=== PATIENT | female | born 1940 | race Caucasian/White ===

== ENCOUNTER 2018-02-12 19:50 | Inpatient (IN) | payer MEDICARE ==
[2018-02-12] MEDS ORDERED: SODIUM CHLORIDE 0.9% FLUSH 10 ML FLUSH IV FLUSH PRN (22:30)
[2018-02-12] MEDS ORDERED: ACETAMINOPHEN 325 MG TAB PO PRN (22:30)
[2018-02-12] MEDS ORDERED: MAGNESIUM HYDROXIDE SUSP 30 ML CUP PO PRN (22:30)
[2018-02-12] MEDS ORDERED: ONDANSETRON HCL 4 MG/2 ML VIAL IVP PRN (22:30)
[2018-02-12] MEDS ORDERED: NALOXONE HCL 0.4 MG/ML AMP IV PUSH PRN (22:30)
[2018-02-12] MEDS ORDERED: BISACODYL 10 MG SUPP RECTAL PRN (22:30)
[2018-02-12 22:33] VITALS: BP 143/70; PULSE 117; RESP 20; TEMP 97; O2SAT 100
[2018-02-12] MEDS ORDERED: IPRASOL INH (22:46)
[2018-02-12] MEDS ORDERED: NOVOLOGP2 SQ (22:46)
[2018-02-12] MEDS ORDERED: ENOX40P SQ (22:46)
[2018-02-12] MEDS ORDERED: SOLU500I IV (22:46)
[2018-02-12 23:00] VITALS: PULSE 119
[2018-02-12] MEDS ORDERED: RESP: ALBUTEROL 2.5 MG/IPRATROPIUM 0.5 MG NEB (PRN) NEB (23:00)
--- NOTE | 2018-02-12 23:07 | HHI.HP ---
HPI Service [facility] Hospitalists Primary Care Physician Unknown Admission Diagnosis Myasthenia Gravis . Diagnoses: (1) Myasthenia gravis Chief Complaint: Myasthenia gravis Travel History International Travel<30 Days: No Contact w/Intl Traveler <30 Da: No History of Present Illness Mrs. Vasquez is a 77 y/o female with a history of myasthenia gravis, congestive heart failure, atrial fibrillation, paroxysmal SVT, asthma, GERD, osteoporosis with compression fractures T5 through T8, and recent strep viridans bacteremia who presented to [facility] from [facility] where she has been hospitalized since 01/27/[address] Zacarias saw the patient at [facility] and recommended treatment with Rituxan. She was unable to get this treatment at that facility and was therefore transferred here under the care of the hospitalist team. The patient is seen in her hospital room. She denies any recent fever or chills. She reports progressively worsening symptoms of myasthenia gravis. Her conversation has to be cut short because she become short of breath with any extensive conversation. Oxygen saturation is 100 % on 3 liters NC. Review of Systems Except as stated in HPI: all other systems reviewed are Neg Past Family Social History Past Medical History Myasthenia gravis Congestive heart failure Atrial fibrillation with rapid ventricular response Paroxysmal SVT COPD/asthma GERD Osteoporosis with compression fracture T5 through T8 Strep viridans bacteremia Pneumonia . Past Surgical History Hysterectomy Bilateral cataract surgery . Reported Medications Reported Meds & Active Scripts Active Reported Pulmicort Respules (Budesonide) 0.5 Mg/2 Ml Neb 0.5 Mg NEB Q12HR NEB Spiriva Handihaler (Tiotropium Inh) 18 Mcg Cap 18 Mcg INH DAILY 1 capsule = 18 mcg Simethicone 125 Mg Cap 80 Mg PO TID PRN Protonix (Pantoprazole Sodium) 40 Mg Tab 40 Mg PO DAILY Florastor (Saccharomyces Boulardii) 250 Mg Cap 250 Mg PO BID Nystatin Liq 100,000 unit/ml Susp 5 Ml SWISH-SWAL QID Montelukast (Montelukast Sodium) 10 Mg Tab 10 Mg PO HS Metoprolol Tartrate 75 Mg Tab 75 Mg PO BID Cymbalta DR (Duloxetine HCl) 30 Mg Capdr 30 Mg PO DAILY Cardizem (Diltiazem HCl) 120 Mg Tab 120 Mg PO QID Diltiazem ER 12 HR (Diltiazem HCl) 120 Mg Caper 120 Mg PO Q6HR Digoxin 0.25 Mg Tab 0.25 Mg PO DAILY Aspirin 81 Low Dose (Aspirin) 81 Mg Chew 81 Mg CHEW DAILY Lovenox Inj (Enoxaparin Sodium) 40 Mg/0.4 Ml Syr 40 Mg SQ BID Novolog Inj (Insulin Aspart) 1,000 Unit/10 Ml Vial 0 SQ DIRECTED Sliding Scale as directed. Solu-Medrol Inj (Methylprednisolone Sodium Succinate) 500 Mg/4 Ml Inj 40 Mg IV BID Duoneb (Ipratropium-Albuterol Neb) 0.5-2.5 Mg/3 Ml Neb 1 Nebule INH Q6HR NEB . Allergies: Coded Allergies: azathioprine (Verified Allergy, Severe, 02/12/18) Painful rash all over face and body cephalexin (Verified Allergy, Severe, Rash, 02/12/18) rash all over face and chest Family History Son had cystic fibrosis, he is . Social History Tobacco: Remote history of smoking, quit 1979 Moved with her from [place] last month to be near her daughter -her has dementia and is in an SNF . Physical Exam Vital Signs Vital Signs Date Time Temp Pulse Resp B/P (MAP) Pulse Ox O2 Delivery O2 Flow Rate FiO2 02/12/18 22:33 97.0 117 20 143/70 (94) 100 Physical Exam CONSTITUTIONAL: This is a chronically ill-appearing elderly female patient, who becomes dyspneic with extended conversation. INTEGUMENTARY: Extensive bruising noted on all extremities. Cool and dry. HEAD: Atraumatic. Normocephalic. EYES: No scleral icterus. No injection or drainage. ENT: Nose without bleeding, purulent drainage. NECK: Trachea midline. No JVD. CARDIOVASCULAR: Regular rate and rhythm without murmurs, gallops, or rubs. RESPIRATORY: Lung sounds with diffuse coarse rhonchi throughout lung de jesus. GASTROINTESTINAL: Abdomen soft, non-tender, nondistended. No guarding. MUSCULOSKELETAL: Extremities without clubbing, cyanosis. No calf tenderness. NEUROLOGICAL: Normal speech. Patient is awake, alert, and oriented. Significant generalized weakness is noted. . Laboratory WBC 11.9, hemoglobin 8.5, hematocrit 29, platelets 180,000, sodium 133, potassium 4.8, BUN 31, creatinine 0.6, estimated GFR 87, glucose 153, AST 35, ALT 59, magnesium 2.2 on 02/12/2018 from records reviewed from [facility] . Imaging Chest x-ray personally reviewed from [facility] and lungs appear clear . Caprini VTE Risk Assessment Caprini VTE Risk Assessment: Mod/High Risk (score >= 2) Caprini Risk Assessment Model Point Value = 1 Point Value = 2 Point Value = 3 Point Value = 5 Age 41-60 Minor surgery BMI > 25 kg/m2 Swollen legs Varicose veins or History of unexplained or recurrent spontaneous Oral contraceptives or hormone replacement Sepsis (< 1 month) Serious lung disease, including pneumonia (< 1 month) Abnormal pulmonary function Acute myocardial infarction Congestive heart failure (< 1 month) History of inflammatory bowel disease Medical patient at bed rest Age 61-74 Arthroscopic surgery Major open surgery (> 45 min) Laparoscopic surgery (> 45 min) Malignancy Confined to bed (> 72 hours) Immobilizing plaster cast Central venous access Age >= 75 History of VTE Family history of VTE Factor V Leiden Prothrombin [id number] Lupus anticoagulant Anticardiolipin antibodies Elevated serum homocysteine Heparin-induced thrombocytopenia Other congenital or acquired thrombophilia Stroke (< 1 month) Elective arthroplasty Hip, pelvis, or leg fracture Acute spinal cord injury (< 1 month) Prophylaxis Regimen Total Risk Factor Score Risk Level Prophylaxis Regimen 0-1 Low Early ambulation 2 Moderate Order ONE of the following: *Sequential Compression Device (SCD) *Heparin 5000 units SQ BID 3-4 Higher Order ONE of the following medications: *Heparin 5000 units SQ TID *Enoxaparin/Lovenox 40 mg SQ daily (WT < 150 kg, CrCl > 30 mL/min) *Enoxaparin/Lovenox 30 mg SQ daily (WT < 150 kg, CrCl > 10-29 mL/min) *Enoxaparin/Lovenox 30 mg SQ BID (WT < 150 kg, CrCl > 30 mL/min) AND/OR *Sequential Compression Device (SCD) 5 or more Highest Order ONE of the following medications: *Heparin 5000 units SQ TID (Preferred with Epidurals) *Enoxaparin/Lovenox 40 mg SQ daily (WT < 150 kg, CrCl > 30 mL/min) *Enoxaparin/Lovenox 30 mg SQ daily (WT < 150 kg, CrCl > 10-29 mL/min) *Enoxaparin/Lovenox 30 mg SQ BID (WT < 150 kg, CrCl > 30 mL/min) AND *Sequential Compression Device (SCD) Assessment and Plan Problem List: (1) Myasthenia gravis ICD Code: G70.00 - Myasthenia gravis without (acute) exacerbation Assessment and Plan Mrs. Vasquez is a 77 y/o female with a history of myasthenia gravis, congestive heart failure, atrial fibrillation, paroxysmal SVT, asthma, GERD, osteoporosis with compression fractures T5 through T8, and recent strep viridans bacteremia who presented to [facility] from [facility] where she has been hospitalized since 01/27/[address] Zacarias saw the patient at [facility] and recommended treatment with Rituxan. She was unable to get this treatment at that facility and was therefore transferred here under the care of the hospitalist team. Myasthenia Gravis - consult Neurology - appreciate assistance - consult medical oncology - Dr. Zacarias saw the patient at [facility] and recommended treatment with Rituxan - RT to check NIF q4h - if < 20, may require intubation - NPO due to failed swallow evaluation - oral medications on hold for now - consult PT and ST - neuro checks and vital signs q4h Recent pneumonia COPD/Asthma - per records from [facility], completed treatment with Aztreonam and Doxycycline - CXR on admission personally reviewed and is without any acute abnormalities - supplemental oxygen titrated to maintain oxygen saturation > 92% - Duonebulizers q4h ATC and q4h PRN sob/wheezing - Continue Spiriva inhaler, Singulair, Pulmicort nebs, Solu-Medrol 40 mg IV q12h Atrial fibrillation, history of SVT - Metoprolol 5 mg IV PRN sustained HR > 110 - continuous cardiac telemetry to monitor for arrhythmias History of CHF - use caution with IV fluids - monitor I and Os and weights GERD - Protonix 40 mg IV q24h - switch to oral when able to swallow DVT prophylaxis - Lovenox 40 mg BID subq continued from [facility] . Discussed Condition With Dr. Garcia, RN, Respiratory Therapist, and patient . Physician Certification 2 Midnight Certification Type: Admission for Inpatient Services Order for Inpatient Services The services are ordered in accordance with Medicare regulations or non- Medicare payer requirements, as applicable. In the case of services not specified as inpatient-only, they are appropriately provided as inpatient services in accordance with the 2-midnight benchmark. Estimated LOS (days): 7 days is the estimated time the patient will need to remain in the hospital, assuming treatment plan goals are met and no additional complications. Post-Hospital Plan: Not yet determined Isabel Marion Feb 12, 2018 23:07
[2018-02-12] MEDS ORDERED: NYST1000 SWISH-SWAL (23:08)
[2018-02-12] MEDS ORDERED: SPIRCAP INH (23:08)
[2018-02-12] MEDS ORDERED: DILT120C9 PO (23:08)
[2018-02-12] MEDS ORDERED: SIME1CAP17 PO (23:08)
[2018-02-12] MEDS ORDERED: FLOR250C PO (23:08)
[2018-02-12] MEDS ORDERED: PROT40TA PO (23:08)
[2018-02-12] MEDS ORDERED: ASPI1CHW4 CHEW (23:08)
[2018-02-12] MEDS ORDERED: METO-426 PO (23:08)
[2018-02-12] MEDS ORDERED: DIGO0.25 PO (23:08)
[2018-02-12] MEDS ORDERED: CYMB30CA PO (23:08)
[2018-02-12] MEDS ORDERED: MONT10TA4 PO (23:08)
[2018-02-12] MEDS ORDERED: CARD120T4 PO (23:08)
[2018-02-12] MEDS ORDERED: BUDE.5I NEB (23:21)
[2018-02-12 23:44] VITALS: O2SAT 98
[2018-02-13] VITALS (14 sets, daily range): BP systolic 129–162; BP diastolic 65–104; PULSE 71–139; RESP 16–26; TEMP 97.6–98.4; O2SAT 96–100
--- NOTE | 2018-02-13 00:26 | RADRPT ---
EXAM DATE/TIME: 02/13/2018 00:12 [place] COMPARISON: No previous studies available for comparison. INDICATIONS : New onset of congestion. MEDICAL HISTORY : None. SURGICAL HISTORY : None. ENCOUNTER: Initial ACUITY: 1 day PAIN SCORE: 0/10 LOCATION: Bilateral chest FINDINGS: A single view of the chest demonstrates the lungs to be symmetrically aerated without evidence of mas s, infiltrate or effusion. The cardiomediastinal contours are unremarkable. Osseous structures are intact. Scoliotic and degenerative spine. Left-sided PICC line with the tip at the mid right atrium. CONCLUSION: No acute disease. Wilbur Turner Jr., MD on February 13, 2018 at 0:24 Board Certified Radiologist. This report was verified electronically.
[2018-02-13] MEDS: RESP: ALBUTEROL 2.5 MG/IPRATROPIUM 0.5 MG NEB (SCH) NEB ×5 (00:38→19:45)
[2018-02-13] MEDS ORDERED: SODIUM CHLORIDE 0.9% FLUSH 10 ML FLUSH IVF PRN ×2 (01:00)
[2018-02-13] MEDS: PICC PRN Heparin 100 units/ml Lock Flush IV FLUSH (01:00)
[2018-02-13] MEDS ORDERED: PICC PRN After Blood Draw NS Lock Flush IV FLUSH (01:00)
[2018-02-13] MEDS ORDERED: SODIUM CHLORIDE 0.9% FLUSH 10 ML FLUSH IV FLUSH PRN ×2 (01:00)
[2018-02-13 01:51] LABS: AUTOMATED NEUTROPHIL # 10.8 TH/MM3 (1.8-7.7); BASOPHIL % 0.1 % (0.0-2.0); HEMATOCRIT 26.9 % (35.0-46.0); HEMOGLOBIN 8.1 GM/DL (11.6-15.3); LYMPH % 2.2 % (9.0-44.0); LYMPHOCYTE # 0.3 TH/MM3 (1.0-4.8); MEAN CELL VOLUME 71.8 FL (80.0-100.0); MEAN CORPUSCULAR HEMOGLOBIN 21.7 PG (27.0-34.0); MEAN CORPUSCULAR HGB CONC 30.3 % (32.0-36.0); MEAN PLATELET VOLUME 8.8 FL (7.0-11.0); MONO % 2.6 % (0.0-8.0); MONOCYTE # 0.3 TH/MM3 (0-0.9); NEUT % 95.1 % (16.0-70.0); PLATELET COUNT 118 TH/MM3 (150-450); RED BLOOD COUNT 3.74 MIL/MM3 (4.00-5.30); RED CELL DISTRIBUTION WIDTH 22.6 % (11.6-17.2); WHITE BLOOD COUNT 11.4 TH/MM3 (4.0-11.0)
[2018-02-13] MEDS ORDERED: HYDROCORTISONE SOD SUCCINATE IV SCH (02:15)
[2018-02-13 02:30] LABS: ALBUMIN 2.2 GM/DL (3.4-5.0); ALT (GPT) 46 U/L (10-53); AST (GOT) 30 U/L (15-37); BICARBONATE 25.9 MEQ/L (21.0-32.0); BLOOD UREA NITROGEN 28 MG/DL (7-18); CALCIUM 8.1 MG/DL (8.5-10.1); CHLORIDE 108 MEQ/L (98-107); CREATININE 0.47 MG/DL (0.50-1.00); GLOMERULAR FILTRATION RATE 128 ML/MIN (>89); GLUCOSE,RANDOM 188 MG/DL (74-106); SODIUM (NA) 141 MEQ/L (136-145)
[2018-02-13 02:33] LABS: ALKALINE PHOSPHATASE 49 U/L (45-117); TOTAL BILIRUBIN ADULT 0.4 MG/DL (0.2-1.0); TOTAL PROTEIN 5.4 GM/DL (6.4-8.2)
[2018-02-13] MEDS: METOPROLOL TARTRATE 5 MG/5 ML VIAL IV PUSH PRN ×6 (02:36→09:00)
[2018-02-13 02:46] LABS: CORRECTED NUCLEATED RBC 2 /100 WBC (0-0); LYMPHOCYTES 1 % (9-44); MONOCYTES 2 % (0-8); NEUTROPHIL # MANUAL DIFF 11.1 TH/MM3 (1.8-7.7); NUCLEATED RED BLOOD CELL 2 (0-0); POLYS (SEG NEUTROPHILS) 97 % (16-70)
[2018-02-13 02:47] LABS: OVALOCYTES 1+ (NORMAL); TEARDROP RBCS 1+ (NORMAL)
[2018-02-13] MEDS ORDERED: methylPREDNISolone SOD SUCC 40 MG/1 ML VIAL IV PUSH SCH (03:00)
[2018-02-13] MEDS: PANTOPRAZOLE SODIUM 40 MG VIAL IV PUSH SCH (03:40)
[2018-02-13] MEDS: DILTIAZEM HCL 60 MG TAB PO SCH ×3 (04:10→17:58)
[2018-02-13] MEDS ORDERED: DILTIAZEM 120 MG PO SCH ×2 (06:00→09:00)
[2018-02-13] MEDS: RESP: BUDESONIDE 0.5 MG/2 ML NEB NEB SCH ×2 (08:58→19:45)
[2018-02-13] MEDS ORDERED: NYSTATIN SUSP 500,000 U/5 ML CUP SWISH-SWAL SCH (09:00)
[2018-02-13] MEDS ORDERED: DIGOXIN 0.25 MG TAB PO SCH (09:00)
[2018-02-13] MEDS ORDERED: SODIUM CHLORIDE 0.9% FLUSH 10 ML FLUSH IV FLUSH SCH (09:00)
[2018-02-13] MEDS ORDERED: ASPIRIN 81 MG CHEW TAB CHEW SCH (09:00)
[2018-02-13] MEDS ORDERED: ENOXAPARIN SODIUM 40 MG/0.4 ML SYRINGE SQ SCH (09:00)
[2018-02-13] MEDS ORDERED: METOPROLOL TARTRATE 25 MG TAB PO SCH (09:00)
[2018-02-13] MEDS ORDERED: DULoxetine HCl DR 30 MG CAP PO SCH (09:00)
[2018-02-13] MEDS ORDERED: DOCUSATE SODIUM 50 MG/SENNA 8.6 MG TAB PO SCH (09:00)
[2018-02-13] MEDS ORDERED: SODIUM CHLORIDE 0.9% FLUSH 10 ML FLUSH IVF SCH (09:00)
[2018-02-13] MEDS: TIOTROPIUM BROMIDE 18 MCG INH INH SCH (09:32)
[2018-02-13] MEDS: PICC Daily Heparin 100 unit/mL Lock Flush IV FLUSH SCH (09:35)
--- NOTE | 2018-02-13 09:48 | MB ---
cc: Ryan Teixeira MD DATE: 02/13/2018 HISTORY OF PRESENT ILLNESS: This is a 77-year-old seen in consultation for neurological care. She describes a history of myasthenia gravis. She provides some information. She tells me she has been taking prednisone 25 mg a day. She takes what appears to be IVIG every 3 weeks for the myasthenia. She described that she took IVIG for 5 days last week. She came in yesterday from [facility]. It appears that the oncologist brought her in for Rituxan for the underlying myasthenia gravis. She had been at the [facility] since 01/27/2018 for pneumonia. The patient tells me that she took Mestinon years ago. She has some shortness of breath and it is difficult to get more detailed history from her. PAST MEDICAL HISTORY: Other medical problems include congestive heart failure, atrial fibrillation, COPD, compression fractures T5 through T8 and a recent sepsis. NEUROLOGIC EXAMINATION: On exam, the patient was awake, reasonably alert, grossly oriented. She knows the place, the age and had bit of difficulty with the date. She provided some background information and tells me her was transferred to our hospital here recently and that is the reason they moved from [place], [place]. She has full ocular movements. Visual de jesus were full. Her speech was appropriate except for the difficulty with her respiration. 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 She is able to raise the legs while lying in bed. The muscle stretch reflexes were absent. She opposes rather mild resistance only, diffusely. ASSESSMENT: Long history of myasthenia gravis. She may have received IVIG in 5 days last week at the [facility]. H and P indicates she was transferred here for Rituxan, apparently for the myasthenia treatment. We will review additional records as they become available. Evidently, she needs multiple level medical care. Unclear if she is still septic or not. We will await for the oncology evaluation input. Her labs were reviewed. Respiratory treatment in progress at the time I saw the patient. She is on a rather large amount of medications including hydrocortisone 40 mg IV b.i.d. including Solu-Medrol 40 mg q. 12 hours, metoprolol, Lovenox 40 mg b.i.d., Cymbalta 30 mg a day, diltiazem, digoxin, baby aspirin, Protonix 40 mg q. 12 hours. I will follow the neurological care. Thank you for asking us to assist in her care. Ryan Teixeira MD OFC/TL , 09:15 AM , 09:48 AM
[2018-02-13] MEDS ORDERED: RESP: LEVALBUTEROL HYDROCHLORIDE 1.25 MG/3 ML NEB (PRN) NEB (11:00)
[2018-02-13] MEDS ORDERED: DILTIAZEM INJ 125 MG in SODIUM CHLORIDE 0.9% INJ 100 ML IV PRN (11:30)
[2018-02-13] MEDS: methylPREDNISolone SOD SUCC 125 MG/2 ML VIAL IV PUSH SCH ×2 (11:38→17:50)
[2018-02-13] MEDS ORDERED: ESMOLOL DRIP INJ PREMIX 250 ML IV PRN (12:00)
--- NOTE | 2018-02-13 12:55 | PD.CONS ---
History of Present Illness Service Hematology/Oncology Consult Requested By Hospitalist Service Reason for Consult Patient with myasthenia gravis exacerbation; possible need for plasma exchange therapy versus initiation of immune suppression therapy with rituximab. Primary Care Physician Unknown Diagnoses: (1) Myasthenia gravis History of Present Illness Chief complaint: Generalized weakness. Cough. Myasthenia exacerbation. History of presenting illness: Ms. Vasquez is a very pleasant 77-year-old female, she recently relocated from [place], [place] to the [facility] to be closer to her daughter. The patient is and presently lives at an assisted living facility with her elderly who is also disabled and chronically ill. The patient was initially seen by me on 02/12/2018 as an inpatient consultation at [facility]. I had been asked to see the patient on recommendations of a "tele neurologist " who had evaluated this patient via an Internet connection and video connection to assess the patient's myasthenia gravis and had recommended on the video conference call that the patient received rituximab therapy for management of myasthenia gravis. The patient has had a history of myasthenia gravis dating back to the , per the patient and her daughter the patient has been on various lines of treatment including Mestinon in the which had apparently stopped being effective, the patient subsequently was on corticosteroids with prednisone for many years and then was initiated on Imuran which he had an allergic reaction and this could not be continued beyond 2 doses. For the past several years the patient had been on IVIG infusions every 3 weeks under the care of her neurologist in [place]. The patient relocated to [place] a few weeks ago and since then has spent most of her time at [facility] as an inpatient; she was hospitalized on 01/27/2018 with complaints of difficulty breathing, cough and chills. She was treated for sepsis and spent quite some time in the critical care unit on a BiPAP machine. She had blood cultures drawn on 2017 at [facility] which were positive for Streptococcus viridans, she had been on broad-spectrum antibiotics. The patient was assessed to be a myasthenia gravis exacerbation and was initiated on high-dose corticosteroids and also received IVIG infusions I believe for 5 days in a row last week. Her symptoms did not improve significantly and a "tele neurologist "was consulted who recommended Rituxan infusions. I was therefore asked to see the patient. Transfer was recommended for a formal evaluation by a neurologist for appropriate management of myasthenia gravis. The patient was therefore transferred to [facility] in [place]. She came in last night and this morning was transferred to the critical care unit for management of tachycardia and respiratory difficulty. She is now on a BiPAP and is receiving esmolol infusion for management of tachycardia. She has been evaluated by neurology and further recommendations are pending pending stabilization of her cardiopulmonary status. Additional hematologic issues include anemia. Review of Systems Constitutional: COMPLAINS OF: Fatigue, Chills, Dizziness, Change in appetite ( Decreased appetite), DENIES: Diaphoretic episodes, Fever, Weight gain, Weight loss, Night Sweats Endocrine: DENIES: Abnorml menstrual pattern, Heat/cold intolerance, Polydipsia , Polyuria, Polyphagia Eyes: COMPLAINS OF: Blurred vision, DENIES: Diplopia, Eye inflammation, Eye pain, Vision loss, Photosensitivity, Double Vision Ears, nose, mouth, throat: DENIES: Tinnitus, Hearing loss, Vertigo, Nasal discharge, Oral lesions, Throat pain, Hoarseness, Ear Pain, Running Nose, Epistaxis, Sinus Pain, Toothache, Odynophagia Respiratory: COMPLAINS OF: Cough, Sputum production, Shortness of breath, DENIES: Apneas, Snoring, Wheezing, Hemoptysis Cardiovascular: COMPLAINS OF: Palpitations, Dyspnea on Exertion, DENIES: Chest pain, Syncope, PND, Lower Extremity Edema, Orthopnea, Claudication Gastrointestinal: COMPLAINS OF: Anorexia, DENIES: Abdominal pain, Black stools , Bloody stools, Constipation, Diarrhea, Nausea, Vomiting, Difficulty Swallowing Genitourinary: DENIES: Abnormal vaginal bleeding, Dysmenorrhea, Dyspareunia, Sexual dysfunction, Urinary frequency, Urinary incontinence, Urgency, Hematuria , Dysuria, Nocturia, Vaginal discharge Musculoskeletal: COMPLAINS OF: Joint pain, Muscle aches, Joint Swelling, Back pain, Neck pain, DENIES: Stiffness Integumentary: DENIES: Abnormal pigmentation, Pruritus, Rash, Nail changes, Breast masses, Breast skin changes, Nipple discharge Hematologic/lymphatic: COMPLAINS OF: Bruising, DENIES: Lymphadenopathy Immunologic/allergic: DENIES: Eczema, Urticaria Neurologic: COMPLAINS OF: Localized weakness, Paresthesias, Tremor, Poor Balance, DENIES: Abnormal gait, Headache, Seizures, Speech Problems Psychiatric: COMPLAINS OF: Anxiety, Confusion, DENIES: Mood changes, Depression , Hallucinations, Agitation, Suicidal Ideation, Homicidal Ideation, Delusions Except as stated in HPI: all other systems reviewed are Neg Past Family Social History Allergies: Coded Allergies: azathioprine (Verified Allergy, Severe, 02/12/18) Painful rash all over face and body cephalexin (Verified Allergy, Severe, Rash, 02/12/18) rash all over face and chest Past Medical History Chronic corticosteroid therapy Osteoarthritis Osteoporosis Compression fractures of the vertebral bodies Anemia COPD history of SVT Past Surgical History Kyphoplasty vertebral bodies for compression fractures. Active Ordered Medications Tylenol 650 mg p.o. every 4 as needed for fever Dulcolax suppository 10 mg per rectum as needed for constipation Pulmicort 0.5 mg nebulized every 12 hours Digoxin 0.25 mg p.o. daily Diltiazem 120 mill grams p.o. every 6 hours Senna Colace 1 tablet p.o. twice daily Duloxetine 30 mg p.o. daily Lovenox 40 mg subcu twice daily Lactulose 30 mL p.o. daily as needed for constipation Leave albuterol 1-0.25 mg nebulized every 4 hours needed for shortness of breath /wheezing Methylprednisolone 125 mg IV every 6 hours [place] cast 10 mg p.o. nightly Metoprolol 5 mg's IV every 4 hours as needed for tachycardia. Nystatin 5 mL swish and swallow 4 times daily. Pantoprazole 40 mg IV every 24 hours. Zofran 4 mg's IV every 6 hours needed for nausea and vomiting Spiriva 18 mcg inhaled daily Family History Reviewed and documented on my initial consultation note dated 02/12/2018 performed at [facility]. No definite oncologic diagnoses noted. 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 She is , she has adult children. She was a former smoker but has not smoked in more than 30 years. She denies alcohol abuse. She currently lives at an assisted living facility. Physical Exam Vital Signs Vital Signs Date Time Temp Pulse Resp B/P (MAP) Pulse Ox O2 Delivery O2 Flow Rate FiO2 02/13/18 12:18 142 173/94 02/13/18 12:05 98 35 02/13/18 08:58 100 Nasal Cannula 3.00 02/13/18 08:00 112 02/13/18 07:49 98.1 115 20 155/65 (95) 96 02/13/18 04:00 98.0 117 16 129/77 (94) 98 02/13/18 04:00 112 02/12/18 23:44 98 Nasal Cannula 3.00 02/12/18 23:00 119 02/12/18 22:33 97.0 117 20 143/70 (94) 100 Physical Exam GENERAL: Elderly lady, chronically ill-appearing, sitting up in the ICU bed, she has a BiPAP mask on. She appears to be in some respiratory distress. SKIN: Multiple ecchymotic type lesions noted over the upper extremities and lower extremities, she has thin skin with peeling in various points. HEAD: Atraumatic. Normocephalic. No temporal or scalp tenderness. EYES: Pupils equal round and reactive. Extraocular motions intact. No scleral icterus. No injection or drainage. ENT: Nose without bleeding, purulent drainage or septal hematoma. Throat without erythema, tonsillar hypertrophy or exudate. Uvula midline. Airway patent. NECK: Trachea midline. No JVD or lymphadenopathy. Supple, nontender, no meningeal signs. CARDIOVASCULAR: Irregular, tachycardic. RESPIRATORY: Good air movement bilaterally, poor respiratory effort, coarse conducted upper airway sounds. On BiPAP, GASTROINTESTINAL: Nondistended no palpable organ enlargement. Protuberant belly , soft, nontender MUSCULOSKELETAL: Generally decreased muscle mass, generally decreased motor strength. Atrophy. Neurologic: Generally weak, decreased muscle mass, tone and strength. She has at best 3 x 5 strength of the upper and lower extremity's. Extremities: Are cool and dry to the touch. Pulses: Faint/thready peripheral pulses on bilateral feet and in the radial pulses. Laboratory Laboratory Tests Test 02/13/18 01:35 02/13/18 09:45 White Blood Count 11.4 Red Blood Count 3.74 Hemoglobin 8.1 Hematocrit 26.9 Mean Corpuscular Volume 71.8 Mean Corpuscular Hemoglobin 21.7 Mean Corpuscular Hemoglobin Concent 30.3 Red Cell Distribution Width 22.6 Platelet Count 118 Mean Platelet Volume 8.8 Neutrophils (%) (Auto) 95.1 Lymphocytes (%) (Auto) 2.2 Monocytes (%) (Auto) 2.6 Eosinophils (%) (Auto) 0.0 Basophils (%) (Auto) 0.1 Neutrophils # (Auto) 10.8 Lymphocytes # (Auto) 0.3 Monocytes # (Auto) 0.3 Eosinophils # (Auto) 0.0 Basophils # (Auto) 0.0 CBC Comment AUTO DIFF Differential Total Cells Counted 100 Neutrophils % (Manual) 97 Lymphocytes % 1 Monocytes % 2 Neutrophils # (Manual) 11.1 Nucleated Red Blood Cells 2 Differential Comment FINAL DIFF MANUAL Platelet Estimate LOW Platelet Morphology Comment NORMAL Tear Drop Cells 1+ Ovalocytes 1+ Blood Urea Nitrogen 28 Creatinine 0.47 Random Glucose 188 Total Protein 5.4 Albumin 2.2 Calcium Level 8.1 Alkaline Phosphatase 49 Aspartate Amino Transf (AST/SGOT) 30 Alanine Aminotransferase (ALT/SGPT) 46 Total Bilirubin 0.4 Sodium Level 141 Potassium Level 4.4 Chloride Level 108 Carbon Dioxide Level 25.9 Anion Gap 7 Estimat Glomerular Filtration Rate 128 Blood Gas Puncture Site RT RADIAL Blood Gas Patient Temperature 98.6 Blood Gas HCO3 27 Blood Gas Base Excess 3.9 Blood Gas Oxygen Saturation 96 Arterial Blood pH 7.50 Arterial Blood Partial Pressure CO2 36 Arterial Blood Partial Pressure O2 101 Arterial Blood Oxygen Content 11.1 Arterial Blood Carboxyhemoglobin 1.9 Arterial Blood Methemoglobin 1.2 Blood Gas Hemoglobin 8.1 Oxygen Delivery Device NASAL CANNULA Blood Gas Liter Flow 3 Result Diagram: 02/13/1813402/13/18134 Assessment and Plan Assessment and Plan Ms. Vasquez is a 77-year-old female with a long-standing history of myasthenia gravis, she has extensive complications of long-term therapy with corticosteroids as well. She has been hospitalized for the past 2 weeks at [facility] with difficulty breathing, cough, sepsis and myasthenia exacerbation. The patient had been treated with high-dose corticosteroids and IVIG while at [facility]. Her symptoms are only modestly improved. She was evaluated by a "Tele Neurology" service which is apparently a service provided by neurologist who appear on a video conference line and clinically evaluated patient over the Internet without actually examining the patient. At any rate 1 of these specialists evaluated this lady and advised she be treated with rituximab for management of her myasthenia exacerbation. I was asked to see the patient yesterday at [facility] to make available rituximab infusion. On clinical examination the patient appeared to be quite frail, she clearly was having difficulty coughing, she was having difficulty swallowing and had extremely weak motor strength in the upper and lower extremities. It was my assessment that she required treatment other than rituximab to help manage her short-term weakness and issues related with myasthenia gravis. Typically I have been asked in situations like this to provide plasma exchange therapy to immediately help relieve weakness. The patient was subsequently transferred to [facility] for evaluation by neurologist in a formal and traditional sense. She developed difficulty breathing and tachycardia following the transfer and is now in the critical care unit. I did talk to our on-call neurologist Dr. Teixeira who saw the patient earlier today. Plan: 1. Myasthenia gravis: Await additional recommendations from neurology. Hematology service will assist with arranging plasma exchange therapy if this is required. We will also help arrange rituximab infusion of this is assessed to be a reasonable therapeutic intervention by neurology. 2. Anemia: Likely related chronic illness, critical illness. Baseline iron studies will be ordered as well as folic acid and vitamin B12 levels. Oncology/hematology will follow along with you. Haile Zacarias MD Feb 13, 2018 12:55
--- NOTE | 2018-02-13 13:42 | PD.CONS ---
[facility] Service Critical Care Medicine Consult Requested By Dr. Riccardo Comer Reason for Consult Respiratory insufficiency, the setting of myasthenia gravis Primary Care Physician Unknown History of Present Illness This is a 77-year-old female [facility] with complaints of dyspnea. The patient medical history significant for myasthenia gravis since the and was cared for by her senior marketing specialist in [facility] prior to relocating recently to [place]. Her medical history is significant for chronic steroid therapy with prednisone and then subsequently placed on IVIG infusions every 3 weeks secondary to nonresponsiveness of steroid therapy. On 01 27 the patient was admitted to [facility] and treated for sepsis with broad- spectrum antibiotics, which have now been completed. Blood cultures have revealed Streptococcus viridans. The patient continued care at [place] seeing a telemetry neurologist and hematology oncology was consulted, Dr. Zacarias. It was recommended that the patient receive Rituxan and be evaluated formally by a neurologist. Patient was transferred to [facility]. The patient has a history of A. fib RVR, and home medications include metoprolol, digoxin, and Cardizem. These medications were stopped in the last 24 hours secondary to the patient experiencing dysphagia. Patient subsequently went into A. fib RVR early this a.m., heart rate 150's and transferred to ICU. Stat ABG was obtained. critical care medicine was consulted. Review of Systems ROS Limitations: Clinical Condition, Altered Mental Status Past Family Social History Allergies: Coded Allergies: azathioprine (Verified Allergy, Severe, 02/12/18) Painful rash all over face and body cephalexin (Verified Allergy, Severe, Rash, 02/12/18) rash all over face and chest Past Medical History COPD, pneumonia, A. fib RVR, myasthenia gravis Past Surgical History Unable to obtain secondary to medical condition Reported Medications Reviewed Active Ordered Medications Current Medications Medications (Trade) Dose Ordered Sig/Melissa Route Start Time Stop Time Status Last Admin (Tylenol) 650 mg Q4H PRN PO 02/12/18 22:30 (Zofran Inj) 4 mg Q6H PRN IVP 02/12/18 22:30 (Narcan Inj) 0.4 mg UNSCH PRN IV PUSH 02/12/18 22:30 (Kathryn-Colace) 1 tab BID PO 02/13/18 09:00 Future Hold (Milk Of Magnesia Liq) 30 ml Q12H PRN PO 02/12/18 22:30 (Senokot) 17.2 mg Q12H PRN PO 02/12/18 22:30 (Dulcolax Supp) 10 mg DAILY PRN RECTAL 02/12/18 22:30 (Lactulose Liq) 30 ml DAILY PRN PO 02/12/18 22:30 (NS Flush) 5 ml UNSCH PRN IV FLUSH 02/13/18 01:00 (Heparin Central Flush) 200 units DAILY IV FLUSH 02/13/18 09:00 02/13/18 09:35 (NS Flush) 5 ml UNSCH PRN IV FLUSH 02/13/18 01:00 (Heparin Central Flush) 200 units UNSCH PRN IV FLUSH 02/13/18 01:00 02/13/18 01:00 (NS Flush) 5 ml UNSCH PRN IV FLUSH 02/13/18 01:00 (Aspirin Chew) 81 mg DAILY CHEW 02/13/18 09:00 Future Hold (Pulmicort Respule Neb) 0.5 mg Q12HR NEB NEB 02/13/18 08:00 02/13/18 08:58 (Lanoxin) 0.25 mg DAILY PO 02/13/18 09:00 Future Hold (Cymbalta Dr) 30 mg DAILY PO 02/13/18 09:00 Future Hold (Lovenox Inj) 40 mg BID SQ 02/13/18 09:00 02/13/18 07:49 (Lopressor) 75 mg BID PO 02/13/18 09:00 Future Hold (Singulair) 10 mg HS PO 02/13/18 21:00 (Mycostatin Liq) 5 ml QID SWISH-SWAL 02/13/18 09:00 Future Hold (Spiriva Inh) 18 mcg DAILY INH 02/13/18 09:00 02/13/18 09:32 (Lopressor Inj) 5 mg Q5M PRN IV PUSH 02/13/18 02:15 02/13/18 09:00 (Cardizem) 120 mg Q6HR PO 02/13/18 06:00 02/13/18 11:38 (Protonix Inj) 40 mg Q24H IV PUSH 02/13/18 03:00 02/13/18 03:40 (SoluMEDROL INJ) 125 mg Q6HR IV PUSH 02/13/18 09:45 02/13/18 11:38 (Xopenex Neb) 1.25 mg Q4HR NEB PRN NEB 02/13/18 11:00 Family History Unable to obtain secondary to medical condition Social History Patient is , is in a SNF secondary to dementia. Physical Exam Vital Signs Vital Signs Date Time Temp Pulse Resp B/P (MAP) Pulse Ox O2 Delivery O2 Flow Rate FiO2 02/13/18 12:55 101 168/81 02/13/18 12:18 142 173/94 02/13/18 12:05 98 35 02/13/18 08:58 100 Nasal Cannula 3.00 02/13/18 08:00 112 02/13/18 07:49 98.1 115 20 155/65 (95) 96 02/13/18 04:00 98.0 117 16 129/77 (94) 98 02/13/18 04:00 112 02/12/18 23:44 98 Nasal Cannula 3.00 02/12/18 23:00 119 02/12/18 22:33 97.0 117 20 143/70 (94) 100 Physical Exam GENERAL: This is a well-developed well-nourished and mild distress SKIN: Warm and dry. Multiple ecchymotic bruising bilateral arms and skin tears dressings intact HEAD: Atraumatic. Normocephalic. EYES: Pupils equal and round. 2 mm and brisk. no scleral icterus. No injection or drainage. ENT: No nasal bleeding or discharge. Mucous membranes pink and moist. NECK: Trachea midline. No JVD. CARDIOVASCULAR: Irregular rate, irregular rhythm. RESPIRATORY: No accessory muscle use. Clear to auscultation. Breath sounds equal bilaterally. Respiratory rate 19 however patient unable to complete sentences ABG within normal limits. Placed on BiPAP 10/5/.30 GASTROINTESTINAL: Abdomen soft, non-tender, nondistended. No guarding. MUSCULOSKELETAL: Extremities without clubbing, cyanosis, or edema. No obvious deformities. NEUROLOGICAL: GCS 14 .awake and alert. RASS 0. No gross focal/sensory deficits. Follows commands in all 4 extremities. Laboratory Laboratory Tests Test 02/13/18 01:35 02/13/18 09:45 White Blood Count 11.4 Red Blood Count 3.74 Hemoglobin 8.1 Hematocrit 26.9 Mean Corpuscular Volume 71.8 Mean Corpuscular Hemoglobin 21.7 Mean Corpuscular Hemoglobin Concent 30.3 Red Cell Distribution Width 22.6 Platelet Count 118 Mean Platelet Volume 8.8 Neutrophils (%) (Auto) 95.1 Lymphocytes (%) (Auto) 2.2 Monocytes (%) (Auto) 2.6 Eosinophils (%) (Auto) 0.0 Basophils (%) (Auto) 0.1 Neutrophils # (Auto) 10.8 Lymphocytes # (Auto) 0.3 Monocytes # (Auto) 0.3 Eosinophils # (Auto) 0.0 Basophils # (Auto) 0.0 CBC Comment AUTO DIFF Differential Total Cells Counted 100 Neutrophils % (Manual) 97 Lymphocytes % 1 Monocytes % 2 Neutrophils # (Manual) 11.1 Nucleated Red Blood Cells 2 Differential Comment FINAL DIFF MANUAL Platelet Estimate LOW Platelet Morphology Comment NORMAL Tear Drop Cells 1+ Ovalocytes 1+ Blood Urea Nitrogen 28 Creatinine 0.47 Random Glucose 188 Total Protein 5.4 Albumin 2.2 Calcium Level 8.1 Alkaline Phosphatase 49 Aspartate Amino Transf (AST/SGOT) 30 Alanine Aminotransferase (ALT/SGPT) 46 Total Bilirubin 0.4 Sodium Level 141 Potassium Level 4.4 Chloride Level 108 Carbon Dioxide Level 25.9 Anion Gap 7 Estimat Glomerular Filtration Rate 128 Blood Gas Puncture Site RT RADIAL Blood Gas Patient Temperature 98.6 Blood Gas HCO3 27 Blood Gas Base Excess 3.9 Blood Gas Oxygen Saturation 96 Arterial Blood pH 7.50 Arterial Blood Partial Pressure CO2 36 Arterial Blood Partial Pressure O2 101 Arterial Blood Oxygen Content 11.1 Arterial Blood Carboxyhemoglobin 1.9 Arterial Blood Methemoglobin 1.2 Blood Gas Hemoglobin 8.1 Oxygen Delivery Device NASAL CANNULA Blood Gas Liter Flow 3 Result Diagram: 02/13/18 0135 02/13/18 0135 Imaging Last Impressions Chest X-Ray 02/12/18 0000 Signed Impressions: Service Date/Time: Tuesday, February 13, 2018 00:12 - CONCLUSION: No acute disease. Wilbur Turner Jr., MD Septic Shock Reassessment Septic shock perfusion: reassessment completed Assessment and Plan Problem List: (1) Pneumonia ICD Code: J18.9 - Pneumonia, unspecified organism Status: Acute (2) COPD (chronic obstructive pulmonary disease) ICD Code: J44.9 - Chronic obstructive pulmonary disease, unspecified Status: Chronic (3) Myasthenia gravis ICD Code: G70.00 - Myasthenia gravis without (acute) exacerbation Status: Chronic (4) Current chronic use of systemic steroids ICD Code: Z79.52 - FPC (current) use of systemic steroids (5) Anemia ICD Code: D64.9 - Anemia, unspecified Assessment and Plan Assessment This is a 77-year-old with a history of myasthenia gravis, recent/current history of pneumonia, with increased work of breathing. Patient is at risk for intubation. Admit to ICU. Plan by systems: Neurologic: Myasthenia gravis Altered mental status Previously on hydrocortisone twice daily discontinued .02/13 patient on methylprednisolone 125 mg 4 times daily Possible tentative plan for plasmapheresis in the near future Neurology consulted-await recommendations Patient on IVIG therapy for the last 3 weeks at [facility] Respiratory: Acute respiratory insufficiency secondary to myasthenia gravis Maintain O2 sat greater than 92% ON 3 LPM N/C -ABG 7.5/36/101/27/3.9 Repeat ABG this afternoon Apply BiPAP 10/5/0.30 Schedule duo nebs every 6 hours and every 2 hours as needed Continue home medication Singulair and Spiriva Cardiovascular: History of A. fib RVR A. fib RVR History of CHF Maintain MAP greater than 65 Patient previously on home medications to include Cardizem 120 mg every 6 hours , metoprolol 75 mg twice daily, digoxin-rate control medications were all placed on hold in the last 24 hours secondary to n.p.o. status-subsequent conversion to A. fib RVR Begin esmolol infusion. Hospital does not have Cardizem infusion secondary to nationwide shortage of medication. Obtain echo Renal: No indication for Maria catheter at this time -- Strict I/Os FEN/GI: Dysphagia Monitor electrolytes per ICU protocol Maintain NPO status-patient is at risk for intubation Failed formal swallow study NS @ 30cc/hr-gentle hydration Heme/ID: Leukocytosis Sepsis ? Hematology oncology - Dr. Zacarias following Tentative plan for possible plasmapheresis upon stabilization of hemodynamic profile Repeat blood cultures 2 obtain urine culture,influenza, legionella, and Strep pneumo antigens Per records patient treated with empiric antibiotics at [facility]-aztreonam and doxycycline Endocrine: Glucose monitoring per ICU protocol -- SSI Prophylaxis: GI Prophylaxis Protonix DVT Prophylaxis -- SCDs Patient previously on enoxaparin 40 mg twice daily-review of records did not reveal recurrence of emboli will change to daily dosing of enoxaparin 40 mg Lines: Peripheral IVs 2 Dispo: my billing statement This patient remains critically ill with one or more organ systems which are or may become a threat to life. I have spent in excess of 47 minutes discontinuously in the care and management of this patient. This time is exclusive of procedures, and includes, but is not limited to, evaluation of the patient, review of the medical record, discussions with family, consultants, nursing staff, or respiratory therapy, and documentation in the medical record. Code Status Full Discussed Condition With Dr. Zacarias, Patient's family and SONOGRAM TECHNICIAN at bedside (Nemo Williamson MD Feb 13, 2018 13:42
[2018-02-13 13:44] LABS: % SATURATION IRON PROFILE 5.8 % (20-50); C-REACTIVE PROTEIN 0.48 MG/DL (0.00-0.30); IRON (FE) 18 MCG/DL (50-170); TOTAL IRON BINDING CAPACITY 312 MCG/DL (250-450)
[2018-02-13 14:09] LABS: FERRITIN 122 NG/ML (8-252); FOLATE 6.3 NG/ML (3.1-17.5)
[2018-02-13] MEDS ORDERED: GLUCAGON 1 MG/ML VIAL OTHER PRN (14:30)
[2018-02-13] MEDS ORDERED: DEXTROSE 50% IN WATER 50 ML VIAL(D50) IV PUSH PRN (14:30)
[2018-02-13] MEDS: SODIUM CHLOR 0.9% 1000 ML INJ 1,000 ML IV SCH (14:42)
[2018-02-13] MEDS ORDERED: CHLORHEXIDINE GLUCONATE 2 % 1 PACK (2 CLOTHS)(extra cloths) TOPICAL PRN (16:00)
[2018-02-13] MEDS: ESMOLOL DRIP INJ PREMIX 250 ML IV PRN ×2 (16:32→20:23)
--- NOTE | 2018-02-13 16:35 | HHI.PR ---
Subjective Remarks This morning patient related that this was the worst episode of myasthenia gravis exacerbation that she has had in her life. She was unsure whether or not she wanted to be intubated. Her complaint was difficulty breathing. Objective Vitals Vital Signs Date Time Temp Pulse Resp B/P (MAP) Pulse Ox O2 Delivery O2 Flow Rate FiO2 02/13/18 15:16 96 35 02/13/18 12:55 101 168/81 02/13/18 12:18 142 173/94 02/13/18 12:05 98 35 02/13/18 12:00 98.1 139 18 162/104 (123) 97 02/13/18 10:45 97.6 133 20 138/80 (99) 97 02/13/18 08:58 100 Nasal Cannula 3.00 02/13/18 08:00 112 02/13/18 07:49 98.1 115 20 155/65 (95) 96 02/13/18 04:00 98.0 117 16 129/77 (94) 98 02/13/18 04:00 112 02/12/18 23:44 98 Nasal Cannula 3.00 02/12/18 23:00 119 02/12/18 22:33 97.0 117 20 143/70 (94) 100 I/O 02/12/18 02/12/18 02/12/18 02/13/18 02/13/18 02/13/18 07:00 15:00 23:00 07:00 15:00 23:00 Output Total 200 ml Balance -200 ml Output Urine Total 200 ml Result Diagram: 02/13/18 0135 02/13/18 0135 Objective Remarks GENERAL: Elderly, weak appearing, working to breathe SKIN: Warm and dry. HEAD: Normocephalic. EYES: No scleral icterus. No injection or drainage. NECK: Supple, trachea midline. No JVD or lymphadenopathy. CARDIOVASCULAR: Irregularly irregular, tachycardia, without murmurs, gallops, or rubs. RESPIRATORY: Bilateral rales, excessive mucus, poor respiratory effort due to myasthenia gravis. GASTROINTESTINAL: Abdomen soft, non-tender, nondistended. EXTREMITIES: No cyanosis, or edema. NEUROLOGICAL: Awake, alert, and oriented x 3. Non-focal. A/P Problem List: (1) Myasthenia gravis ICD Code: G70.00 - Myasthenia gravis without (acute) exacerbation Status: Chronic Assessment and Plan Myasthenia Gravis crisis Patient states this is the worst attack of her life, she is working hard to maintain adequate breathing Solu-Medrol 40 mg IV twice daily was increased to 125 mg every 4 hours Neurology is consulted to assist with recommendations for IVIG if indicated Patient was transferred to [facility] for higher level of care, she is a high risk for intubation and unable to cough up her respiratory secretions N.p.o. due to failed swallow study Every 4 neuro checks with vitals Appreciate neurology consult Appreciate oncology consult Appreciate director industrial consult Atrial Fibrillation with RVR History of atrial fibrillation, tachyarrhythmia likely induced by duo nebs Duo nebs exchanged for Xopenex due to less cardiac excitation Cardizem drip unavailable Continue esmolol IV Recent pneumonia COPD/Asthma Completed treatment with Aztreonam and Doxycycline Normal chest x-ray on admission Continue Spiriva inhaler, Singulair, Pulmicort nebs h/o thromboembolus DVT versus pulmonary embolism, patient is unable to relay history Awaiting details of history from [facility] Patient was on therapeutic doses of Lovenox as an outpatient, suspicious for thrombo-embolus treatment History of CHF Cautious IV fluid use Monitor intake and output GERD Continue Protonix DVT prophylaxis Continue therapeutic doses of Lovenox 40 mg twice daily . Valentin Comer MD Feb 13, 2018 16:35
[2018-02-13] MEDS: INSULIN ASPART SUPPLEMENTAL SCALE SQ SCH ×2 (17:00→21:00)
--- NOTE | 2018-02-13 17:09 | RADRPT ---
EXAM DATE/TIME: 02/13/2018 16:19 [facility] COMPARISON: No previous studies available for comparison. INDICATIONS : Leg swelling. MEDICAL HISTORY : Congestive heart failure. Chronic obstructive pulmonary disease. Osteoporosis. Neck pain. Blurred vis ion. Myasthenia gravis. Confusion. Tremors. Weakness. Palpitations. Irregular heartbeat. Asthma. Dysp natalia. Ulcers. Heartburn. GERD. Urinary tract infection. Paresthesia. Anxiety. SURGICAL HISTORY : Hysterectomy. ENCOUNTER: Initial ACUITY: 1 day PAIN SCORE: Non-responsive LOCATION: Bilateral leg. TECHNIQUE: Venous ultrasound of the left and right leg was performed from the inguinal ligament to the proximal calf. Real-time, color Doppler and spectral tracing, compression and augmentation techniques were us ed. FINDINGS: RIGHT LEG: There is normal compressibility of the deep venous system from the inguinal region to the proximal ca lf. No echogenic clot is seen in the lumen of the common femoral, femoral, popliteal, and posterior tibial veins. There is a normal response of the venous system to proximal and distal augmentation an d respiration. Please note that the right femoral vein is small in size. LEFT LEG: There is normal compressibility of the deep venous system from the inguinal region to the proximal ca lf. No echogenic clot is seen in the lumen of the common femoral, femoral, popliteal, and posterior tibial veins. There is a normal response of the venous system to proximal and distal augmentation an d respiration. CONCLUSION: No DVT or superficial venous thrombosis is identified within either lower extremity. John Laureano MD on February 13, 2018 at 17:04 Board Certified Radiologist. This report was verified electronically.
[2018-02-13 19:23] LABS: INTERNATIONAL NORMALIZED RATIO 1.3 RATIO; PROTHROMBIN TIME - PATIENT 13.3 SEC (9.8-11.6)
[2018-02-13] MEDS: MONTELUKAST SODIUM 10 MG TAB PO SCH (21:00)
[2018-02-14] VITALS (19 sets, daily range): BP systolic 108–205; BP diastolic 59–100; PULSE 64–116; RESP 15–26; TEMP 97.5–98.5; O2SAT 96–100
[2018-02-14] MEDS ORDERED: LABETALOL HCL 100 MG/20 ML VIAL IV PUSH PRN
[2018-02-14] MEDS: hydrALAZINE HCL 20 MG/ML VIAL IV PUSH PRN ×2 (00:11→09:59)
[2018-02-14] MEDS: DILTIAZEM HCL 60 MG TAB PO SCH ×5 (00:12→16:58)
[2018-02-14] MEDS: methylPREDNISolone SOD SUCC 125 MG/2 ML VIAL IV PUSH SCH ×4 (00:12→16:58)
[2018-02-14] MEDS: ESMOLOL DRIP INJ PREMIX 250 ML IV PRN ×4 (00:40→13:12)
[2018-02-14] MEDS: PANTOPRAZOLE SODIUM 40 MG VIAL IV PUSH SCH (03:06)
[2018-02-14] MEDS: RESP: ALBUTEROL 2.5 MG/IPRATROPIUM 0.5 MG NEB (SCH) NEB ×5 (03:11→20:41)
[2018-02-14] MEDS: CHLORHEXIDINE GLUCONATE 2 % 1 PACK (2 CLOTHS)(taper/protocol) TOPICAL SCH (04:00)
--- NOTE | 2018-02-14 04:38 | RADRPT ---
EXAM DATE/TIME: 02/14/2018 03:41 [facility] COMPARISON: No previous studies available for comparison. INDICATIONS : Shortness of breath, possible pulmonary disease. MEDICAL HISTORY : None. SURGICAL HISTORY : None. ENCOUNTER: Subsequent ACUITY: 2 days PAIN SCORE: 0/10 LOCATION: Bilateral chest FINDINGS: Left PICC line tip in superior vena cava. Mild basilar atelectasis. The cardiomediastinal contours are unremarkable. Osseous structures are intact. CONCLUSION: 1. Minimal basilar atelectasis. PICC line tip in superior vena cava. Sarwat Mclaughlin MD on February 14, 2018 at 4:36 Board Certified Radiologist. This report was verified electronically.
[2018-02-14 05:20] LABS: AUTOMATED NEUTROPHIL # 11.8 TH/MM3 (1.8-7.7); HEMATOCRIT 25.9 % (35.0-46.0); HEMOGLOBIN 7.9 GM/DL (11.6-15.3); LYMPH % 3.3 % (9.0-44.0); LYMPHOCYTE # 0.4 TH/MM3 (1.0-4.8); MEAN CELL VOLUME 69.4 FL (80.0-100.0); MEAN CORPUSCULAR HEMOGLOBIN 21.2 PG (27.0-34.0); MEAN CORPUSCULAR HGB CONC 30.5 % (32.0-36.0); MEAN PLATELET VOLUME 8.9 FL (7.0-11.0); MONOCYTE # 0.3 TH/MM3 (0-0.9); NEUT % 94.7 % (16.0-70.0); PLATELET COUNT 137 TH/MM3 (150-450); RED BLOOD COUNT 3.73 MIL/MM3 (4.00-5.30); RED CELL DISTRIBUTION WIDTH 22.5 % (11.6-17.2); WHITE BLOOD COUNT 12.5 TH/MM3 (4.0-11.0)
[2018-02-14 05:28] LABS: INTERNATIONAL NORMALIZED RATIO 1.3 RATIO
[2018-02-14 05:42] LABS: ALBUMIN 2.1 GM/DL (3.4-5.0); ALT (GPT) 47 U/L (10-53); AST (GOT) 28 U/L (15-37); BLOOD UREA NITROGEN 30 MG/DL (7-18); CALCIUM 7.9 MG/DL (8.5-10.1); CHLORIDE 114 MEQ/L (98-107); CREATININE 0.57 MG/DL (0.50-1.00); GLOMERULAR FILTRATION RATE 102 ML/MIN (>89); GLUCOSE,RANDOM 195 MG/DL (74-106); SODIUM (NA) 146 MEQ/L (136-145)
[2018-02-14 05:45] LABS: ALKALINE PHOSPHATASE 42 U/L (45-117); TOTAL BILIRUBIN ADULT 0.5 MG/DL (0.2-1.0); TOTAL PROTEIN 5.4 GM/DL (6.4-8.2)
[2018-02-14] MEDS: RESP: BUDESONIDE 0.5 MG/2 ML NEB NEB SCH ×2 (07:28→20:41)
[2018-02-14] MEDS: INSULIN ASPART SUPPLEMENTAL SCALE SQ SCH ×4 (08:00→21:00)
[2018-02-14 08:07] LABS: BANDS 4 % (0-6); CORRECTED NUCLEATED RBC 3 /100 WBC (0-0); LYMPHOCYTES 2 % (9-44); NEUTROPHIL # MANUAL DIFF 12.3 TH/MM3 (1.8-7.7); NUCLEATED RED BLOOD CELL 3 (0-0); POLYS (SEG NEUTROPHILS) 94 % (16-70)
[2018-02-14 08:08] LABS: OVALOCYTES 1+ (NORMAL); STOMATOCYTES 1+ (NORMAL); TOXIC GRANULATION 2+ (NORMAL)
[2018-02-14] MEDS: PICC Daily Heparin 100 unit/mL Lock Flush IV FLUSH SCH (09:00)
[2018-02-14] MEDS: TIOTROPIUM BROMIDE 18 MCG INH INH SCH (09:54)
[2018-02-14] MEDS: ENOXAPARIN SODIUM 40 MG/0.4 ML SYRINGE SQ SCH (09:54)
[2018-02-14] MEDS ORDERED: ETOMIDATE 40 MG/20 ML VIAL ONE (10:59)
[2018-02-14] MEDS ORDERED: MIDAZOLAM HCL 5 MG/ML VIAL (1 ML) ONE ×2 (11:01→11:02)
[2018-02-14] MEDS ORDERED: ROCURONIUM INJ 50 MG/5 ML VIAL ONE (11:02)
[2018-02-14] MEDS ORDERED: PROPOFOL 500 MG/50 ML INJ 50 ML ONE (11:08)
--- NOTE | 2018-02-14 11:23 | HHI.CCPN ---
Subjective Remarks/Hospital Course This is a 77-year-old female that presented to [facility] on 01/27/2018 with complaints of dyspnea. The patient medical history significant for myasthenia gravis since the and was cared for by her nuclear operations specialist in [facility] prior to relocating recently to [place]. Her medical history is significant for chronic steroid therapy with prednisone and then subsequently placed on IVIG infusions every 3 weeks secondary to nonresponsiveness of steroid therapy. On 01 27 the patient was admitted to [facility] and treated for sepsis with broad- spectrum antibiotics, which have now been completed. Blood cultures have revealed Streptococcus viridans. The patient continued care at [place] seeing a telemetry neurologist and hematology oncology was consulted, Dr. Zacarias. It was recommended that the patient receive Rituxan and be evaluated formally by a neurologist. Patient was transferred to [facility]. The patient has a history of A. fib RVR, and home medications include metoprolol, digoxin, and Cardizem. These medications were stopped in the last 24 hours secondary to the patient experiencing dysphagia. Patient subsequently went into A. fib RVR early this a.m., heart rate 150's and transferred to ICU. Stat ABG was obtained. critical care medicine was consulted. SUBJ 02/14: Currently patient is quite tachypneic breathing about 40/min, even on BiPAP. Prior to BiPAP patient's NIF-16 and forced vital was 600 ml. Patient clearly failing BiPAP and this is most likely secondary to myasthenia gravis exacerbation. I proceeded to endotracheally intubate the patient placed on mechanical ventilation. Discussed with Dr. Olivarez area both of us agree on starting plasma exchange. Will discuss with hematology Dr. Zacarias Objective Vital Signs Date Time Temp Pulse Resp B/P (MAP) Pulse Ox O2 Delivery O2 Flow Rate FiO2 02/14/18 10:00 107 02/14/18 10:00 100 Bi-Pap 35 02/14/18 09:00 137/68 02/14/18 08:50 3.00 02/14/18 08:00 98.3 19 Intake and Output 02/14/18 02/14/18 02/15/18 08:00 16:00 00:00 Intake Total 250 ml 250 ml Output Total 300 ml Balance -50 ml 250 ml Result Diagram: 02/14/18 0502 02/14/18 0502 Other Results Microbiology Date/Time Source Procedure Growth Status 02/13/18 14:51 Nasal Washing Influenza Types A,B Antigen (ABBY) - Final NEGATIVE FOR FLU A AND B ANTIGEN.... Complete 02/13/18 14:50 Urine Clean Catch Legionella Antigen - Final PRESUMPTIVE NEGATIVE FOR LEGIONELLA P... Complete 02/13/18 14:50 Urine Clean Catch Streptococcus pneumoniae Antigen (M - Final PRESUMPTIVE NEGATIVE FOR STREPTOCOCCU... Complete Laboratory Tests Test 02/13/18 17:29 02/14/18 06:01 Blood Gas Puncture Site LT RADIAL RT RADIAL Blood Gas Patient Temperature 98.6 98.6 Blood Gas HCO3 26 mmol/L (22-26) 22 mmol/L (22-26) Blood Gas Base Excess 3.2 mmol/L (-2-2) -0.7 mmol/L (-2-2) Blood Gas Oxygen Saturation 97 % (90-100) 96 % (90-100) Arterial Blood pH 7.50 (7.380-7.420) 7.51 (7.380-7.420) Arterial Blood Partial Pressure CO2 34 mmHg (38-42) 28 mmHg (38-42) Arterial Blood Partial Pressure O2 130 mmHg (61-120) 110 mmHg (61-120) Arterial Blood Oxygen Content 10.6 Vol % (12.0-20.0) 11.2 Vol % (12.0-20.0) Arterial Blood Carboxyhemoglobin 1.6 % (0-4) 1.6 % (0-4) Arterial Blood Methemoglobin 1.3 % (0-2) 1.1 % (0-2) Blood Gas Hemoglobin 7.5 G/DL (12.0-16.0) 8.2 G/DL (12.0-16.0) Oxygen Delivery Device BIPAP BiPAP Blood Gas Ventilator Setting EPAP 5 IPAP 10 10 IPAP/5 EPAP Blood Gas Inspired Oxygen 35 % 35 % Imaging Last Impressions Chest X-Ray 02/12/18 0000 Signed Impressions: Service Date/Time: Tuesday, February 13, 2018 00:12 - CONCLUSION: No acute disease. Wilbur Turner Jr., MD Objective Remarks GENERAL: This is a well-developed well-nourished in severe respiratory distress SKIN: Warm and dry. Multiple ecchymotic bruising bilateral arms and skin tears dressings intact HEAD: Atraumatic. Normocephalic. EYES: Pupils equal and round. 2 mm and brisk. ENT: No nasal bleeding or discharge. Airway patent NECK: Trachea midline. No JVD. CARDIOVASCULAR: Irregular rate, irregular rhythm. Tachycardic currently on esmolol drip RESPIRATORY: Using accessory muscles, severely tachypneic breathing 40-45 breaths per minute. On BiPAP 10/5/.30. Bilateral coarse rhonchi GASTROINTESTINAL: Abdomen soft, non-tender, nondistended. No guarding. MUSCULOSKELETAL: Extremities without clubbing, cyanosis, or edema. No obvious deformities. NEUROLOGICAL: Awake and alert. No gross focal/sensory deficits. Follows commands in all 4 extremities. A/P Problem List: (1) Pneumonia ICD Code: J18.9 - Pneumonia, unspecified organism Status: Acute (2) COPD (chronic obstructive pulmonary disease) ICD Code: J44.9 - Chronic obstructive pulmonary disease, unspecified Status: Chronic (3) Myasthenia gravis ICD Code: G70.00 - Myasthenia gravis without (acute) exacerbation Status: Chronic (4) Current chronic use of systemic steroids ICD Code: Z79.52 - intermediate (current) use of systemic steroids (5) Anemia ICD Code: D64.9 - Anemia, unspecified Assessment and Plan Assessment This is a 77-year-old with a history of myasthenia gravis, recent/current history of pneumonia, now with acute respiratory failure due to severe neuromuscular weakness Plan by systems: Neurologic: Myasthenia gravis, with acute exacerbation Altered mental status Previously on hydrocortisone twice daily discontinued .02/13 patient on methylprednisolone 125 mg 4 times daily Intubated for respiratory failure Place [facility] for plasmapheresis. Discussed with Dr. Teixeira, neurologist and Dr. Zacarias karate instructor and both in agreement Patient on IVIG therapy for the last 3 weeks at [facility] Respiratory: Acute respiratory failure secondary to myasthenia gravis Failed BiPAP. NIF -16, FVC 600 ml 02/14 -Intubated and placed on mechanical ventilation. ACV 14/500/5. Titrate FiO2 to keep saturation above 90% DuoNeb every 6 hours scheduled and as needed Hold home medication Singulair and Spiriva Sputum culture Plasma exchange therapy as above Cardiovascular: A. fib RVR History of A. fib RVR History of CHF Maintain MAP greater than 65, titrate esmolol to target heart rate less than 110 Patient previously on home medications to include Cardizem 120 mg every 6 hours , metoprolol 75 mg twice daily, digoxin-rate control medications were all placed on hold in the last 24 hours secondary to n.p.o. status-subsequent conversion to [facility] does not have Cardizem infusion secondary to nationwide shortage of medication. Echo just completed, report pending Renal: -Maria catheter -- Strict I/Os FEN/GI: Dysphagia Monitor electrolytes per ICU protocol Maintain NPO. Start tube feeds in 24 hours NS @ 30cc/hr-gentle hydration Heme/ID: Leukocytosis Possible sepsis Hematology oncology - Dr. Zacarias following Start plasmapheresis today F/u blood cultures 2 obtain urine culture,influenza, legionella, and Strep pneumo antigens. Check for influenza check sputum culture Per records patient treated with empiric antibiotics at [facility]-aztreonam and doxycycline Endocrine: Glucose monitoring per ICU protocol -- SSI -Electrolyte replacement per protocol Prophylaxis: GI Prophylaxis Protonix DVT Prophylaxis -- SCDs Continue Lovenox 40 mg daily Lines: Peripheral IVs 2. Place Vas-Cath today for starting plasma exchange Dispo: my billing statement This patient remains critically ill with one or more organ systems which are or may become a threat to life. I have spent in excess of 50 minutes discontinuously in the care and management of this patient. This time is exclusive of procedures, and includes, but is not limited to, evaluation of the patient, review of the medical record, discussions with family, consultants, nursing staff, or respiratory therapy, and documentation in the medical record. Levi Lopez MD Feb 14, 2018 11:23
--- NOTE | 2018-02-14 11:40 | PD.WCN.NOT ---
Wound Consult Description: Wound consult ordered by Ricky RHOADES for wound management. Communicated with: Uzma SESAY, Recommendation: 1. Reposition patient every 2 hours for comfort and offloading. 2. Avoid using cotton underpad please only use Ultrasorb 3. Apply Versatel to R elbow and left wrist and leave x7 days starting 02/14 4. Cover R elbow left wrist with ABD secure with rolled gauze and tape.Change outer dressing as needed for exudate/dislodgement. 5. Apply Calazime 2mm thick to bilateral buttocks BID 6. Please do not put adhesives directly on skin. Additional Information: Patient was seen today on [address] [place] [address] by service writer advisor and Uzma SESAY for wound management.Patient alert in bed non verbal at this time.Patient noted to have multiple bruises to upper and lower extremities.R elbow has mixed roofed and unroofed bullas, partial thickness tissue is dark purple with scant serosanguineous drainage noted.Wound cleansed with normal saline pat dry skin prep applied to periwound.Versatel contact layer applied to R elbow partial thickness skin tear and covered with ABD secured with rolled gauze/paper tape.Right craft partial thickness wound measures 2.6cm x2.7cm x <0.1cm wound base is 100%moist pink tissue no granular tissue present.Wound edges are well defined irregular in shape.Rolled under skin flap removed with cleaning.Versatel applied to wound base and covered with dry dressing.Patient required 1 person assistance to reposition to left side were sacral/buttocks are was visualized by service writer advisor.Patient noted to have bilateral buttocks partial thickness wounds.Wounds present with a mixed etiology of moisture/friction denuded skin.Left buttocks wound measures ~3.0cm x ~2.0cm x <0.1cm wound base is moist pink scant serous drainage noted without odor.Periwound intact blanchable.Right buttocks partial thickness wound measures 2.5cm x 2.0cm x < 0.1cm wound base 100% moist pink non granular tissue.Scant serous fluid noted.Periwound intact and blanchable.Calazime cream applied in thick layer to bilateral buttocks and patient was repositioned to left side with help of Uzma SESAY. Maria M Medrano [facility] Feb 14, 2018 11:40
[2018-02-14] MEDS ORDERED: PHENYLEPHRINE 40 MG in D5W 500 ML IV PRN (12:15)
[2018-02-14] MEDS ORDERED: TERBUTALINE INJ 1 MG/ML AMP SQ PRN (12:15)
--- NOTE | 2018-02-14 12:19 | PD.PROCEDR ---
Procedure Note Procedure Emergency intubation for acute respiratory failure. Patient made aware of the procedure and wanted to proceed INTUBATION: The patient was put in optimal position for the procedure. Rapid sequence intubation was initiated by me using 15 milligrams of etomidate IV and 5 milligrams of Versed IV. DL with Mac 4 blade, Grade 1 view, single attempt. The patient was intubated with a 8 cuffed endotracheal tube. Tube placement was confirmed by visualization of the tube and balloon passing through the cords , capnometry and subsequent chest x-ray. Breath sounds were equal and well aerated bilaterally postintubation. No breath sounds over stomach. Patient tolerated procedure well. Levi Lopez MD Feb 14, 2018 12:19
--- NOTE | 2018-02-14 12:20 | PD.PROCEDR ---
Central Line Procedure REASON FOR PROCEDURE Vas-Cath placement to initiate plasmapheresis PROCEDURE PERFORMED Central line placement: Ultrasound-guided right IJ Vas-Cath placement CONSENT Informed consent for procedure was obtained and timeout performed. The risks and benefits of the procedure were discussed to include but limited to bleeding , clot formation, infection, and even . ANESTHESIA Local injection of 1% Lidocaine DESCRIPTION OF THE PROCEDURE The patient was placed in supine, mild Trendelenburg position. The area was exposed and cleansed with ChloraPrep, times two. Large sterile drape was used to cover the patient, with the site exposed, under sterile conditions including cap, face mask, sterile gown, and sterile gloves. On single attempt, the introducer needle was inserted with negative pressure in syringe and venous flash was obtained. The guide wire was then advanced without any restriction and the needle was removed. The dilator was used without any complications. Using Seldinger technique the 20 cm 14 [place] double-lumen catheter was advanced over the guide wire to a depth of 18 centimeters. The guide wire was removed. All ports were aspirated with dark venous blood return and flushed easily with sterile saline. All ports were capped. Antibiotic disc was placed around central line at puncture site. The central line was secured to the skin with two interrupted 2.0 silk sutures. The area was bandaged with sterile see- through central line bandage. RADIOLOGICAL DATA Ultrasound guidance was used to locate RIJ. Doppler/color flow was used to confirm venous flow. COMPLICATIONS: No apparent complications ESTIMATED BLOOD LOSS: Less than 2 cc. Levi Lopez MD Feb 14, 2018 12:20
[2018-02-14] MEDS ORDERED: HEPARIN SODIUM - IV 10,000 UNITS/10 ML VIAL ONE (12:43)
--- NOTE | 2018-02-14 12:49 | RADRPT ---
EXAM DATE/TIME: 02/14/2018 12:24 [facility] COMPARISON: CHEST SINGLE AP, February 14, 2018, 3:41. INDICATIONS : Post intubation and VAS Cath placement. MEDICAL HISTORY : None. SURGICAL HISTORY : None. ENCOUNTER: Subsequent ACUITY: 2 days PAIN SCORE: Non-responsive. LOCATION: Bilateral chest FINDINGS: A single view of the chest demonstrates minimal left basilar atelectasis. Heart normal size. Endotrac heal tube 1.0 cm above the elba. Right jugular vascular line with tip at the cavoatrial junction. L eft-sided PICC line with tip at the cavoatrial junction. Kyphoplasty cement within several thoracic v ertebral bodies. No pneumothorax. CONCLUSION: 1. Minimal left basal atelectasis. 2. Endotracheal tube 1.0 cm above the elba. Jose Ames MD on February 14, 2018 at 12:46 Board Certified Radiologist. This report was verified electronically.
[2018-02-14] MEDS ORDERED: Hemodialysis Vas Access Cath PRN NS Lock Flush IV FLUSH (13:00)
[2018-02-14] MEDS ORDERED: Hemodialysis Vas Acc Cath PRN Heparin 1000 unit/ml Flush IV FLUSH (13:00)
[2018-02-14] MEDS: PROPOFOL 1000 MG/100 ML INJ 100 ML IV PRN ×2 (13:38→20:38)
[2018-02-14] MEDS: CALCIUM GLUCONATE IV ONE ×2 (14:00→21:45)
[2018-02-14] MEDS: SODIUM CHLOR 0.9% IV ONE ×2 (14:00→21:45)
[2018-02-14] MEDS ORDERED: methylPREDNISolone SOD SUCC 125 MG/2 ML VIAL IV PUSH ONE (14:00)
[2018-02-14] MEDS ORDERED: ALBUMIN 5% INJ 3,500 ML IV ONE (14:00)
--- NOTE | 2018-02-14 14:14 | PD.ONC.PN ---
Subjective Subjective Remarks Afebrile Patient seen approximately 1 PM this afternoon; she is intubated and sedated She has a right IJ Vas-Cath Objective Data Date Time Temp Pulse Resp B/P (MAP) Pulse Ox O2 Delivery O2 Flow Rate FiO2 02/14/18 13:12 109 107/73 02/14/18 12:00 40 02/14/18 12:00 101 02/14/18 12:00 98.5 115 15 125/64 (84) 100 02/14/18 11:34 109 120/70 02/14/18 11:27 40 02/14/18 11:10 100 40 02/14/18 10:00 107 02/14/18 10:00 100 Bi-Pap 35 02/14/18 09:00 120 137/68 02/14/18 08:50 100 Nasal Cannula 3.00 02/14/18 08:30 100 Nasal Cannula 3.00 02/14/18 08:00 98.3 116 19 164/74 (104) 99 02/14/18 08:00 116 02/14/18 07:29 99 35 02/14/18 07:10 108 02/14/18 07:00 100 Bi-Pap 35 02/14/18 06:00 106 02/14/18 05:04 118 139/64 02/14/18 04:00 98.2 112 26 150/72 (98) 96 02/14/18 03:12 99 35 02/14/18 02:00 74 02/14/18 00:40 82 148/67 02/14/18 00:30 148/67 (94) 02/14/18 00:00 98.0 94 22 205/100 (135) 100 02/14/18 00:00 94 02/14/18 00:00 100 35 02/13/18 22:00 71 02/13/18 20:23 105 165/74 02/13/18 20:00 98.1 92 21 147/68 (94) 97 02/13/18 20:00 92 02/13/18 19:47 97 35 02/13/18 18:00 93 02/13/18 16:32 101 126/69 02/13/18 16:00 98.4 90 26 142/66 (91) 98 02/13/18 16:00 90 02/13/18 15:16 96 35 02/14/18 02/14/18 02/14/18 07:00 15:00 23:00 Intake Total 250 ml 250 ml Output Total 300 ml Balance -50 ml 250 ml Result Diagram: 02/14/18 0502 02/14/18 0502 Laboratory Results Laboratory Tests Test 02/13/18 17:29 02/13/18 18:44 02/14/18 05:02 02/14/18 06:01 Blood Gas Puncture Site LT RADIAL RT RADIAL Blood Gas Patient Temperature 98.6 98.6 Blood Gas HCO3 26 mmol/L 22 mmol/L Blood Gas Base Excess 3.2 mmol/L -0.7 mmol/L Blood Gas Oxygen Saturation 97 % 96 % Arterial Blood pH 7.50 7.51 Arterial Blood Partial Pressure CO2 34 mmHg 28 mmHg Arterial Blood Partial Pressure O2 130 mmHg 110 mmHg Arterial Blood Oxygen Content 10.6 Vol % 11.2 Vol % Arterial Blood Carboxyhemoglobin 1.6 % 1.6 % Arterial Blood Methemoglobin 1.3 % 1.1 % Blood Gas Hemoglobin 7.5 G/DL 8.2 G/DL Oxygen Delivery Device BIPAP BiPAP Blood Gas Ventilator Setting EPAP 5 IPAP 10 10 IPAP/5 EPAP Blood Gas Inspired Oxygen 35 % 35 % Prothrombin Time 13.3 SEC 13.0 SEC Prothromb Time International Ratio 1.3 RATIO 1.3 RATIO White Blood Count 12.5 TH/MM3 Red Blood Count 3.73 MIL/MM3 Hemoglobin 7.9 GM/DL Hematocrit 25.9 % Mean Corpuscular Volume 69.4 FL Mean Corpuscular Hemoglobin 21.2 PG Mean Corpuscular Hemoglobin Concent 30.5 % Red Cell Distribution Width 22.5 % Platelet Count 137 TH/MM3 Mean Platelet Volume 8.9 FL Neutrophils (%) (Auto) 94.7 % Lymphocytes (%) (Auto) 3.3 % Monocytes (%) (Auto) 2.0 % Eosinophils (%) (Auto) 0.0 % Basophils (%) (Auto) 0.0 % Neutrophils # (Auto) 11.8 TH/MM3 Lymphocytes # (Auto) 0.4 TH/MM3 Monocytes # (Auto) 0.3 TH/MM3 Eosinophils # (Auto) 0.0 TH/MM3 Basophils # (Auto) 0.0 TH/MM3 CBC Comment AUTO DIFF Differential Total Cells Counted 100 Neutrophils % (Manual) 94 % Band Neutrophils % 4 % Lymphocytes % 2 % Neutrophils # (Manual) 12.3 TH/MM3 Nucleated Red Blood Cells 3 /100 WBC Differential Comment FINAL DIFF MANUAL Toxic Granulation 2+ Platelet Estimate LOW Platelet Morphology Comment NORMAL Ovalocytes 1+ Stomatocytes 1+ Blood Urea Nitrogen 30 MG/DL Creatinine 0.57 MG/DL Random Glucose 195 MG/DL Total Protein 5.4 GM/DL Albumin 2.1 GM/DL Calcium Level 7.9 MG/DL Alkaline Phosphatase 42 U/L Aspartate Amino Transf (AST/SGOT) 28 U/L Alanine Aminotransferase (ALT/SGPT) 47 U/L Total Bilirubin 0.5 MG/DL Sodium Level 146 MEQ/L Potassium Level 4.7 MEQ/L Chloride Level 114 MEQ/L Carbon Dioxide Level 23.0 MEQ/L Anion Gap 9 MEQ/L Estimat Glomerular Filtration Rate 102 ML/MIN B-Type Natriuretic Peptide 561 PG/ML Test 02/14/18 12:38 Blood Gas Puncture Site RT RADIAL Blood Gas Patient Temperature 98.6 Blood Gas HCO3 21 mmol/L Blood Gas Base Excess -2.8 mmol/L Blood Gas Oxygen Saturation 96 % Arterial Blood pH 7.44 Arterial Blood Partial Pressure CO2 31 mmHg Arterial Blood Partial Pressure O2 160 mmHg Arterial Blood Oxygen Content 10.2 Vol % Arterial Blood Carboxyhemoglobin 1.6 % Arterial Blood Methemoglobin 1.6 % Blood Gas Hemoglobin 7.3 G/DL Oxygen Delivery Device VENTILATOR Blood Gas Ventilator Setting A/C 500/14/5PEEP Blood Gas Inspired Oxygen 40 % Culture Results Microbiology Date/Time Source Procedure Growth Status 02/13/18 15:40 Blood Peripheral Aerobic Blood Culture - Preliminary NO GROWTH IN 1 DAY Resulted 02/13/18 15:40 Blood Peripheral Anaerobic Blood Culture - Preliminary NO GROWTH IN 1 DAY Resulted 02/13/18 15:30 Blood Peripheral Aerobic Blood Culture - Preliminary NO GROWTH IN 1 DAY Resulted 02/13/18 15:30 Blood Peripheral Anaerobic Blood Culture - Preliminary NO GROWTH IN 1 DAY Resulted 02/14/18 12:24 Sputum Endotracheal Gram Stain Pending Received 02/14/18 12:24 Sputum Endotracheal Sputum Culture Pending Received 02/13/18 14:51 Nasal Washing Influenza Types A,B Antigen (ABBY) - Final NEGATIVE FOR FLU A AND B ANTIGEN.... Complete 02/13/18 14:50 Urine Clean Catch Legionella Antigen - Final PRESUMPTIVE NEGATIVE FOR LEGIONELLA P... Complete 02/13/18 14:50 Urine Clean Catch Streptococcus pneumoniae Antigen (M - Final PRESUMPTIVE NEGATIVE FOR STREPTOCOCCU... Complete 02/13/18 14:50 Urine Clean Catch Urine Culture - Final Clemencia Albicans Complete Imaging Studies Last 24 hours Impressions Chest X-Ray 02/14/18 0600 Signed Impressions: Service Date/Time: Wednesday, February 14, 2018 03:41 - CONCLUSION: 1. Minimal basilar atelectasis. PICC line tip in superior vena cava. Sarwat Mclaughlin MD Chest X-Ray 02/14/18 0000 Signed Impressions: Service Date/Time: Wednesday, February 14, 2018 12:24 - CONCLUSION: 1. Minimal left basal atelectasis. 2. Endotracheal tube 1.0 cm above the elba. Jose Ames MD Administered Medications Medications (Trade) Dose Ordered Sig/Melissa Route PRN Reason Start Time Stop Time Status Last Admin Dose Admin Heparin Sodium (Porcine) (Heparin Central Flush) 200 units DAILY IV FLUSH 02/13/18 09:00 02/13/18 09:35 Heparin Sodium (Porcine) (Heparin Central Flush) 200 units UNSCH PRN IV FLUSH SEE PROTOCOL TABLE 02/13/18 01:00 02/13/18 01:00 Budesonide (Pulmicort Respule Neb) 0.5 mg Q12HR NEB NEB 02/13/18 08:00 02/14/18 07:28 Tiotropium [place] (Spiriva Inh) 18 mcg DAILY INH 02/13/18 09:00 02/14/18 09:54 Metoprolol Tartrate (Lopressor Inj) 5 mg Q5M PRN IV PUSH sustained HR > 110 02/13/18 02:15 02/13/18 09:00 Diltiazem HCl (Cardizem) 120 mg Q6HR PO 02/13/18 06:00 02/14/18 12:49 Pantoprazole Sodium (Protonix Inj) 40 mg Q24H IV PUSH 02/13/18 03:00 02/14/18 03:06 Methylprednisolone Sodium Succinate (SoluMEDROL INJ) 125 mg Q6HR IV PUSH 02/13/18 09:45 02/14/18 12:49 Enoxaparin Sodium (Lovenox Inj) 40 mg DAILY SQ 02/14/18 09:00 02/14/18 09:54 Sodium Chloride 1,000 ml @ 30 mls/hr Q24H IV 02/13/18 15:00 02/13/18 14:42 Insulin Aspart (NovoLOG SUPPLEMENTAL SCALE) 1 ACHS SLIDING SCALE SQ 02/13/18 17:00 02/14/18 12:00 Esmolol HCl/ Sodium Chloride 250 ml @ 22.56 mls/ hr TITRATE PRN IV Blood Pressure Management 02/13/18 15:00 02/14/18 13:12 Chlorhexidine Gluconate (Chlorhexidine 2% Cloth) 3 pack DAILY@04 TOPICAL 02/14/18 04:00 02/18/18 04:01 02/14/18 04:00 Hydralazine HCl (Apresoline Inj) 20 mg Q4H PRN IV PUSH SBP>160, DBP>90 02/14/18 00:00 02/14/18 09:59 Albuterol/ Ipratropium (Duoneb Neb) 1 ampule Q4HR NEB NEB 02/14/18 12:00 02/14/18 11:25 Propofol 100 ml @ 2.256 mls/ hr TITRATE PRN IV SEDATION 02/14/18 11:45 02/14/18 13:38 Objective Remarks GENERAL: Elderly female resting in bed intubated and sedated SKIN: Warm and dry. HEAD: Normocephalic. EYES: No scleral icterus. No injection or drainage. NECK: Supple, trachea midline. Vas-Cath to right IJ CARDIOVASCULAR: + S1/S2. Tachycardia RESPIRATORY: Mechanically ventilated. Breath sounds equal bilaterally. GASTROINTESTINAL: Abdomen soft, non-tender, nondistended. EXTREMITIES: No cyanosis. MUSCULOSKELETAL: Adequate muscle tone. NEUROLOGICAL: Sedated Assessment/Plan Problem List: (1) Myasthenia gravis ICD Codes: G70.00 - Myasthenia gravis without (acute) exacerbation Status: Chronic Plan: --Per neurology, we will initiate apheresis with albumin every other day 5 days. --Monitor coags Hx/Workup: Patient has a history of myasthenia gravis dating back to the . She has been on various lines of treatment including Mestinon, corticosteroids and Imuran. For the past several years she has been on IVIG infusions every 3 weeks under the care of a neurologist in [place] prior to relocating to the [facility]. She received IVIG infusions for 5 days in a row last week at [facility], [place] and this did not improve her symptoms. The patient was being seen by a tele neurologist who recommended Rituxan infusion. She has been transferred to [facility] for continued care and management. Assessment 77-year-old female with myasthenia gravis exacerbation; hematology consulted for apheresis Plan 1. Initiate daily therapeutic apheresis with albumin every other day 5 days 2. Discussed with the dialysis team 3. Check CBC, coags in Olivia Moeller Feb 14, 2018 14:14
[2018-02-14] MEDS: SODIUM CHLOR 0.9% 1000 ML INJ 1,000 ML IV SCH (15:00)
[2018-02-14] MEDS ORDERED: diphenhydrAMINE HCL 50 MG/ML VIAL IV PUSH PRN ×2 (15:30→21:00)
--- NOTE | 2018-02-14 15:45 | HHI.PR ---
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 Subjective Subjective Comments intubated Active Medications Current Medications Medications (Trade) Dose Ordered Sig/Melissa Route Start Time Stop Time Status Last Admin (Tylenol) 650 mg Q4H PRN PO 02/12/18 22:30 (Zofran Inj) 4 mg Q6H PRN IVP 02/12/18 22:30 (Narcan Inj) 0.4 mg UNSCH PRN IV PUSH 02/12/18 22:30 (Kathryn-Colace) 1 tab BID PO 02/13/18 09:00 Future Hold (Milk Of Magnesia Liq) 30 ml Q12H PRN PO 02/12/18 22:30 (Senokot) 17.2 mg Q12H PRN PO 02/12/18 22:30 (Dulcolax Supp) 10 mg DAILY PRN RECTAL 02/12/18 22:30 (Lactulose Liq) 30 ml DAILY PRN PO 02/12/18 22:30 (NS Flush) 5 ml UNSCH PRN IV FLUSH 02/13/18 01:00 (Heparin Central Flush) 200 units DAILY IV FLUSH 02/13/18 09:00 02/13/18 09:35 (NS Flush) 5 ml UNSCH PRN IV FLUSH 02/13/18 01:00 (Heparin Central Flush) 200 units UNSCH PRN IV FLUSH 02/13/18 01:00 02/13/18 01:00 (NS Flush) 5 ml UNSCH PRN IV FLUSH 02/13/18 01:00 (Aspirin Chew) 81 mg DAILY CHEW 02/13/18 09:00 Future Hold (Pulmicort Respule Neb) 0.5 mg Q12HR NEB NEB 02/13/18 08:00 02/14/18 07:28 (Lanoxin) 0.25 mg DAILY PO 02/13/18 09:00 Future Hold (Cymbalta Dr) 30 mg DAILY PO 02/13/18 09:00 Future Hold (Lopressor) 75 mg BID PO 02/13/18 09:00 Future Hold (Singulair) 10 mg HS PO 02/13/18 21:00 (Mycostatin Liq) 5 ml QID SWISH-SWAL 02/13/18 09:00 Future Hold (Spiriva Inh) 18 mcg DAILY INH 02/13/18 09:00 02/14/18 09:54 (Lopressor Inj) 5 mg Q5M PRN IV PUSH 02/13/18 02:15 02/13/18 09:00 (Cardizem) 120 mg Q6HR PO 02/13/18 06:00 02/14/18 12:49 (Protonix Inj) 40 mg Q24H IV PUSH 02/13/18 03:00 02/14/18 03:06 (SoluMEDROL INJ) 125 mg Q6HR IV PUSH 02/13/18 09:45 02/14/18 12:49 (Lovenox Inj) 40 mg DAILY SQ 02/14/18 09:00 02/14/18 09:54 (Duoneb Neb) 1 ampule Q2HR NEB PRN NEB 02/13/18 13:15 Sodium Chloride 1,000 ml @ 30 mls/hr Q24H IV 02/13/18 15:00 02/13/18 14:42 (D50w (Vial) Inj) 50 ml UNSCH PRN IV PUSH 02/13/18 14:30 (Glucagon Inj) 1 mg UNSCH PRN OTHER 02/13/18 14:30 (NovoLOG SUPPLEMENTAL SCALE) 1 ACHS SLIDING SCALE SQ 02/13/18 17:00 02/14/18 12:00 Esmolol HCl/ Sodium Chloride 250 ml @ 22.56 mls/ hr TITRATE PRN IV 02/13/18 15:00 02/14/18 13:12 Miscellaneous Information Patient in critical care unit? Ass... [id number] .XX 02/13/18 16:00 (Chlorhexidine 2% Cloth) 3 pack DAILY@04 TOPICAL 02/14/18 04:00 02/18/18 04:01 02/14/18 04:00 (Chlorhexidine 2% Cloth) 3 pack UNSCH PRN TOPICAL 02/13/18 16:00 02/18/18 15:45 (Apresoline Inj) 20 mg Q4H PRN IV PUSH 02/14/18 00:00 02/14/18 09:59 (Trandate Inj) 10 mg Q4H PRN IV PUSH 02/14/18 00:00 (Duoneb Neb) 1 ampule Q4HR NEB NEB 02/14/18 12:00 02/14/18 14:41 (Peridex 0.12% Liq) 15 ml BID@08,20 MT 02/14/18 20:00 Propofol 100 ml @ 2.256 mls/ hr TITRATE PRN IV 02/14/18 11:45 02/14/18 13:38 Phenylephrine HCl 40 mg/Dextrose 500 ml @ 30 mls/hr TITRATE PRN IV 02/14/18 12:15 (Brethine Inj) 1 mg UNSCH PRN SQ 02/14/18 12:15 (NS Flush) 5 ml UNSCH PRN IV FLUSH 02/14/18 13:00 (Heparin Inj) 2,000 units UNSCH PRN IV FLUSH 02/14/18 13:00 Albumin Human 3,500 ml @ 250 mls/hr ONCE ONCE IV 02/14/18 14:00 02/15/18 03:59 Calcium Gluconate 3.5 gm/Sodium Chloride 235 ml @ 90 mls/hr ONCE ONCE IV 02/14/18 14:00 02/14/18 16:36 (Benadryl Inj) 25 mg DAILY PRN IV PUSH 02/14/18 15:30 Allergies Allergies Coded Allergies azathioprine (Verified Allergy, Severe, 02/12/18) cephalexin (Verified Allergy, Severe, Rash, 02/12/18) Exam I&O / VS 02/14/18 02/14/18 02/15/18 15:00 23:00 07:00 Intake Total 300 ml Balance 300 ml IV Total 300 ml Vital Signs Date Time Temp Pulse Resp B/P (MAP) Pulse Ox O2 Delivery O2 Flow Rate FiO2 02/14/18 15:07 71 112/58 02/14/18 14:00 95 02/14/18 13:12 109 107/73 02/14/18 12:00 40 02/14/18 12:00 101 02/14/18 12:00 98.5 115 15 125/64 (84) 100 02/14/18 11:34 109 120/70 02/14/18 11:27 40 02/14/18 11:10 100 40 02/14/18 10:00 107 02/14/18 10:00 100 Bi-Pap 35 02/14/18 09:00 120 137/68 02/14/18 08:50 100 Nasal Cannula 3.00 02/14/18 08:30 100 Nasal Cannula 3.00 02/14/18 08:00 98.3 116 19 164/74 (104) 99 02/14/18 08:00 116 02/14/18 07:29 99 35 02/14/18 07:10 108 02/14/18 07:00 100 Bi-Pap 35 02/14/18 06:00 106 02/14/18 05:04 118 139/64 02/14/18 04:00 98.2 112 26 150/72 (98) 96 02/14/18 03:12 99 35 02/14/18 02:00 74 02/14/18 00:40 82 148/67 02/14/18 00:30 148/67 (94) 02/14/18 00:00 98.0 94 22 205/100 (135) 100 02/14/18 00:00 94 02/14/18 00:00 100 35 02/13/18 22:00 71 02/13/18 20:23 105 165/74 02/13/18 20:00 98.1 92 21 147/68 (94) 97 02/13/18 20:00 92 02/13/18 19:47 97 35 02/13/18 18:00 93 02/13/18 16:32 101 126/69 02/13/18 16:00 98.4 90 26 142/66 (91) 98 02/13/18 16:00 90 Objective Micro and Labs Laboratory Tests Test 02/13/18 17:29 02/13/18 18:44 02/14/18 05:02 02/14/18 06:01 Blood Gas Puncture Site LT RADIAL RT RADIAL Blood Gas Patient Temperature 98.6 98.6 Blood Gas HCO3 26 22 Blood Gas Base Excess 3.2 -0.7 Blood Gas Oxygen Saturation 97 96 Arterial Blood pH 7.50 7.51 Arterial Blood Partial Pressure CO2 34 28 Arterial Blood Partial Pressure O2 130 110 Arterial Blood Oxygen Content 10.6 11.2 Arterial Blood Carboxyhemoglobin 1.6 1.6 Arterial Blood Methemoglobin 1.3 1.1 Blood Gas Hemoglobin 7.5 8.2 Oxygen Delivery Device BIPAP BiPAP Blood Gas Ventilator Setting EPAP 5 IPAP 10 10 IPAP/5 EPAP Blood Gas Inspired Oxygen 35 35 Prothrombin Time 13.3 13.0 Prothromb Time International Ratio 1.3 1.3 White Blood Count 12.5 Red Blood Count 3.73 Hemoglobin 7.9 Hematocrit 25.9 Mean Corpuscular Volume 69.4 Mean Corpuscular Hemoglobin 21.2 Mean Corpuscular Hemoglobin Concent 30.5 Red Cell Distribution Width 22.5 Platelet Count 137 Mean Platelet Volume 8.9 Neutrophils (%) (Auto) 94.7 Lymphocytes (%) (Auto) 3.3 Monocytes (%) (Auto) 2.0 Eosinophils (%) (Auto) 0.0 Basophils (%) (Auto) 0.0 Neutrophils # (Auto) 11.8 Lymphocytes # (Auto) 0.4 Monocytes # (Auto) 0.3 Eosinophils # (Auto) 0.0 Basophils # (Auto) 0.0 CBC Comment AUTO DIFF Differential Total Cells Counted 100 Neutrophils % (Manual) 94 Band Neutrophils % 4 Lymphocytes % 2 Neutrophils # (Manual) 12.3 Nucleated Red Blood Cells 3 Differential Comment FINAL DIFF MANUAL Toxic Granulation 2+ Platelet Estimate LOW Platelet Morphology Comment NORMAL Ovalocytes 1+ Stomatocytes 1+ Blood Urea Nitrogen 30 Creatinine 0.57 Random Glucose 195 Total Protein 5.4 Albumin 2.1 Calcium Level 7.9 Alkaline Phosphatase 42 Aspartate Amino Transf (AST/SGOT) 28 Alanine Aminotransferase (ALT/SGPT) 47 Total Bilirubin 0.5 Sodium Level 146 Potassium Level 4.7 Chloride Level 114 Carbon Dioxide Level 23.0 Anion Gap 9 Estimat Glomerular Filtration Rate 102 B-Type Natriuretic Peptide 561 Test 02/14/18 12:38 Blood Gas Puncture Site RT RADIAL Blood Gas Patient Temperature 98.6 Blood Gas HCO3 21 Blood Gas Base Excess -2.8 Blood Gas Oxygen Saturation 96 Arterial Blood pH 7.44 Arterial Blood Partial Pressure CO2 31 Arterial Blood Partial Pressure O2 160 Arterial Blood Oxygen Content 10.2 Arterial Blood Carboxyhemoglobin 1.6 Arterial Blood Methemoglobin 1.6 Blood Gas Hemoglobin 7.3 Oxygen Delivery Device VENTILATOR Blood Gas Ventilator Setting A/C 500/14/5PEEP Blood Gas Inspired Oxygen 40 Date/Time Source Procedure Growth Status 02/13/18 15:40 Blood Peripheral Aerobic Blood Culture - Preliminary NO GROWTH IN 1 DAY Resulted 02/13/18 15:40 Blood Peripheral Anaerobic Blood Culture - Preliminary NO GROWTH IN 1 DAY Resulted 02/14/18 14:55 Nasal Washing Influenza Types A,B Antigen (ABBY) Pending Received 02/13/18 14:50 Urine Clean Catch Legionella Antigen - Final PRESUMPTIVE NEGATIVE FOR LEGIONELLA P... Complete 02/13/18 14:50 Urine Clean Catch Streptococcus pneumoniae Antigen (M - Final PRESUMPTIVE NEGATIVE FOR STREPTOCOCCU... Complete Ryan Teixeira MD Feb 14, 2018 15:45
[2018-02-14] MEDS: LACTULOSE SYRUP 20 GM/30 ML CUP PO PRN (16:58)
--- NOTE | 2018-02-14 17:37 | ECHRPT ---
Indication: Heart Failure CONCLUSIONS The left ventricular systolic function is normal with an estimated ejection fraction in the range of 55-60%. Normal left ventricular size. No definite regional wall motion abnormalities. Wall thickness is measured at the upper limits of normal. The left atrial size is mildly dilated. The right atrial size is mildly dilated. Mild mitral annular calcification is present. Mild mitral valve regurgitation. The aortic valve is not well visualized. There is mild tricuspid valve regurgitation. The estimated pulmonary arterial pressure is 38 mmHg. BP: 174 / 63 HR: Rhythm: Atrial flutter MEASUREMENTS (Male / Female) Normal Values Technical Quality:Fair 2D ECHO LV Diastolic Diameter PLAX 3.6 cm 4.2 - 5.9 / 3.9 - 5.3 cm LV Systolic Diameter PLAX 2.4 cm IVS Diastolic Thickness 1.4 cm 0.6 - 1.0 / 0.6 - 0.9 cm LVPW Diastolic Thickness 1.3 cm 0.6 - 1.0 / 0.6 - 0.9 cm LV Relative Wall Thickness 0.7 RV Internal Dim ED PLAX 2.5 cm LVOT Diameter 1.8 cm LA Systolic Diameter LX 3.2 cm 3.0 - 4.0 / 2.7 - 3.8 cm M-MODE Aortic Root Diameter MM 3.1 cm LA Systolic Diameter MM 4.1 cm LA Ao Ratio MM 1.3 AV Cusp Separation MM 1.7 cm DOPPLER AV Peak Velocity 150.0 cm/s AV Peak Gradient 9.0 mmHg LVOT Peak Velocity 85.9 cm/s LVOT Peak Gradient 3.0 mmHg AV Area Cont Eq pk 1.5 cm MV Area PHT 4.1 cm Mitral E Point Velocity 125.0 cm/s Mitral A Point Velocity 28.6 cm/s Mitral E to A Ratio 4.4 TR Peak Velocity 265.0 cm/s TR Peak Gradient 28.1 mmHg Right Atrial Pressure 10.0 mmHg Pulmonary Artery Systolic Pressu 38.1 mmHg Right Ventricular Systolic Press 38.1 mmHg FINDINGS LEFT VENTRICLE The left ventricular systolic function is normal with an estimated ejection fraction in the range of 55-60%. Normal left ventricular size. No definite regional wall motion abnormalities. Wall thickness is measured at the upper limits of normal. RIGHT VENTRICLE Normal right ventricular size and systolic function. LEFT ATRIUM The left atrial size is mildly dilated. RIGHT ATRIUM The right atrial size is mildly dilated. ATRIAL SEPTUM Normal atrial septal thickness without atrial level shunting by limited color doppler interrogation. AORTA The aortic root and proximal ascending aorta are normal in size on limited imaging. MITRAL VALVE Mild mitral annular calcification is present. Mild mitral valve regurgitation. AORTIC VALVE The aortic valve is not well visualized. TRICUSPID VALVE Structurally normal tricuspid valve. There is mild tricuspid valve regurgitation. The estimated pulmonary arterial pressure is 38 mmHg. PULMONARY VALVE No pulmonary valve regurgitation or stenosis. VESSELS The inferior vena cava is normal in size. PERICARDIUM A prominent epicardial fat pad is present. Randy Camargo MD (Electronically Signed) Final Date:14 February 2018 17:36
[2018-02-14] MEDS: CHLORHEXIDINE 0.12% (ORAL KIT) 15 ML CUP MT SCH (20:00)
[2018-02-14] MEDS: MONTELUKAST SODIUM 10 MG TAB PO SCH (20:39)
[2018-02-14] MEDS ORDERED: HEPARIN SODIUM - 1000 UNITS/ML 10 ML VIAL IV FLUSH PRN (21:00)
[2018-02-14] MEDS: ALBUMIN 5% INJ 3,500 ML IV SCH (21:00)
[2018-02-14] MEDS: ANTICOAGULANT CITRATE DEXTROSE SOLN-A 1L OTHER SCH (22:49)
[2018-02-15] VITALS (54 sets, daily range): BP systolic 97–190; BP diastolic 50–83; PULSE 67–116; RESP 14–19; TEMP 96.6–98.7; O2SAT 95–100
[2018-02-15] MEDS: RESP: ALBUTEROL 2.5 MG/IPRATROPIUM 0.5 MG NEB (SCH) NEB ×6 (00:41→20:39)
[2018-02-15] MEDS: methylPREDNISolone SOD SUCC 125 MG/2 ML VIAL IV PUSH SCH ×4 (00:58→17:31)
[2018-02-15] MEDS: DILTIAZEM HCL 60 MG TAB PO SCH ×4 (00:58→17:30)
[2018-02-15] MEDS: ESMOLOL DRIP INJ PREMIX 250 ML IV PRN ×7 (01:08→23:36)
[2018-02-15] MEDS: PROPOFOL 1000 MG/100 ML INJ 100 ML IV PRN ×3 (03:19→17:43)
[2018-02-15] MEDS: PANTOPRAZOLE SODIUM 40 MG VIAL IV PUSH SCH (03:19)
[2018-02-15] MEDS: CHLORHEXIDINE GLUCONATE 2 % 1 PACK (2 CLOTHS)(taper/protocol) TOPICAL SCH (04:00)
[2018-02-15 06:45] LABS: AUTOMATED NEUTROPHIL # 12.2 TH/MM3 (1.8-7.7); BASOPHIL % 0.3 % (0.0-2.0); LYMPHOCYTE # 0.4 TH/MM3 (1.0-4.8); MEAN CELL VOLUME 70.8 FL (80.0-100.0); MEAN CORPUSCULAR HEMOGLOBIN 21.2 PG (27.0-34.0); MEAN PLATELET VOLUME 9.5 FL (7.0-11.0); MONO % 1.4 % (0.0-8.0); MONOCYTE # 0.2 TH/MM3 (0-0.9); NEUT % 95.3 % (16.0-70.0); PLATELET COUNT 75 TH/MM3 (150-450); RED BLOOD COUNT 3.01 MIL/MM3 (4.00-5.30); RED CELL DISTRIBUTION WIDTH 22.9 % (11.6-17.2); WHITE BLOOD COUNT 12.8 TH/MM3 (4.0-11.0)
[2018-02-15 06:51] LABS: BICARBONATE 20.7 MEQ/L (21.0-32.0); CALCIUM 7.5 MG/DL (8.5-10.1); CREATININE 0.81 MG/DL (0.50-1.00)
[2018-02-15 06:57] LABS: HEMATOCRIT 21.3 % (35.0-46.0); HEMOGLOBIN 6.4 GM/DL (11.6-15.3)
[2018-02-15] MEDS: RESP: BUDESONIDE 0.5 MG/2 ML NEB NEB SCH ×2 (07:23→20:39)
[2018-02-15] MEDS ORDERED: FUROSEMIDE 20 MG/2 ML VIAL IV PUSH ONE (07:30)
[2018-02-15] MEDS ORDERED: ACETAMINOPHEN 325 MG TAB PO PRN (07:30)
[2018-02-15] MEDS ORDERED: diphenhydrAMINE HCL 25 MG CAP PO PRN (07:30)
[2018-02-15] MEDS ORDERED: SODIUM CHLOR 0.9% 250 ML INJ 250 ML IV ONE ×2 (07:30→15:45)
--- NOTE | 2018-02-15 07:33 | PD.ONC.PN ---
Subjective Subjective Remarks Patient seen and examined, vital signs, labs, events over the past 24 hours reviewed. Patient is now intubated and sedated, she was initiated on plasma exchange therapy yesterday. She was intubated due to worsening respiratory distress and hypoxia. She remains on an esmolol infusion for management of tachycardia related to atrial fibrillation. This morning she is unresponsive, the nursing staff is weaning down her sedation (she has been on a propofol infusion). Blood work this morning indicates hemoglobin of 6.5 g/dL, nursing staff tells me I redraw is pending because there was some concern of either dilution of the sample or a clot formation in the test tube with resultant apparent readings. Objective Data Date Time Temp Pulse Resp B/P (MAP) Pulse Ox O2 Delivery O2 Flow Rate FiO2 02/15/18 06:00 114 02/15/18 04:17 81 134/60 02/15/18 04:07 100 35 02/15/18 04:00 78 02/15/18 04:00 98.7 82 14 135/60 (85) 100 02/15/18 04:00 35 02/15/18 02:00 86 02/15/18 01:08 95 127/60 02/15/18 00:41 100 35 02/15/18 00:00 67 02/15/18 00:00 35 02/15/18 00:00 98.7 67 14 157/70 (99) 100 02/14/18 22:00 64 02/14/18 20:41 100 35 02/14/18 20:00 70 02/14/18 20:00 35 02/14/18 20:00 98.4 87 17 163/73 (103) 100 02/14/18 19:00 100 Mechanical Ventilator 35 02/14/18 18:00 80 02/14/18 17:12 74 139/61 02/14/18 16:38 100 35 02/14/18 16:00 97.5 84 17 108/59 (75) 100 02/14/18 16:00 86 02/14/18 16:00 35 02/14/18 15:07 71 112/58 02/14/18 14:00 95 02/14/18 13:12 109 107/73 02/14/18 12:00 40 02/14/18 12:00 101 02/14/18 12:00 98.5 115 15 125/64 (84) 100 02/14/18 11:34 109 120/70 02/14/18 11:27 40 02/14/18 11:10 100 40 02/14/18 10:00 107 02/14/18 10:00 100 Bi-Pap 35 02/14/18 09:00 120 137/68 02/14/18 08:50 100 Nasal Cannula 3.00 02/14/18 08:30 100 Nasal Cannula 3.00 02/14/18 08:00 98.3 116 19 164/74 (104) 99 02/14/18 08:00 116 02/15/18 02/15/18 02/15/18 07:00 15:00 23:00 Intake Total 350 ml Output Total 350 ml Balance 0 ml Result Diagram: 02/15/1861902/15/18 06 Laboratory Results Laboratory Tests Test 02/14/18 12:38 02/15/18 06:20 Blood Gas Puncture Site RT RADIAL Blood Gas Patient Temperature 98.6 Blood Gas HCO3 21 mmol/L Blood Gas Base Excess -2.8 mmol/L Blood Gas Oxygen Saturation 96 % Arterial Blood pH 7.44 Arterial Blood Partial Pressure CO2 31 mmHg Arterial Blood Partial Pressure O2 160 mmHg Arterial Blood Oxygen Content 10.2 Vol % Arterial Blood Carboxyhemoglobin 1.6 % Arterial Blood Methemoglobin 1.6 % Blood Gas Hemoglobin 7.3 G/DL Oxygen Delivery Device VENTILATOR Blood Gas Ventilator Setting A/C 500/14/5PEEP Blood Gas Inspired Oxygen 40 % White Blood Count 12.8 TH/MM3 Red Blood Count 3.01 MIL/MM3 Hemoglobin 6.4 GM/DL Hematocrit 21.3 % Mean Corpuscular Volume 70.8 FL Mean Corpuscular Hemoglobin 21.2 PG Mean Corpuscular Hemoglobin Concent 30.0 % Red Cell Distribution Width 22.9 % Platelet Count 75 TH/MM3 Mean Platelet Volume 9.5 FL Neutrophils (%) (Auto) 95.3 % Lymphocytes (%) (Auto) 3.0 % Monocytes (%) (Auto) 1.4 % Eosinophils (%) (Auto) 0.0 % Basophils (%) (Auto) 0.3 % Neutrophils # (Auto) 12.2 TH/MM3 Lymphocytes # (Auto) 0.4 TH/MM3 Monocytes # (Auto) 0.2 TH/MM3 Eosinophils # (Auto) 0.0 TH/MM3 Basophils # (Auto) 0.0 TH/MM3 CBC Comment AUTO DIFF Blood Urea Nitrogen 38 MG/DL Creatinine 0.81 MG/DL Random Glucose 223 MG/DL Calcium Level 7.5 MG/DL Sodium Level 149 MEQ/L Potassium Level 4.1 MEQ/L Chloride Level 119 MEQ/L Carbon Dioxide Level 20.7 MEQ/L Anion Gap 9 MEQ/L Estimat Glomerular Filtration Rate 68 ML/MIN Culture Results Microbiology Date/Time Source Procedure Growth Status 02/13/18 15:40 Blood Peripheral Aerobic Blood Culture - Preliminary NO GROWTH IN 1 DAY Resulted 02/13/18 15:40 Blood Peripheral Anaerobic Blood Culture - Preliminary NO GROWTH IN 1 DAY Resulted 02/13/18 15:30 Blood Peripheral Aerobic Blood Culture - Preliminary NO GROWTH IN 1 DAY Resulted 02/13/18 15:30 Blood Peripheral Anaerobic Blood Culture - Preliminary NO GROWTH IN 1 DAY Resulted 02/14/18 14:55 Nasal Washing Influenza Types A,B Antigen (ABBY) - Final NEGATIVE FOR FLU A AND B ANTIGEN.... Complete 02/14/18 12:24 Sputum Endotracheal Gram Stain Pending Received 02/14/18 12:24 Sputum Endotracheal Sputum Culture Pending Received 02/13/18 14:51 Nasal Washing Influenza Types A,B Antigen (ABBY) - Final NEGATIVE FOR FLU A AND B ANTIGEN.... Complete 02/13/18 14:50 Urine Clean Catch Legionella Antigen - Final PRESUMPTIVE NEGATIVE FOR LEGIONELLA P... Complete 02/13/18 14:50 Urine Clean Catch Streptococcus pneumoniae Antigen (M - Final PRESUMPTIVE NEGATIVE FOR STREPTOCOCCU... Complete 02/13/18 14:50 Urine Clean Catch Urine Culture - Final Clemencia Albicans Complete Administered Medications Medications (Trade) Dose Ordered Sig/Melissa Route PRN Reason Start Time Stop Time Status Last Admin Dose Admin Lactulose (Lactulose Liq) 30 ml DAILY PRN PO SEVERE CONSITIPATION 02/12/18 22:30 02/14/18 16:58 Heparin Sodium (Porcine) (Heparin Central Flush) 200 units DAILY IV FLUSH 02/13/18 09:00 02/13/18 09:35 Heparin Sodium (Porcine) (Heparin Central Flush) 200 units UNSCH PRN IV FLUSH SEE PROTOCOL TABLE 02/13/18 01:00 02/13/18 01:00 Budesonide (Pulmicort Respule Neb) 0.5 mg Q12HR NEB NEB 4/22/18 08:00 02/15/18 07:23 Montelukast Sodium (Singulair) 10 mg HS PO 02/13/18 21:00 02/14/18 20:39 Tiotropium [place] (Spiriva Inh) 18 mcg DAILY INH 02/13/18 09:00 02/14/18 09:54 Metoprolol Tartrate (Lopressor Inj) 5 mg Q5M PRN IV PUSH sustained HR > 110 02/13/18 02:15 02/13/18 09:00 Diltiazem HCl (Cardizem) 120 mg Q6HR PO 02/13/18 06:00 02/15/18 05:15 Pantoprazole Sodium (Protonix Inj) 40 mg Q24H IV PUSH 02/13/18 03:00 02/15/18 03:19 Methylprednisolone Sodium Succinate (SoluMEDROL INJ) 125 mg Q6HR IV PUSH 02/13/18 09:45 02/15/18 05:15 Enoxaparin Sodium (Lovenox Inj) 40 mg DAILY SQ 02/14/18 09:00 02/14/18 09:54 Sodium Chloride 1,000 ml @ 30 mls/hr Q24H IV 02/13/18 15:00 02/14/18 15:00 Insulin Aspart (NovoLOG SUPPLEMENTAL SCALE) 1 ACHS SLIDING SCALE SQ 02/13/18 17:00 02/14/18 21:00 Esmolol HCl/ Sodium Chloride 250 ml @ 22.56 mls/ hr TITRATE PRN IV Blood Pressure Management 02/13/18 15:00 02/15/18 04:17 Chlorhexidine Gluconate (Chlorhexidine 2% Cloth) 3 pack DAILY@04 TOPICAL 02/14/18 04:00 02/18/18 04:01 02/15/18 04:00 Hydralazine HCl (Apresoline Inj) 20 mg Q4H PRN IV PUSH SBP>160, DBP>90 02/14/18 00:00 02/14/18 09:59 Albuterol/ Ipratropium (Duoneb Neb) 1 ampule Q4HR NEB NEB 02/14/18 12:00 02/15/18 07:23 Chlorhexidine Gluconate (Peridex 0.12% Liq) 15 ml BID@08,20 MT 02/14/18 20:00 02/14/18 20:00 Propofol 100 ml @ 2.256 mls/ hr TITRATE PRN IV SEDATION 02/14/18 11:45 02/15/18 03:19 Anticoagulant Citrate Dextose Joya A (Acd Formula Inj) 1,000 ml Q48H OTHER 02/14/18 21:00 02/22/18 21:01 02/14/18 22:49 Albumin Human 3,500 ml @ 250 mls/hr Q48H IV 02/14/18 21:00 02/23/18 10:59 02/14/18 21:00 Objective Remarks GENERAL: Elderly lady, chronically ill-appearing, now intubated, sedated and nonresponsive. SKIN: Multiple ecchymotic type lesions noted over the upper extremities and lower extremities, she has thin skin with peeling in various points. HEAD: Atraumatic. Normocephalic. No temporal or scalp tenderness. EYES: No scleral icterus. No injection or drainage. Pupils are sluggishly responsive ENT: Nose without bleeding, purulent drainage or septal hematoma. Throat without erythema, tonsillar hypertrophy or exudate. Uvula midline. Airway patent. NECK: Trachea midline. No JVD or lymphadenopathy. Supple, nontender, no meningeal signs. CARDIOVASCULAR: Irregular, rate is better controlled, S1-S2 no obvious murmurs rubs gallops. RESPIRATORY: No intubated, good air movement of the upper and middle lung zones with decreased bibasilar breath sounds. GASTROINTESTINAL: Nondistended no palpable organ enlargement. Protuberant belly , soft, nontender MUSCULOSKELETAL: Generally decreased muscle mass, generally decreased motor strength. Atrophy. Neurologic: Generally weak, decreased muscle mass, tone, no spontaneous movements. Extremities: Are cool and dry to the touch. Pulses: Faint/thready peripheral pulses on bilateral feet and in the radial pulses. Assessment/Plan Problem List: (1) Myasthenia gravis ICD Codes: G70.00 - Myasthenia gravis without (acute) exacerbation Status: Chronic Plan: --Per neurology, we will initiate apheresis with albumin every other day 5 days. --Monitor coags Hx/Workup: Patient has a history of myasthenia gravis dating back to the . She has been on various lines of treatment including Mestinon, corticosteroids and Imuran. For the past several years she has been on IVIG infusions every 3 weeks under the care of a neurologist in [place] prior to relocating to the [facility]. She received IVIG infusions for 5 days in a row last week at [facility] and this did not improve her symptoms. The patient was being seen by a tele neurologist who recommended Rituxan infusion. She has been transferred to [facility] for continued care and management. Assessment 77-year-old female with myasthenia gravis exacerbation; hematology consulted for apheresis Plan 1. Myasthenia gravis with exacerbation resulting in hypoxic respiratory failure : Continue every other day plasma exchange therapy, her next treatment will be due on 02/16/2018. Albumin is a replacement fluid. 2. Anemia: Acute on chronic, I have ordered 2 units packed red blood cells to be delivered today if the hemoglobin hematocrit levels were drawn earlier this morning are accurate. Continue ongoing care. Hematology/oncology follow with you. Haile Zacarias MD Feb 15, 2018 07:33
[2018-02-15] MEDS: INSULIN ASPART SUPPLEMENTAL SCALE SQ SCH ×4 (08:00→19:36)
[2018-02-15] MEDS: CHLORHEXIDINE 0.12% (ORAL KIT) 15 ML CUP MT SCH ×2 (08:15→19:36)
[2018-02-15] MEDS: ENOXAPARIN SODIUM 40 MG/0.4 ML SYRINGE SQ SCH (08:16)
[2018-02-15 08:31] LABS: STOMATOCYTES 1+ (NORMAL)
[2018-02-15] MEDS: PICC Daily Heparin 100 unit/mL Lock Flush IV FLUSH SCH (08:31)
[2018-02-15] MEDS: TIOTROPIUM BROMIDE 18 MCG INH INH SCH (08:31)
--- NOTE | 2018-02-15 08:37 | HHI.CCPN ---
Subjective Remarks/Hospital Course This is a 77-year-old female that presented to [facility] on 01/27/2018 with complaints of dyspnea. The patient medical history significant for myasthenia gravis since the and was cared for by her outside b2b sales in [facility] prior to relocating recently to [place]. Her medical history is significant for chronic steroid therapy with prednisone and then subsequently placed on IVIG infusions every 3 weeks secondary to nonresponsiveness of steroid therapy. On 01 27 the patient was admitted to [facility] and treated for sepsis with broad- spectrum antibiotics, which have now been completed. Blood cultures have revealed Streptococcus viridans. The patient continued care at [place] seeing a telemetry neurologist and hematology oncology was consulted, Dr. Zacarias. It was recommended that the patient receive Rituxan and be evaluated formally by a neurologist. Patient was transferred to [facility]. The patient has a history of A. fib RVR, and home medications include metoprolol, digoxin, and Cardizem. These medications were stopped in the last 24 hours secondary to the patient experiencing dysphagia. Patient subsequently went into A. fib RVR early this a.m., heart rate 150's and transferred to ICU. Stat ABG was obtained. critical care medicine was consulted. SUBJ 02/14: Currently patient is quite tachypneic breathing about 40/min, even on BiPAP. Prior to BiPAP patient's NIF-16 and forced vital was 600 ml. Patient clearly failing BiPAP and this is most likely secondary to myasthenia gravis exacerbation. I proceeded to endotracheally intubate the patient placed on mechanical ventilation. Discussed with Dr. Olivarez area both of us agree on starting plasma exchange. Will discuss with hematology Dr. Zacarias 02/15: No events over the night. Due to progressive respiratory distress she was intubated yesterday. T-max of 98.7. I/O 1770/650. She remains on esmolol drip, still in A. fib/flutter on the monitor with heart rate better controlled. She sedated with propofol. ROS -unobtainable, patient is intubated Objective Vital Signs Date Time Temp Pulse Resp B/P (MAP) Pulse Ox O2 Delivery O2 Flow Rate FiO2 02/15/18 07:27 100 Ventilator 35 02/15/18 06:00 114 02/15/18 04:17 134/60 02/15/18 04:00 98.7 14 02/14/18 08:50 3.00 Intake and Output 02/15/18 02/15/18 02/16/18 08:00 16:00 00:00 Intake Total 350 ml Output Total 350 ml Balance 0 ml Result Diagram: 02/15/18 0620 02/15/18 06 Other Results Microbiology Date/Time Source Procedure Growth Status 02/14/18 14:55 Nasal Washing Influenza Types A,B Antigen (ABBY) - Final NEGATIVE FOR FLU A AND B ANTIGEN.... Complete 02/13/18 14:51 Nasal Washing Influenza Types A,B Antigen (ABBY) - Final NEGATIVE FOR FLU A AND B ANTIGEN.... Complete 02/13/18 14:50 Urine Clean Catch Legionella Antigen - Final PRESUMPTIVE NEGATIVE FOR LEGIONELLA P... Complete 02/13/18 14:50 Urine Clean Catch Streptococcus pneumoniae Antigen (M - Final PRESUMPTIVE NEGATIVE FOR STREPTOCOCCU... Complete 02/13/18 14:50 Urine Clean Catch Urine Culture - Final Clemencia Albicans Complete Laboratory Tests Test 02/14/18 12:38 Blood Gas Puncture Site RT RADIAL Blood Gas Patient Temperature 98.6 Blood Gas HCO3 21 mmol/L (22-26) Blood Gas Base Excess -2.8 mmol/L (-2-2) Blood Gas Oxygen Saturation 96 % (90-100) Arterial Blood pH 7.44 (7.380-7.420) Arterial Blood Partial Pressure CO2 31 mmHg (38-42) Arterial Blood Partial Pressure O2 160 mmHg (61-120) Arterial Blood Oxygen Content 10.2 Vol % (12.0-20.0) Arterial Blood Carboxyhemoglobin 1.6 % (0-4) Arterial Blood Methemoglobin 1.6 % (0-2) Blood Gas Hemoglobin 7.3 G/DL (12.0-16.0) Oxygen Delivery Device VENTILATOR Blood Gas Ventilator Setting A/C 500/14/5PEEP Blood Gas Inspired Oxygen 40 % Imaging Last Impressions Chest X-Ray 02/14/18 0600 Signed Impressions: Service Date/Time: Wednesday, February 14, 2018 03:41 - CONCLUSION: 1. Minimal basilar atelectasis. PICC line tip in superior vena cava. Sarwat Mclaughlin MD Lower Extremity Ultrasound 02/13/18 0000 Signed Impressions: Service Date/Time: Tuesday, February 13, 2018 16:19 - CONCLUSION: No DVT or superficial venous thrombosis is identified within either lower extremity. John Laureano MD Last Impressions Chest X-Ray 02/12/18 0000 Signed Impressions: Service Date/Time: Tuesday, February 13, 2018 00:12 - CONCLUSION: No acute disease. Wilbur Turner Jr., MD Objective Remarks GENERAL: Elderly lady, intubated and sedated, ill-appearing. SKIN: Warm and dry. Multiple ecchymotic bruising bilateral arms and skin tears covered with dressing. HEAD: Atraumatic. Normocephalic. EYES: Pupils equal and round. 2 mm and brisk. Sclerae are anicteric. ENT: No nasal bleeding or discharge. Orally intubated. NECK: Trachea midline. No JVD. Right IJ HD catheter in place -site is clean. CARDIOVASCULAR: Irregular rate, irregular rhythm. No murmurs appreciated. RESPIRATORY: Coarse breath sounds bilateral. Good air entry. No wheezes. GASTROINTESTINAL: Abdomen soft, non-tender, nondistended. Bowel sounds present. No hepatomegaly and no splenomegaly appreciated. MUSCULOSKELETAL: Extremities without clubbing, cyanosis, or edema. No obvious deformities. NEUROLOGICAL: Intubated and sedated. Withdraws to painful stimuli. Does not follow commands. A/P Problem List: (1) Pneumonia ICD Code: J18.9 - Pneumonia, unspecified organism Status: Acute (2) COPD (chronic obstructive pulmonary disease) ICD Code: J44.9 - Chronic obstructive pulmonary disease, unspecified Status: Chronic (3) Myasthenia gravis ICD Code: G70.00 - Myasthenia gravis without (acute) exacerbation Status: Chronic (4) Current chronic use of systemic steroids ICD Code: Z79.52 - senior care (current) use of systemic steroids (5) Anemia ICD Code: D64.9 - Anemia, unspecified Assessment and Plan 1. Myasthenia gravis, with acute exacerbation 2. Acute respiratory failure secondary to above 3. Acute encephalopathy 4. A. fib with RVR 5. Possible pneumonia 6. History of CHF 7. Hypernatremia 8. Acute anemia, etiology is unclear, no melena no hematemesis, no hematochezia 1. Continue PRVC at current vent settings. Patient is synchronized with the ventilator, no auto PEEP. PIP 23 2. Vent bundle and bronchodilators. Hold home medication Singulair and Spiriva 3. Received plasmapheresis yesterday 4. Followed by neurology and hematology 5. Patient on methylprednisolone 125 mg 4 times daily and she received IVIG therapy for the last 3 weeks at [facility] 6. Continue esmolol infusion and keep heart rate less than 110. Patient previously on home medications to include Cardizem 120 mg every 6 hours, metoprolol 75 mg twice daily, digoxin-rate control medications were all placed on hold in the last 24 hours secondary to n.p.o. status-subsequent conversion to A. fib RVR 7. Follow-up echo 8. Stop NS and start / NS 9. Tube feeds tomorrow 10. Transfuse 2 units of PRBC and cryo per hematology 11. Stop Lovenox for now 12. GI prophylaxis with PPI Darin Douglass MD Feb 15, 2018 08:37
[2018-02-15] MEDS: SODIUM CHLORIDE 23.4% INJ 38.5 MEQ in WATER STERILE FOR INJ 990.375 ML IV SCH (10:00)
[2018-02-15 11:17] LABS: INTERNATIONAL NORMALIZED RATIO 1.8 RATIO; PROTHROMBIN TIME - PATIENT 18.7 SEC (9.8-11.6)
[2018-02-15] MEDS: LACTULOSE SYRUP 20 GM/30 ML CUP PO PRN (12:16)
[2018-02-15] MEDS: SENNOSIDES 8.6 MG TAB PO PRN (12:17)
[2018-02-15] MEDS: MONTELUKAST SODIUM 10 MG TAB PO SCH (19:36)
[2018-02-15 21:54] LABS: HEMATOCRIT 29.8 % (35.0-46.0); HEMOGLOBIN 9.5 GM/DL (11.6-15.3); MEAN CELL VOLUME 76.3 FL (80.0-100.0); MEAN CORPUSCULAR HEMOGLOBIN 24.3 PG (27.0-34.0); MEAN CORPUSCULAR HGB CONC 31.9 % (32.0-36.0); MEAN PLATELET VOLUME 9.4 FL (7.0-11.0); PLATELET COUNT 50 TH/MM3 (150-450); RED BLOOD COUNT 3.91 MIL/MM3 (4.00-5.30); RED CELL DISTRIBUTION WIDTH 24.4 % (11.6-17.2); WHITE BLOOD COUNT 12.2 TH/MM3 (4.0-11.0)
[2018-02-15 22:09] LABS: INTERNATIONAL NORMALIZED RATIO 1.4 RATIO; PROTHROMBIN TIME - PATIENT 13.8 SEC (9.8-11.6)
[2018-02-16] VITALS (22 sets, daily range): BP systolic 102–155; BP diastolic 57–83; PULSE 72–101; RESP 14–18; TEMP 97.4–98.4; O2SAT 88–100
[2018-02-16] MEDS: DILTIAZEM HCL 60 MG TAB PO SCH ×5 (00:17→23:57)
[2018-02-16] MEDS: methylPREDNISolone SOD SUCC 125 MG/2 ML VIAL IV PUSH SCH ×5 (00:17→23:57)
[2018-02-16] MEDS: PROPOFOL 1000 MG/100 ML INJ 100 ML IV PRN ×5 (00:17→22:45)
[2018-02-16] MEDS: RESP: ALBUTEROL 2.5 MG/IPRATROPIUM 0.5 MG NEB (SCH) NEB ×6 (00:40→20:18)
[2018-02-16] MEDS: ESMOLOL DRIP INJ PREMIX 250 ML IV PRN ×5 (02:35→18:48)
[2018-02-16] MEDS: PANTOPRAZOLE SODIUM 40 MG VIAL IV PUSH SCH (02:41)
[2018-02-16] MEDS: PICC PRN Heparin 100 units/ml Lock Flush IV FLUSH ×2 (02:41→05:15)
[2018-02-16] MEDS ORDERED: ALTEPLASE RECOMBINANT 2 MG VIAL INTRACATH ONE (02:45)
[2018-02-16] MEDS: CHLORHEXIDINE GLUCONATE 2 % 1 PACK (2 CLOTHS)(taper/protocol) TOPICAL SCH (04:00)
[2018-02-16] MEDS: LACTULOSE SYRUP 20 GM/30 ML CUP PO PRN (05:15)
[2018-02-16] MEDS: hydrALAZINE HCL 20 MG/ML VIAL IV PUSH PRN (05:18)
--- NOTE | 2018-02-16 05:38 | RADRPT ---
EXAM DATE/TIME: 02/16/2018 04:14 [place] COMPARISON: CHEST SINGLE AP, February 14, 2018, 12:24. INDICATIONS : Short of breath. MEDICAL HISTORY : None. SURGICAL HISTORY : None. ENCOUNTER: Subsequent ACUITY: 3 days PAIN SCORE: 0/10 LOCATION: Bilateral chest FINDINGS: Endotracheal tube tip in good position. Left PICC line tip near cavoatrial junction. Right vas cathet er also in near cavoatrial junction. Mild basilar airspace disease. No significant effusion. No pneumothorax. CONCLUSION: 1. Support apparatus unchanged and in good position. Cardiomegaly. Mild basilar airspace disease. Sarwat Mclaughlin MD on February 16, 2018 at 5:36 Board Certified Radiologist. This report was verified electronically.
[2018-02-16 06:03] LABS: AUTOMATED NEUTROPHIL # 11.7 TH/MM3 (1.8-7.7); BASOPHIL % 0.3 % (0.0-2.0); HEMATOCRIT 30.7 % (35.0-46.0); HEMOGLOBIN 10.4 GM/DL (11.6-15.3); LYMPH % 1.3 % (9.0-44.0); LYMPHOCYTE # 0.1 TH/MM3 (1.0-4.8); MEAN CELL VOLUME 76.9 FL (80.0-100.0); MEAN CORPUSCULAR HGB CONC 33.8 % (32.0-36.0); MEAN PLATELET VOLUME 9.6 FL (7.0-11.0); MONO % 0.5 % (0.0-8.0); MONOCYTE # 0.1 TH/MM3 (0-0.9); NEUT % 97.9 % (16.0-70.0); PLATELET COUNT 41 TH/MM3 (150-450); RED CELL DISTRIBUTION WIDTH 24.4 % (11.6-17.2); WHITE BLOOD COUNT 11.9 TH/MM3 (4.0-11.0)
[2018-02-16 06:39] LABS: ALBUMIN 3.4 GM/DL (3.4-5.0); BICARBONATE 20.8 MEQ/L (21.0-32.0); CALCIUM 7.1 MG/DL (8.5-10.1); CREATININE 0.6 MG/DL (0.50-1.00); MAGNESIUM 2.1 MG/DL (1.5-2.5); PHOSPHORUS 2.5 MG/DL (2.5-4.9); TOTAL BILIRUBIN ADULT 1.6 MG/DL (0.2-1.0)
[2018-02-16] MEDS: RESP: BUDESONIDE 0.5 MG/2 ML NEB NEB SCH ×2 (07:46→20:18)
[2018-02-16] MEDS: CHLORHEXIDINE 0.12% (ORAL KIT) 15 ML CUP MT SCH ×2 (07:55→23:52)
[2018-02-16] MEDS: PICC Daily Heparin 100 unit/mL Lock Flush IV FLUSH SCH (07:57)
[2018-02-16] MEDS: INSULIN ASPART SUPPLEMENTAL SCALE SQ SCH ×4 (07:59→23:57)
[2018-02-16 08:01] LABS: CALCIUM-PROTEIN CORRECTED 8.5 MG/DL (8.5-10.1); TOTAL PROTEIN 4.6 GM/DL (6.4-8.2)
[2018-02-16] MEDS: TIOTROPIUM BROMIDE 18 MCG INH INH SCH (08:07)
--- NOTE | 2018-02-16 08:41 | HHI.PR ---
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 02/16 sedated, on vent left foot cold and cyanotic mildly grimaces to stim myasthenias crisis critically ill solumedrol and plasma exchange 2/5 planned for today will d/c cymbalta Subjective Subjective Comments intubated, sedated propofol Active Medications Current Medications Medications (Trade) Dose Ordered Sig/Melissa Route Start Time Stop Time Status Last Admin (Tylenol) 650 mg Q4H PRN PO 02/12/18 22:30 02/15/18 13:07 (Zofran Inj) 4 mg Q6H PRN IVP 02/12/18 22:30 (Narcan Inj) 0.4 mg UNSCH PRN IV PUSH 02/12/18 22:30 (Kathryn-Colace) 1 tab BID PO 02/13/18 09:00 Future Hold (Milk Of Magnesia Liq) 30 ml Q12H PRN PO 02/12/18 22:30 (Senokot) 17.2 mg Q12H PRN PO 02/12/18 22:30 02/15/18 12:17 (Dulcolax Supp) 10 mg DAILY PRN RECTAL 02/12/18 22:30 02/16/18 05:15 (Lactulose Liq) 30 ml DAILY PRN PO 02/12/18 22:30 02/16/18 05:15 (NS Flush) 5 ml UNSCH PRN IV FLUSH 02/13/18 01:00 (Heparin Central Flush) 200 units DAILY IV FLUSH 02/13/18 09:00 02/16/18 07:57 (NS Flush) 5 ml UNSCH PRN IV FLUSH 02/13/18 01:00 (Heparin Central Flush) 200 units UNSCH PRN IV FLUSH 02/13/18 01:00 02/16/18 05:15 (NS Flush) 5 ml UNSCH PRN IV FLUSH 02/13/18 01:00 (Aspirin Chew) 81 mg DAILY CHEW 02/13/18 09:00 Future Hold (Pulmicort Respule Neb) 0.5 mg Q12HR NEB NEB 02/13/18 08:00 02/16/18 07:46 (Lanoxin) 0.25 mg DAILY PO 02/13/18 09:00 Future Hold (Cymbalta Dr) 30 mg DAILY PO 02/13/18 09:00 Future Hold (Singulair) 10 mg HS PO 02/13/18 21:00 02/15/18 19:36 (Mycostatin Liq) 5 ml QID SWISH-SWAL 02/13/18 09:00 Future Hold (Spiriva Inh) 18 mcg DAILY INH 02/13/18 09:00 02/14/18 09:54 (Lopressor Inj) 5 mg Q5M PRN IV PUSH 02/13/18 02:15 02/13/18 09:00 (Cardizem) 120 mg Q6HR PO 02/13/18 06:00 02/16/18 05:16 (Protonix Inj) 40 mg Q24H IV PUSH 02/13/18 03:00 02/16/18 02:41 (SoluMEDROL INJ) 125 mg Q6HR IV PUSH 02/13/18 09:45 02/16/18 05:16 (Duoneb Neb) 1 ampule Q2HR NEB PRN NEB 02/13/18 13:15 (D50w (Vial) Inj) 50 ml UNSCH PRN IV PUSH 02/13/18 14:30 (Glucagon Inj) 1 mg UNSCH PRN OTHER 02/13/18 14:30 (NovoLOG SUPPLEMENTAL SCALE) 1 ACHS SLIDING SCALE SQ 02/13/18 17:00 02/16/18 07:59 Esmolol HCl/ Sodium Chloride 250 ml @ 22.56 mls/ hr TITRATE PRN IV 02/13/18 15:00 02/16/18 06:38 Miscellaneous Information Patient in critical care unit? Ass... [id number] .XX 02/13/18 16:00 (Chlorhexidine 2% Cloth) 3 pack DAILY@04 TOPICAL 02/14/18 04:00 02/18/18 04:01 02/16/18 04:00 (Chlorhexidine 2% Cloth) 3 pack UNSCH PRN TOPICAL 02/13/18 16:00 02/18/18 15:45 (Apresoline Inj) 20 mg Q4H PRN IV PUSH 02/14/18 00:00 02/16/18 05:18 (Trandate Inj) 10 mg Q4H PRN IV PUSH 02/14/18 00:00 02/16/18 02:52 (Duoneb Neb) 1 ampule Q4HR NEB NEB 02/14/18 12:00 02/16/18 07:46 (Peridex 0.12% Liq) 15 ml BID@08,20 MT 02/14/18 20:00 02/16/18 07:55 Propofol 100 ml @ 2.256 mls/ hr TITRATE PRN IV 02/14/18 11:45 02/16/18 08:25 Phenylephrine HCl 40 mg/Dextrose 500 ml @ 30 mls/hr TITRATE PRN IV 02/14/18 12:15 (Brethine Inj) 1 mg UNSCH PRN SQ 02/14/18 12:15 (NS Flush) 5 ml UNSCH PRN IV FLUSH 02/14/18 13:00 (Heparin Inj) 2,000 units UNSCH PRN IV FLUSH 02/14/18 13:00 (Acd Formula Inj) 1,000 ml Q48H OTHER 02/14/18 21:00 02/22/18 21:01 02/14/18 22:49 Albumin Human 3,500 ml @ 250 mls/hr Q48H IV 02/14/18 21:00 02/23/18 10:59 02/14/18 21:00 (Benadryl Inj) 25 mg UNSCH PRN IV PUSH 02/14/18 21:00 02/23/18 20:59 (Heparin Inj) 1,000 units UNSCH PRN IV FLUSH 02/14/18 21:00 02/23/18 20:59 Calcium Gluconate 3.5 gm/Sodium Chloride 235 ml @ 90 mls/hr Q48H IV 02/16/18 21:00 02/22/18 23:37 (Tylenol) 650 mg Q4H PRN PO 02/15/18 07:30 (Benadryl) 25 mg Q4H PRN PO 02/15/18 07:30 02/15/18 13:07 Sodium Chloride 38.5 meq/Sterile Water 1,000 ml @ 50 mls/hr Q20H IV 02/15/18 10:00 (Lopressor) 50 mg BID PO 02/16/18 09:00 Allergies Allergies Coded Allergies azathioprine (Verified Allergy, Severe, 02/12/18) cephalexin (Verified Allergy, Severe, Rash, 02/12/18) Exam I&O / VS Vital Signs Date Time Temp Pulse Resp B/P (MAP) Pulse Ox O2 Delivery O2 Flow Rate FiO2 02/16/18 07:46 100 35 02/16/18 06:38 79 02/16/18 06:00 80 02/16/18 04:43 100 35 02/16/18 04:00 98 02/16/18 04:00 35 02/16/18 04:00 92 15 155/83 (107) 99 02/16/18 02:35 91 02/16/18 02:00 101 02/16/18 00:40 100 35 02/16/18 00:00 35 02/16/18 00:00 92 02/16/18 00:00 97.4 91 14 150/67 (94) 100 02/15/18 23:36 87 02/15/18 22:00 102 02/15/18 20:39 100 35 02/15/18 20:00 99 02/15/18 20:00 97.6 92 16 190/83 (118) 98 02/15/18 20:00 35 02/15/18 19:39 100 02/15/18 18:20 97.8 81 14 152/67 100 02/15/18 18:00 77 02/15/18 16:45 84 15 149/67 (94) 100 02/15/18 16:30 82 14 142/63 (89) 100 02/15/18 16:15 82 15 147/70 (95) 100 02/15/18 16:00 83 02/15/18 16:00 97.2 84 15 113/58 (76) 100 02/15/18 16:00 35 02/15/18 15:57 97.1 92 14 116/75 100 02/15/18 15:45 87 14 116/55 (75) 100 02/15/18 15:31 78 116/55 02/15/18 15:30 77 14 116/55 (75) 100 02/15/18 15:30 96.8 77 14 116/55 100 02/15/18 15:17 99 35 4/24/18 15:15 80 14 107/53 (71) 99 418 15:00 76 14 105/55 (72) 100 18 14:45 81 14 105/55 (72) 100 18 14:30 83 14 97/54 (68) 100 418 14:15 82 14 105/52 (69) 100 418 14:00 76 14 102/53 (69) 100 18 14:00 85 2418 13:45 85 14 106/50 (68) 100 418 13:40 83 14 107/54 (71) 100 418 13:40 97.5 93 14 107/54 100 18 13:30 82 14 102/51 (68) 100 18 13:20 97.6 91 14 112/53 100 18 13:15 85 14 112/53 (72) 100 18 13:00 95 14 104/50 (68) 100 18 12:45 105 14 100/50 (67) 100 418 12:30 106 14 103/51 (68) 100 418 12:15 107 14 108/54 (72) 100 18 12:13 119 125/53 18 12:00 97.0 116 14 125/53 (77) 95 18 12:00 35 18 12:00 93 18 12:00 116 125/53 18 11:45 100 14 124/58 (80) 100 18 11:30 96 14 137/60 (85) 100 18 11:27 100 35 18 11:15 107 16 127/59 (81) 98 18 11:00 101 14 133/61 (85) 100 18 11:00 101 133/61 18 10:45 90 16 130/60 (83) 100 18 10:30 98 15 129/56 (80) 99 42418 10:15 103 15 142/64 (90) 100 4 10:00 95 17 151/67 (95) 100 4/24/18 10:00 94 02/15/18 09:45 97 17 144/65 (91) 100 02/15/18 09:30 89 16 134/57 (82) 100 02/15/18 09:15 93 19 143/65 (91) 100 02/15/18 09:00 91 17 135/61 (85) 100 02/15/18 08:45 93 16 141/64 (89) 100 Objective Micro and Labs Laboratory Tests Test 02/15/18 10:04 02/15/18 21:40 02/16/18 05:00 02/16/18 05:10 White Blood Count 12.8 12.2 11.9 Red Blood Count 3.01 3.91 4.00 Hemoglobin 6.4 9.5 10.4 Hematocrit 21.3 29.8 30.7 Mean Corpuscular Volume 70.8 76.3 76.9 Mean Corpuscular Hemoglobin 21.2 24.3 26.0 Mean Corpuscular Hemoglobin Concent 30.0 31.9 33.8 Red Cell Distribution Width 22.9 24.4 24.4 Platelet Count 75 50 41 Mean Platelet Volume 9.5 9.4 9.6 Neutrophils (%) (Auto) 95.3 97.9 Lymphocytes (%) (Auto) 3.0 1.3 Monocytes (%) (Auto) 1.4 0.5 Eosinophils (%) (Auto) 0.0 0.0 Basophils (%) (Auto) 0.3 0.3 Neutrophils # (Auto) 12.2 11.7 Lymphocytes # (Auto) 0.4 0.1 Monocytes # (Auto) 0.2 0.1 Eosinophils # (Auto) 0.0 0.0 Basophils # (Auto) 0.0 0.0 CBC Comment AUTO DIFF AUTO DIFF Differential Comment AUTO DIFF CONFIRMED Stomatocytes 1+ Prothrombin Time 18.7 13.8 Prothromb Time International Ratio 1.8 1.4 Activated Partial Thromboplast Time 61.2 Fibrinogen 63 148 Blood Gas Puncture Site PICC Blood Gas Patient Temperature 98.6 Venous Blood pH 7.41 Venous Blood Partial Pressure CO2 34 Venous Blood Partial Pressure O2 32 Venous Blood HCO3 21 Venous Blood Oxygen Saturation 57 Venous Blood Oxygen Content 7.9 Venous Blood Base Excess -2.6 Oxygen Delivery Device VENTILATOR Blood Gas Ventilator Setting SEE COMMENTS Blood Gas Inspired Oxygen 35 Blood Urea Nitrogen 30 Creatinine 0.60 Random Glucose 231 Total Protein 4.6 Albumin 3.4 Calcium Level 7.1 Phosphorus Level 2.5 Magnesium Level 2.1 Alkaline Phosphatase 39 Aspartate Amino Transf (AST/SGOT) 352 Alanine Aminotransferase (ALT/SGPT) 679 Total Bilirubin 1.6 Sodium Level 142 Potassium Level 3.6 Chloride Level 112 Carbon Dioxide Level 20.8 Anion Gap 9 Estimat Glomerular Filtration Rate 96 Protein Corrected Calcium 8.5 Date/Time Source Procedure Growth Status 02/13/18 15:40 Blood Peripheral Aerobic Blood Culture - Preliminary NO GROWTH IN 2 DAYS Resulted 02/13/18 15:40 Blood Peripheral Anaerobic Blood Culture - Preliminary NO GROWTH IN 2 DAYS Resulted 02/14/18 14:55 Nasal Washing Influenza Types A,B Antigen (ABBY) - Final NEGATIVE FOR FLU A AND B ANTIGEN.... Complete 02/13/18 14:50 Urine Clean Catch Legionella Antigen - Final PRESUMPTIVE NEGATIVE FOR LEGIONELLA P... Complete 02/13/18 14:50 Urine Clean Catch Streptococcus pneumoniae Antigen (M - Final PRESUMPTIVE NEGATIVE FOR STREPTOCOCCU... Complete Ryan Teixeira MD Feb 16, 2018 08:41
[2018-02-16 08:54] LABS: BURR CELLS 1+ (NORMAL); OVALOCYTES 1+ (NORMAL); TOXIC GRANULATION 1+ (NORMAL); TOXIC VACUOLATION PRESENT (NONE SEEN)
[2018-02-16] MEDS: METOPROLOL TARTRATE 50 MG TAB PO SCH ×2 (09:26→23:54)
--- NOTE | 2018-02-16 09:42 | HHI.CCPN ---
Subjective Remarks/Hospital Course This is a 77-year-old female that presented to [facility] on 01/27/2018 with complaints of dyspnea. 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 Her medical history is significant for chronic steroid therapy with prednisone and then subsequently placed on IVIG infusions every 3 weeks secondary to nonresponsiveness of steroid therapy. On 01 27 the patient was admitted to [facility] and treated for sepsis with broad- spectrum antibiotics, which have now been completed. Blood cultures have revealed Streptococcus viridans. The patient continued care at [place] seeing a telemetry neurologist and hematology oncology was consulted, Dr. Zacarias. It was recommended that the patient receive Rituxan and be evaluated formally by a neurologist. Patient was transferred to [facility]. The patient has a history of A. fib RVR, and home medications include metoprolol, digoxin, and Cardizem. These medications were stopped in the last 24 hours secondary to the patient experiencing dysphagia. Patient subsequently went into A. fib RVR early this a.m., heart rate 150's and transferred to ICU. Stat ABG was obtained. critical care medicine was consulted. SUBJ 02/14: Currently patient is quite tachypneic breathing about 40/min, even on BiPAP. Prior to BiPAP patient's NIF-16 and forced vital was 600 ml. Patient clearly failing BiPAP and this is most likely secondary to myasthenia gravis exacerbation. I proceeded to endotracheally intubate the patient placed on mechanical ventilation. Discussed with Dr. Olivarez area both of us agree on starting plasma exchange. Will discuss with hematology Dr. Zacarias 02/15: No events over the night. Due to progressive respiratory distress she was intubated yesterday. T-max of 98.7. I/O 1770/650. She remains on esmolol drip, still in A. fib/flutter on the monitor with heart rate better controlled. She sedated with propofol. 02/16: Patient did well over the night. Patient continues to require esmolol heart rate control, currently at 200, and propofol for sedation. ROS -unobtainable, patient is intubated Objective Vital Signs Date Time Temp Pulse Resp B/P (MAP) Pulse Ox O2 Delivery O2 Flow Rate FiO2 02/16/18 07:46 100 35 02/16/18 06:38 79 02/16/18 04:00 15 155/83 (107) 02/16/18 00:00 97.4 02/15/18 07:27 Ventilator 02/14/18 08:50 3.00 Intake and Output 02/16/18 02/16/18 02/17/18 08:00 16:00 00:00 Output Total 500 ml Balance -500 ml Result Diagram: 02/16/18 0510 02/16/18 0510 Other Results Microbiology Date/Time Source Procedure Growth Status 02/14/18 14:55 Nasal Washing Influenza Types A,B Antigen (ABBY) - Final NEGATIVE FOR FLU A AND B ANTIGEN.... Complete 02/13/18 14:51 Nasal Washing Influenza Types A,B Antigen (ABBY) - Final NEGATIVE FOR FLU A AND B ANTIGEN.... Complete 02/13/18 14:50 Urine Clean Catch Legionella Antigen - Final PRESUMPTIVE NEGATIVE FOR LEGIONELLA P... Complete 02/13/18 14:50 Urine Clean Catch Streptococcus pneumoniae Antigen (M - Final PRESUMPTIVE NEGATIVE FOR STREPTOCOCCU... Complete 02/13/18 14:50 Urine Clean Catch Urine Culture - Final Clemencia Albicans Complete Laboratory Tests Test 02/16/18 05:00 Blood Gas Puncture Site PICC Blood Gas Patient Temperature 98.6 Venous Blood pH 7.41 (7.360-7.400) Venous Blood Partial Pressure CO2 34 mmHg (44-48) Venous Blood Partial Pressure O2 32 mmHg (35-40) Venous Blood HCO3 21 mmol/L (22-26) Venous Blood Oxygen Saturation 57 % (70-76) Venous Blood Oxygen Content 7.9 Vol % (9.0-17.0) Venous Blood Base Excess -2.6 mmol/L (-2-2) Oxygen Delivery Device VENTILATOR Blood Gas Ventilator Setting SEE COMMENTS Blood Gas Inspired Oxygen 35 % Imaging Last Impressions Chest X-Ray 02/14/18 0600 Signed Impressions: Service Date/Time: Wednesday, February 14, 2018 03:41 - CONCLUSION: 1. Minimal basilar atelectasis. PICC line tip in superior vena cava. Sarwat Mclaughlin MD Lower Extremity Ultrasound 02/13/18 0000 Signed Impressions: Service Date/Time: Tuesday, February 13, 2018 16:19 - CONCLUSION: No DVT or superficial venous thrombosis is identified within either lower extremity. John Laureano MD Last Impressions Chest X-Ray 02/12/18 0000 Signed Impressions: Service Date/Time: Tuesday, February 13, 2018 00:12 - CONCLUSION: No acute disease. Wilbur Turner Jr., MD Objective Remarks General - elderly lady, intubated and sedated, ill-appearing HEENT - pupils equal, reactive, sclerae anicteric, neck supple, no nuchal rigidity, neck veins not distended, no carotid bruit, orally intubated CV - irregular S1, S2, no murmurs Chest - clear b/l, good air entry, no wheezes Abdomen - soft, non-tender, non-distended, BS present, no hepatomegaly, no splenomegaly Skin - multiple ecchymotic bruising bilateral arms and skin tears covered with dressing Extremities - right lower extremity warm, left lower extremity tepid to touch, no edema, dopplerable peripheral pulses, no clubbing Neuro - intubated and sedated, attempts to open eyes to voice stimuli but does not follow commands A/P Problem List: (1) Pneumonia ICD Code: J18.9 - Pneumonia, unspecified organism Status: Acute (2) COPD (chronic obstructive pulmonary disease) ICD Code: J44.9 - Chronic obstructive pulmonary disease, unspecified Status: Chronic (3) Myasthenia gravis ICD Code: G70.00 - Myasthenia gravis without (acute) exacerbation Status: Chronic (4) Current chronic use of systemic steroids ICD Code: 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 Myasthenia gravis, with acute exacerbation, completed 1 cycle of plasmapheresis 2. Acute respiratory failure secondary to above, improved O2 requirements 3. Acute encephalopathy 4. A. fib with RVR, remains in A. fib but rate better controlled 5. Possible pneumonia 6. History of CHF 7. Hypernatremia 8. Acute anemia, etiology is unclear, no melena no hematemesis, no hematochezia -improved post PRBC transfusion 1. Continue PRVC at current vent settings. Patient is synchronized with the ventilator, no auto PEEP. PIP 24 2. Vent bundle and bronchodilators. Hold home medication Singulair and Spiriva 3. Scheduled to receive plasmapheresis today 4. Followed by neurology and hematology 5. Patient on methylprednisolone 125 mg 4 times daily and she received IVIG therapy for the last 3 weeks at [facility]. Will discuss with neurology if patient still needs such high dose steroids 6. Continue esmolol infusion and keep heart rate less than 110. Patient previously on home medications to include Cardizem 120 mg every 6 hours, metoprolol 75 mg twice daily, and digoxin. Restart metoprolol 50 twice daily today and will try to decrease esmolol drip 7. Follow-up echo 8. Continue 10/28 NS 9. Start tube feeds 10. Continue Lovenox for now 11. GI prophylaxis with PPI 12. Lower extremity arterial Doppler No family present at bedside. Discussed with daughter yesterday in detail about patient's condition. Addendum: US doppler KAY done - unremarkable. Patient still has dopplerable pulses. Clinically, patient's left foot became more cyanotic. Discussed with US since I was not able to find the order for arterial US doppler and ordered it stat. I also discussed with Dr. Servin from vascular surgery who will see the patient. Darin Douglass MD Feb 16, 2018 09:42
--- NOTE | 2018-02-16 12:45 | RADRPT ---
EXAM DATE/TIME: 02/16/2018 00:00 [place] COMPARISON: No previous studies available for comparison. INDICATIONS : Left foot occlusion TECHNIQUE: Four-cuff ankle and brachial pressures were obtained. Pulse cuff waveform tracings of the ankles were recorded, and ankle-brachial indices were calculated. PRESSURES (mmHg): Brachial (arm): Right iv site Left 107 Ankle: Right 118 Left 119 KAY: Right 1.10 Left 1.11 TBI: Right 0.40 Left 0.00 PULSED CUFF WAVEFORMS: Demonstrate normal amplitude bilaterally. CONCLUSION: Unremarkable ankle brachial indices. Findings of small vessel disease on the right with nondiagnostic evaluation on the left Brent Quinteros MD on February 16, 2018 at 12:42 Board Certified Radiologist. This report was verified electronically.
--- NOTE | 2018-02-16 16:20 | PD.ONC.PN ---
Subjective Subjective Remarks Afebrile Patient remains intubated, sedated Per SURGICAL ASSIST she is not following commands It was noted this morning that her left foot is purple and cool to touch Objective Data Date Time Temp Pulse Resp B/P (MAP) Pulse Ox O2 Delivery O2 Flow Rate FiO2 02/16/18 15:01 100 35 02/16/18 14:39 84 127/59 02/16/18 10:58 100 35 02/16/18 10:58 100 Ventilator 35 02/16/18 10:10 87 112/57 02/16/18 10:00 77 02/16/18 08:00 76 02/16/18 08:00 35 02/16/18 08:00 98.4 76 14 102/57 (72) 100 02/16/18 07:46 100 35 02/16/18 06:38 79 02/16/18 06:00 80 02/16/18 04:43 100 35 02/16/18 04:00 98 02/16/18 04:00 35 02/16/18 04:00 92 15 155/83 (107) 99 02/16/18 02:35 91 02/16/18 02:00 101 02/16/18 00:40 100 35 02/16/18 00:00 35 02/16/18 00:00 92 02/16/18 00:00 97.4 91 14 150/67 (94) 100 02/15/18 23:36 87 02/15/18 22:00 102 02/15/18 20:39 100 35 02/15/18 20:00 99 02/15/18 20:00 97.6 92 16 190/83 (118) 98 02/15/18 20:00 35 02/15/18 19:39 100 02/15/18 18:20 97.8 81 14 152/67 100 02/15/18 18:00 77 02/15/18 16:45 84 15 149/67 (94) 100 02/15/18 16:30 82 14 142/63 (89) 100 02/15/18 16:15 82 15 147/70 (95) 100 02/16/18 02/16/18 02/16/18 07:00 15:00 23:00 Intake Total 100 ml Output Total 500 ml Balance -400 ml Result Diagram: 02/16/18 0502/16/18 0510 Laboratory Results Laboratory Tests Test 02/15/18 21:40 02/16/18 05:00 02/16/18 05:10 02/16/18 14:30 White Blood Count 12.2 TH/MM3 11.9 TH/MM3 Red Blood Count 3.91 MIL/MM3 4.00 MIL/MM3 Hemoglobin 9.5 GM/DL 10.4 GM/DL Hematocrit 29.8 % 30.7 % Mean Corpuscular Volume 76.3 FL 76.9 FL Mean Corpuscular Hemoglobin 24.3 PG 26.0 PG Mean Corpuscular Hemoglobin Concent 31.9 % 33.8 % Red Cell Distribution Width 24.4 % 24.4 % Platelet Count 50 TH/MM3 41 TH/MM3 Mean Platelet Volume 9.4 FL 9.6 FL Prothrombin Time 13.8 SEC Prothromb Time International Ratio 1.4 RATIO Fibrinogen 148 mg/dL Blood Gas Puncture Site PICC Blood Gas Patient Temperature 98.6 Venous Blood pH 7.41 Venous Blood Partial Pressure CO2 34 mmHg Venous Blood Partial Pressure O2 32 mmHg Venous Blood HCO3 21 mmol/L Venous Blood Oxygen Saturation 57 % Venous Blood Oxygen Content 7.9 Vol % Venous Blood Base Excess -2.6 mmol/L Oxygen Delivery Device VENTILATOR Blood Gas Ventilator Setting SEE COMMENTS Blood Gas Inspired Oxygen 35 % Neutrophils (%) (Auto) 97.9 % Lymphocytes (%) (Auto) 1.3 % Monocytes (%) (Auto) 0.5 % Eosinophils (%) (Auto) 0.0 % Basophils (%) (Auto) 0.3 % Neutrophils # (Auto) 11.7 TH/MM3 Lymphocytes # (Auto) 0.1 TH/MM3 Monocytes # (Auto) 0.1 TH/MM3 Eosinophils # (Auto) 0.0 TH/MM3 Basophils # (Auto) 0.0 TH/MM3 CBC Comment AUTO DIFF Differential Comment AUTO DIFF CONFIRMED Toxic Granulation 1+ Toxic Vacuolation PRESENT Platelet Estimate LOW Platelet Morphology Comment NORMAL Ovalocytes 1+ Opal Cells 1+ Blood Urea Nitrogen 30 MG/DL Creatinine 0.60 MG/DL Random Glucose 231 MG/DL Total Protein 4.6 GM/DL Albumin 3.4 GM/DL Calcium Level 7.1 MG/DL Phosphorus Level 2.5 MG/DL Magnesium Level 2.1 MG/DL Alkaline Phosphatase 39 U/L Aspartate Amino Transf (AST/SGOT) 352 U/L Alanine Aminotransferase (ALT/SGPT) 679 U/L Total Bilirubin 1.6 MG/DL Sodium Level 142 MEQ/L Potassium Level 3.6 MEQ/L Chloride Level 112 MEQ/L Carbon Dioxide Level 20.8 MEQ/L Anion Gap 9 MEQ/L Estimat Glomerular Filtration Rate 96 ML/MIN Protein Corrected Calcium 8.5 MG/DL Culture Results Microbiology Date/Time Source Procedure Growth Status 02/14/18 14:55 Nasal Washing Influenza Types A,B Antigen (ABBY) - Final NEGATIVE FOR FLU A AND B ANTIGEN.... Complete 02/14/18 12:24 Sputum Endotracheal Gram Stain - Final Resulted 02/14/18 12:24 Sputum Culture - Preliminary Mold Species Resulted Imaging Studies Last 24 hours Impressions Chest X-Ray 02/16/18 0600 Signed Impressions: Service Date/Time: Friday, February 16, 2018 04:14 - CONCLUSION: 1. Support apparatus unchanged and in good position. Cardiomegaly. Mild basilar airspace disease. Sarwat Mclaughlin MD Administered Medications Medications (Trade) Dose Ordered Sig/Melissa Route PRN Reason Start Time Stop Time Status Last Admin Dose Admin Acetaminophen (Tylenol) 650 mg Q4H PRN PO TEMP > 100.4 02/12/18 22:30 02/15/18 13:07 Sennosides (Senokot) 17.2 mg Q12H PRN PO Moderate constipation 02/12/18 22:30 02/15/18 12:17 Bisacodyl (Dulcolax Supp) 10 mg DAILY PRN RECTAL SEVERE CONSITIPATION 02/12/18 22:30 02/16/18 05:15 Lactulose (Lactulose Liq) 30 ml DAILY PRN PO SEVERE CONSITIPATION 02/12/18 22:30 02/16/18 05:15 Heparin Sodium (Porcine) (Heparin Central Flush) 200 units DAILY IV FLUSH 02/13/18 09:00 02/16/18 07:57 Heparin Sodium (Porcine) (Heparin Central Flush) 200 units UNSCH PRN IV FLUSH SEE PROTOCOL TABLE 02/13/18 01:00 02/16/18 05:15 Budesonide (Pulmicort Respule Neb) 0.5 mg Q12HR NEB NEB 02/13/18 08:00 02/16/18 07:46 Montelukast Sodium (Singulair) 10 mg HS PO 02/13/18 21:00 02/15/18 19:36 Tiotropium Drum[place] (Spiriva Inh) 18 mcg DAILY INH 02/13/18 09:00 02/14/18 09:54 Metoprolol Tartrate (Lopressor Inj) 5 mg Q5M PRN IV PUSH sustained HR > 110 02/13/18 02:15 02/13/18 09:00 Diltiazem HCl (Cardizem) 120 mg Q6HR PO 02/13/18 06:00 02/16/18 12:34 Pantoprazole Sodium (Protonix Inj) 40 mg Q24H IV PUSH 02/13/18 03:00 02/16/18 02:41 Methylprednisolone Sodium Succinate (SoluMEDROL INJ) 125 mg Q6HR IV PUSH 02/13/18 09:45 02/16/18 12:34 Insulin Aspart (NovoLOG SUPPLEMENTAL SCALE) 1 ACHS SLIDING SCALE SQ 02/13/18 17:00 02/16/18 12:35 Esmolol HCl/ Sodium Chloride 250 ml @ 22.56 mls/ hr TITRATE PRN IV Blood Pressure Management 02/13/18 15:00 02/16/18 14:39 Chlorhexidine Gluconate (Chlorhexidine 2% Cloth) 3 pack DAILY@04 TOPICAL 02/14/18 04:00 02/18/18 04:01 02/16/18 04:00 Hydralazine HCl (Apresoline Inj) 20 mg Q4H PRN IV PUSH SBP>160, DBP>90 02/14/18 00:00 02/16/18 05:18 Labetalol HCl (Trandate Inj) 10 mg Q4H PRN IV PUSH SBP>160, DBP>90 02/14/18 00:00 02/16/18 02:52 Albuterol/ Ipratropium (Duoneb Neb) 1 ampule Q4HR NEB NEB 02/14/18 12:00 02/16/18 15:00 Chlorhexidine Gluconate (Peridex 0.12% Liq) 15 ml BID@08,20 MT 02/14/18 20:00 02/16/18 07:55 Propofol 100 ml @ 2.256 mls/ hr TITRATE PRN IV SEDATION 02/14/18 11:45 02/16/18 15:35 Anticoagulant Citrate Dextose Joya A (Acd Formula Inj) 1,000 ml Q48H OTHER 02/14/18 21:00 02/22/18 21:01 02/14/18 22:49 Albumin Human 3,500 ml @ 250 mls/hr Q48H IV 02/14/18 21:00 02/23/18 10:59 02/14/18 21:00 Diphenhydramine HCl (Benadryl) 25 mg Q4H PRN PO SEE LABEL COMMENTS 02/15/18 07:30 02/15/18 13:07 Metoprolol Tartrate (Lopressor) 50 mg BID PO 02/16/18 09:00 02/16/18 09:26 Objective Remarks GENERAL: Elderly female resting in bed intubated and sedated SKIN: Warm and dry. HEAD: Normocephalic. EYES: No scleral icterus. No injection or drainage. NECK: Supple, trachea midline. Vas-Cath to right IJ CARDIOVASCULAR: + S1/S2. Tachycardia RESPIRATORY: Mechanically ventilated. Breath sounds equal bilaterally. GASTROINTESTINAL: Abdomen soft, non-tender, nondistended. EXTREMITIES: Left foot appears purple and cool to touch. Right foot warm and well perfused with good pulse. PICC line to left upper extremity MUSCULOSKELETAL: Adequate muscle tone. NEUROLOGICAL: Sedated Assessment/Plan Problem List: (1) Myasthenia gravis ICD Codes: G70.00 - Myasthenia gravis without (acute) exacerbation Status: Chronic Plan: --Per neurology, we will initiate apheresis with albumin every other day 5 days. --Monitor coags Hx/Workup: Patient has a history of myasthenia gravis dating back to the . She has been on various lines of treatment including Mestinon, corticosteroids and Imuran. For the past several years she has been on IVIG infusions every 3 weeks under the care of a neurologist in [place] prior to relocating to the [facility]. She received IVIG infusions for 5 days in a row last week at [facility] and this did not improve her symptoms. The patient was being seen by a tele neurologist who recommended Rituxan infusion. She has been transferred to [facility] for continued care and management. Assessment 77-year-old female with myasthenia gravis exacerbation; hematology consulted for apheresis Plan 1. Awaiting fibrinogen level today. 2. Hemoglobin much improved today after patient received 2 units packed red blood cells yesterday. Platelet count decreasing; likely multifactorial. 3. Pt is scheduled for plasma exchange later today. Will check daily CBC, BMP and Fibrinogen level. Olivia Moody Feb 16, 2018 16:20
[2018-02-16] MEDS: SODIUM CHLORIDE 23.4% INJ 38.5 MEQ in WATER STERILE FOR INJ 990.375 ML IV SCH (17:07)
--- NOTE | 2018-02-16 17:38 | RADRPT ---
EXAM DATE/TIME: 02/16/2018 16:30 [facility] COMPARISON: No previous studies available for comparison. INDICATIONS : Cyanotic. MEDICAL HISTORY : Congestive heart failure. Chronic obstructive pulmonary disease. Gastroesophageal reflux disease. Lizzie sthenia gravis. Tremors. Weakness. Afib. Ulcer. Osteoporosis. Paresthesia. Anxiety. Thoracic fracture . SURGICAL HISTORY : Hysterectomy. Bilateral cataract removal. ENCOUNTER: Initial ACUITY: 1 day PAIN SCORE: Nonresponsive. LOCATION: Bilateral legs. PEAK SYSTOLIC VELOCITIES (cm/sec): EXTERNAL ILIAC ARTERY: Right: 82 Left: 95 WRAPPER HAND: Right: 66 Left: 73 SUPERFICIAL FEMORAL ARTERY PROXIMAL: Right: 70 Left: 69 SUPERFICIAL FEMORAL ARTERY MID: Right: 81 Left: 92 SUPERFICIAL FEMORAL ARTERY DISTAL: Right: 60 Left: 64 PROFUNDA FEMORAL ARTERY: Right:35 Left:50 POPLITEAL ARTERY: Right:62 Left:60 FINDINGS: Scattered atelectatic calcification of the lower extremity vessels bilaterally. On the right, inflow and outflow appears to be patent. On the left, the dorsalis pedis appears to be quite diminutive with some limited flow. CONCLUSION: 1. Inflow appeared to be adequate bilaterally despite scattered atherosclerotic calcification. 2. Three-vessel runoff on the right. 3. On the left, the dorsalis pedis artery appears to be quite diminutive with limited flow. Anterior tibial and peroneal are patent, however. Martin Padilla MD on February 16, 2018 at 17:32 Board Certified Radiologist. This report was verified electronically.
[2018-02-16] MEDS ORDERED: ceFAZolin INJ 1,000 MG VIAL ONE (19:38)
[2018-02-16] MEDS ORDERED: HEPARIN SODIUM - SQ 10,000 UNITS/ML VIAL ONE (19:41)
[2018-02-16] MEDS ORDERED: IOHEXOL 350 MG/ML 10 ML VIAL (for RAD DIAG) IVCONTRAST ONE (20:15)
--- NOTE | 2018-02-16 20:43 | PD.CAR.PN ---
CVT Progress Note Subjective/Hospital Course: 77-year-old with acute ischemia and cold pulseless left foot. Multiple comorbidities that fall very easily in the picture of acute thromboembolism including exacerbation of myasthenia gravis A. fib with RVR etc. CTA reveals obstruction of the flow at the level of trifurcation so my suspicions that this clot is sitting into the trifurcation and distal popliteal artery. TPA lysis should be the primary way to fix this if that does not work I can always go ahead with mechanical thromboembolectomy Discussed with Dr. Padilla and we going to put a TPA lysis catheter and go from there Full consult dictated Thanks J Objective: Vital Signs Date Time Temp Pulse Resp B/P (MAP) Pulse Ox O2 Delivery O2 Flow Rate FiO2 02/16/18 19:15 96 15.00 100 02/16/18 18:48 79 146/68 02/16/18 18:00 80 02/16/18 16:00 88 02/16/18 16:00 98.2 88 14 127/60 (82) 100 02/16/18 16:00 35 02/16/18 15:01 100 35 02/16/18 14:39 84 127/59 02/16/18 14:00 87 02/16/18 12:00 81 02/16/18 12:00 35 02/16/18 12:00 98.2 81 15 128/58 (81) 100 02/16/18 10:58 100 35 02/16/18 10:58 100 Ventilator 35 02/16/18 10:10 87 112/57 02/16/18 10:00 77 02/16/18 08:00 76 02/16/18 08:00 35 02/16/18 08:00 98.4 76 14 102/57 (72) 100 02/16/18 07:46 100 35 02/16/18 06:38 79 02/16/18 06:00 80 02/16/18 04:43 100 35 02/16/18 04:00 98 02/16/18 04:00 35 02/16/18 04:00 92 15 155/83 (107) 99 02/16/18 02:35 91 02/16/18 02:00 101 02/16/18 00:40 100 35 02/16/18 00:00 35 02/16/18 00:00 92 02/16/18 00:00 97.4 91 14 150/67 (94) 100 02/15/18 23:36 87 02/15/18 22:00 102 Labs: Laboratory Tests Test 02/16/18 14:30 Fibrinogen 159 mg/dL (227-377) Result Diagram: 02/16/18 0510 02/16/18 0510 Teresa Mejia MD Feb 16, 2018 20:43
[2018-02-16] MEDS: ALBUMIN 5% INJ 3,500 ML IV SCH (21:00)
[2018-02-16] MEDS: CALCIUM GLUCONATE IV SCH (21:00)
[2018-02-16] MEDS: ANTICOAGULANT CITRATE DEXTROSE SOLN-A 1L OTHER SCH (21:00)
[2018-02-16] MEDS: SODIUM CHLOR 0.9% IV SCH (21:00)
--- NOTE | 2018-02-16 21:24 | MB ---
cc: Teresa Mejia MD, Slobodan MD DATE: 02/16/2018 REASON FOR CONSULTATION: Ischemia of the left leg. Critical care time 38 minutes. HISTORY OF PRESENT ILLNESS: This 77-year-old female came initially to [facility] with dyspnea. The patient has myasthenia gravis since the and was taking care of since in another place. She presented with exacerbation of myasthenia gravis, was placed on immunoglobulin infusions and steroids. Next, she developed sepsis with Staph viridans. She was treated with antibiotics and finally she received Rituxan. The patient then was transferred to our hospital. She was in atrial fibrillation with RVR, placed in ICU and then intubated and ventilated. Last night the patient was noted to have a cool left foot. This morning it was pale and lived, according to the self pay collector, and I was called later on this afternoon to see the patient. I came to see the patient within 30 minutes. PAST MEDICAL HISTORY: As above. Noted with COPD, pneumonia, supraventricular arrhythmias mainly fibrillation with RVR, longstanding myasthenia gravis, respiratory insufficiency and recurrent urosepsis. PAST SURGICAL HISTORY: I do not have here. MEDICATIONS: Multiple, patient is currently receiving plasmapheresis. PHYSICAL EXAMINATION: GENERAL: A 77-year-old lady. HEENT: Normocephalic. No trauma to her head. Pupils equal, poorly reactive. Extraocular muscles cannot be tested. She is intubated, ventilated, and sedated. LUNGS: Bilateral breath sounds. The patient is fully ventilatory dependent. At this point, she is in a regular rhythm with occasional PAC. ABDOMEN: Soft. No rebound, no guarding. No masses. EXTREMITIES: The patient has palpable femoral pulses bilateral, dopplerable popliteal pulses bilateral. On the right side, the patient has dopplerable posterior tibial and dorsalis pedis while on the left side she has actually dopplerable posterior tibial, but dorsalis pedis is absent. Left foot is cool and discolored livid with acute ischemia. Capillary refill is almost nonexistent. NEUROLOGIC: Cannot be performed because the patient is sedated. IMPRESSION AND RECOMMENDATIONS: I reviewed laboratory and diagnostic procedures. 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 This is a common occurrence in a patient who has multiple reasons to have a thromboembolic acute event. CTA was performed and, while it is somewhat fuzzy out there, it is hard to tell where the clot is but I believe it is sitting over the trifurcation. It will be very hard to get this out through a thromboembolectomy catheter and that is always an option. I have discussed this, however, with Dr. Martin Padilla the interventional correctional therapy director and I believe the best way to do this is to place TPA lysis catheter and go from there. If TPA works we are done. If TPA does not work I can always going in and do an embolectomy, but we cannot do it the other way around, so I believe the best way to go is do a TPA lysis and see how patient does in the next 24 to 48 hours and go from there. I will continue to follow the patient with you. Thank you much for this referral. MD RAFIQ Santana/ , 08:40 PM , 09:22 PM
--- NOTE | 2018-02-16 21:50 | RADRPT ---
EXAM DATE/TIME: 02/16/2018 19:36 [facility] COMPARISON: No previous studies available for comparison. INDICATIONS : Acute ischemic left leg. IV CONTRAST: 90 cc Omnipaque 350 (iohexol) IV RADIATION DOSE: 7.08 CTDIvol (mGy) MEDICAL HISTORY : Cardiovascular disease. Chronic obstructive pulmonary disease. Ulcers. SURGICAL HISTORY : Hysterectomy. ENCOUNTER: Initial ACUITY: 1 week PAIN SCALE: Non-responsive LOCATION: Left lower leg TECHNIQUE: Volumetric scanning was performed using a multi-row detector CT scanner. The data was post processed with a variety of visualization algorithms including full volume maximum intensity projection, multi -planar sliding thin slab reformation, curved planar reformation, and surface rendering techniques. Using automated exposure control and adjustment of the mA and/or kV according to patient size, radiat ion dose was kept as low as reasonably achievable to obtain optimal diagnostic quality images. DICO M format image data is available electronically for review and comparison. FINDINGS: Abdominal aorta: Scattered atherosclerotic calcification no aneurysmal disease. Main and accessory renal arteries are patent bilaterally. Mesenteric vessels are patent as well. Pelvis: Atherosclerotic calcification in the common iliac arteries bilaterally. Both iliacs are widely patent , however. Right lower extremity: Profunda and SFA are patent on the initial image. Popliteal is also patent but it is difficult to vis ualize the trifurcation vessels probably due to poor cardiac output. Delayed images show the dominant runoff to the posterior tibial with a very diminutive anterior tibial which appears to occlude proxi lizett. Peroneal can be followed to the mid calf. Left lower extremity: Profunda and SFA are patent. Again, the popliteal is difficult to visualize on the initial image. Shoshana n on the delayed image, there is sluggish flow with minimal calcification but there may be a faint, n onocclusive thrombus identified in the juxta-articular portion of the popliteal with limited contrast identified in the infrapopliteal and trifurcation distribution. Again, the dominant runoff is via th e posterior tibial. Miscellaneous: Bibasilar atelectatic changes, right worse than left and very tiny bilateral pleural effusions. There is either significant gallbladder wall thickening or pericholecystic fluid. Some fluid tracks along the right paracolic gutter in the deep pelvis. Diverticular disease of the sigmoid without diverticul itis. Patient appears to be status post hysterectomy. CONCLUSION: 1. Inflow appears to be patent down to the above-knee popliteal bilaterally. 2. On the right, the entire popliteal is patent with the dominant runoff via the posterior tibial. 3. On the left, minimal contrast below the knee joint on both the initial and delayed images. This ma y represent a combination of poor cardiac output and nonocclusive thrombus in the popliteal region. A gain, please the dominant runoff is via the posterior tibial. 4. Bibasilar areas of consolidation/atelectasis with small associated effusions. Cannot exclude a dev eloping infiltrate, especially on the right. 5. Abnormal appearance of the gallbladder with either marked gallbladder wall thickening or perichole cystic fluid. The fluid appears to track down the right paracolic gutter in the pelvis. Gallbladder u ltrasound could be performed for further characterization. 6. Diverticular disease of the sigmoid without diverticulitis. Martin Padilla MD on February 16, 2018 at 21:24 Board Certified Radiologist. This report was verified electronically.
--- NOTE | 2018-02-16 22:40 | PD.RAD ---
Post Procedure Progress Note Pre Procedure Diagnosis: (1) Cold left foot Post Procedure Diagnosis: (1) Cold left foot Procedure Date: Feb 16, 2018 Supervising Radiologist: Martin Padilla Proceduralist/Assist: Gretchen Kim, RT(R)(), Yu Vyas RT(R) Anesthesia: Local Plan of Activity Patient to Unit: Critical Care Patient Condition: Fair See PACS Report for procedural detail/treatment Vascular-Arterial Procedure Procedure 1 Procedure Site: Left Leg Procedure(s): Angiogram Access Access Site(s): Right Femoral Artery Closure Site(s): Right vascular closure device (PerClose - Platelets 41) Findings: Sluggish blood flow - ? limited cardiac O/P. No embolus. Excellent capillary refill in left foot post angio Martin Padilla MD Feb 16, 2018 22:40
[2018-02-16] MEDS ORDERED: IODIXANOL 320 MG/ML 50 ML VIAL (for RAD SPEC) I-ARTERIAL ONE (22:46)
[2018-02-16] MEDS: MONTELUKAST SODIUM 10 MG TAB PO SCH (23:54)
[2018-02-17] VITALS (25 sets, daily range): BP systolic 120–181; BP diastolic 60–81; PULSE 73–96; RESP 14–18; TEMP 97.6–98.1; O2SAT 93–100
[2018-02-17] MEDS: RESP: ALBUTEROL 2.5 MG/IPRATROPIUM 0.5 MG NEB (SCH) NEB ×6 (00:02→19:38)
[2018-02-17] MEDS: ESMOLOL DRIP INJ PREMIX 250 ML IV PRN ×2 (00:33→07:06)
[2018-02-17] MEDS: SODIUM CHLORIDE 23.4% INJ 38.5 MEQ in WATER STERILE FOR INJ 990.375 ML IV SCH (02:41)
[2018-02-17] MEDS: CHLORHEXIDINE GLUCONATE 2 % 1 PACK (2 CLOTHS)(taper/protocol) TOPICAL SCH (03:59)
[2018-02-17] MEDS: PANTOPRAZOLE SODIUM 40 MG VIAL IV PUSH SCH (03:59)
[2018-02-17 05:48] LABS: AUTOMATED NEUTROPHIL # 8.7 TH/MM3 (1.8-7.7); HEMATOCRIT 28.4 % (35.0-46.0); HEMOGLOBIN 9.9 GM/DL (11.6-15.3); LYMPH % 1.5 % (9.0-44.0); LYMPHOCYTE # 0.1 TH/MM3 (1.0-4.8); MEAN CELL VOLUME 75.8 FL (80.0-100.0); MEAN CORPUSCULAR HEMOGLOBIN 26.3 PG (27.0-34.0); MEAN CORPUSCULAR HGB CONC 34.7 % (32.0-36.0); MEAN PLATELET VOLUME 9.4 FL (7.0-11.0); MONO % 0.7 % (0.0-8.0); MONOCYTE # 0.1 TH/MM3 (0-0.9); NEUT % 97.8 % (16.0-70.0); PLATELET COUNT 29 TH/MM3 (150-450); RED BLOOD COUNT 3.75 MIL/MM3 (4.00-5.30); RED CELL DISTRIBUTION WIDTH 24.4 % (11.6-17.2); WHITE BLOOD COUNT 8.9 TH/MM3 (4.0-11.0)
[2018-02-17] MEDS: DILTIAZEM HCL 60 MG TAB PO SCH ×3 (05:50→18:21)
[2018-02-17] MEDS: methylPREDNISolone SOD SUCC 125 MG/2 ML VIAL IV PUSH SCH ×3 (05:51→18:21)
[2018-02-17] MEDS: PROPOFOL 1000 MG/100 ML INJ 100 ML IV PRN ×2 (06:38→18:22)
[2018-02-17] MEDS: SODIUM CHLOR 0.9% 1000 ML INJ 1,000 ML IV SCH ×2 (06:57→18:22)
[2018-02-17 07:07] LABS: ALBUMIN 2.7 GM/DL (3.4-5.0); BICARBONATE 20.1 MEQ/L (21.0-32.0); CALCIUM 6.9 MG/DL (8.5-10.1); CREATININE 0.43 MG/DL (0.50-1.00); MAGNESIUM 2.3 MG/DL (1.5-2.5); PHOSPHORUS 1.8 MG/DL (2.5-4.9)
[2018-02-17 07:19] LABS: CALCIUM-PROTEIN CORRECTED 8.3 MG/DL (8.5-10.1); TOTAL PROTEIN 4.5 GM/DL (6.4-8.2)
[2018-02-17] MEDS: RESP: BUDESONIDE 0.5 MG/2 ML NEB NEB SCH ×2 (07:31→19:38)
[2018-02-17] MEDS ORDERED: POTASSIUM PHOSPHATE INJ 15 MMOL in SODIUM CHLORIDE 0.9% INJ 150 ML IV ONE (08:15)
--- NOTE | 2018-02-17 08:40 | HHI.CCPN ---
Subjective Remarks/Hospital Course This is a 77-year-old female that presented to [facility] on 01/27/2018 with complaints of dyspnea. 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 Her medical history is significant for chronic steroid therapy with prednisone and then subsequently placed on IVIG infusions every 3 weeks secondary to nonresponsiveness of steroid therapy. On 01 27 the patient was admitted to [facility] and treated for sepsis with broad- spectrum antibiotics, which have now been completed. Blood cultures have revealed Streptococcus viridans. The patient continued care at [place] seeing a telemetry neurologist and hematology oncology was consulted, Dr. Zacarias. It was recommended that the patient receive Rituxan and be evaluated formally by a neurologist. Patient was transferred to [facility]. The patient has a history of A. fib RVR, and home medications include metoprolol, digoxin, and Cardizem. These medications were stopped in the last 24 hours secondary to the patient experiencing dysphagia. Patient subsequently went into A. fib RVR early this a.m., heart rate 150's and transferred to ICU. Stat ABG was obtained. critical care medicine was consulted. SUBJ 02/14: Currently patient is quite tachypneic breathing about 40/min, even on BiPAP. Prior to BiPAP patient's NIF-16 and forced vital was 600 ml. Patient clearly failing BiPAP and this is most likely secondary to myasthenia gravis exacerbation. I proceeded to endotracheally intubate the patient placed on mechanical ventilation. Discussed with Dr. Olivarez area both of us agree on starting plasma exchange. Will discuss with hematology Dr. Zacarias 02/15: No events over the night. Due to progressive respiratory distress she was intubated yesterday. T-max of 98.7. I/O 1770/650. She remains on esmolol drip, still in A. fib/flutter on the monitor with heart rate better controlled. She sedated with propofol. 02/16: Patient did well over the night. Patient continues to require esmolol heart rate control, currently at 200, and propofol for sedation. 02/17: Yesterday evening, patient's left foot became more cyanotic. Dr. Conteh from vascular surgery was consulted, patient underwent CTA and IR to patient for left leg angio but no clot was seen. Patient had improved pulse post procedure. This a.m. patient has dopplerable pulse. No other overnight events. T-max of 98.2. Urine output decreased. ROS -unobtainable, patient is intubated Objective Vital Signs Date Time Temp Pulse Resp B/P (MAP) Pulse Ox O2 Delivery O2 Flow Rate FiO2 02/17/18 07:32 100 35 02/17/18 07:32 Ventilator 02/17/18 07:06 79 129/68 02/17/18 05:30 14 02/17/18 04:00 98.0 02/16/18 19:15 15.00 Intake and Output 02/17/18 02/17/18 02/18/18 08:00 16:00 00:00 Intake Total 1550 ml Output Total 100 ml Balance 1450 ml Result Diagram: 02/17/18 0430 02/17/18 0430 Other Results Microbiology Date/Time Source Procedure Growth Status 02/14/18 14:55 Nasal Washing Influenza Types A,B Antigen (ABBY) - Final NEGATIVE FOR FLU A AND B ANTIGEN.... Complete Laboratory Tests Test 02/17/18 05:37 Blood Gas Puncture Site [employer] Blood Gas Patient Temperature 98.6 Venous Blood pH 7.39 (7.360-7.400) Venous Blood Partial Pressure CO2 35 mmHg (44-48) Venous Blood Partial Pressure O2 32 mmHg (35-40) Venous Blood HCO3 21 mmol/L (22-26) Venous Blood Oxygen Saturation 54 % (70-76) Venous Blood Oxygen Content 7.1 Vol % (9.0-17.0) Venous Blood Base Excess -3.6 mmol/L (-2-2) Oxygen Delivery Device VENTILATOR Blood Gas Ventilator Setting AC 14/500/+5 Blood Gas Inspired Oxygen 35 % Imaging Last Impressions Chest X-Ray 02/14/18 0600 Signed Impressions: Service Date/Time: Wednesday, February 14, 2018 03:41 - CONCLUSION: 1. Minimal basilar atelectasis. PICC line tip in superior vena cava. Sarwat Mclaughlin MD Lower Extremity Ultrasound 02/13/18 0000 Signed Impressions: Service Date/Time: Tuesday, February 13, 2018 16:19 - CONCLUSION: No DVT or superficial venous thrombosis is identified within either lower extremity. John Laureano MD Last Impressions Chest X-Ray 02/12/18 0000 Signed Impressions: Service Date/Time: Tuesday, February 13, 2018 00:12 - CONCLUSION: No acute disease. Wilbur Turner Jr., MD Objective Remarks General - elderly lady, intubated and sedated, ill-appearing HEENT - pupils are equal, reactive, sclerae are anicteric, neck is supple, no neck rigidity, no JVD, no carotid bruit, orally intubated, right IJ HD catheter -site is clean CV - irregular heart sounds, no murmurs Chest - clear b/l, good air entry, no wheezes Abdomen - soft, non-tender, not distended, BS present, no hepatomegaly, no splenomegaly Skin - multiple ecchymotic bruises bilateral arms and skin tears covered with dressing Extremities - right lower extremity warm, left lower extremity still tepid to touch, no edema, some cyanosis improved compared to yesterday dopplerable pulse on the left Neuro - intubated, sedated, does not open eyes to voice stimuli, grimaces to pain and withdraws A/P Problem List: (1) Pneumonia ICD Code: J18.9 - Pneumonia, unspecified organism Status: Acute (2) COPD (chronic obstructive pulmonary disease) ICD Code: J44.9 - Chronic obstructive pulmonary disease, unspecified Status: Chronic (3) Myasthenia gravis ICD Code: G70.00 - Myasthenia gravis without (acute) exacerbation Status: Chronic (4) Current chronic use of systemic steroids ICD Code: Z79.52 - retirement (current) use of systemic steroids (5) Anemia ICD Code: D64.9 - Anemia, unspecified Assessment and Plan 1. Myasthenia gravis, with acute exacerbation, completed 2 cycles of plasmapheresis 2. Acute respiratory failure secondary to above, improved O2 requirements 3. 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 Acute encephalopathy 5. A. fib with RVR, remains in A. fib but rate better controlled 6. Possible pneumonia -completed treatment at the outside hospital 7. History of CHF 8. Hypernatremia -improved 9. Acute anemia, etiology is unclear, no melena no hematemesis, no hematochezia -improved post PRBC transfusion 10. Thrombocytopenia -platelet count unchanged, remains low 11. Elevated liver enzymes and possible cholecystitis 1. Continue PRVC at current vent settings. Patient is synchronized with the ventilator, no auto PEEP. PIP 23 2. Vent bundle and bronchodilators. Hold home medication Singulair and Spiriva 3. Appreciate vascular surgery consult 4. Patient growing mold in the sputum. Due to the fact that patient is immunosuppressed and on high-dose steroids we will consult ID for further recommendations. We will check fungal markers 5. Patient on methylprednisolone 125 mg 4 times daily and she received IVIG therapy for the last 3 weeks at [facility]. Will discuss with neurology if patient still needs high dose steroids 6. Continue esmolol infusion and keep heart rate less than 110. Patient previously on home medications to include Cardizem 120 mg every 6 hours, metoprolol 75 mg twice daily, and digoxin. Increase metoprolol to 75 twice daily, home dose, and continue Cardizem. Continue to hold digoxin setting of worsening renal function 7. Gentle IV hydration with NS postcontrast 8. Thrombocytopenia workup per hematology, Lovenox was held 2 days ago 9. Liver ultrasound 10. Start tube feeds 11. GI prophylaxis with PPI No family present at bedside. Darin Douglass MD Feb 17, 2018 08:40
[2018-02-17] MEDS: TIOTROPIUM BROMIDE 18 MCG INH INH SCH (09:00)
[2018-02-17] MEDS: PICC Daily Heparin 100 unit/mL Lock Flush IV FLUSH SCH (09:00)
[2018-02-17] MEDS: CHLORHEXIDINE 0.12% (ORAL KIT) 15 ML CUP MT SCH ×2 (09:02→20:00)
[2018-02-17] MEDS: METOPROLOL TARTRATE 25 MG TAB PO SCH ×2 (09:04→20:25)
[2018-02-17] MEDS: INSULIN ASPART SUPPLEMENTAL SCALE SQ SCH ×4 (09:06→20:25)
--- NOTE | 2018-02-17 10:30 | PD.ID.CON ---
History of Present Illness Service ID Consult Requested By Rafat Martinez Reason for Consult Evaluation and Mment of Aspergillus possible pneumonia in an Immune compromised patient. Primary Care Physician Unknown Diagnoses: History of Present Illness Ms. Vasquez is 77 y/o CF with PMHx significant for Myasthenia gravis dating back to . She has been on Mestinon since which were reportedly not effective according to family. Patient was subsequently placed on steroids for many years. Recently patient got placed on Imuran. Patient developed an allergic reaction to Imuran and therefore had to be discontinued after 2 doses. Patient has also received over the last several years several infusions of IVIG every 3 weeks under the care of her neurologist in [place]. Patient was initially admitted at [facility] and was reportedly being followed by telemetry neurologist who evaluated the patient via Internet connection with video connection to assist with patient's myasthenia gravis. The recommendation was for patient to receive rituximab therapy for management of myasthenia gravis. Hematology Dr.Zafar Zacarias was consulted. Patient was hospitalized on January 27, 2018 with complaints of difficulty breathing, cough and chills. She was treated for sepsis in the ICU unit and was on a BiPAP machine. She had blood cultures drawn during that hospitalization which were positive for strep viridans and patient was started on broad-spectrum antibiotics. Patient was thought to have a myasthenia exacerbation and was started on high-dose corticosteroids. She also received IV IgG last weeks approximately 5 sessions. Her symptoms reportedly did not improve and therefore the telemetry neurologist to was consulted recommended Rituxan infusions. Dr. Haile Zacarias was consulted and recommended transfer to [facility] for formal evaluation by a neurologist for appropriate management of myasthenia gravis. The patient was therefore transferred to [facility] in [place]. Patient was initially placed on BiPAP for tachycardia and respiratory difficulty and thereafter was evaluated by critical care and intubated placed on ventilator. Patient had further infectious disease workup including a sputum culture this time. This culture is positive for mold and infectious diseases consulted due to concern for Aspergillus pneumonia and immune compromised patient. Review of Systems ROS Limitations: Intubated Past Family Social History Allergies: Coded Allergies: azathioprine (Verified Allergy, Severe, 02/12/18) Painful rash all over face and body cephalexin (Verified Allergy, Severe, Rash, 02/12/18) rash all over face and chest Past Medical History Per review of records from [place]. Myasthenia gravis COPD Asthma Osteoporosis Paroxysmal SVT Wedge compression fracture of the fifth thoracic vertebrae per history History of bacteremia with strep viridans Past Surgical History Vaginal hysterectomy No other history is reported in [facility]. Reported Medications Reported Meds & Active Scripts Active Reported Pulmicort Respules (Budesonide) 0.5 Mg/2 Ml Neb 0.5 Mg NEB Q12HR NEB Spiriva Handihaler (Tiotropium Inh) 18 Mcg Cap 18 Mcg INH DAILY 1 capsule = 18 mcg Simethicone 125 Mg Cap 80 Mg PO TID PRN Protonix (Pantoprazole Sodium) 40 Mg Tab 40 Mg PO DAILY Florastor (Saccharomyces Boulardii) 250 Mg Cap 250 Mg PO BID Nystatin Liq 100,000 unit/ml Susp 5 Ml SWISH-SWAL QID Montelukast (Montelukast Sodium) 10 Mg Tab 10 Mg PO HS Metoprolol Tartrate 75 Mg Tab 75 Mg PO BID Cymbalta DR (Duloxetine HCl) 30 Mg Capdr 30 Mg PO DAILY Cardizem (Diltiazem HCl) 120 Mg Tab 120 Mg PO QID Diltiazem ER 12 HR (Diltiazem HCl) 120 Mg Caper 120 Mg PO Q6HR Digoxin 0.25 Mg Tab 0.25 Mg PO DAILY Aspirin 81 Low Dose (Aspirin) 81 Mg Chew 81 Mg CHEW DAILY Lovenox Inj (Enoxaparin Sodium) 40 Mg/0.4 Ml Syr 40 Mg SQ BID Novolog Inj (Insulin Aspart) 1,000 Unit/10 Ml Vial 0 SQ DIRECTED Sliding Scale as directed. Solu-Medrol Inj (Methylprednisolone Sodium Succinate) 500 Mg/4 Ml Inj 40 Mg IV BID Duoneb (Ipratropium-Albuterol Neb) 0.5-2.5 Mg/3 Ml Neb 1 Nebule INH Q6HR NEB Active Ordered Medications Current Medications Medications (Trade) Dose Ordered Sig/Melisas Route Start Time Stop Time Status Last Admin (Tylenol) 650 mg Q4H PRN PO 02/12/18 22:30 02/15/18 13:07 (Zofran Inj) 4 mg Q6H PRN IVP 02/12/18 22:30 (Narcan Inj) 0.4 mg UNSCH PRN IV PUSH 02/12/18 22:30 (Kathryn-Colace) 1 tab BID PO 02/13/18 09:00 Future Hold (Milk Of Magnesia Liq) 30 ml Q12H PRN PO 02/12/18 22:30 (Senokot) 17.2 mg Q12H PRN PO 02/12/18 22:30 02/15/18 12:17 (Dulcolax Supp) 10 mg DAILY PRN RECTAL 02/12/18 22:30 02/16/18 05:15 (Lactulose Liq) 30 ml DAILY PRN PO 02/12/18 22:30 02/16/18 05:15 (NS Flush) 5 ml UNSCH PRN IV FLUSH 02/13/18 01:00 (Heparin Central Flush) 200 units DAILY IV FLUSH 02/13/18 09:00 02/16/18 07:57 (NS Flush) 5 ml UNSCH PRN IV FLUSH 02/13/18 01:00 (Heparin Central Flush) 200 units UNSCH PRN IV FLUSH 02/13/18 01:00 02/16/18 05:15 (NS Flush) 5 ml UNSCH PRN IV FLUSH 02/13/18 01:00 (Aspirin Chew) 81 mg DAILY CHEW 02/13/18 09:00 Future Hold (Pulmicort Respule Neb) 0.5 mg Q12HR NEB NEB 02/13/18 08:00 02/17/18 07:31 (Lanoxin) 0.25 mg DAILY PO 02/13/18 09:00 Future Hold (Singulair) 10 mg HS PO 02/13/18 21:00 02/16/18 23:54 (Mycostatin Liq) 5 ml QID SWISH-SWAL 02/13/18 09:00 Future Hold (Spiriva Inh) 18 mcg DAILY INH 02/13/18 09:00 02/14/18 09:54 (Lopressor Inj) 5 mg Q5M PRN IV PUSH 02/13/18 02:15 02/13/18 09:00 (Cardizem) 120 mg Q6HR PO 02/13/18 06:00 02/17/18 05:50 (Protonix Inj) 40 mg Q24H IV PUSH 02/13/18 03:00 02/17/18 03:59 (SoluMEDROL INJ) 125 mg Q6HR IV PUSH 02/13/18 09:45 02/17/18 05:51 (Duoneb Neb) 1 ampule Q2HR NEB PRN NEB 02/13/18 13:15 (D50w (Vial) Inj) 50 ml UNSCH PRN IV PUSH 02/13/18 14:30 (Glucagon Inj) 1 mg UNSCH PRN OTHER 02/13/18 14:30 (NovoLOG SUPPLEMENTAL SCALE) 1 ACHS SLIDING SCALE SQ 02/13/18 17:00 02/17/18 09:06 Esmolol HCl/ Sodium Chloride 250 ml @ 22.56 mls/ hr TITRATE PRN IV 02/13/18 15:00 02/17/18 07:06 Miscellaneous Information Patient in critical care unit? Ass... [id number] .XX 02/13/18 16:00 (Chlorhexidine 2% Cloth) 3 pack DAILY@04 TOPICAL 02/14/18 04:00 02/18/18 04:01 02/17/18 03:59 (Chlorhexidine 2% Cloth) 3 pack UNSCH PRN TOPICAL 02/13/18 16:00 02/18/18 15:45 (Apresoline Inj) 20 mg Q4H PRN IV PUSH 02/14/18 00:00 02/16/18 05:18 (Trandate Inj) 10 mg Q4H PRN IV PUSH 02/14/18 00:00 02/16/18 02:52 (Duoneb Neb) 1 ampule Q4HR NEB NEB 02/14/18 12:00 02/17/18 07:31 (Peridex 0.12% Liq) 15 ml BID@08,20 MT 02/14/18 20:00 02/17/18 09:02 Propofol 100 ml @ 2.256 mls/ hr TITRATE PRN IV 02/14/18 11:45 02/17/18 06:38 Phenylephrine HCl 40 mg/Dextrose 500 ml @ 30 mls/hr TITRATE PRN IV 02/14/18 12:15 (Brethine Inj) 1 mg UNSCH PRN SQ 02/14/18 12:15 (NS Flush) 5 ml UNSCH PRN IV FLUSH 02/14/18 13:00 (Heparin Inj) 2,000 units UNSCH PRN IV FLUSH 02/14/18 13:00 (Acd Formula Inj) 1,000 ml Q48H OTHER 02/14/18 21:00 02/22/18 21:01 02/14/18 22:49 Albumin Human 3,500 ml @ 250 mls/hr Q48H IV 02/14/18 21:00 02/23/18 10:59 02/14/18 21:00 (Benadryl Inj) 25 mg UNSCH PRN IV PUSH 02/14/18 21:00 02/23/18 20:59 (Heparin Inj) 1,000 units UNSCH PRN IV FLUSH 02/14/18 21:00 02/23/18 20:59 Calcium Gluconate 3.5 gm/Sodium Chloride 235 ml @ 90 mls/hr Q48H IV 02/16/18 21:00 02/22/18 23:37 (Tylenol) 650 mg Q4H PRN PO 02/15/18 07:30 (Benadryl) 25 mg Q4H PRN PO 02/15/18 07:30 02/15/18 13:07 Sodium Chloride 1,000 ml @ 100 mls/hr Q10H IV 02/17/18 06:45 02/17/18 06:57 (Lopressor) 75 mg BID PO 02/17/18 09:00 02/17/18 09:04 Potassium Phosphate 15 mmol/ Sodium Chloride 155 ml @ 38.75 mls/ hr ONCE ONCE IV 02/17/18 08:15 02/17/18 12:14 02/17/18 09:03 Family History Per review of [facility] records noncontributory to current presentation. Social History Patient recently moved from [facility] to be close to her daughter. The patient is and presently lives at an assisted living facility with her elderly who is also disabled and chronically ill. The patient stopped smoking in 1978. 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 No known history of alcoholism. No known history of IV drug abuse. Physical Exam Vital Signs Vital Signs Date Time Temp Pulse Resp B/P (MAP) Pulse Ox O2 Delivery O2 Flow Rate FiO2 02/17/18 07:32 100 35 02/17/18 07:32 100 Ventilator 35 02/17/18 07:06 79 129/68 02/17/18 06:00 78 02/17/18 05:30 73 14 133/63 (86) 100 02/17/18 04:44 100 35 02/17/18 04:30 77 14 141/77 (98) 100 02/17/18 04:00 35 02/17/18 04:00 98.0 75 14 152/70 (97) 100 02/17/18 04:00 75 02/17/18 03:30 77 14 149/75 (99) 100 02/17/18 02:30 77 14 137/72 (93) 100 02/17/18 02:00 77 02/17/18 01:30 77 14 124/60 (81) 100 02/17/18 01:00 77 14 120/69 (86) 100 02/17/18 00:33 77 128/57 02/17/18 00:30 80 14 128/67 (87) 100 02/17/18 00:02 100 35 02/17/18 00:00 98.1 76 14 122/64 (83) 100 02/17/18 00:00 35 02/17/18 00:00 76 02/17/18 00:00 76 14 122/64 (83) 100 02/16/18 23:30 76 14 133/65 (87) 100 02/16/18 23:15 76 14 132/72 (92) 100 02/16/18 23:00 72 14 128/66 (86) 100 02/16/18 22:45 77 02/16/18 22:45 77 14 142/72 (95) 100 02/16/18 20:10 100 35 02/16/18 20:00 81 02/16/18 20:00 97.8 81 18 152/82 (105) 88 02/16/18 20:00 35 02/16/18 19:15 96 15.00 100 02/16/18 18:48 79 146/68 18 18:00 80 18 16:00 88 02/16/18 16:00 98.2 88 14 127/60 (82) 100 02/16/18 16:00 35 02/16/18 15:01 100 35 02/16/18 14:39 84 127/59 02/16/18 14:00 87 18 12:00 81 02/16/18 12:00 35 02/16/18 12:00 98.2 81 15 128/58 (81) 100 02/16/18 10:58 100 35 02/16/18 10:58 100 Ventilator 35 Physical Exam GENERAL: Obese., well-developed patient, in no apparent distress. SKIN: Multiple areas of ecchymosis and bruising noted. HEAD: Atraumatic. Normocephalic. No temporal or scalp tenderness. EYES: Pupils equal round and reactive. Extraocular motions intact. No scleral icterus. No injection or drainage. ENT: Intubated. NECK: Trachea midline. Supple, nontender, no meningeal signs. CARDIOVASCULAR: Heart sounds audible. RESPIRATORY: Clear to auscultation. Breath sounds equal bilaterally. No wheezes , rales, or rhonchi. GASTROINTESTINAL: Abdomen soft, on the left lower quadrant of the abdomen there was a dressing in place with an ABD pad and it was soaked in sanguinous secretions. MUSCULOSKELETAL: Left lower extremity with bluish discoloration cold and clammy. Dorsalis pedis diminished. NEUROLOGICAL: Opens eyes spontaneously. Tracks. Did not follow any commands for me. Psych could not be assessed IV line sites with no evidence of infection. Central line in right IJ site with no evidence of infection. Laboratory Laboratory Tests Test 02/16/18 14:30 02/17/18 04:30 02/17/18 05:37 Fibrinogen 159 187 White Blood Count 8.9 Red Blood Count 3.75 Hemoglobin 9.9 Hematocrit 28.4 Mean Corpuscular Volume 75.8 Mean Corpuscular Hemoglobin 26.3 Mean Corpuscular Hemoglobin Concent 34.7 Red Cell Distribution Width 24.4 Platelet Count 29 Mean Platelet Volume 9.4 Neutrophils (%) (Auto) 97.8 Lymphocytes (%) (Auto) 1.5 Monocytes (%) (Auto) 0.7 Eosinophils (%) (Auto) 0.0 Basophils (%) (Auto) 0.0 Neutrophils # (Auto) 8.7 Lymphocytes # (Auto) 0.1 Monocytes # (Auto) 0.1 Eosinophils # (Auto) 0.0 Basophils # (Auto) 0.0 CBC Comment AUTO DIFF Differential Comment AUTO DIFF CONFIRMED Blood Urea Nitrogen 24 Creatinine 0.43 Random Glucose 221 Total Protein 4.5 Albumin 2.7 Calcium Level 6.9 Phosphorus Level 1.8 Magnesium Level 2.3 Alkaline Phosphatase 63 Aspartate Amino Transf (AST/SGOT) 158 Alanine Aminotransferase (ALT/SGPT) 557 Total Bilirubin 1.0 Sodium Level 139 Potassium Level 3.8 Chloride Level 110 Carbon Dioxide Level 20.1 Anion Gap 9 Estimat Glomerular Filtration Rate 142 Protein Corrected Calcium 8.3 Blood Gas Puncture Site PALM AND BACK FORGER Blood Gas Patient Temperature 98.6 Venous Blood pH 7.39 Venous Blood Partial Pressure CO2 35 Venous Blood Partial Pressure O2 32 Venous Blood HCO3 21 Venous Blood Oxygen Saturation 54 Venous Blood Oxygen Content 7.1 Venous Blood Base Excess -3.6 Oxygen Delivery Device VENTILATOR Blood Gas Ventilator Setting AC 14/500/+5 Blood Gas Inspired Oxygen 35 Date/Time Source Procedure Growth Status 02/13/18 15:40 Blood Peripheral Aerobic Blood Culture - Preliminary NO GROWTH IN 3 DAYS Resulted 02/13/18 15:40 Blood Peripheral Anaerobic Blood Culture - Preliminary NO GROWTH IN 3 DAYS Resulted 02/14/18 14:55 Nasal Washing Influenza Types A,B Antigen (ABBY) - Final NEGATIVE FOR FLU A AND B ANTIGEN.... Complete 02/13/18 14:50 Urine Clean Catch Legionella Antigen - Final PRESUMPTIVE NEGATIVE FOR LEGIONELLA P... Complete 02/13/18 14:50 Urine Clean Catch Streptococcus pneumoniae Antigen (M - Final PRESUMPTIVE NEGATIVE FOR STREPTOCOCCU... Complete Result Diagram: 02/17/18 0430 02/17/18 0430 Imaging Last Impressions Chest X-Ray 02/16/18 0600 Signed Impressions: Service Date/Time: Friday, February 16, 2018 04:14 - CONCLUSION: 1. Support apparatus unchanged and in good position. Cardiomegaly. Mild basilar airspace disease. Sarwat Mclaughlin MD Arterial Ultrasound 02/16/18 0000 Signed Impressions: Service Date/Time: Friday, February 16, 2018 16:30 - CONCLUSION: 1. Inflow appeared to be adequate bilaterally despite scattered atherosclerotic calcification. 2. Three-vessel runoff on the right. 3. On the left, the dorsalis pedis artery appears to be quite diminutive with limited flow. Anterior tibial and peroneal are patent, however. Martin Padilla MD Aorta w/Runoff CTA 02/16/18 0000 Signed Impressions: Service Date/Time: Friday, February 16, 2018 19:36 - CONCLUSION: 1. Inflow appears to be patent down to the above-knee popliteal bilaterally. 2. On the right, the entire popliteal is patent with the dominant runoff via the posterior tibial. 3. On the left, minimal contrast below the knee joint on both the initial and delayed images. This may represent a combination of poor cardiac output and nonocclusive thrombus in the popliteal region. Again, please the dominant runoff is via the posterior tibial. 4. Bibasilar areas of consolidation/atelectasis with small associated effusions. Cannot exclude a developing infiltrate, especially on the right. 5. Abnormal appearance of the gallbladder with either marked gallbladder wall thickening or pericholecystic fluid. The fluid appears to track down the right paracolic gutter in the pelvis. Gallbladder ultrasound could be performed for further characterization. 6. Diverticular disease of the sigmoid without diverticulitis. Martin Padilla MD Lower Extremity Ultrasound 02/13/18 0000 Signed Impressions: Service Date/Time: Tuesday, February 13, 2018 16:19 - CONCLUSION: No DVT or superficial venous thrombosis is identified within either lower extremity. John Laureano MD Assessment and Plan Assessment and Plan Pneumonia on the most recent CTA. Possible healthcare associated pneumonia versus aspergillus or both. No documented history of aspiration. Mold in the sputum: Given history of patient's immune compromised status will workup further to decide if treatment needed C.albicans in urine ? colonization. Left foot ischemia: CTA reveals obstruction of the flow at the level of trifurcation so my suspicions that this clot is sitting into the trifurcation and distal popliteal artery s/p TPA lysis. Abnormal LFTs: Abnormal GB pericholecystic fluid. Myasthenia gravis on Imuran and steroids Immune compromised host Prior history of COPD exacerbation Prior history of myasthenia gravis exacerbations History of strep viridans bacteremia Leukocytosis and absence of fevers:? Related to steroids also note patient immunocompromised. Thrombocytopenia Cephalexin allergy: rash Recs: Start Azactam IV (Allergy rash to Cephalexin). Follow LFT trend. Start Vanco IV (target 15-20 for pneumonia) Start Levaquin for Legionella pending Ag testing. Patient is at risk for ELIZALDE Legionella given hospital transfers and prolonged hospitalization. Stop Levaquin starting voriconazole and no evidence of Legionella infection CT Chest without IV contrast (recent CTA concern for risk of contrast nephropathy) Follow Serum Galactomannan assay(pt was not on Zosyn prior only Azactam reviewed [facility] records) Follow Aspergillus Ab Follow Urine Legionella Ag and Pneumo Ur Ag Follow Mycoplasma serology Recommend Bronchoscopy. Send followin. Gram stain and culture 2. Fungal stain and culture (please send "Aspergillus PCR from BAL specimen"). Send a specimen to path as written order to "[facility] Stain for PCP". 3. AFB stain and Culture US abdomen (abnormal LFTs, CTA with pericholecystic fluid). SAPNA Nolasco platelet trend he will see pt shortly. SAPNA Johns: orders for BAL, Platelet trend. No family in room. Addendum: sapna Nolasco: he is concerned platelet drop may be related to sepsis related DIC , HIT or plasmapheresis. HIT workup sent. DIC workup sent. Will add Bryan cultures. Await CT chest, bronch. 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 Radha Maravilla MD Feb 17, 2018 10:30
[2018-02-17] MEDS ORDERED: Vancomycin Consult Pharmacy 1 EA OTHER SCH (11:00)
--- NOTE | 2018-02-17 12:29 | PD.ONC.PN ---
Subjective Subjective Remarks Patient seen and examined, vital signs, labs and medications reviewed. Overnight events reviewed as well. Imaging studies including CT angiogram with aortic runoff reviewed. Patient remains intubated and sedated. Urine and sputum cultures positive for mold/Clemencia species. Platelet counts are dropping precipitously. Coagulation profile is deranged and the patient has had low fibrinogen levels. Objective Data Date Time Temp Pulse Resp B/P (MAP) Pulse Ox O2 Delivery O2 Flow Rate FiO2 02/17/18 10:48 97 35 02/17/18 07:32 100 35 02/17/18 07:32 100 Ventilator 35 02/17/18 07:06 79 129/68 02/17/18 06:00 78 02/17/18 05:30 73 14 133/63 (86) 100 02/17/18 04:44 100 35 02/17/18 04:30 77 14 141/77 (98) 100 02/17/18 04:00 35 02/17/18 04:00 98.0 75 14 152/70 (97) 100 02/17/18 04:00 75 02/17/18 03:30 77 14 149/75 (99) 100 02/17/18 02:30 77 14 137/72 (93) 100 02/17/18 02:00 77 02/17/18 01:30 77 14 124/60 (81) 100 02/17/18 01:00 77 14 120/69 (86) 100 02/17/18 00:33 77 128/57 02/17/18 00:30 80 14 128/67 (87) 100 02/17/18 00:02 100 35 02/17/18 00:00 98.1 76 14 122/64 (83) 100 02/17/18 00:00 35 02/17/18 00:00 76 02/17/18 00:00 76 14 122/64 (83) 100 02/16/18 23:30 76 14 133/65 (87) 100 02/16/18 23:15 76 14 132/72 (92) 100 02/16/18 23:00 72 14 128/66 (86) 100 02/16/18 22:45 77 02/16/18 22:45 77 14 142/72 (95) 100 02/16/18 20:10 100 35 02/16/18 20:00 81 02/16/18 20:00 97.8 81 18 152/82 (105) 88 02/16/18 20:00 35 02/16/18 19:15 96 15.00 100 02/16/18 18:48 79 146/68 02/16/18 18:00 80 02/16/18 16:00 88 02/16/18 16:00 98.2 88 14 127/60 (82) 100 02/16/18 16:00 35 02/16/18 15:01 100 35 02/16/18 14:39 84 127/59 02/16/18 14:00 87 02/17/18 02/17/18 02/17/18 07:00 15:00 23:00 Intake Total 1550 ml Output Total 100 ml Balance 1450 ml Result Diagram: 02/17/18 0430 02/17/18 0430 Laboratory Results Laboratory Tests Test 02/16/18 14:30 02/17/18 04:30 02/17/18 05:37 02/17/18 11:18 Fibrinogen 159 mg/dL 187 mg/dL White Blood Count 8.9 TH/MM3 Red Blood Count 3.75 MIL/MM3 Hemoglobin 9.9 GM/DL Hematocrit 28.4 % Mean Corpuscular Volume 75.8 FL Mean Corpuscular Hemoglobin 26.3 PG Mean Corpuscular Hemoglobin Concent 34.7 % Red Cell Distribution Width 24.4 % Platelet Count 29 TH/MM3 Mean Platelet Volume 9.4 FL Neutrophils (%) (Auto) 97.8 % Lymphocytes (%) (Auto) 1.5 % Monocytes (%) (Auto) 0.7 % Eosinophils (%) (Auto) 0.0 % Basophils (%) (Auto) 0.0 % Neutrophils # (Auto) 8.7 TH/MM3 Lymphocytes # (Auto) 0.1 TH/MM3 Monocytes # (Auto) 0.1 TH/MM3 Eosinophils # (Auto) 0.0 TH/MM3 Basophils # (Auto) 0.0 TH/MM3 CBC Comment AUTO DIFF Differential Comment AUTO DIFF CONFIRMED Blood Urea Nitrogen 24 MG/DL Creatinine 0.43 MG/DL Random Glucose 221 MG/DL Total Protein 4.5 GM/DL Albumin 2.7 GM/DL Calcium Level 6.9 MG/DL Phosphorus Level 1.8 MG/DL Magnesium Level 2.3 MG/DL Alkaline Phosphatase 63 U/L Aspartate Amino Transf (AST/SGOT) 158 U/L Alanine Aminotransferase (ALT/SGPT) 557 U/L Total Bilirubin 1.0 MG/DL Sodium Level 139 MEQ/L Potassium Level 3.8 MEQ/L Chloride Level 110 MEQ/L Carbon Dioxide Level 20.1 MEQ/L Anion Gap 9 MEQ/L Estimat Glomerular Filtration Rate 142 ML/MIN Protein Corrected Calcium 8.3 MG/DL Blood Gas Puncture Site [employer] Blood Gas Patient Temperature 98.6 Venous Blood pH 7.39 Venous Blood Partial Pressure CO2 35 mmHg Venous Blood Partial Pressure O2 32 mmHg Venous Blood HCO3 21 mmol/L Venous Blood Oxygen Saturation 54 % Venous Blood Oxygen Content 7.1 Vol % Venous Blood Base Excess -3.6 mmol/L Oxygen Delivery Device VENTILATOR Blood Gas Ventilator Setting AC 14/500/+5 Blood Gas Inspired Oxygen 35 % Culture Results Microbiology Date/Time Source Procedure Growth Status 02/14/18 14:55 Nasal Washing Influenza Types A,B Antigen (ABBY) - Final NEGATIVE FOR FLU A AND B ANTIGEN.... Complete Administered Medications Medications (Trade) Dose Ordered Sig/Melissa Route PRN Reason Start Time Stop Time Status Last Admin Dose Admin Acetaminophen (Tylenol) 650 mg Q4H PRN PO TEMP > 100.4 02/12/18 22:30 02/15/18 13:07 Sennosides (Senokot) 17.2 mg Q12H PRN PO Moderate constipation 02/12/18 22:30 02/15/18 12:17 Bisacodyl (Dulcolax Supp) 10 mg DAILY PRN RECTAL SEVERE CONSITIPATION 02/12/18 22:30 02/16/18 05:15 Lactulose (Lactulose Liq) 30 ml DAILY PRN PO SEVERE CONSITIPATION 02/12/18 22:30 02/16/18 05:15 Heparin Sodium (Porcine) (Heparin Central Flush) 200 units DAILY IV FLUSH 02/13/18 09:00 02/16/18 07:57 Heparin Sodium (Porcine) (Heparin Central Flush) 200 units UNSCH PRN IV FLUSH SEE PROTOCOL TABLE 02/13/18 01:00 02/16/18 05:15 Budesonide (Pulmicort Respule Neb) 0.5 mg Q12HR NEB NEB 02/13/18 08:00 02/17/18 07:31 Montelukast Sodium (Singulair) 10 mg HS PO 02/13/18 21:00 02/16/18 23:54 Tiotropium Howell (Spiriva Inh) 18 mcg DAILY INH 02/13/18 09:00 02/14/18 09:54 Metoprolol Tartrate (Lopressor Inj) 5 mg Q5M PRN IV PUSH sustained HR > 110 02/13/18 02:15 02/13/18 09:00 Diltiazem HCl (Cardizem) 120 mg Q6HR PO 02/13/18 06:00 02/17/18 11:19 Pantoprazole Sodium (Protonix Inj) 40 mg Q24H IV PUSH 02/13/18 03:00 02/17/18 03:59 Methylprednisolone Sodium Succinate (SoluMEDROL INJ) 125 mg Q6HR IV PUSH 02/13/18 09:45 02/17/18 11:18 Insulin Aspart (NovoLOG SUPPLEMENTAL SCALE) 1 ACHS SLIDING SCALE SQ 02/13/18 17:00 02/17/18 11:19 Esmolol HCl/ Sodium Chloride 250 ml @ 22.56 mls/ hr TITRATE PRN IV Blood Pressure Management 02/13/18 15:00 02/17/18 07:06 Chlorhexidine Gluconate (Chlorhexidine 2% Cloth) 3 pack DAILY@04 TOPICAL 02/14/18 04:00 02/18/18 04:01 02/17/18 03:59 Hydralazine HCl (Apresoline Inj) 20 mg Q4H PRN IV PUSH SBP>160, DBP>90 02/14/18 00:00 02/16/18 05:18 Labetalol HCl (Trandate Inj) 10 mg Q4H PRN IV PUSH SBP>160, DBP>90 02/14/18 00:00 02/16/18 02:52 Albuterol/ Ipratropium (Duoneb Neb) 1 ampule Q4HR NEB NEB 02/14/18 12:00 02/17/18 10:48 Chlorhexidine Gluconate (Peridex 0.12% Liq) 15 ml BID@08,20 MT 02/14/18 20:00 02/17/18 09:02 Propofol 100 ml @ 2.256 mls/ hr TITRATE PRN IV SEDATION 02/14/18 11:45 02/17/18 06:38 Anticoagulant Citrate Dextose Joya A (Acd Formula Inj) 1,000 ml Q48H OTHER 02/14/18 21:00 02/22/18 21:01 02/14/18 22:49 Albumin Human 3,500 ml @ 250 mls/hr Q48H IV 02/14/18 21:00 02/23/18 10:59 02/14/18 21:00 Diphenhydramine HCl (Benadryl) 25 mg Q4H PRN PO SEE LABEL COMMENTS 02/15/18 07:30 02/15/18 13:07 Sodium Chloride 1,000 ml @ 100 mls/hr Q10H IV 02/17/18 06:45 02/17/18 06:57 Metoprolol Tartrate (Lopressor) 75 mg BID PO 02/17/18 09:00 02/17/18 09:04 Objective Remarks GENERAL: Elderly lady, critically ill-appearing, remains intubated, sedated and nonresponsive. SKIN: Multiple ecchymotic type lesions noted over the upper extremities and lower extremities, she has thin skin with peeling in various points. HEAD: Atraumatic. Normocephalic. No temporal or scalp tenderness. EYES: No scleral icterus. No injection or drainage. Pupils are sluggishly responsive ENT: Nose without bleeding, purulent drainage or septal hematoma. Throat without erythema, tonsillar hypertrophy or exudate. Uvula midline. Airway patent. NECK: Trachea midline. No JVD or lymphadenopathy. Supple, nontender, no meningeal signs. CARDIOVASCULAR: Irregular, rate is better controlled, S1-S2 no obvious murmurs rubs gallops. RESPIRATORY: No intubated, good air movement of the upper and middle lung zones with decreased bibasilar breath sounds. GASTROINTESTINAL: Nondistended no palpable organ enlargement. Protuberant belly , soft, nontender MUSCULOSKELETAL: Generally decreased muscle mass, generally decreased motor strength. Atrophy. Neurologic: Generally weak, decreased muscle mass, tone, no spontaneous movements. Extremities: Are cool and dry to the touch. She has some cyanosis of the toes on the right foot, all extremities are cool and dry to the touch. Both her right and left hands are also cool and dry to the touch. Pulses: Faint/thready peripheral pulses on bilateral feet and in the radial pulses. Skin: Thin, extensive bruising, peeling and bruising noted. Assessment/Plan Problem List: (1) Myasthenia gravis ICD Codes: G70.00 - Myasthenia gravis without (acute) exacerbation Status: Chronic Plan: --Per neurology, we will initiate apheresis with albumin every other day 5 days. --Monitor coags Hx/Workup: Patient has a history of myasthenia gravis dating back to the . She has been on various lines of treatment including Mestinon, corticosteroids and Imuran. For the past several years she has been on IVIG infusions every 3 weeks under the care of a neurologist in [place] prior to relocating to the [facility]. She received IVIG infusions for 5 days in a row last week at [facility] and this did not improve her symptoms. The patient was being seen by a tele neurologist who recommended Rituxan infusion. She has been transferred to [facility] for continued care and management. Assessment 77-year-old female with myasthenia gravis exacerbation; hematology consulted for apheresis Plan 1. Myasthenia gravis: Status post 1 plasma exchange treatment earlier this week. Plasma exchange was held on Wednesday due to cyanosis of the left lower extremity. Will hold again today given the ongoing acute issues. 2. Thrombus cytopenia: HIT antibody ordered, other etiologies including sepsis with peripheral consumptive coagulopathy are possible. CT angiogram indicates possible thrombus involving the left popliteal artery. I have empirically started the patient on Arixtra 5 mg subcu 1. She will need to be monitored very closely for bleeding. 3. Now on aztreonam and vancomycin broad-spectrum antibiotic coverage, infectious diseases to determine if she may benefit from an antifungal. Haile Zacarias MD Feb 17, 2018 12:29
[2018-02-17] MEDS ORDERED: FONDAPARINUX SODIUM 5 MG/0.4 ML SYRINGE SQ ONE (12:30)
[2018-02-17] MEDS: LEVOFLOXACIN 500 MG TAB PO SCH (12:40)
[2018-02-17] MEDS: AZTREONAM INJ 2,000 MG in SODIUM CHLORIDE 0.9% INJ 100 ML IV SCH ×2 (12:41→20:24)
[2018-02-17] MEDS: VANCOMYCIN INJ 1,250 MG in SODIUM CHLOR 0.9% 250 ML INJ 250 ML IV SCH (14:21)
--- NOTE | 2018-02-17 15:21 | RADRPT ---
EXAM DATE/TIME: 02/17/2018 13:09 [facility] COMPARISON: No previous studies available for comparison. INDICATIONS : Elevated lab values. MEDICAL HISTORY : Congestive heart failure. Chronic obstructive pulmonary disease. Gastroesophageal reflux disease. Lizzie sthenia gravis. Tremors. Weakness. Afib. Ulcer. Osteoporosis. Paresthesia. Anxiety. Thoracic fracture . SURGICAL HISTORY : Hysterectomy. Bilateral cataract removal. ENCOUNTER: Initial ACUITY: 1 day PAIN SCORE: Nonresponsive. LOCATION: Right upper quadrant MEASUREMENTS: LIVER: 16.4 cm length COMMON DUCT: 5 mm RIGHT KIDNEY: 11.5 x 4.8 x 4.8 cm FINDINGS: LIVER: Mild hepatomegaly is noted. Normal echotexture without focal lesion or ductal dilatation. COMMON DUCT: No intraluminal mass or stone visualized. GALLBLADDER: The wall of the gallbladder is thickened. Pericholecystic fluid is also noted. Findings suggest acute cholecystitis. If there is clinical concern for acute cholecystitis, a hepatobiliary scan may be hel pful to confirm cystic duct obstruction. An echogenic focus is noted consistent with non-shadowing ca lculus or a small polyp. PANCREAS: There is poor visualization of pancreas due to shadowing bowel gas. RIGHT KIDNEY: No evidence of hydronephrosis, stone, or mass. Minimal perinephric fluid is noted. CONCLUSION: 1. Gallbladder wall thickening and pericholecystic fluid suggesting possible acute cholecystitis. Cli nical correlation is recommended. A hepatobiliary scan may be helpful to confirm cystic duct obstruct ion if clinically indicated. 2. Echogenic focus within the gallbladder suggestive of non-shadowing calculus or small polyp. 3. Mild hepatomegaly. 4. Minimal perinephric fluid on the right. Hira Arora MD on February 17, 2018 at 15:14 Board Certified Radiologist. This report was verified electronically.
[2018-02-17] MEDS: LACTULOSE SYRUP 20 GM/30 ML CUP PO PRN (15:35)
--- NOTE | 2018-02-17 16:45 | RADRPT ---
EXAM DATE/TIME: 02/17/2018 16:18 [facility] COMPARISON: No previous studies available for comparison. INDICATIONS : Growing mold concern for aspergillosis related lung disease RADIATION DOSE: 8.53 CTDIvol (mGy) MEDICAL HISTORY : Cardiovascular disease. Chronic obstructive pulmonary disease. Asthma SURGICAL HISTORY : Hysterectomy. ENCOUNTER: Initial ACUITY: 1 day PAIN SCALE: Non-responsive LOCATION: chest TECHNIQUE: Volumetric scanning of the chest was performed. Using automated exposure control and adjustment of t he mA and/or kV according to patient size, radiation dose was kept as low as reasonably achievable to obtain optimal diagnostic quality images. DICOM format image data is available electronically for r eview and comparison. Follow-up recommendations for detected pulmonary nodules are based at a minimum on nodule size and pa tient risk factors according to Fleischner Society Guidelines. FINDINGS: The endotracheal tube is in good position. LUNGS: There is extensive consolidation in the lung de jesus right worse than left. Small bilateral pleural ef fusions. Consolidation left lung base more classic atelectasis.. PLEURAE: There is no pleural thickening or pleural effusion. MEDIASTINUM: The heart and great vessels demonstrate no acute abnormality. There is no mediastinal or hilar lymph adenopathy. AXILLAE: Within normal limits. No lymphadenopathy. MUSCULOSKELETAL: The patient had multiple levels of vertebroplasty. MISCELLANEOUS: The visualized upper abdominal organs demonstrate no acute abnormality. There is contrast within the gallbladder which is diffusely thick wall due to under distention. A nasogastric is in good position. The left subclavian pacer in good position CONCLUSION: Bilateral lower lobe consolidations right greater left. Small bilateral pleural effusions. No visible pneumothorax. ET tube is in good position.. Perry Green MD on February 17, 2018 at 16:40 Board Certified Radiologist. This report was verified electronically.
--- NOTE | 2018-02-17 17:05 | PD.CONS ---
HPI History of Present Illness This is a 77 year old female with myasthenia gravis, CHF, AF, who was transferred from [facility] to get rituxan and eval by a neurologist. She was being treated in [facility] for strep viridans sepsis. After increasing SOB and developing AF with RVR she was transferred to ICU and subsequently intubated. GI is consulted for abnormal LFTs and US. She had acute elevation of LFTs yesterday and they have decreased today. US suggesting cholecystitis. Per EMR no hx liver problems, no etoh mentioned. Hx obtained from EMR as pt is intubated. (Marissa Arriaga) PFSH Past Medical History Myasthenia gravis Congestive heart failure Atrial fibrillation with rapid ventricular response Paroxysmal SVT COPD/asthma GERD Osteoporosis with compression fracture T5 through T8 Strep viridans bacteremia Pneumonia . Past Surgical History Hysterectomy Bilateral cataract surgery . (Marissa Arriaga) Coded Allergies: azathioprine (Verified Allergy, Severe, 02/12/18) Painful rash all over face and body cephalexin (Verified Allergy, Severe, Rash, 02/12/18) rash all over face and chest Family History Son had cystic fibrosis, he is . Social History Tobacco: Remote history of smoking, quit 1979 Moved with her from [place] last month to be near her daughter -her has dementia and is in an SNF . (Marissa Arriaga) Review of Systems unable to obtain (Marissa Arriaga) GI Exam Vitals I&O Vital Signs Date Time Temp Pulse Resp B/P (MAP) Pulse Ox O2 Delivery O2 Flow Rate FiO2 02/17/18 16:22 98 100 02/17/18 14:00 96 02/17/18 12:00 97.6 77 17 143/71 (95) 99 02/17/18 12:00 77 02/17/18 12:00 35 02/17/18 10:48 97 35 02/17/18 10:00 76 02/17/18 08:00 75 02/17/18 08:00 35 02/17/18 08:00 97.8 75 14 138/71 (93) 100 02/17/18 07:32 100 35 02/17/18 07:32 100 Ventilator 35 02/17/18 07:06 79 129/68 02/17/18 06:00 78 02/17/18 05:30 73 14 133/63 (86) 100 02/17/18 04:44 100 35 02/17/18 04:30 77 14 141/77 (98) 100 02/17/18 04:00 35 02/17/18 04:00 98.0 75 14 152/70 (97) 100 02/17/18 04:00 75 02/17/18 03:30 77 14 149/75 (99) 100 02/17/18 02:30 77 14 137/72 (93) 100 02/17/18 02:00 77 02/17/18 01:30 77 14 124/60 (81) 100 02/17/18 01:00 77 14 120/69 (86) 100 02/17/18 00:33 77 128/57 02/17/18 00:30 80 14 128/67 (87) 100 02/17/18 00:02 100 35 02/17/18 00:00 98.1 76 14 122/64 (83) 100 02/17/18 00:00 35 02/17/18 00:00 76 02/17/18 00:00 76 14 122/64 (83) 100 02/16/18 23:30 76 14 133/65 (87) 100 02/16/18 23:15 76 14 132/72 (92) 100 02/16/18 23:00 72 14 128/66 (86) 100 02/16/18 22:45 77 02/16/18 22:45 77 14 142/72 (95) 100 02/16/18 20:10 100 35 02/16/18 20:00 81 02/16/18 20:00 97.8 81 18 152/82 (105) 88 02/16/18 20:00 35 02/16/18 19:15 96 15.00 100 02/16/18 18:48 79 146/68 02/16/18 18:00 80 I/O 02/16/18 02/16/18 02/16/18 02/17/18 02/17/18 02/17/18 07:00 15:00 23:00 07:00 15:00 23:00 Intake Total 100 ml 100 ml 1550 ml Output Total 500 ml 400 ml 100 ml Balance -400 ml -300 ml 1450 ml Intake Oral 0 ml IV Total 100 ml 100 ml 1550 ml Output Urine Total 500 ml 400 ml 100 ml # Bowel Movements 0 0 Imaging Last Impressions Gall Bladder Ultrasound 02/17/18 0000 Signed Impressions: Service Date/Time: January 13:09 - CONCLUSION: 1. Gallbladder wall thickening and pericholecystic fluid suggesting possible acute cholecystitis. Clinical correlation is recommended. A hepatobiliary scan may be helpful to confirm cystic duct obstruction if clinically indicated. 2. Echogenic focus within the gallbladder suggestive of non-shadowing calculus or small polyp. 3. Mild hepatomegaly. 4. Minimal perinephric fluid on the right. Hira Arora MD Chest X-Ray 02/16/18 0600 Signed Impressions: Service Date/Time: Friday, February 16, 2018 04:14 - CONCLUSION: 1. Support apparatus unchanged and in good position. Cardiomegaly. Mild basilar airspace disease. Sarwat Mclaughlin MD Arterial Ultrasound 02/16/18 0000 Signed Impressions: Service Date/Time: Friday, February 16, 2018 16:30 - CONCLUSION: 1. Inflow appeared to be adequate bilaterally despite scattered atherosclerotic calcification. 2. Three-vessel runoff on the right. 3. On the left, the dorsalis pedis artery appears to be quite diminutive with limited flow. Anterior tibial and peroneal are patent, however. Martin Padilla MD Aorta w/Runoff CTA 02/16/18 0000 Signed Impressions: Service Date/Time: Friday, February 16, 2018 19:36 - CONCLUSION: 1. Inflow appears to be patent down to the above-knee popliteal bilaterally. 2. On the right, the entire popliteal is patent with the dominant runoff via the posterior tibial. 3. On the left, minimal contrast below the knee joint on both the initial and delayed images. This may represent a combination of poor cardiac output and nonocclusive thrombus in the popliteal region. Again, please the dominant runoff is via the posterior tibial. 4. Bibasilar areas of consolidation/atelectasis with small associated effusions. Cannot exclude a developing infiltrate, especially on the right. 5. Abnormal appearance of the gallbladder with either marked gallbladder wall thickening or pericholecystic fluid. The fluid appears to track down the right paracolic gutter in the pelvis. Gallbladder ultrasound could be performed for further characterization. 6. Diverticular disease of the sigmoid without diverticulitis. Martin Padilla MD Lower Extremity Ultrasound 02/13/18 0000 Signed Impressions: Service Date/Time: Tuesday, February 13, 2018 16:19 - CONCLUSION: No DVT or superficial venous thrombosis is identified within either lower extremity. John Laureano MD Laboratory Test 02/17/18 04:30 02/17/18 05:37 02/17/18 11:18 02/17/18 12:25 White Blood Count 8.9 TH/MM3 Red Blood Count 3.75 MIL/MM3 Hemoglobin 9.9 GM/DL Hematocrit 28.4 % Mean Corpuscular Volume 75.8 FL Mean Corpuscular Hemoglobin 26.3 PG Mean Corpuscular Hemoglobin Concent 34.7 % Red Cell Distribution Width 24.4 % Platelet Count 29 TH/MM3 Mean Platelet Volume 9.4 FL Neutrophils (%) (Auto) 97.8 % Lymphocytes (%) (Auto) 1.5 % Monocytes (%) (Auto) 0.7 % Eosinophils (%) (Auto) 0.0 % Basophils (%) (Auto) 0.0 % Neutrophils # (Auto) 8.7 TH/MM3 Lymphocytes # (Auto) 0.1 TH/MM3 Monocytes # (Auto) 0.1 TH/MM3 Eosinophils # (Auto) 0.0 TH/MM3 Basophils # (Auto) 0.0 TH/MM3 CBC Comment AUTO DIFF Differential Comment AUTO DIFF CONFIRMED Fibrinogen 187 mg/dL Blood Urea Nitrogen 24 MG/DL Creatinine 0.43 MG/DL Random Glucose 221 MG/DL Total Protein 4.5 GM/DL Albumin 2.7 GM/DL Calcium Level 6.9 MG/DL Phosphorus Level 1.8 MG/DL Magnesium Level 2.3 MG/DL Alkaline Phosphatase 63 U/L Aspartate Amino Transf (AST/SGOT) 158 U/L Alanine Aminotransferase (ALT/SGPT) 557 U/L Total Bilirubin 1.0 MG/DL Sodium Level 139 MEQ/L Potassium Level 3.8 MEQ/L Chloride Level 110 MEQ/L Carbon Dioxide Level 20.1 MEQ/L Anion Gap 9 MEQ/L Estimat Glomerular Filtration Rate 142 ML/MIN Protein Corrected Calcium 8.3 MG/DL Blood Gas Puncture Site [employer] Blood Gas Patient Temperature 98.6 Venous Blood pH 7.39 Venous Blood Partial Pressure CO2 35 mmHg Venous Blood Partial Pressure O2 32 mmHg Venous Blood HCO3 21 mmol/L Venous Blood Oxygen Saturation 54 % Venous Blood Oxygen Content 7.1 Vol % Venous Blood Base Excess -3.6 mmol/L Oxygen Delivery Device VENTILATOR Blood Gas Ventilator Setting AC 14/500/+5 Blood Gas Inspired Oxygen 35 % Date/Time Source Procedure Growth Status 02/17/18 14:04 Blood Peripheral Blood Fungal Culture Pending Received 02/17/18 14:04 Blood Peripheral Blood Fungal Culture Pending Received 02/14/18 14:55 Nasal Washing Influenza Types A,B Antigen (ABBY) - Final NEGATIVE FOR FLU A AND B ANTIGEN.... Complete 02/13/18 14:50 Urine Clean Catch Legionella Antigen - Final PRESUMPTIVE NEGATIVE FOR LEGIONELLA P... Complete 02/13/18 14:50 Urine Clean Catch Streptococcus pneumoniae Antigen (M - Final PRESUMPTIVE NEGATIVE FOR STREPTOCOCCU... Complete Physical Examination HEENT: normocephalic; atraumatic; no jaundice. CHEST: coarse, rhonchi CARDIAC: irr HR ABDOMEN: Soft, protuberant, no hepatosplenomegaly; bowel sounds faint EXTREMITIES: BUE edema, dusky left foot SKIN: pale INFORMATICS PHYSICIAN: sedated on vent (Marissa Arriaga) Assessment and Plan Plan ASSESSMENT - elevated LFTs - acute elevation 02/16/18 DILI vs shock liver vs gallbladder. have decreased some since yesterday. US showing poss acute cholecystitis and suggests HIDA. doubt she would be a surgical candidate at this time - anemia - microcytic likely multifactorial. no obvious GIB - thrombocytopenia - hematology following - myasthenia gravis exacerbation s/p plasma exchange,mold in sputum, respiratory failure, vascular occlusive dz with left foot cyanosis, poss PNA - per [facility] PLAN - liver w/u - abx per ID - monitor labs - supportive care pt seen by myself and Dr Soriano and this note is on his behalf (Marissa Arriaga) Physician Comments Patient seen and examined Agree with above Continue with current supportive care Monitor labs Patient with elevation of LFTs who is in respiratory failure being treated for an infection who has an abdominal ultrasound that is suggestive of acute cholecystitis At this point I doubt that the patient will be able to undergo an MRCP or HIDA scan I would continue to monitor labs closely I would recommend a surgical evaluation Patient may end up needing a cholecystostomy tube With a bilirubin looking normal at this point I doubt there is any biliary obstruction Further recommendations she will depend on her hospital course (Spike Soriano MD) Marissa Arriaga Feb 17, 2018 17:05 Spike Soriano MD Feb 17, 2018 21:26
--- NOTE | 2018-02-17 17:07 | RADRPT ---
EXAM DATE/TIME: 02/16/2018 21:33 [place] COMPARISON: No previous studies available for comparison.w INDICATIONS : Patient with a history of left leg thrombus. MEDICAL HISTORY : Myasthenia gravis CHF AFIB Paroxysmal SVT COPD Asthma GERD Osteoporosis Pneumonia SURGICAL HISTORY : Hysterectomy Bilateral cataract surgery ENCOUNTER: Initial ACUITY: 1 day PAIN SCORE: Nonresponsive. FLUORO TIME: 5.0 minutes IMAGE SERIES: 6 ACCESS SITE: Right Femoral artery CONTRAST: 1.) 60 cc Visipaque (iodixanol) DEVICE(S): 1.) Right common femoral artery Perclose PROCEDURE : 1. Ultrasound-guided puncture of the access site. 2. Angiography of the access site prior to closure device. 3. Conscious sedation with continuous EKG and Oximetry monitoring. 4. Percutaneous closure of the access site. 5. Angiography of the left [id number] popliteal The risks, benefits and alternatives to the procedure were explained and verbal and written consent w as obtained. The site was prepped in sterile fashion. Full sterile technique was used, including ca p, mask, sterile gloves and gown and a large sterile sheet. Hand hygiene and 2% chlorhexidine and/or betadine/alcohol prep was utilized per protocol for cutaneous antisepsis. Sterile gel and sterile p robe cover were utilized for ultrasound guidance. The skin and subcutaneous tissues were infiltrated with local anesthetic solution. With ultrasound and fluoroscopic guidance the selected artery was punctured and a vascular sheath was placed. Angiography of the common femoral artery was performed for evaluation prior to percutaneous closure device placement. The SFA, profundal, popliteal and all 3 trifurcation vessels are patent. However, runoff is extremely sluggish which could be due to limited cardiac output. Hemostasis was obtained with the prescribed medicated closure device. Conscious sedation was perform ed with the prescribed dosages and duration as above in the presence of an independent trained radiol ogy nurse to assist in the monitoring of the patient. EKG and oximetry remained stable throughout e procedure. CONCLUSION: 1. Very sluggish outflow. Findings could be due to poor cardiac output. Emboli to the small, intrinsi c vessels of the foot could have a similar appearance. 2. Otherwise, inflow and outflow are widely patent with three-vessel runoff. Martin Padilla MD on February 17, 2018 at 16:57 Board Certified Radiologist. This report was verified electronically.
[2018-02-17 19:52] LABS: BACTERIA, URINE FEW /hpf; BILIRUBIN, URINE NEG (NEG); BLOOD, URINE TRACE (NEG); GLUCOSE,URINE TRACE mg/dL (NEG); KETONE, URINE TRACE mg/dL (NEG); NITRITE,URINE NEG (NEG); PH, URINE 6.5 (5.0-8.5); SQUAMOUS EPITHELIAL CELL URINE 1 /hpf (0-5); URINE COLOR YELLOW (YELLW/STRAW); URINE LEUKOCYTE ESTERASE MOD (NEG)
--- NOTE | 2018-02-17 20:01 | PD.CAR.PN ---
CVT Progress Note Subjective/Hospital Course: 77-year-old with acute ischemia and cold pulseless left foot. Multiple comorbidities that fall very easily in the picture of acute thromboembolism including exacerbation of myasthenia gravis A. fib with RVR etc. CTA reveals obstruction of the flow at the level of trifurcation so my suspicions that this clot is sitting into the trifurcation and distal popliteal artery. TPA lysis should be the primary way to fix this if that does not work I can always go ahead with mechanical thromboembolectomy Discussed with Dr. Padilla and we going to put a TPA lysis catheter and go from there Full consult dictated Thanks J 02/17/2018 Left foot is warm with strong dopplerable pulses and good flow Patient most likely had a small piece of clot lodged in the trifurcation and once we placed the wire down this flushed out Combination of a very tiny embolic segment combined with very low cardiac output because the foot to get purple and discolored. At this point patient is doing well and no further therapy is necessary from our point It should however be noted that patient's ultrasound of the gallbladder reveals some pericholecystic fluid and this goes along with a CT scan which reveals also probably resolving acute cholecystitis At this point obviously patient is a poor candidate for any aggressive surgical therapy Objective: Vital Signs Date Time Temp Pulse Resp B/P (MAP) Pulse Ox O2 Delivery O2 Flow Rate FiO2 02/17/18 19:38 100 35 02/17/18 18:00 76 02/17/18 16:22 98 100 02/17/18 16:00 35 02/17/18 16:00 98.1 81 18 181/81 (114) 99 02/17/18 16:00 81 02/17/18 14:00 96 02/17/18 12:00 97.6 77 17 143/71 (95) 99 02/17/18 12:00 77 02/17/18 12:00 35 02/17/18 10:48 97 35 02/17/18 10:00 76 02/17/18 08:00 75 02/17/18 08:00 35 02/17/18 08:00 97.8 75 14 138/71 (93) 100 02/17/18 07:32 100 35 02/17/18 07:32 100 Ventilator 35 02/17/18 07:06 79 129/68 02/17/18 06:00 78 4/26/18 05:30 73 14 133/63 (86) 100 02/17/18 04:44 100 35 02/17/18 04:30 77 14 141/77 (98) 100 02/17/18 04:00 35 02/17/18 04:00 98.0 75 14 152/70 (97) 100 02/17/18 04:00 75 02/17/18 03:30 77 14 149/75 (99) 100 02/17/18 02:30 77 14 137/72 (93) 100 02/17/18 02:00 77 02/17/18 01:30 77 14 124/60 (81) 100 02/17/18 01:00 77 14 120/69 (86) 100 02/17/18 00:33 77 128/57 02/17/18 00:30 80 14 128/67 (87) 100 02/17/18 00:02 100 35 02/17/18 00:00 98.1 76 14 122/64 (83) 100 02/17/18 00:00 35 02/17/18 00:00 76 02/17/18 00:00 76 14 122/64 (83) 100 02/16/18 23:30 76 14 133/65 (87) 100 02/16/18 23:15 76 14 132/72 (92) 100 02/16/18 23:00 72 14 128/66 (86) 100 02/16/18 22:45 77 02/16/18 22:45 77 14 142/72 (95) 100 02/16/18 20:10 100 35 02/16/18 20:00 81 02/16/18 20:00 97.8 81 18 152/82 (105) 88 02/16/18 20:00 35 Labs: Laboratory Tests Test 02/17/18 11:18 02/17/18 12:25 02/17/18 18:30 Urine Color YELLOW (YELLW/STRAW) Urine Turbidity HAZY (CLEAR) Urine pH 6.5 (5.0-8.5) Urine Specific [place] GREATER THAN 1.050 Urine Protein 30 mg/dL (NEG-TRACE) Urine Glucose (UA) TRACE mg/dL (NEG) Urine Ketones TRACE mg/dL (NEG) Urine Occult Blood TRACE (NEG) Urine Nitrite NEG (NEG) Urine Bilirubin NEG (NEG) Urine Urobilinogen LESS THAN 2.0 MG/DL (LESS Urine Leukocyte Esterase MOD (NEG) Urine RBC 149 /hpf (0-3) Urine WBC 31 /hpf (0-5) Urine Squamous Epithelial Cells 1 /hpf (0-5) Urine Bacteria FEW /hpf (NONE) Urine Yeast with Hyphae MANY (NONE) Urine Yeast (Budding) MANY (NONE) Microscopic Urinalysis Comment CATH-CULTURE IND Result Diagram: 02/17/18 0430 02/17/18 0430 Teresa Mejia MD Feb 17, 2018 20:01
[2018-02-17] MEDS: MONTELUKAST SODIUM 10 MG TAB PO SCH (20:25)
[2018-02-18] VITALS (14 sets, daily range): BP systolic 119–169; BP diastolic 58–91; PULSE 74–130; RESP 15–23; TEMP 97.6–98; O2SAT 97–99
[2018-02-18] MEDS: RESP: ALBUTEROL 2.5 MG/IPRATROPIUM 0.5 MG NEB (SCH) NEB ×4 (00:10→11:19)
[2018-02-18] MEDS: VANCOMYCIN INJ 1,250 MG in SODIUM CHLOR 0.9% 250 ML INJ 250 ML IV SCH ×3 (00:27→20:00)
[2018-02-18] MEDS: DILTIAZEM HCL 60 MG TAB PO SCH ×5 (00:28→23:14)
[2018-02-18] MEDS: methylPREDNISolone SOD SUCC 125 MG/2 ML VIAL IV PUSH SCH ×5 (00:28→23:14)
[2018-02-18] MEDS: PROPOFOL 1000 MG/100 ML INJ 100 ML IV PRN ×5 (01:01→22:33)
[2018-02-18] MEDS: hydrALAZINE HCL 20 MG/ML VIAL IV PUSH PRN ×2 (02:30→10:41)
[2018-02-18] MEDS: PANTOPRAZOLE SODIUM 40 MG VIAL IV PUSH SCH (02:38)
[2018-02-18] MEDS: SODIUM CHLOR 0.9% 1000 ML INJ 1,000 ML IV SCH ×4 (02:45→22:45)
[2018-02-18] MEDS: AZTREONAM INJ 2,000 MG in SODIUM CHLORIDE 0.9% INJ 100 ML IV SCH ×3 (03:12→20:45)
[2018-02-18] MEDS: CHLORHEXIDINE GLUCONATE 2 % 1 PACK (2 CLOTHS)(taper/protocol) TOPICAL SCH (03:18)
[2018-02-18 04:18] LABS: AUTOMATED NEUTROPHIL # 6.9 TH/MM3 (1.8-7.7); BASOPHIL # 0.1 TH/MM3 (0-0.2); BASOPHIL % 0.8 % (0.0-2.0); EOSINOPHIL % 0.1 % (0.0-4.0); LYMPH % 1.9 % (9.0-44.0); LYMPHOCYTE # 0.1 TH/MM3 (1.0-4.8); MEAN CELL VOLUME 77.3 FL (80.0-100.0); MEAN CORPUSCULAR HEMOGLOBIN 28.5 PG (27.0-34.0); MEAN PLATELET VOLUME 9.9 FL (7.0-11.0); MONO % 1.1 % (0.0-8.0); MONOCYTE # 0.1 TH/MM3 (0-0.9); NEUT % 96.1 % (16.0-70.0); PLATELET COUNT 31 TH/MM3 (150-450); RED BLOOD COUNT 3.49 MIL/MM3 (4.00-5.30); WHITE BLOOD COUNT 7.2 TH/MM3 (4.0-11.0)
[2018-02-18 04:30] LABS: MEAN CORPUSCULAR HGB CONC 36.9 % (32.0-36.0)
[2018-02-18 04:44] LABS: % SATURATION IRON PROFILE 12.1 % (20-50); ALBUMIN 2.1 GM/DL (3.4-5.0); ALKALINE PHOSPHATASE 77 U/L (45-117); BICARBONATE 17.8 MEQ/L (21.0-32.0); BLOOD UREA NITROGEN 22 MG/DL (7-18); CALCIUM 5.8 MG/DL (8.5-10.1); CHLORIDE 107 MEQ/L (98-107); CREATININE 0.38 MG/DL (0.50-1.00); FERRITIN 245 NG/ML (8-252); GLOMERULAR FILTRATION RATE 163 ML/MIN (>89); GLUCOSE,RANDOM 255 MG/DL (74-106); IRON (FE) 19 MCG/DL (50-170); MAGNESIUM 2.2 MG/DL (1.5-2.5); PHOSPHORUS 1.7 MG/DL (2.5-4.9); SODIUM (NA) 135 MEQ/L (136-145); TOTAL BILIRUBIN ADULT 1.1 MG/DL (0.2-1.0); TOTAL IRON BINDING CAPACITY 157 MCG/DL (250-450)
[2018-02-18 05:16] LABS: TOTAL PROTEIN 3.9 GM/DL (6.4-8.2)
[2018-02-18 05:17] LABS: AST (GOT) 72 U/L (15-37)
[2018-02-18 05:19] LABS: CALCIUM-PROTEIN CORRECTED 7.3 MG/DL (8.5-10.1)
[2018-02-18 05:41] LABS: ALT (GPT) 375 U/L (10-53)
[2018-02-18 06:38] LABS: BANDS 5 % (0-6); CORRECTED NUCLEATED RBC 5 /100 WBC (0-0); LYMPHOCYTES 1 % (9-44); MONOCYTES 1 % (0-8); NEUTROPHIL # MANUAL DIFF 7.1 TH/MM3 (1.8-7.7); NUCLEATED RED BLOOD CELL 5 (0-0); POLYS (SEG NEUTROPHILS) 93 % (16-70)
[2018-02-18 06:40] LABS: BURR CELLS 2+ (NORMAL)
[2018-02-18] MEDS ORDERED: CALCIUM GLUCONATE INJ 1 GM in DEXTROSE 5% IN WATER 100ML INJ 100 ML IV ONE ×2 (07:00)
[2018-02-18] MEDS ORDERED: SODIUM PHOSPHATE INJ 15 MMOL in SODIUM CHLORIDE 0.9% INJ 150 ML IV ONE (07:00)
[2018-02-18] MEDS: RESP: BUDESONIDE 0.5 MG/2 ML NEB NEB SCH ×2 (07:25→20:18)
[2018-02-18] MEDS: INSULIN ASPART SUPPLEMENTAL SCALE SQ SCH ×4 (08:00→21:00)
--- NOTE | 2018-02-18 08:06 | PD.ONC.PN ---
Subjective Subjective Remarks Patient seen and examined, vital signs, labs and medications reviewed. Overnight events reviewed as well. Patient remained intubated and sedated. She is undergoing regular arterial Doppler studies of the left lower extremity to assess for pulses, per the nursing staff and vascular surgery notes there appears to be measurable arterial pulses in the popliteal and pretibial left lower extremity pulses. HIT antibody is pending. Platelet count this morning is stable at 30,000. The patient was initiated on Arixtra 5 mg subcu yesterday. There has been no evidence of acute bleeding. Plasma exchange was held yesterday. Objective Data Date Time Temp Pulse Resp B/P (MAP) Pulse Ox O2 Delivery O2 Flow Rate FiO2 02/18/18 07:25 98 35 02/18/18 06:00 90 02/18/18 04:00 98.0 75 17 124/58 (80) 98 02/18/18 04:00 75 02/18/18 04:00 35 02/18/18 03:55 98 35 02/18/18 02:00 80 02/18/18 00:10 99 35 02/18/18 00:00 97.8 74 15 140/65 (90) 99 02/18/18 00:00 74 02/18/18 00:00 35 02/17/18 22:00 81 02/17/18 20:00 35 02/17/18 20:00 81 02/17/18 20:00 97.9 81 18 163/81 (108) 93 02/17/18 19:38 100 35 02/17/18 18:00 76 02/17/18 16:22 98 100 02/17/18 16:00 35 02/17/18 16:00 98.1 81 18 181/81 (114) 99 02/17/18 16:00 81 02/17/18 14:00 96 02/17/18 12:00 97.6 77 17 143/71 (95) 99 02/17/18 12:00 77 02/17/18 12:00 35 02/17/18 10:48 97 35 02/17/18 10:00 76 02/18/18 02/18/18 02/18/18 07:00 15:00 23:00 Intake Total 1859.7 ml Output Total 1100 ml Balance 759.7 ml Result Diagram: 02/18/18 0345 02/18/18 0345 Laboratory Results Laboratory Tests Test 02/17/18 11:18 02/17/18 12:25 02/17/18 18:30 02/18/18 03:45 Urine Color YELLOW Urine Turbidity HAZY Urine pH 6.5 Urine Specific [place] GREATER THAN 1.050 Urine Protein 30 mg/dL Urine Glucose (UA) TRACE mg/dL Urine Ketones TRACE mg/dL Urine Occult Blood TRACE Urine Nitrite NEG Urine Bilirubin NEG Urine Urobilinogen LESS THAN 2.0 MG/DL Urine Leukocyte Esterase MOD Urine RBC 149 /hpf Urine WBC 31 /hpf Urine Squamous Epithelial Cells 1 /hpf Urine Bacteria FEW /hpf Urine Yeast with Hyphae MANY Urine Yeast (Budding) MANY Microscopic Urinalysis Comment CATH-CULTURE IND White Blood Count 7.2 TH/MM3 Red Blood Count 3.49 MIL/MM3 Hemoglobin 10.0 GM/DL Hematocrit 27.0 % Mean Corpuscular Volume 77.3 FL Mean Corpuscular Hemoglobin 28.5 PG Mean Corpuscular Hemoglobin Concent 36.9 % Red Cell Distribution Width 25.0 % Platelet Count 31 TH/MM3 Mean Platelet Volume 9.9 FL Neutrophils (%) (Auto) 96.1 % Lymphocytes (%) (Auto) 1.9 % Monocytes (%) (Auto) 1.1 % Eosinophils (%) (Auto) 0.1 % Basophils (%) (Auto) 0.8 % Neutrophils # (Auto) 6.9 TH/MM3 Lymphocytes # (Auto) 0.1 TH/MM3 Monocytes # (Auto) 0.1 TH/MM3 Eosinophils # (Auto) 0.0 TH/MM3 Basophils # (Auto) 0.1 TH/MM3 CBC Comment AUTO DIFF Differential Total Cells Counted 100 Neutrophils % (Manual) 93 % Band Neutrophils % 5 % Lymphocytes % 1 % Monocytes % 1 % Neutrophils # (Manual) 7.1 TH/MM3 Nucleated Red Blood Cells 5 /100 WBC Differential Comment FINAL DIFF MANUAL Platelet Estimate LOW Platelet Morphology Comment NORMAL Opal Cells 2+ Fibrinogen 194 mg/dL Blood Urea Nitrogen 22 MG/DL Creatinine 0.38 MG/DL Random Glucose 255 MG/DL Total Protein 3.9 GM/DL Albumin 2.1 GM/DL Calcium Level 5.8 MG/DL Phosphorus Level 1.7 MG/DL Magnesium Level 2.2 MG/DL Alkaline Phosphatase 77 U/L Aspartate Amino Transf (AST/SGOT) 72 U/L Alanine Aminotransferase (ALT/SGPT) 375 U/L Total Bilirubin 1.1 MG/DL Sodium Level 135 MEQ/L Potassium Level 4.1 MEQ/L Chloride Level 107 MEQ/L Carbon Dioxide Level 17.8 MEQ/L Anion Gap 10 MEQ/L Estimat Glomerular Filtration Rate 163 ML/MIN Protein Corrected Calcium 7.3 MG/DL Iron Level 19 MCG/DL Total Iron Binding Capacity 157 MCG/DL Percent Iron Saturation 12.1 % Ferritin 245 NG/ML Tumor Marker Alpha Fetoprotein 3.4 NG/ML Hepatitis A IgM Antibody NONREACTIVE Hepatitis B Surface Antigen NONREACTIVE Hepatitis B Core IgM Antibody NONREACTIVE Hepatitis C IgG Antibody NONREACTIVE Test 02/18/18 05:15 Blood Gas Puncture Site CENTRAL LINE Blood Gas Patient Temperature 98.6 Venous Blood pH 7.40 Venous Blood Partial Pressure CO2 28 mmHg Venous Blood Partial Pressure O2 40 mmHg Venous Blood HCO3 17 mmol/L Venous Blood Oxygen Saturation 71 % Venous Blood Oxygen Content 9.6 Vol % Venous Blood Base Excess -6.6 mmol/L Oxygen Delivery Device VENTILATOR Blood Gas Ventilator Setting SEE COMMENTS Blood Gas Inspired Oxygen 35 % Culture Results Microbiology Date/Time Source Procedure Growth Status 02/17/18 14:04 Blood Peripheral Blood Fungal Culture Pending Received 02/17/18 14:04 Blood Peripheral Blood Fungal Culture Pending Received 02/17/18 14:04 Blood Line Aerobic Blood Culture Pending Received 02/17/18 14:04 Blood Line Anaerobic Blood Culture Pending Received 02/17/18 14:00 Blood Peripheral Aerobic Blood Culture Pending Received 02/17/18 14:00 Blood Peripheral Anaerobic Blood Culture Pending Received 02/17/18 18:30 Sputum Endotracheal Gram Stain Pending Received 02/17/18 18:30 Sputum Endotracheal Sputum Culture Pending Received 02/17/18 18:30 Urine Catheterized Urine Urine Culture Pending Received 02/17/18 18:30 Urine Catheterized Urine Legionella Antigen Pending Received 02/17/18 18:30 Urine Catheterized Urine Streptococcus pneumoniae Antigen (M Pending Received Imaging Studies Last [address] 02/17/18 1551 Signed Impressions: Service Date/Time: January 16:18 - CONCLUSION: Bilateral lower lobe consolidations right greater left. Small bilateral pleural effusions. No visible pneumothorax. ET tube is in good position.. Perry Green MD Administered Medications Medications (Trade) Dose Ordered Sig/Melissa Route PRN Reason Start Time Stop Time Status Last Admin Dose Admin Acetaminophen (Tylenol) 650 mg Q4H PRN PO TEMP > 100.4 02/12/18 22:30 02/15/18 13:07 Sennosides (Senokot) 17.2 mg Q12H PRN PO Moderate constipation 02/12/18 22:30 02/15/18 12:17 Bisacodyl (Dulcolax Supp) 10 mg DAILY PRN RECTAL SEVERE CONSITIPATION 02/12/18 22:30 02/16/18 05:15 Lactulose (Lactulose Liq) 30 ml DAILY PRN PO SEVERE CONSITIPATION 02/12/18 22:30 02/17/18 15:35 Heparin Sodium (Porcine) (Heparin Central Flush) 200 units DAILY IV FLUSH 02/13/18 09:00 02/16/18 07:57 Heparin Sodium (Porcine) (Heparin Central Flush) 200 units UNSCH PRN IV FLUSH SEE PROTOCOL TABLE 02/13/18 01:00 02/16/18 05:15 Budesonide (Pulmicort Respule Neb) 0.5 mg Q12HR NEB NEB 02/13/18 08:00 02/17/18 19:38 Montelukast Sodium (Singulair) 10 mg HS PO 02/13/18 21:00 02/17/18 20:25 Tiotropium Dewitt (Spiriva Inh) 18 mcg DAILY INH 02/13/18 09:00 02/14/18 09:54 Metoprolol Tartrate (Lopressor Inj) 5 mg Q5M PRN IV PUSH sustained HR > 110 02/13/18 02:15 02/13/18 09:00 Diltiazem HCl (Cardizem) 120 mg Q6HR PO 02/13/18 06:00 02/18/18 05:29 Pantoprazole Sodium (Protonix Inj) 40 mg Q24H IV PUSH 02/13/18 03:00 02/18/18 02:38 Methylprednisolone Sodium Succinate (SoluMEDROL INJ) 125 mg Q6HR IV PUSH 02/13/18 09:45 02/18/18 05:29 Insulin Aspart (NovoLOG SUPPLEMENTAL SCALE) 1 ACHS SLIDING SCALE SQ 02/13/18 17:00 02/17/18 20:25 Esmolol HCl/ Sodium Chloride 250 ml @ 22.56 mls/ hr TITRATE PRN IV Blood Pressure Management 02/13/18 15:00 02/17/18 07:06 Hydralazine HCl (Apresoline Inj) 20 mg Q4H PRN IV PUSH SBP>160, DBP>90 02/14/18 00:00 02/18/18 02:30 Labetalol HCl (Trandate Inj) 10 mg Q4H PRN IV PUSH SBP>160, DBP>90 02/14/18 00:00 02/16/18 02:52 Albuterol/ Ipratropium (Duoneb Neb) 1 ampule Q4HR NEB NEB 02/14/18 12:00 02/18/18 07:25 Chlorhexidine Gluconate (Peridex 0.12% Liq) 15 ml BID@08,20 MT 02/14/18 20:00 02/17/18 20:00 Propofol 100 ml @ 2.256 mls/ hr TITRATE PRN IV SEDATION 02/14/18 11:45 02/18/18 04:58 Anticoagulant Citrate Dextose Joya A (Acd Formula Inj) 1,000 ml Q48H OTHER 02/14/18 21:00 02/22/18 21:01 02/14/18 22:49 Albumin Human 3,500 ml @ 250 mls/hr Q48H IV 02/14/18 21:00 02/23/18 10:59 02/14/18 21:00 Diphenhydramine HCl (Benadryl) 25 mg Q4H PRN PO SEE LABEL COMMENTS 02/15/18 07:30 02/15/18 13:07 Sodium Chloride 1,000 ml @ 100 mls/hr Q10H IV 02/17/18 06:45 02/18/18 06:12 Metoprolol Tartrate (Lopressor) 75 mg BID PO 02/17/18 09:00 02/17/18 20:25 Aztreonam 2000 mg/ Sodium Chloride 100 ml @ 200 mls/hr Q8H IV 02/17/18 12:00 02/18/18 03:12 Levofloxacin (Levaquin) 500 mg DAILY PO 02/17/18 11:30 02/17/18 12:40 Vancomycin HCl 1250 mg/Sodium Chloride 262.5 ml @ 250 mls/hr Q12H IV 02/17/18 13:00 02/18/18 00:27 Objective Remarks GENERAL: Elderly lady, critically ill-appearing, remains intubated, sedated and nonresponsive. Patient's nurses were in the room at the time I examined her this morning. SKIN: Multiple ecchymotic type lesions noted over the upper extremities and lower extremities, she has thin skin with peeling in various points. HEAD: Atraumatic. Normocephalic. No temporal or scalp tenderness. EYES: No scleral icterus. No injection or drainage. Pupils are sluggishly responsive. ENT: Nose without bleeding,no active bleeding noted. The patient has an ET tube and OG tube in place, there is dried blood on the right side of her lip. NECK: Trachea midline. No JVD or lymphadenopathy. Supple, nontender, no meningeal signs. CARDIOVASCULAR: Irregular, rate is better controlled, S1-S2 no obvious murmurs rubs gallops. RESPIRATORY: Intubated, good air movement of the upper and middle lung zones with decreased bibasilar breath sounds. GASTROINTESTINAL: Nondistended no palpable organ enlargement. Protuberant belly , soft, nontender MUSCULOSKELETAL: Generally decreased muscle mass, generally decreased motor strength. Atrophy. Neurologic: No spontaneous movements. Extremities: cool and dry to the touch. Cyanosis of the left foot on the dorsum and plantar surface. As well as of the left toes. Pulses: Faint/thready peripheral pulses on bilateral feet and in the radial pulses. Skin: Thin, extensive bruising, peeling and bruising noted. Assessment/Plan Problem List: (1) Myasthenia gravis ICD Codes: G70.00 - Myasthenia gravis without (acute) exacerbation Status: Chronic Plan: --Per neurology, we will initiate apheresis with albumin every other day 5 days. --Monitor coags Hx/Workup: Patient has a history of myasthenia gravis dating back to the . She has been on various lines of treatment including Mestinon, corticosteroids and Imuran. For the past several years she has been on IVIG infusions every 3 weeks under the care of a neurologist in [place] prior to relocating to the [facility]. She received IVIG infusions for 5 days in a row last week at [facility] and this did not improve her symptoms. The patient was being seen by a tele neurologist who recommended Rituxan infusion. She has been transferred to [facility] for continued care and management. Assessment 77-year-old female with myasthenia gravis exacerbation; hematology consulted for apheresis Plan 1. Myasthenia gravis: Status post 1 plasma exchange treatment earlier this week (02/14/2018). Plasma exchange was held on Wednesday and due to cyanosis of the left lower extremity. 2. Thrombocytopenia, this is pending: HIT antibody ordered she has been empirically started on Arixtra 5 mg subcu daily , She will need to be monitored very closely for bleeding. Other possible etiologies of thrombocytopenia includes sepsis with resultant DIC. 3. Now on aztreonam and vancomycin broad-spectrum antibiotic coverage, infectious diseases to determine if she may benefit from an antifungal. Haile Zacarias MD Feb 18, 2018 08:06
[2018-02-18] MEDS: TIOTROPIUM BROMIDE 18 MCG INH INH SCH (09:00)
[2018-02-18] MEDS: PICC Daily Heparin 100 unit/mL Lock Flush IV FLUSH SCH (09:00)
[2018-02-18] MEDS: METOPROLOL TARTRATE 25 MG TAB PO SCH ×2 (09:32→21:00)
[2018-02-18] MEDS: LEVOFLOXACIN 500 MG TAB PO SCH (09:32)
--- NOTE | 2018-02-18 09:59 | HHI.PR ---
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 02/16 sedated, on vent left foot cold and cyanotic mildly grimaces to stim myasthenias crisis critically ill solumedrol and plasma exchange /5 planned for today will d/c cymbalta 02/18 sedated on vent discussed with RN she grimaced to stim MEDICATIONS to AVOID if possible in Myashenia: All Mycins including vancomycin, clindamicin LEVAQUIN, CIPRO BETA BLOCKERS PROCAINIMIDE QUININE, QUINIDINE PENICILAMINE I will be off and dr Salazar will cover her case from now on Subjective Subjective Comments sedated Active Medications Current Medications Medications (Trade) Dose Ordered Sig/Melissa Route Start Time Stop Time Status Last Admin (Tylenol) 650 mg Q4H PRN PO 02/12/18 22:30 02/15/18 13:07 (Zofran Inj) 4 mg Q6H PRN IVP 02/12/18 22:30 (Narcan Inj) 0.4 mg UNSCH PRN IV PUSH 02/12/18 22:30 (Kathryn-Colace) 1 tab BID PO 02/13/18 09:00 Future Hold (Milk Of Magnesia Liq) 30 ml Q12H PRN PO 02/12/18 22:30 (Senokot) 17.2 mg Q12H PRN PO 02/12/18 22:30 02/15/18 12:17 (Dulcolax Supp) 10 mg DAILY PRN RECTAL 02/12/18 22:30 02/16/18 05:15 (Lactulose Liq) 30 ml DAILY PRN PO 02/12/18 22:30 02/17/18 15:35 (NS Flush) 5 ml UNSCH PRN IV FLUSH 02/13/18 01:00 (Heparin Central Flush) 200 units DAILY IV FLUSH 02/13/18 09:00 02/16/18 07:57 (NS Flush) 5 ml UNSCH PRN IV FLUSH 02/13/18 01:00 (Heparin Central Flush) 200 units UNSCH PRN IV FLUSH 02/13/18 01:00 02/16/18 05:15 (NS Flush) 5 ml UNSCH PRN IV FLUSH 02/13/18 01:00 (Aspirin Chew) 81 mg DAILY CHEW 02/13/18 09:00 Future Hold (Pulmicort Respule Neb) 0.5 mg Q12HR NEB NEB 02/13/18 08:00 02/18/18 07:25 (Lanoxin) 0.25 mg DAILY PO 02/13/18 09:00 Future Hold (Singulair) 10 mg HS PO 02/13/18 21:00 02/17/18 20:25 (Mycostatin Liq) 5 ml QID SWISH-SWAL 02/13/18 09:00 Future Hold (Spiriva Inh) 18 mcg DAILY INH 02/13/18 09:00 02/14/18 09:54 (Lopressor Inj) 5 mg Q5M PRN IV PUSH 02/13/18 02:15 02/13/18 09:00 (Cardizem) 120 mg Q6HR PO 02/13/18 06:00 02/18/18 05:29 (Protonix Inj) 40 mg Q24H IV PUSH 02/13/18 03:00 02/18/18 02:38 (SoluMEDROL INJ) 125 mg Q6HR IV PUSH 02/13/18 09:45 02/18/18 05:29 (Duoneb Neb) 1 ampule Q2HR NEB PRN NEB 02/13/18 13:15 (D50w (Vial) Inj) 50 ml UNSCH PRN IV PUSH 02/13/18 14:30 (Glucagon Inj) 1 mg UNSCH PRN OTHER 02/13/18 14:30 (NovoLOG SUPPLEMENTAL SCALE) 1 ACHS SLIDING SCALE SQ 02/13/18 17:00 02/18/18 08:00 Esmolol HCl/ Sodium Chloride 250 ml @ 22.56 mls/ hr TITRATE PRN IV 02/13/18 15:00 02/17/18 07:06 Miscellaneous Information Patient in critical care unit? Ass... Q361D .XX 02/13/18 16:00 (Chlorhexidine 2% Cloth) 3 pack UNSCH PRN TOPICAL 02/13/18 16:00 02/18/18 15:45 (Apresoline Inj) 20 mg Q4H PRN IV PUSH 02/14/18 00:00 02/18/18 02:30 (Trandate Inj) 10 mg Q4H PRN IV PUSH 02/14/18 00:00 02/16/18 02:52 (Duoneb Neb) 1 ampule Q4HR NEB NEB 02/14/18 12:00 02/18/18 07:25 (Peridex 0.12% Liq) 15 ml BID@08,20 MT 02/14/18 20:00 02/17/18 20:00 Propofol 100 ml @ 2.256 mls/ hr TITRATE PRN IV 02/14/18 11:45 02/18/18 09:33 Phenylephrine HCl 40 mg/Dextrose 500 ml @ 30 mls/hr TITRATE PRN IV 02/14/18 12:15 (Brethine Inj) 1 mg UNSCH PRN SQ 02/14/18 12:15 (NS Flush) 5 ml UNSCH PRN IV FLUSH 02/14/18 13:00 (Heparin Inj) 2,000 units UNSCH PRN IV FLUSH 02/14/18 13:00 (Acd Formula Inj) 1,000 ml Q48H OTHER 02/14/18 21:00 02/22/18 21:01 02/14/18 22:49 Albumin Human 3,500 ml @ 250 mls/hr Q48H IV 02/14/18 21:00 02/23/18 10:59 02/14/18 21:00 (Benadryl Inj) 25 mg UNSCH PRN IV PUSH 02/14/18 21:00 02/23/18 20:59 (Heparin Inj) 1,000 units UNSCH PRN IV FLUSH 02/14/18 21:00 02/23/18 20:59 Calcium Gluconate 3.5 gm/Sodium Chloride 235 ml @ 90 mls/hr Q48H IV 02/16/18 21:00 02/22/18 23:37 (Tylenol) 650 mg Q4H PRN PO 02/15/18 07:30 (Benadryl) 25 mg Q4H PRN PO 02/15/18 07:30 02/15/18 13:07 Sodium Chloride 1,000 ml @ 100 mls/hr Q10H IV 02/17/18 06:45 02/18/18 06:12 (Lopressor) 75 mg BID PO 02/17/18 09:00 02/18/18 09:32 Aztreonam 2000 mg/ Sodium Chloride 100 ml @ 200 mls/hr Q8H IV 02/17/18 12:00 02/18/18 03:12 Pharmacy Profile Note 0 ml @ 0 mls/hr UNSCH OTHER 02/17/18 11:00 (Levaquin) 500 mg DAILY PO 02/17/18 11:30 02/18/18 09:32 Vancomycin HCl 1250 mg/Sodium Chloride 262.5 ml @ 250 mls/hr Q12H IV 02/17/18 13:00 02/18/18 00:27 Miscellaneous Information SPECIFIC LAB TO BE DRAWN:VANCOMYCIN TROUGH DATE TO... ONCE ONCE .XX 02/19/18 00:45 02/19/18 00:46 Sodium Phosphate 15 mmol/Sodium Chloride 155 ml @ 38.75 mls/ hr ONCE ONCE IV 02/18/18 07:00 02/18/18 10:59 02/18/18 08:03 Allergies Allergies Coded Allergies azathioprine (Verified Allergy, Severe, 02/12/18) cephalexin (Verified Allergy, Severe, Rash, 02/12/18) Exam I&O / VS Vital Signs Date Time Temp Pulse Resp B/P (MAP) Pulse Ox O2 Delivery O2 Flow Rate FiO2 02/18/18 07:25 98 35 02/18/18 06:00 90 02/18/18 04:00 98.0 75 17 124/58 (80) 98 02/18/18 04:00 75 02/18/18 04:00 35 02/18/18 03:55 98 35 02/18/18 02:00 80 02/18/18 00:10 99 35 02/18/18 00:00 97.8 74 15 140/65 (90) 99 02/18/18 00:00 74 02/18/18 00:00 35 02/17/18 22:00 81 02/17/18 20:00 35 02/17/18 20:00 81 02/17/18 20:00 97.9 81 18 163/81 (108) 93 02/17/18 19:38 100 35 02/17/18 18:00 76 02/17/18 16:22 98 100 02/17/18 16:00 35 02/17/18 16:00 98.1 81 18 181/81 (114) 99 02/17/18 16:00 81 02/17/18 14:00 96 02/17/18 12:00 97.6 77 17 143/71 (95) 99 02/17/18 12:00 77 02/17/18 12:00 35 02/17/18 10:48 97 35 02/17/18 10:00 76 Objective Micro and Labs Laboratory Tests Test 02/17/18 11:18 02/17/18 12:25 02/17/18 18:30 02/18/18 03:45 Urine Color YELLOW Urine Turbidity HAZY Urine pH 6.5 Urine Specific [place] GREATER THAN 1.050 Urine Protein 30 Urine Glucose (UA) TRACE Urine Ketones TRACE Urine Occult Blood TRACE Urine Nitrite NEG Urine Bilirubin NEG Urine Urobilinogen LESS THAN 2.0 Urine Leukocyte Esterase MOD Urine RBC 149 Urine WBC 31 Urine Squamous Epithelial Cells 1 Urine Bacteria FEW Urine Yeast with Hyphae MANY Urine Yeast (Budding) MANY Microscopic Urinalysis Comment CATH-CULTURE IND White Blood Count 7.2 Red Blood Count 3.49 Hemoglobin 10.0 Hematocrit 27.0 Mean Corpuscular Volume 77.3 Mean Corpuscular Hemoglobin 28.5 Mean Corpuscular Hemoglobin Concent 36.9 Red Cell Distribution Width 25.0 Platelet Count 31 Mean Platelet Volume 9.9 Neutrophils (%) (Auto) 96.1 Lymphocytes (%) (Auto) 1.9 Monocytes (%) (Auto) 1.1 Eosinophils (%) (Auto) 0.1 Basophils (%) (Auto) 0.8 Neutrophils # (Auto) 6.9 Lymphocytes # (Auto) 0.1 Monocytes # (Auto) 0.1 Eosinophils # (Auto) 0.0 Basophils # (Auto) 0.1 CBC Comment AUTO DIFF Differential Total Cells Counted 100 Neutrophils % (Manual) 93 Band Neutrophils % 5 Lymphocytes % 1 Monocytes % 1 Neutrophils # (Manual) 7.1 Nucleated Red Blood Cells 5 Differential Comment FINAL DIFF MANUAL Platelet Estimate LOW Platelet Morphology Comment NORMAL [place] Cells 2+ Fibrinogen 194 Blood Urea Nitrogen 22 Creatinine 0.38 Random Glucose 255 Total Protein 3.9 Albumin 2.1 Calcium Level 5.8 Phosphorus Level 1.7 Magnesium Level 2.2 Alkaline Phosphatase 77 Aspartate Amino Transf (AST/SGOT) 72 Alanine Aminotransferase (ALT/SGPT) 375 Total Bilirubin 1.1 Sodium Level 135 Potassium Level 4.1 Chloride Level 107 Carbon Dioxide Level 17.8 Anion Gap 10 Estimat Glomerular Filtration Rate 163 Protein Corrected Calcium 7.3 Iron Level 19 Total Iron Binding Capacity 157 Percent Iron Saturation 12.1 Ferritin 245 Tumor Marker Alpha Fetoprotein 3.4 Hepatitis A IgM Antibody NONREACTIVE Hepatitis B Surface Antigen NONREACTIVE Hepatitis B Core IgM Antibody NONREACTIVE Hepatitis C IgG Antibody NONREACTIVE Test 02/18/18 05:15 Blood Gas Puncture Site CENTRAL LINE Blood Gas Patient Temperature 98.6 Venous Blood pH 7.40 Venous Blood Partial Pressure CO2 28 Venous Blood Partial Pressure O2 40 Venous Blood HCO3 17 Venous Blood Oxygen Saturation 71 Venous Blood Oxygen Content 9.6 Venous Blood Base Excess -6.6 Oxygen Delivery Device VENTILATOR Blood Gas Ventilator Setting SEE COMMENTS Blood Gas Inspired Oxygen 35 Date/Time Source Procedure Growth Status 02/17/18 14:04 Blood Peripheral Blood Fungal Culture Pending Received 02/17/18 14:04 Blood Peripheral Blood Fungal Culture Pending Received 02/17/18 18:30 Sputum Endotracheal Gram Stain Pending Received 02/17/18 18:30 Sputum Endotracheal Sputum Culture Pending Received 02/17/18 18:30 Urine Catheterized Urine Urine Culture Pending Received Ryan Teixeira MD Feb 18, 2018 09:59
--- NOTE | 2018-02-18 10:18 | HHI.CCPN ---
Subjective Remarks/Hospital Course This is a 77-year-old female that presented to [facility] on 01/27/2018 with complaints of dyspnea. 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 prior to relocating recently to [place]. Her medical history is significant for chronic steroid therapy with prednisone and then subsequently placed on IVIG infusions every 3 weeks secondary to nonresponsiveness of steroid therapy. On 01 27 the patient was admitted to [facility] and treated for sepsis with broad- spectrum antibiotics, which have now been completed. Blood cultures have revealed Streptococcus viridans. The patient continued care at [place] seeing a telemetry neurologist and hematology oncology was consulted, Dr. Zacarias. It was recommended that the patient receive Rituxan and be evaluated formally by a neurologist. Patient was transferred to [facility]. The patient has a history of A. fib RVR, and home medications include metoprolol, digoxin, and Cardizem. These medications were stopped in the last 24 hours secondary to the patient experiencing dysphagia. Patient subsequently went into A. fib RVR early this a.m., heart rate 150's and transferred to ICU. Stat ABG was obtained. critical care medicine was consulted. SUBJ 02/14: Currently patient is quite tachypneic breathing about 40/min, even on BiPAP. Prior to BiPAP patient's NIF-16 and forced vital was 600 ml. Patient clearly failing BiPAP and this is most likely secondary to myasthenia gravis exacerbation. I proceeded to endotracheally intubate the patient placed on mechanical ventilation. Discussed with Dr. Olivarez area both of us agree on starting plasma exchange. Will discuss with hematology Dr. Zacarias 02/15: No events over the night. Due to progressive respiratory distress she was intubated yesterday. T-max of 98.7. I/O 1770/650. She remains on esmolol drip, still in A. fib/flutter on the monitor with heart rate better controlled. She sedated with propofol. 02/16: Patient did well over the night. Patient continues to require esmolol heart rate control, currently at 200, and propofol for sedation. 02/17: Yesterday evening, patient's left foot became more cyanotic. Dr. Conteh from vascular surgery was consulted, patient underwent CTA and IR to patient for left leg angio but no clot was seen. Patient had improved pulse post procedure. This a.m. patient has dopplerable pulse. No other overnight events. T-max of 98.2. Urine output decreased. 02/18: No events over the night. Left foot remains cyanotic with dopplerable pulse. Platelets remain low. Afebrile, with a T-max of 98.1. Documented urine output over the last 24 hours 250 cc. Of esmolol drip, receiving IV hydration. She remains sedated and intubated. ROS -unobtainable, patient is intubated Objective Vital Signs Date Time Temp Pulse Resp B/P (MAP) Pulse Ox O2 Delivery O2 Flow Rate FiO2 02/18/18 07:25 98 35 02/18/18 06:00 90 02/18/18 04:00 98.0 17 124/58 (80) 02/17/18 07:32 Ventilator 02/16/18 19:15 15.00 Intake and Output 02/18/18 02/18/18 02/19/18 08:00 16:00 00:00 Intake Total 1859.7 ml Output Total 1100 ml Balance 759.7 ml Result Diagram: 02/18/18 0345 02/18/18 0345 Other Results Microbiology Date/Time Source Procedure Growth Status 02/17/18 18:30 Urine Catheterized Urine Legionella Antigen - Final PRESUMPTIVE NEGATIVE FOR LEGIONELLA P... Complete 02/17/18 18:30 Urine Catheterized Urine Streptococcus pneumoniae Antigen (M - Final PRESUMPTIVE NEGATIVE FOR STREPTOCOCCU... Complete Laboratory Tests Test 02/18/18 05:15 Blood Gas Puncture Site CENTRAL LINE Blood Gas Patient Temperature 98.6 Venous Blood pH 7.40 (7.360-7.400) Venous Blood Partial Pressure CO2 28 mmHg (44-48) Venous Blood Partial Pressure O2 40 mmHg (35-40) Venous Blood HCO3 17 mmol/L (22-26) Venous Blood Oxygen Saturation 71 % (70-76) Venous Blood Oxygen Content 9.6 Vol % (9.0-17.0) Venous Blood Base Excess -6.6 mmol/L (-2-2) Oxygen Delivery Device VENTILATOR Blood Gas Ventilator Setting SEE COMMENTS Blood Gas Inspired Oxygen 35 % Imaging Last [address] 02/17/18 1551 Signed Impressions: Service Date/Time: January 16:18 - CONCLUSION: Bilateral lower lobe consolidations right greater left. Small bilateral pleural effusions. No visible pneumothorax. ET tube is in good position.. Perry Green MD Last Impressions Chest X-Ray 02/14/18 0600 Signed Impressions: Service Date/Time: Wednesday, February 14, 2018 03:41 - CONCLUSION: 1. Minimal basilar atelectasis. PICC line tip in superior vena cava. Sarwat Mclaughlin MD Lower Extremity Ultrasound 02/13/18 0000 Signed Impressions: Service Date/Time: Tuesday, February 13, 2018 16:19 - CONCLUSION: No DVT or superficial venous thrombosis is identified within either lower extremity. John Laureano MD Last Impressions Chest X-Ray 02/12/18 0000 Signed Impressions: Service Date/Time: Tuesday, February 13, 2018 00:12 - CONCLUSION: No acute disease. Wilbur Turner Jr., MD Objective Remarks General - elderly lady, intubated, sedated, ill-appearing HEENT - pupils equal, reactive, sclera anicteric, neck supple, no neck rigidity , neck veins not distended, remains orally intubated, right IJ HD catheter - site clean CV - irregular S1 and S2, no murmurs appreciated Chest -scattered coarse breath sounds bilateral bases, good air entry, no wheezes Abdomen - soft, non-tender, not distended, BS present, no hepatomegaly, no splenomegaly Skin - multiple ecchymotic bruises bilateral arms and skin tears covered with dressing, cyanotic left foot, bruises present over the abdomen also Extremities - tepid to touch, no edema, dopplerable pulse on the left and palpable on the right Neuro - intubated, sedated, does not open eyes to voice stimuli, grimaces to pain A/P Problem List: (1) Pneumonia ICD Code: J18.9 - Pneumonia, unspecified organism Status: Acute (2) COPD (chronic obstructive pulmonary disease) ICD Code: J44.9 - Chronic obstructive pulmonary disease, unspecified Status: Chronic (3) Myasthenia gravis ICD Code: G70.00 - Myasthenia gravis without (acute) exacerbation Status: Chronic (4) Current chronic use of systemic steroids ICD Code: Z79.52 - long-term (current) use of systemic steroids (5) Anemia ICD Code: D64.9 - Anemia, unspecified Assessment and Plan 1. Myasthenia gravis, with acute exacerbation, completed 1 cycle of plasmapheresis 2. Acute respiratory failure secondary to above, on minimal O2 requirements 3. 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 Acute encephalopathy 5. A. fib with RVR, remains in A. fib but rate better controlled, off Esmolol drip 6. Possible pneumonia -completed treatment at the outside hospital. Now patient growing mold in sputum 7. History of CHF 8. Hypernatremia -resolved 9. Acute anemia, received 1 unit PRBC transfusion, now improved 10. Thrombocytopenia -platelet count still low, workup is pending, concern for HIT or DIC 11. Elevated liver enzymes and possible acute cholecystitis -AST and ALT slowly trending down 1. Continue PRVC at current vent settings. Patient is synchronized with the ventilator, no auto PEEP. PIP 20, FiO2 of 0.35 2. Vent bundle and bronchodilators. Hold home medication Singulair and Spiriva 3. Ideally patient should have a bronchoscopy. 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 Further workup and antibiotics per ID. Started on Vanco, aztreonam and levofloxacin. ID note reviewed, recommendations appreciated, will start voriconazole if any clinical worsening 5. Continue methylprednisolone 125 mg 4 times daily per neurology. She received IVIG therapy for the last 3 weeks at [facility]. 6. Continue diltiazem and metoprolol at current doses. Hold home digoxin in the setting of worsening renal function 7. Continue IV hydration. Will check urine lytes 8. Thrombocytopenia workup per hematology, Lovenox was held 2 days ago. Started on Arixtra 9. Increased tube feeds to goal 10. GI prophylaxis with PPI 11. Might need cholecystostomy tube placement if clinically worsening 12. Plasmaphoresis on hold due to need for heparin No family present at bedside. Addendum: Case discussed with Dr. Mao, we will initiate voriconazole therapy for Aspergillus in the sputum in the setting of severe immunosuppression. Liver enzymes trending down, will monitor daily. Darin Douglass MD Feb 18, 2018 10:18
[2018-02-18] MEDS: CHLORHEXIDINE 0.12% (ORAL KIT) 15 ML CUP MT SCH ×2 (11:46→20:00)
--- NOTE | 2018-02-18 11:50 | HHI.GIFU ---
Subjective Remarks pt intubated on vent. (Marissa Arriaga) Objective Vitals I&O Vital Signs Date Time Temp Pulse Resp B/P (MAP) Pulse Ox O2 Delivery O2 Flow Rate FiO2 02/18/18 11:19 97 35 02/18/18 07:25 98 35 02/18/18 06:00 90 02/18/18 04:00 98.0 75 17 124/58 (80) 98 02/18/18 04:00 75 02/18/18 04:00 35 02/18/18 03:55 98 35 02/18/18 02:00 80 02/18/18 00:10 99 35 02/18/18 00:00 97.8 74 15 140/65 (90) 99 02/18/18 00:00 74 02/18/18 00:00 35 02/17/18 22:00 81 02/17/18 20:00 35 02/17/18 20:00 81 02/17/18 20:00 97.9 81 18 163/81 (108) 93 02/17/18 19:38 100 35 02/17/18 18:00 76 02/17/18 16:22 98 100 02/17/18 16:00 35 02/17/18 16:00 98.1 81 18 181/81 (114) 99 02/17/18 16:00 81 02/17/18 14:00 96 02/17/18 12:00 97.6 77 17 143/71 (95) 99 02/17/18 12:00 77 02/17/18 12:00 35 I/O 02/17/18 02/17/18 02/17/18 02/18/18 02/18/18 02/18/18 06:59 14:59 22:59 06:59 14:59 22:59 Intake Total 1550 ml 110 ml 1859.7 ml Output Total 100 ml 250 ml 1100 ml Balance 1450 ml -140 ml 759.7 ml Intake Oral 0 ml IV Total 1550 ml 100 ml 1583.7 ml Tube Feeding 10 ml 156 ml Tube Irrigant 120 ml Output Urine Total 100 ml 250 ml 1100 ml # Bowel Movements 0 0 Laboratory Laboratory Tests Test 02/17/18 12:25 02/17/18 18:30 02/18/18 03:45 4/27/18 05:15 Urine Color YELLOW Urine Turbidity HAZY Urine pH 6.5 Urine Specific [place] GREATER THAN 1.050 Urine Protein 30 Urine Glucose (UA) TRACE Urine Ketones TRACE Urine Occult Blood TRACE Urine Nitrite NEG Urine Bilirubin NEG Urine Urobilinogen LESS THAN 2.0 Urine Leukocyte Esterase MOD Urine RBC 149 Urine WBC 31 Urine Squamous Epithelial Cells 1 Urine Bacteria FEW Urine Yeast with Hyphae MANY Urine Yeast (Budding) MANY Microscopic Urinalysis Comment CATH-CULTURE IND White Blood Count 7.2 Red Blood Count 3.49 Hemoglobin 10.0 Hematocrit 27.0 Mean Corpuscular Volume 77.3 Mean Corpuscular Hemoglobin 28.5 Mean Corpuscular Hemoglobin Concent 36.9 Red Cell Distribution Width 25.0 Platelet Count 31 Mean Platelet Volume 9.9 Neutrophils (%) (Auto) 96.1 Lymphocytes (%) (Auto) 1.9 Monocytes (%) (Auto) 1.1 Eosinophils (%) (Auto) 0.1 Basophils (%) (Auto) 0.8 Neutrophils # (Auto) 6.9 Lymphocytes # (Auto) 0.1 Monocytes # (Auto) 0.1 Eosinophils # (Auto) 0.0 Basophils # (Auto) 0.1 CBC Comment AUTO DIFF Differential Total Cells Counted 100 Neutrophils % (Manual) 93 Band Neutrophils % 5 Lymphocytes % 1 Monocytes % 1 Neutrophils # (Manual) 7.1 Nucleated Red Blood Cells 5 Differential Comment FINAL DIFF MANUAL Platelet Estimate LOW Platelet Morphology Comment NORMAL Opal Cells 2+ Fibrinogen 194 Blood Urea Nitrogen 22 Creatinine 0.38 Random Glucose 255 Total Protein 3.9 Albumin 2.1 Calcium Level 5.8 Phosphorus Level 1.7 Magnesium Level 2.2 Alkaline Phosphatase 77 Aspartate Amino Transf (AST/SGOT) 72 Alanine Aminotransferase (ALT/SGPT) 375 Total Bilirubin 1.1 Sodium Level 135 Potassium Level 4.1 Chloride Level 107 Carbon Dioxide Level 17.8 Anion Gap 10 Estimat Glomerular Filtration Rate 163 Protein Corrected Calcium 7.3 Iron Level 19 Total Iron Binding Capacity 157 Percent Iron Saturation 12.1 Ferritin 245 Tumor Marker Alpha Fetoprotein 3.4 Hepatitis A IgM Antibody NONREACTIVE Hepatitis B Surface Antigen NONREACTIVE Hepatitis B Core IgM Antibody NONREACTIVE Hepatitis C IgG Antibody NONREACTIVE Blood Gas Puncture Site CENTRAL LINE Blood Gas Patient Temperature 98.6 Venous Blood pH 7.40 Venous Blood Partial Pressure CO2 28 Venous Blood Partial Pressure O2 40 Venous Blood HCO3 17 Venous Blood Oxygen Saturation 71 Venous Blood Oxygen Content 9.6 Venous Blood Base Excess -6.6 Oxygen Delivery Device VENTILATOR Blood Gas Ventilator Setting SEE COMMENTS Blood Gas Inspired Oxygen 35 Date/Time Source Procedure Growth Status 02/17/18 14:04 Blood Peripheral Blood Fungal Culture Pending Received 02/17/18 14:04 Blood Peripheral Blood Fungal Culture Pending Received 02/17/18 18:30 Sputum Endotracheal Gram Stain - Final Resulted 02/17/18 18:30 Sputum Endotracheal Sputum Culture Pending Resulted 02/17/18 18:30 Urine Catheterized Urine Urine Culture Pending Received Imaging Last Impressions Chest CT 02/17/18 1551 Signed Impressions: Service Date/Time: January 16:18 - CONCLUSION: Bilateral lower lobe consolidations right greater left. Small bilateral pleural effusions. No visible pneumothorax. ET tube is in good position.. Perry Green MD Gall Bladder Ultrasound 02/17/18 0000 Signed Impressions: Service Date/Time: January 13:09 - CONCLUSION: 1. Gallbladder wall thickening and pericholecystic fluid suggesting possible acute cholecystitis. Clinical correlation is recommended. A hepatobiliary scan may be helpful to confirm cystic duct obstruction if clinically indicated. 2. Echogenic focus within the gallbladder suggestive of non-shadowing calculus or small polyp. 3. Mild hepatomegaly. 4. Minimal perinephric fluid on the right. Hira Arora MD Chest X-Ray 02/16/18 0600 Signed Impressions: Service Date/Time: Friday, February 16, 2018 04:14 - CONCLUSION: 1. Support apparatus unchanged and in good position. Cardiomegaly. Mild basilar airspace disease. Sarwat Mclaughlin MD Lower Extremity Angiography 02/16/18 0000 Signed Impressions: Service Date/Time: Friday, February 16, 2018 21:33 - CONCLUSION: 1. Very sluggish outflow. Findings could be due to poor cardiac output. Emboli to the small, intrinsic vessels of the foot could have a similar appearance. 2. Otherwise, inflow and outflow are widely patent with three-vessel runoff. Martin Padilla MD Arterial Ultrasound 02/16/18 0000 Signed Impressions: Service Date/Time: Friday, February 16, 2018 16:30 - CONCLUSION: 1. Inflow appeared to be adequate bilaterally despite scattered atherosclerotic calcification. 2. Three-vessel runoff on the right. 3. On the left, the dorsalis pedis artery appears to be quite diminutive with limited flow. Anterior tibial and peroneal are patent, however. Martin Padilla MD Aorta w/Runoff CTA 02/16/18 0000 Signed Impressions: Service Date/Time: Friday, February 16, 2018 19:36 - CONCLUSION: 1. Inflow appears to be patent down to the above-knee popliteal bilaterally. 2. On the right, the entire popliteal is patent with the dominant runoff via the posterior tibial. 3. On the left, minimal contrast below the knee joint on both the initial and delayed images. This may represent a combination of poor cardiac output and nonocclusive thrombus in the popliteal region. Again, please the dominant runoff is via the posterior tibial. 4. Bibasilar areas of consolidation/atelectasis with small associated effusions. Cannot exclude a developing infiltrate, especially on the right. 5. Abnormal appearance of the gallbladder with either marked gallbladder wall thickening or pericholecystic fluid. The fluid appears to track down the right paracolic gutter in the pelvis. Gallbladder ultrasound could be performed for further characterization. 6. Diverticular disease of the sigmoid without diverticulitis. Martin Padilla MD Lower Extremity Ultrasound 02/13/18 0000 Signed Impressions: Service Date/Time: Tuesday, February 13, 2018 16:19 - CONCLUSION: No DVT or superficial venous thrombosis is identified within either lower extremity. John Laureano MD Physical Exam HEENT: normocephalic; atraumatic; no jaundice. CHEST: coarse CARDIAC: irr HR ABDOMEN: Soft, nondistended, nontender; no hepatosplenomegaly; bowel sounds are present in all four quadrants. EXTREMITIES: No clubbing, cyanosis, BUE edema. dusky left foot SKIN: no rash; no jaundice. pale [employer]: sedated on vent (Marissa Arriaga) Assessment and Plan Plan ASSESSMENT - elevated LFTs - acute elevation 02/16/18 DILI vs shock liver vs gallbladder. have decreased some since yesterday. US showing poss acute cholecystitis and suggests HIDA. doubt she would be a surgical candidate at this time - anemia - microcytic likely multifactorial. no obvious GIB - thrombocytopenia - hematology following - myasthenia gravis exacerbation s/p plasma exchange,mold in sputum, respiratory failure, vascular occlusive dz with left foot cyanosis, poss PNA - per [facility] 02/18/18 LFTs trending down. liver w/u pending. hep panel neg. ?gallbladder etiology. per DR Conteh pt is not candidate for any aggressive interventions. PLAN - await liver w/u - abx per ID - monitor labs - supportive care pt seen by myself and Dr Soriano and this note is on his behalf (Marissa Arriaga) Physician Comments Patient seen and examined Agree with above Continue with current supportive care Monitor labs No evidence of biliary obstruction at this point We will defer to Dr. Conteh for surgical opinion and the need for cholecystostomy (Spike Soriano MD) Marissa Arriaga Feb 18, 2018 11:50 Spike Soriano MD Feb 18, 2018 13:03
[2018-02-18 12:56] LABS: CREATININE, RANDOM URINE 24.9 MG/DL
[2018-02-18 14:00] LABS: MYCOPLASMA PNEUMONIAE IGG Positive (Negative); MYCOPLASMA PNEUMONIAE IGM Negative (Negative)
--- NOTE | 2018-02-18 14:52 | PD.CAR.PN ---
CVT Progress Note Subjective/Hospital Course: 77-year-old with acute ischemia and cold pulseless left foot. Multiple comorbidities that fall very easily in the picture of acute thromboembolism including exacerbation of myasthenia gravis A. fib with RVR etc. CTA reveals obstruction of the flow at the level of trifurcation so my suspicions that this clot is sitting into the trifurcation and distal popliteal artery. TPA lysis should be the primary way to fix this if that does not work I can always go ahead with mechanical thromboembolectomy Discussed with Dr. Padilla and we going to put a TPA lysis catheter and go from there Full consult dictated Thanks J 02/17/2018 Left foot is warm with strong dopplerable pulses and good flow Patient most likely had a small piece of clot lodged in the trifurcation and once we placed the wire down this flushed out Combination of a very tiny embolic segment combined with very low cardiac output because the foot to get purple and discolored. At this point patient is doing well and no further therapy is necessary from our point It should however be noted that patient's ultrasound of the gallbladder reveals some pericholecystic fluid and this goes along with a CT scan which reveals also probably resolving acute cholecystitis At this point obviously patient is a poor candidate for any aggressive surgical therapy 02/18/2018 Palpable femoral pulses and strong dopplerable popliteal pulse Patient has strong palpable and dopplerable posterior tibial pulse and a weakly dopplerable dorsalis pedis pulse Distal toes are purplish and livid. Based on clinical presentation I believe this patient's combination of embolic shower into the foot and very low cardiac output with sluggish flow Vessels are patent but flow is sluggish and hence the changes Nothing to add from vascular point This patient's overall prognosis is very poor based on all the clinical indices Objective: Vital Signs Date Time Temp Pulse Resp B/P (MAP) Pulse Ox O2 Delivery O2 Flow Rate FiO2 02/18/18 11:19 97 35 02/18/18 07:25 98 35 02/18/18 06:00 90 02/18/18 04:00 98.0 75 17 124/58 (80) 98 02/18/18 04:00 75 02/18/18 04:00 35 02/18/18 03:55 98 35 02/18/18 02:00 80 02/18/18 00:10 99 35 02/18/18 00:00 97.8 74 15 140/65 (90) 99 02/18/18 00:00 74 02/18/18 00:00 35 02/17/18 22:00 81 02/17/18 20:00 35 02/17/18 20:00 81 02/17/18 20:00 97.9 81 18 163/81 (108) 93 02/17/18 19:38 100 35 02/17/18 18:00 76 02/17/18 16:22 98 100 02/17/18 16:00 35 02/17/18 16:00 98.1 81 18 181/81 (114) 99 02/17/18 16:00 81 Labs: Laboratory Tests Test 02/18/18 03:45 02/18/18 05:15 02/18/18 12:05 White Blood Count 7.2 TH/MM3 (4.0-11.0) Red Blood Count 3.49 MIL/MM3 (4.00-5.30) Hemoglobin 10.0 GM/DL (11.6-15.3) Hematocrit 27.0 % (35.0-46.0) Mean Corpuscular Volume 77.3 FL (80.0-100.0) Mean Corpuscular Hemoglobin 28.5 PG (27.0-34.0) Mean Corpuscular Hemoglobin Concent 36.9 % (32.0-36.0) Red Cell Distribution Width 25.0 % (11.6-17.2) Platelet Count 31 TH/MM3 (150-450) Mean Platelet Volume 9.9 FL (7.0-11.0) Neutrophils (%) (Auto) 96.1 % (16.0-70.0) Lymphocytes (%) (Auto) 1.9 % (9.0-44.0) Monocytes (%) (Auto) 1.1 % (0.0-8.0) Eosinophils (%) (Auto) 0.1 % (0.0-4.0) Basophils (%) (Auto) 0.8 % (0.0-2.0) Neutrophils # (Auto) 6.9 TH/MM3 (1.8-7.7) Lymphocytes # (Auto) 0.1 TH/MM3 (1.0-4.8) Monocytes # (Auto) 0.1 TH/MM3 (0-0.9) Eosinophils # (Auto) 0.0 TH/MM3 (0-0.4) Basophils # (Auto) 0.1 TH/MM3 (0-0.2) CBC Comment AUTO DIFF Differential Total Cells Counted 100 Neutrophils % (Manual) 93 % (16-70) Band Neutrophils % 5 % (0-6) Lymphocytes % 1 % (9-44) Monocytes % 1 % (0-8) Neutrophils # (Manual) 7.1 TH/MM3 (1.8-7.7) Nucleated Red Blood Cells 5 /100 WBC (0-0) Differential Comment FINAL DIFF MANUAL Platelet Estimate LOW (NORMAL) Platelet Morphology Comment NORMAL (NORMAL) [place] Cells 2+ (NORMAL) Fibrinogen 194 mg/dL (227-377) Blood Urea Nitrogen 22 MG/DL (7-18) Creatinine 0.38 MG/DL (0.50-1.00) Random Glucose 255 MG/DL (74-106) Total Protein 3.9 GM/DL (6.4-8.2) Albumin 2.1 GM/DL (3.4-5.0) Calcium Level 5.8 MG/DL (8.5-10.1) Phosphorus Level 1.7 MG/DL (2.5-4.9) Magnesium Level 2.2 MG/DL (1.5-2.5) Alkaline Phosphatase 77 U/L (45-117) Aspartate Amino Transf (AST/SGOT) 72 U/L (15-37) Alanine Aminotransferase (ALT/SGPT) 375 U/L (10-53) Total Bilirubin 1.1 MG/DL (0.2-1.0) Sodium Level 135 MEQ/L (136-145) Potassium Level 4.1 MEQ/L (3.5-5.1) Chloride Level 107 MEQ/L (98-107) Carbon Dioxide Level 17.8 MEQ/L (21.0-32.0) Anion Gap 10 MEQ/L (5-15) Estimat Glomerular Filtration Rate 163 ML/MIN (>89) Protein Corrected Calcium 7.3 MG/DL (8.5-10.1) Iron Level 19 MCG/DL (50-170) Total Iron Binding Capacity 157 MCG/DL (250-450) Percent Iron Saturation 12.1 % (20-50) Ferritin 245 NG/ML (8-252) Tumor Marker Alpha Fetoprotein 3.4 NG/ML (0.5-8.0) Anti-Nuclear Antibody Screen NEG (NEG) Hepatitis A IgM Antibody NONREACTIVE (NONREACTIVE) Hepatitis B Surface Antigen NONREACTIVE (NONREACTIVE) Hepatitis B Core IgM Antibody NONREACTIVE (NONREACTIVE) Hepatitis C IgG Antibody NONREACTIVE (NONREACTIVE) Blood Gas Puncture Site CENTRAL LINE Blood Gas Patient Temperature 98.6 Venous Blood pH 7.40 (7.360-7.400) Venous Blood Partial Pressure CO2 28 mmHg (44-48) Venous Blood Partial Pressure O2 40 mmHg (35-40) Venous Blood HCO3 17 mmol/L (22-26) Venous Blood Oxygen Saturation 71 % (70-76) Venous Blood Oxygen Content 9.6 Vol % (9.0-17.0) Venous Blood Base Excess -6.6 mmol/L (-2-2) Oxygen Delivery Device VENTILATOR Blood Gas Ventilator Setting SEE COMMENTS Blood Gas Inspired Oxygen 35 % Urine Random Creatinine 24.9 MG/DL Urine Random Sodium 11 MEQ/L Result Diagram: 02/18/18 0345 02/18/18 0345 Teresa Mejia MD Feb 18, 2018 14:52
[2018-02-18 15:08] LABS: HEPARIN INDUCED PLATELET AB NEGATIVE (NEGATIVE)
[2018-02-18] MEDS: LACTULOSE SYRUP 20 GM/30 ML CUP PO PRN (15:19)
--- NOTE | 2018-02-18 15:27 | RADRPT ---
EXAM DATE/TIME: 02/18/2018 14:21 [place] COMPARISON: No previous studies available for comparison. INDICATIONS : Left arm edema. MEDICAL HISTORY : Congestive heart failure. Osteoporosis. Mysthenia gravis. Tremors. Palpitations. Afib. COPD. Asthma. Dyspnea. Ulcer. GERD. Paresthesia. Anxiety. SURGICAL HISTORY : Hysterectomy. Bilateral cataracts. ENCOUNTER: Initial ACUITY: 1 day PAIN SCORE: Non-responsive LOCATION: Left arm. FINDINGS: There is spontaneous flow documented in the brachial, basilic, cephalic, axillary, and subclavian vei ns. The vessels are compressible and augmentation response is documented. No filling defects are se en. The flow is phasic with respiration. Direction of flow in the jugular vein is caudal. CONCLUSION: Normal examination. Perry Green MD on February 18, 2018 at 15:25 Board Certified Radiologist. This report was verified electronically.
[2018-02-18] MEDS ORDERED: ENOXAPARIN SODIUM 40 MG/0.4 ML SYRINGE SQ SCH (17:00)
[2018-02-18] MEDS: SODIUM CHLOR 0.9% IV SCH ×2 (17:57→21:10)
[2018-02-18] MEDS: VORICONAZOLE IV SCH (17:57)
[2018-02-18] MEDS: METOPROLOL TARTRATE 5 MG/5 ML VIAL IV PUSH PRN (18:49)
--- NOTE | 2018-02-18 19:04 | HHI.IDPN ---
Subjective Subjective Remarks ID X covver for Dr Maravilla case was reviewed 77 F with miastinia gravis, immunosuppresed (high dose sterroids: 25 mg daily) admitted from [facility] for [facility] with myastenia crisis where she was treatecd for PNA since 01/27 Prev BC + for vir strep She developped resp distress and was intubated Sputum clx + for Aspergilla fumigatus She was planned to be scopped but 2/2 low plts bronch was cancelled She was started on vooriconazole, repeat endotrach clx with nl resp rosa m Antibiotics voricaoznle azactam vanco micafungin Past Medical History miastenia gravis Allergies: Coded Allergies: azathioprine (Verified Allergy, Severe, 02/12/18) Painful rash all over face and body cephalexin (Verified Allergy, Severe, Rash, 02/12/18) rash all over face and chest Objective . Vital Signs Date Time Temp Pulse Resp B/P (MAP) Pulse Ox O2 Delivery O2 Flow Rate FiO2 02/18/18 16:42 97 35 02/18/18 16:00 97.6 107 21 119/81 (94) 98 02/18/18 11:19 97 35 02/18/18 07:25 98 35 02/18/18 06:00 90 02/18/18 04:00 98.0 75 17 124/58 (80) 98 02/18/18 04:00 75 02/18/18 04:00 35 02/18/18 03:55 98 35 02/18/18 02:00 80 02/18/18 00:10 99 35 02/18/18 00:00 97.8 74 15 140/65 (90) 99 02/18/18 00:00 74 02/18/18 00:00 35 02/17/18 22:00 81 02/17/18 20:00 35 02/17/18 20:00 81 02/17/18 20:00 97.9 81 18 163/81 (108) 93 02/17/18 19:38 100 35 02/18/18 02/18/18 02/19/18 15:00 23:00 07:00 Intake Total 285 ml 1350 ml Output Total 650 ml Balance 285 ml 700 ml IV Total 285 ml 1000 ml Tube Feeding 350 ml Output Urine Total 650 ml # Bowel Movements 0 . Laboratory Tests Test 02/17/18 04:30 4/27/18 03:45 White Blood Count 8.9 TH/MM3 7.2 TH/MM3 Red Blood Count 3.75 MIL/MM3 3.49 MIL/MM3 Hemoglobin 9.9 GM/DL 10.0 GM/DL Hematocrit 28.4 % 27.0 % Mean Corpuscular Volume 75.8 FL 77.3 FL Mean Corpuscular Hemoglobin 26.3 PG 28.5 PG Mean Corpuscular Hemoglobin Concent 34.7 % 36.9 % Red Cell Distribution Width 24.4 % 25.0 % Platelet Count 29 TH/MM3 31 TH/MM3 Mean Platelet Volume 9.4 FL 9.9 FL Neutrophils (%) (Auto) 97.8 % 96.1 % Lymphocytes (%) (Auto) 1.5 % 1.9 % Monocytes (%) (Auto) 0.7 % 1.1 % Eosinophils (%) (Auto) 0.0 % 0.1 % Basophils (%) (Auto) 0.0 % 0.8 % Neutrophils # (Auto) 8.7 TH/MM3 6.9 TH/MM3 Lymphocytes # (Auto) 0.1 TH/MM3 0.1 TH/MM3 Monocytes # (Auto) 0.1 TH/MM3 0.1 TH/MM3 Eosinophils # (Auto) 0.0 TH/MM3 0.0 TH/MM3 Basophils # (Auto) 0.0 TH/MM3 0.1 TH/MM3 CBC Comment AUTO DIFF AUTO DIFF Differential Comment AUTO DIFF CONFIRMED FINAL DIFF MANUAL Differential Total Cells Counted 100 Neutrophils % (Manual) 93 % Band Neutrophils % 5 % Lymphocytes % 1 % Monocytes % 1 % Neutrophils # (Manual) 7.1 TH/MM3 Nucleated Red Blood Cells 5 /100 WBC Platelet Estimate LOW Platelet Morphology Comment NORMAL [place] Cells 2+ Laboratory Tests Test 02/17/18 04:30 02/18/18 03:45 Blood Urea Nitrogen 24 MG/DL 22 MG/DL Creatinine 0.43 MG/DL 0.38 MG/DL Random Glucose 221 MG/DL 255 MG/DL Total Protein 4.5 GM/DL 3.9 GM/DL Albumin 2.7 GM/DL 2.1 GM/DL Calcium Level 6.9 MG/DL 5.8 MG/DL Phosphorus Level 1.8 MG/DL 1.7 MG/DL Magnesium Level 2.3 MG/DL 2.2 MG/DL Alkaline Phosphatase 63 U/L 77 U/L Aspartate Amino Transf (AST/SGOT) 158 U/L 72 U/L Alanine Aminotransferase (ALT/SGPT) 557 U/L 375 U/L Total Bilirubin 1.0 MG/DL 1.1 MG/DL Sodium Level 139 MEQ/L 135 MEQ/L Potassium Level 3.8 MEQ/L 4.1 MEQ/L Chloride Level 110 MEQ/L 107 MEQ/L Carbon Dioxide Level 20.1 MEQ/L 17.8 MEQ/L Anion Gap 9 MEQ/L 10 MEQ/L Estimat Glomerular Filtration Rate 142 ML/MIN 163 ML/MIN Protein Corrected Calcium 8.3 MG/DL 7.3 MG/DL Iron Level 19 MCG/DL Total Iron Binding Capacity 157 MCG/DL Percent Iron Saturation 12.1 % Ferritin 245 NG/ML Tumor Marker Alpha Fetoprotein 3.4 NG/ML Microbiology Date/Time Source Procedure Growth Status 02/17/18 14:04 Blood Peripheral Blood Fungal Culture Pending Received 02/17/18 14:04 Blood Peripheral Blood Fungal Culture Pending Received 02/17/18 14:04 Blood Line Aerobic Blood Culture - Preliminary NO GROWTH IN 1 DAY Resulted 02/17/18 14:04 Blood Line Anaerobic Blood Culture - Preliminary NO GROWTH IN 1 DAY Resulted 02/17/18 14:00 Blood Peripheral Aerobic Blood Culture - Preliminary NO GROWTH IN 1 DAY Resulted 02/17/18 14:00 Blood Peripheral Anaerobic Blood Culture - Preliminary NO GROWTH IN 1 DAY Resulted 02/17/18 18:30 Sputum Endotracheal Gram Stain - Final Resulted 02/17/18 18:30 Sputum Endotracheal Sputum Culture - Preliminary MODERATE GROWTH NORMAL RESPIRATORY FL... Resulted 02/17/18 18:30 Urine Catheterized Urine Urine Culture - Preliminary Clemencia Albicans Resulted 02/17/18 18:30 Urine Catheterized Urine Legionella Antigen - Final PRESUMPTIVE NEGATIVE FOR LEGIONELLA P... Complete 02/17/18 18:30 Urine Catheterized Urine Streptococcus pneumoniae Antigen (M - Final PRESUMPTIVE NEGATIVE FOR STREPTOCOCCU... Complete Imaging Last Impressions Upper Extremity Ultrasound 02/18/18 0000 Signed Impressions: Service Date/Time: Sunday, February 18, 2018 14:21 - CONCLUSION: Normal examination. Perry Green MD Chest CT 02/17/18 1551 Signed Impressions: Service Date/Time: January 16:18 - CONCLUSION: Bilateral lower lobe consolidations right greater left. Small bilateral pleural effusions. No visible pneumothorax. ET tube is in good position.. Perry Green MD Gall Bladder Ultrasound 02/17/18 0000 Signed Impressions: Service Date/Time: January 13:09 - CONCLUSION: 1. Gallbladder wall thickening and pericholecystic fluid suggesting possible acute cholecystitis. Clinical correlation is recommended. A hepatobiliary scan may be helpful to confirm cystic duct obstruction if clinically indicated. 2. Echogenic focus within the gallbladder suggestive of non-shadowing calculus or small polyp. 3. Mild hepatomegaly. 4. Minimal perinephric fluid on the right. Hira Arora MD Chest X-Ray 02/16/18 0600 Signed Impressions: Service Date/Time: Friday, February 16, 2018 04:14 - CONCLUSION: 1. Support apparatus unchanged and in good position. Cardiomegaly. Mild basilar airspace disease. Sarwat Mclaughlin MD Lower Extremity Angiography 02/16/18 0000 Signed Impressions: Service Date/Time: Friday, February 16, 2018 21:33 - CONCLUSION: 1. Very sluggish outflow. Findings could be due to poor cardiac output. Emboli to the small, intrinsic vessels of the foot could have a similar appearance. 2. Otherwise, inflow and outflow are widely patent with three-vessel runoff. Martin Padilla MD Arterial Ultrasound 02/16/18 0000 Signed Impressions: Service Date/Time: Friday, February 16, 2018 16:30 - CONCLUSION: 1. Inflow appeared to be adequate bilaterally despite scattered atherosclerotic calcification. 2. Three-vessel runoff on the right. 3. On the left, the dorsalis pedis artery appears to be quite diminutive with limited flow. Anterior tibial and peroneal are patent, however. Martin Padilla MD Aorta w/Runoff CTA 02/16/18 0000 Signed Impressions: Service Date/Time: Friday, February 16, 2018 19:36 - CONCLUSION: 1. Inflow appears to be patent down to the above-knee popliteal bilaterally. 2. On the right, the entire popliteal is patent with the dominant runoff via the posterior tibial. 3. On the left, minimal contrast below the knee joint on both the initial and delayed images. This may represent a combination of poor cardiac output and nonocclusive thrombus in the popliteal region. Again, please the dominant runoff is via the posterior tibial. 4. Bibasilar areas of consolidation/atelectasis with small associated effusions. Cannot exclude a developing infiltrate, especially on the right. 5. Abnormal appearance of the gallbladder with either marked gallbladder wall thickening or pericholecystic fluid. The fluid appears to track down the right paracolic gutter in the pelvis. Gallbladder ultrasound could be performed for further characterization. 6. Diverticular disease of the sigmoid without diverticulitis. Martin Padilla MD Lower Extremity Ultrasound 02/13/18 0000 Signed Impressions: Service Date/Time: Tuesday, February 13, 2018 16:19 - CONCLUSION: No DVT or superficial venous thrombosis is identified within either lower extremity. John Laureano MD Physical Exam GENERAL: Obese., well-developed patient, in no apparent distress. SKIN: Multiple areas of ecchymosis and bruising noted. HEAD: Atraumatic. Normocephalic. No temporal or scalp tenderness. EYES: Pupils equal round and reactive. Extraocular motions intact. No scleral icterus. No injection or drainage. ENT: Intubated. NECK: Trachea midline. Supple, nontender, no meningeal signs. CARDIOVASCULAR: Heart sounds audible. RESPIRATORY: Clear to auscultation. Breath sounds equal bilaterally. No wheezes , rales, or rhonchi. GASTROINTESTINAL: Abdomen soft, on the left lower quadrant of the abdomen there was a dressing in place with an ABD pad and it was soaked in sanguinous secretions. MUSCULOSKELETAL: Left lower extremity with bluish discoloration cold and clammy. Dorsalis pedis diminished. NEUROLOGICAL: Opens eyes spontaneously. Tracks. Did not follow any commands for me. Psych could not be assessed IV line sites with no evidence of infection. Central line in right IJ site with no evidence of infection. Laboratory Assessment & Plan Remarks Pneumonia on the most recent CTA. Possible healthcare associated pneumonia versus aspergillus or both. No documented history of aspiration. ? Aspergillosis Mold in the sputum: Given history of patient's immune compromised status workup further to decide if treatment needed was planned, but bronch cancelled 2 /2 low plts C.albicans in urine ? colonization. Left foot ischemia: CTA reveals obstruction of the flow at the level of trifurcation so my suspicions that this clot is sitting into the trifurcation and distal popliteal artery s/p TPA lysis. Abnormal LFTs: Abnormal GB pericholecystic fluid. Myasthenia gravis on Imuran and steroids Immune compromised host Prior history of COPD exacerbation Prior history of myasthenia gravis exacerbations History of strep viridans bacteremia Leukocytosis and absence of fevers:? Related to steroids also note patient immunocompromised. Thrombocytopenia Cephalexin allergy: rash Recs: cont Azactam IV (Allergy rash to Cephalexin). Follow LFT trend. cont Vanco IV (target 15-20 for pneumonia) Stop Levaquin starting voriconazole and no evidence of Legionella infection ( Leg AG neg) CT Chest without IV contrast (recent CTA concern for risk of contrast nephropathy) Follow Serum Galactomannan assay(pt was not on Zosyn prior only Azactam reviewed [facility] records) Follow Aspergillus Ab Follow Mycoplasma serology Cont voriconazole US abdomen (abnormal LFTs, CTA with pericholecystic fluid). MK kendrick starting vori No family in room. Dee Mao MD Feb 18, 2018 19:04
[2018-02-18] MEDS: RESP: ALBUTEROL 2.5 MG/IPRATROPIUM 0.5 MG NEB (PRN) NEB (20:19)
[2018-02-18] MEDS ORDERED: DILTIAZEM HCL 30 MG TAB PO SCH (20:30)
[2018-02-18] MEDS: MONTELUKAST SODIUM 10 MG TAB PO SCH (20:45)
[2018-02-18] MEDS: ALBUMIN 5% INJ 3,500 ML IV SCH (20:48)
[2018-02-18] MEDS: ANTICOAGULANT CITRATE DEXTROSE SOLN-A 1L OTHER SCH (21:00)
[2018-02-18] MEDS: CALCIUM GLUCONATE IV SCH (21:10)
[2018-02-19] VITALS (17 sets, daily range): BP systolic 114–148; BP diastolic 60–87; PULSE 90–133; RESP 16–23; TEMP 92.2–98.7; O2SAT 96–100
[2018-02-19] MEDS ORDERED: PHARMACY ORDERED LAB ONE (00:45)
[2018-02-19] MEDS: PROPOFOL 1000 MG/100 ML INJ 100 ML IV PRN ×4 (01:29→16:16)
[2018-02-19] MEDS: PANTOPRAZOLE SODIUM 40 MG VIAL IV PUSH SCH (03:31)
[2018-02-19] MEDS: AZTREONAM INJ 2,000 MG in SODIUM CHLORIDE 0.9% INJ 100 ML IV SCH ×2 (03:31→11:42)
--- NOTE | 2018-02-19 04:45 | RADRPT ---
EXAM DATE/TIME: 02/19/2018 03:41 [facility] COMPARISON: CHEST SINGLE AP, February 16, 2018, 4:14. INDICATIONS : Shortness of breath, possible pulmonary disease. MEDICAL HISTORY : Congestive heart failure. Osteoporosis. Chronic obstructive pulmonary disease. A-Fib Asthma SURGICAL HISTORY : Hysterectomy. ENCOUNTER: Subsequent ACUITY: 1 week PAIN SCORE: Non-responsive. LOCATION: Bilateral chest FINDINGS: ET tube tip 2.6 cm above the elba. PICC line catheter tip projects over the distal superior vena c cezar. Right internal jugular catheter tip in the right atrium. Gastric tube tip in the stomach and t he side-port at the level of the diaphragm. Persistent consolidation in the left lower lung, slightl y improved. Increasing hazy opacity in the right lower lung characteristic of pleural effusion. CONCLUSION: Persistent bilateral lower lung opacities and pleural effusions. Wilbur Lowry MD on February 19, 2018 at 4:42 Board Certified Radiologist. This report was verified electronically.
--- NOTE | 2018-02-19 05:49 | PD.CAR.PN ---
CVT Progress Note Subjective/Hospital Course: 77-year-old with acute ischemia and cold pulseless left foot. Multiple comorbidities that fall very easily in the picture of acute thromboembolism including exacerbation of myasthenia gravis A. fib with RVR etc. CTA reveals obstruction of the flow at the level of trifurcation so my suspicions that this clot is sitting into the trifurcation and distal popliteal artery. TPA lysis should be the primary way to fix this if that does not work I can always go ahead with mechanical thromboembolectomy Discussed with Dr. Padilla and we going to put a TPA lysis catheter and go from there Full consult dictated Thanks J 02/17/2018 Left foot is warm with strong dopplerable pulses and good flow Patient most likely had a small piece of clot lodged in the trifurcation and once we placed the wire down this flushed out Combination of a very tiny embolic segment combined with very low cardiac output because the foot to get purple and discolored. At this point patient is doing well and no further therapy is necessary from our point It should however be noted that patient's ultrasound of the gallbladder reveals some pericholecystic fluid and this goes along with a CT scan which reveals also probably resolving acute cholecystitis At this point obviously patient is a poor candidate for any aggressive surgical therapy 02/18/2018 Palpable femoral pulses and strong dopplerable popliteal pulse Patient has strong palpable and dopplerable posterior tibial pulse and a weakly dopplerable dorsalis pedis pulse Distal toes are purplish and livid. Based on clinical presentation I believe this patient's combination of embolic shower into the foot and very low cardiac output with sluggish flow Vessels are patent but flow is sluggish and hence the changes Nothing to add from vascular point This patient's overall prognosis is very poor based on all the clinical indices 02/19/2018 Nothing to add to care to this time Patient has strong dopplerable pulses in the left foot but the distal foot remains cyanotic due to combination of shower emboli several days ago and low cardiac output resulting in the poor perfusion of the distal extremities No vascular surgical therapy at this point is indicated considering the low cardiac output being the main culprit Objective: Vital Signs Date Time Temp Pulse Resp B/P (MAP) Pulse Ox O2 Delivery O2 Flow Rate FiO2 02/19/18 03:29 100 35 02/19/18 02:00 91 02/19/18 00:00 103 02/19/18 00:00 97.8 103 17 114/62 (79) 97 02/19/18 00:00 35 02/18/18 23:38 98 35 02/18/18 22:00 114 02/18/18 20:19 97 35 02/18/18 20:00 130 02/18/18 20:00 35 02/18/18 20:00 98.0 130 23 169/91 (117) 97 02/18/18 16:42 97 35 02/18/18 16:00 97.6 107 21 119/81 (94) 98 02/18/18 16:00 35 02/18/18 12:00 35 02/18/18 11:19 97 35 02/18/18 08:00 35 02/18/18 07:25 98 35 02/18/18 06:00 90 Result Diagram: 02/18/18 0345 02/18/18 0345 Teresa Mejia MD Feb 19, 2018 05:49
[2018-02-19] MEDS: methylPREDNISolone SOD SUCC 125 MG/2 ML VIAL IV PUSH SCH ×3 (05:55→16:58)
[2018-02-19] MEDS: VORICONAZOLE IV SCH ×2 (05:55→17:08)
[2018-02-19] MEDS: DILTIAZEM HCL 60 MG TAB PO SCH ×3 (05:55→16:59)
[2018-02-19] MEDS: SODIUM CHLOR 0.9% IV SCH ×2 (05:55→17:08)
[2018-02-19 06:43] LABS: AUTOMATED NEUTROPHIL # 5.8 TH/MM3 (1.8-7.7); BASOPHIL % 0.1 % (0.0-2.0); HEMOGLOBIN 9.5 GM/DL (11.6-15.3); LYMPH % 1.7 % (9.0-44.0); LYMPHOCYTE # 0.1 TH/MM3 (1.0-4.8); MEAN CELL VOLUME 75.2 FL (80.0-100.0); MEAN CORPUSCULAR HEMOGLOBIN 25.4 PG (27.0-34.0); MEAN CORPUSCULAR HGB CONC 33.8 % (32.0-36.0); MEAN PLATELET VOLUME 9.9 FL (7.0-11.0); MONO % 1.6 % (0.0-8.0); MONOCYTE # 0.1 TH/MM3 (0-0.9); NEUT % 96.6 % (16.0-70.0); PLATELET COUNT 22 TH/MM3 (150-450); RED BLOOD COUNT 3.73 MIL/MM3 (4.00-5.30); RED CELL DISTRIBUTION WIDTH 25.5 % (11.6-17.2)
[2018-02-19 07:11] LABS: ALBUMIN 2.1 GM/DL (3.4-5.0); ALKALINE PHOSPHATASE 114 U/L (45-117); ALT (GPT) 279 U/L (10-53); AST (GOT) 54 U/L (15-37); BICARBONATE 19.4 MEQ/L (21.0-32.0); BLOOD UREA NITROGEN 22 MG/DL (7-18); CALCIUM 7.5 MG/DL (8.5-10.1); CHLORIDE 114 MEQ/L (98-107); CREATININE 0.38 MG/DL (0.50-1.00); GLOMERULAR FILTRATION RATE 163 ML/MIN (>89); GLUCOSE,RANDOM 212 MG/DL (74-106); MAGNESIUM 2.3 MG/DL (1.5-2.5); SODIUM (NA) 143 MEQ/L (136-145); TOTAL BILIRUBIN ADULT 0.8 MG/DL (0.2-1.0)
[2018-02-19] MEDS ORDERED: POTASSIUM CHLORIDE 25 MEQ EFFERVESCENT TAB PO PRN (08:00)
[2018-02-19] MEDS ORDERED: POTASSIUM CHLOR 20 MEQ PREMIX 100 ML IV PRN ×2 (08:00)
[2018-02-19] MEDS ORDERED: POTASSIUM PHOSPHATE MONOBASIC 500 MG TAB PO/TUBE PRN (08:00)
[2018-02-19] MEDS ORDERED: MAGNESIUM SULFATE INJ 4 GM in SODIUM CHLORIDE 0.9% INJ 92 ML IV PRN (08:00)
[2018-02-19] MEDS ORDERED: POTASSIUM CHLOR 40 MEQ PREMIX 100 ML IV PRN ×2 (08:00)
[2018-02-19] MEDS ORDERED: SODIUM PHOSPHATE INJ 30 MMOL in SODIUM CHLOR 0.9% 250 ML INJ 240 ML IV PRN (08:00)
[2018-02-19] MEDS ORDERED: POTASSIUM PHOSPHATE INJ 30 MMOL in SODIUM CHLOR 0.9% 250 ML INJ 250 ML IV PRN (08:00)
[2018-02-19] MEDS: INSULIN ASPART SUPPLEMENTAL SCALE SQ SCH ×4 (08:00→21:04)
[2018-02-19] MEDS ORDERED: MAGNESIUM SULFATE INJ 2 GM in SODIUM CHLORIDE 0.9% INJ 96 ML IV PRN (08:00)
[2018-02-19] MEDS ORDERED: POTASSIUM PHOSPHATE MONOBASIC 500 MG TAB PO PRN (08:00)
[2018-02-19] MEDS ORDERED: MAGNESIUM OXIDE 400 MG TAB PO PRN (08:00)
[2018-02-19] MEDS: RESP: BUDESONIDE 0.5 MG/2 ML NEB NEB SCH ×2 (08:03→19:35)
[2018-02-19] MEDS: CHLORHEXIDINE 0.12% (ORAL KIT) 15 ML CUP MT SCH ×2 (08:34→21:05)
[2018-02-19] MEDS: VANCOMYCIN INJ 1,250 MG in SODIUM CHLOR 0.9% 250 ML INJ 250 ML IV SCH ×2 (08:34→21:04)
[2018-02-19] MEDS: METOPROLOL TARTRATE 25 MG TAB PO SCH (08:35)
[2018-02-19] MEDS: TIOTROPIUM BROMIDE 18 MCG INH INH SCH (08:35)
[2018-02-19] MEDS: PICC Daily Heparin 100 unit/mL Lock Flush IV FLUSH SCH (08:35)
--- NOTE | 2018-02-19 08:56 | HHI.CCPN ---
Subjective Remarks/Hospital Course This is a 77-year-old female that presented to [facility] on 01/27/2018 with complaints of dyspnea. 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 prior to relocating recently to [place]. Her medical history is significant for chronic steroid therapy with prednisone and then subsequently placed on IVIG infusions every 3 weeks secondary to nonresponsiveness of steroid therapy. On 01 27 the patient was admitted to [facility] and treated for sepsis with broad- spectrum antibiotics, which have now been completed. Blood cultures have revealed Streptococcus viridans. The patient continued care at [place] seeing a telemetry neurologist and hematology oncology was consulted, Dr. Zacarias. It was recommended that the patient receive Rituxan and be evaluated formally by a neurologist. Patient was transferred to [facility]. The patient has a history of A. fib RVR, and home medications include metoprolol, digoxin, and Cardizem. These medications were stopped in the last 24 hours secondary to the patient experiencing dysphagia. Patient subsequently went into A. fib RVR early this a.m., heart rate 150's and transferred to ICU. Stat ABG was obtained. critical care medicine was consulted. SUBJ 02/14: Currently patient is quite tachypneic breathing about 40/min, even on BiPAP. Prior to BiPAP patient's NIF-16 and forced vital was 600 ml. Patient clearly failing BiPAP and this is most likely secondary to myasthenia gravis exacerbation. I proceeded to endotracheally intubate the patient placed on mechanical ventilation. Discussed with Dr. Olivarez area both of us agree on starting plasma exchange. Will discuss with hematology Dr. Zacarias 02/15: No events over the night. Due to progressive respiratory distress she was intubated yesterday. T-max of 98.7. I/O 1770/650. She remains on esmolol drip, still in A. fib/flutter on the monitor with heart rate better controlled. She sedated with propofol. 02/16: Patient did well over the night. Patient continues to require esmolol heart rate control, currently at 200, and propofol for sedation. 02/17: Yesterday evening, patient's left foot became more cyanotic. Dr. Conteh from vascular surgery was consulted, patient underwent CTA and IR to patient for left leg angio but no clot was seen. Patient had improved pulse post procedure. This a.m. patient has dopplerable pulse. No other overnight events. T-max of 98.2. Urine output decreased. 02/18: No events over the night. Left foot remains cyanotic with dopplerable pulse. Platelets remain low. Afebrile, with a T-max of 98.1. Documented urine output over the last 24 hours 250 cc. Of esmolol drip, receiving IV hydration. She remains sedated and intubated. 02/19: Patient remains intubated and sedated. Afebrile, with a T-max of 98. Improved urine output. A. fib on telemetry. No family present at bedside. ROS -unobtainable, patient is intubated Objective Vital Signs Date Time Temp Pulse Resp B/P (MAP) Pulse Ox O2 Delivery O2 Flow Rate FiO2 02/19/18 08:04 97 35 02/19/18 06:00 99 02/19/18 04:00 98.5 16 144/64 (90) 02/17/18 07:32 Ventilator 02/16/18 19:15 15.00 Intake and Output 02/19/18 02/19/18 02/20/18 08:00 16:00 00:00 Intake Total 1584.5 ml Output Total 500 ml Balance 1084.5 ml Result Diagram: 02/19/18 0615 02/19/18 0615 Other Results Microbiology Date/Time Source Procedure Growth Status 02/17/18 14:04 Blood Peripheral Blood Fungal Culture Pending Received 02/17/18 14:04 Blood Peripheral Blood Fungal Culture Pending Received 02/17/18 14:04 Blood Line Aerobic Blood Culture - Preliminary NO GROWTH IN 1 DAY Resulted 02/17/18 14:04 Blood Line Anaerobic Blood Culture - Preliminary NO GROWTH IN 1 DAY Resulted 02/17/18 14:00 Blood Peripheral Aerobic Blood Culture - Preliminary NO GROWTH IN 1 DAY Resulted 02/17/18 14:00 Blood Peripheral Anaerobic Blood Culture - Preliminary NO GROWTH IN 1 DAY Resulted 02/17/18 18:30 Sputum Endotracheal Gram Stain - Final Resulted 02/17/18 18:30 Sputum Endotracheal Sputum Culture - Preliminary MODERATE GROWTH NORMAL RESPIRATORY FL... Resulted 02/17/18 18:30 Urine Catheterized Urine Urine Culture - Preliminary Clemencia Albicans Resulted 02/17/18 18:30 Urine Catheterized Urine Legionella Antigen - Final PRESUMPTIVE NEGATIVE FOR LEGIONELLA P... Complete 02/17/18 18:30 Urine Catheterized Urine Streptococcus pneumoniae Antigen (M - Final PRESUMPTIVE NEGATIVE FOR STREPTOCOCCU... Complete Microbiology Date/Time Source Procedure Growth Status 02/17/18 18:30 Urine Catheterized Urine Legionella Antigen - Final PRESUMPTIVE NEGATIVE FOR LEGIONELLA P... Complete 02/17/18 18:30 Urine Catheterized Urine Streptococcus pneumoniae Antigen (M - Final PRESUMPTIVE NEGATIVE FOR STREPTOCOCCU... Complete Laboratory Tests Test 02/19/18 06:18 Blood Gas Puncture Site CENTRAL LINE Blood Gas Patient Temperature 98.6 Venous Blood pH 7.39 (7.360-7.400) Venous Blood Partial Pressure CO2 32 mmHg (44-48) Venous Blood Partial Pressure O2 31 mmHg (35-40) Venous Blood HCO3 19 mmol/L (22-26) Venous Blood Oxygen Saturation 54 % (70-76) Venous Blood Oxygen Content 6.9 Vol % (9.0-17.0) Venous Blood Base Excess -5.4 mmol/L (-2-2) Oxygen Delivery Device VENTILATOR Blood Gas Ventilator Setting SEE COMMENTS Blood Gas Inspired Oxygen 35 % Imaging Last [address] 02/17/18 1551 Signed Impressions: Service Date/Time: January 16:18 - CONCLUSION: Bilateral lower lobe consolidations right greater left. Small bilateral pleural effusions. No visible pneumothorax. ET tube is in good position.. Perry Green MD Last Impressions Chest X-Ray 02/14/18 0600 Signed Impressions: Service Date/Time: Wednesday, February 14, 2018 03:41 - CONCLUSION: 1. Minimal basilar atelectasis. PICC line tip in superior vena cava. Sarwat Mclaughlin MD Lower Extremity Ultrasound 02/13/18 0000 Signed Impressions: Service Date/Time: Tuesday, February 13, 2018 16:19 - CONCLUSION: No DVT or superficial venous thrombosis is identified within either lower extremity. John Laureano MD Last Impressions Chest X-Ray 02/12/18 0000 Signed Impressions: Service Date/Time: Tuesday, February 13, 2018 00:12 - CONCLUSION: No acute disease. Wilbur Turner Jr., MD Objective Remarks General - elderly lady, intubated, sedated, ill-appearing HEENT - pupils are equal, reactive, sclera are anicteric, neck is supple, no rigidity, no JVD, + ETT, + NGT, right IJ HD catheter -site clean CV - irregular heart sounds, no murmurs appreciated Chest - coarse breath sounds bilateral bases, no wheezes Abdomen - soft, appears non-tender, not distended, BS present Skin - unchanged, multiple ecchymotic bruises bilateral arms and skin tears covered with dressing, cyanotic left foot about the same may be slightly improved, bruises present over the abdomen Extremities - left foot tepid to touch, right foot is warm, no edema, dopplerable pulse on the left and palpable on the right Neuro - intubated, sedated, does not open eyes to voice stimuli, grimaces to pain A/P Problem List: (1) Pneumonia ICD Code: J18.9 - Pneumonia, unspecified organism Status: Acute (2) COPD (chronic obstructive pulmonary disease) ICD Code: J44.9 - Chronic obstructive pulmonary disease, unspecified Status: Chronic (3) Myasthenia gravis ICD Code: G70.00 - Myasthenia gravis without (acute) exacerbation Status: Chronic (4) Current chronic use of systemic steroids ICD Code: Z79.52 - detention (current) use of systemic steroids (5) Anemia ICD Code: D64.9 - Anemia, unspecified Assessment and Plan 1. Myasthenia gravis, with acute exacerbation, completed 1 cycle of plasmapheresis 2. Acute respiratory failure secondary to above, on minimal O2 requirements 3. 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 Acute encephalopathy 5. A. fib with RVR, remains in A. fib but rate better controlled, off Esmolol drip 6. Possible pneumonia -completed treatment at the outside hospital. Now patient growing Aspergillus in the sputum 7. History of CHF 8. Hypernatremia -resolved 9. Acute anemia, received 1 unit PRBC transfusion, now improved, count stable 10. Thrombocytopenia -platelet count remains low, HIT negative 11. Elevated liver enzymes and possible acute cholecystitis -AST and ALT continue to improve 1. Continue PRVC at current vent settings. Patient is synchronized with the ventilator, no auto PEEP. PIP 26. Patient remains on FiO2 of 0.35 2. Vent bundle and bronchodilators. Hold home medication Singulair and Spiriva 3. Continue voriconazole due to immunosuppression. Appreciate ID assistance. Continue to monitor liver enzymes 4. Additional antifungal workup pending. 5. Continue methylprednisolone 125 mg 4 times daily per neurology. She received IVIG therapy for the last 3 weeks at [facility]. 6. Continue diltiazem and metoprolol at current doses. Neurology note reviewed. We will try to restart home digoxin and come down on the beta-elana 7. On aztreonam and Vanco. Levofloxacin was stopped 8. Platelet transfusion per hematology. Restarted on Lovenox yesterday 9. Patient had high residuals and feeding tube was stopped. Recheck residuals and if none restart trickle feeds 10. GI prophylaxis with PPI 11. Might need cholecystostomy tube placement if clinically worsening 12. Plasmapheresis per neuro and hematology No family present at bedside. Darin Douglass MD Feb 19, 2018 08:56
--- NOTE | 2018-02-19 09:05 | PD.ONC.PN ---
Subjective Subjective Remarks Afebrile overnight. Patient intubated sedated. Per nurse, no overnight events. no obvious bleeding. Objective Data Date Time Temp Pulse Resp B/P (MAP) Pulse Ox O2 Delivery O2 Flow Rate FiO2 02/19/18 08:04 97 35 02/19/18 06:00 99 02/19/18 04:00 90 02/19/18 04:00 98.5 90 16 144/64 (90) 98 02/19/18 04:00 35 02/19/18 03:29 100 35 02/19/18 02:00 91 02/19/18 00:00 103 02/19/18 00:00 97.8 103 17 114/62 (79) 97 02/19/18 00:00 35 02/18/18 23:38 98 35 02/18/18 22:00 114 02/18/18 20:19 97 35 02/18/18 20:00 130 02/18/18 20:00 35 02/18/18 20:00 98.0 130 23 169/91 (117) 97 02/18/18 16:42 97 35 02/18/18 16:00 97.6 107 21 119/81 (94) 98 02/18/18 16:00 35 02/18/18 12:00 35 02/18/18 11:19 97 35 02/19/18 02/19/18 02/19/18 07:00 15:00 23:00 Intake Total 5084.5 ml Output Total 500 ml Balance 4584.5 ml Result Diagram: 02/19/1815 02/19/1815 Laboratory Results Laboratory Tests Test 02/18/18 12:05 02/19/18 06:15 02/19/18 06:18 Urine Random Creatinine 24.9 MG/DL Urine Random Sodium 11 MEQ/L White Blood Count 6.0 TH/MM3 Red Blood Count 3.73 MIL/MM3 Hemoglobin 9.5 GM/DL Hematocrit 28.0 % Mean Corpuscular Volume 75.2 FL Mean Corpuscular Hemoglobin 25.4 PG Mean Corpuscular Hemoglobin Concent 33.8 % Red Cell Distribution Width 25.5 % Platelet Count 22 TH/MM3 Mean Platelet Volume 9.9 FL Neutrophils (%) (Auto) 96.6 % Lymphocytes (%) (Auto) 1.7 % Monocytes (%) (Auto) 1.6 % Eosinophils (%) (Auto) 0.0 % Basophils (%) (Auto) 0.1 % Neutrophils # (Auto) 5.8 TH/MM3 Lymphocytes # (Auto) 0.1 TH/MM3 Monocytes # (Auto) 0.1 TH/MM3 Eosinophils # (Auto) 0.0 TH/MM3 Basophils # (Auto) 0.0 TH/MM3 CBC Comment AUTO DIFF Fibrinogen 217 mg/dL Blood Urea Nitrogen 22 MG/DL Creatinine 0.38 MG/DL Random Glucose 212 MG/DL Total Protein 4.0 GM/DL Albumin 2.1 GM/DL Calcium Level 7.5 MG/DL Phosphorus Level 2.0 MG/DL Magnesium Level 2.3 MG/DL Alkaline Phosphatase 114 U/L Aspartate Amino Transf (AST/SGOT) 54 U/L Alanine Aminotransferase (ALT/SGPT) 279 U/L Total Bilirubin 0.8 MG/DL Sodium Level 143 MEQ/L Potassium Level 3.4 MEQ/L Chloride Level 114 MEQ/L Carbon Dioxide Level 19.4 MEQ/L Anion Gap 10 MEQ/L Estimat Glomerular Filtration Rate 163 ML/MIN Blood Gas Puncture Site CENTRAL LINE Blood Gas Patient Temperature 98.6 Venous Blood pH 7.39 Venous Blood Partial Pressure CO2 32 mmHg Venous Blood Partial Pressure O2 31 mmHg Venous Blood HCO3 19 mmol/L Venous Blood Oxygen Saturation 54 % Venous Blood Oxygen Content 6.9 Vol % Venous Blood Base Excess -5.4 mmol/L Oxygen Delivery Device VENTILATOR Blood Gas Ventilator Setting SEE COMMENTS Blood Gas Inspired Oxygen 35 % Culture Results Microbiology Date/Time Source Procedure Growth Status 02/17/18 14:04 Blood Peripheral Blood Fungal Culture Pending Received 02/17/18 14:04 Blood Peripheral Blood Fungal Culture Pending Received 02/17/18 14:04 Blood Line Aerobic Blood Culture - Preliminary NO GROWTH IN 1 DAY Resulted 02/17/18 14:04 Blood Line Anaerobic Blood Culture - Preliminary NO GROWTH IN 1 DAY Resulted 02/17/18 14:00 Blood Peripheral Aerobic Blood Culture - Preliminary NO GROWTH IN 1 DAY Resulted 02/17/18 14:00 Blood Peripheral Anaerobic Blood Culture - Preliminary NO GROWTH IN 1 DAY Resulted 02/17/18 18:30 Sputum Endotracheal Gram Stain - Final Resulted 02/17/18 18:30 Sputum Endotracheal Sputum Culture - Preliminary MODERATE GROWTH NORMAL RESPIRATORY FL... Resulted 02/17/18 18:30 Urine Catheterized Urine Urine Culture - Preliminary Clemencia Albicans Resulted 02/17/18 18:30 Urine Catheterized Urine Legionella Antigen - Final PRESUMPTIVE NEGATIVE FOR LEGIONELLA P... Complete 02/17/18 18:30 Urine Catheterized Urine Streptococcus pneumoniae Antigen (M - Final PRESUMPTIVE NEGATIVE FOR STREPTOCOCCU... Complete Imaging Studies Last 24 hours Impressions Chest X-Ray 02/19/18 0600 Signed Impressions: Service Date/Time: Monday, February 19, 2018 03:41 - CONCLUSION: Persistent bilateral lower lung opacities and pleural effusions. Wilbur Lowry MD Administered Medications Medications (Trade) Dose Ordered Sig/Melissa Route PRN Reason Start Time Stop Time Status Last Admin Dose Admin Acetaminophen (Tylenol) 650 mg Q4H PRN PO TEMP > 100.4 02/12/18 22:30 02/15/18 13:07 Sennosides (Senokot) 17.2 mg Q12H PRN PO Moderate constipation 02/12/18 22:30 02/15/18 12:17 Bisacodyl (Dulcolax Supp) 10 mg DAILY PRN RECTAL SEVERE CONSITIPATION 02/12/18 22:30 02/16/18 05:15 Lactulose (Lactulose Liq) 30 ml DAILY PRN PO SEVERE CONSITIPATION 02/12/18 22:30 02/18/18 15:19 Heparin Sodium (Porcine) (Heparin Central Flush) 200 units DAILY IV FLUSH 02/13/18 09:00 02/16/18 07:57 Heparin Sodium (Porcine) (Heparin Central Flush) 200 units UNSCH PRN IV FLUSH SEE PROTOCOL TABLE 02/13/18 01:00 02/16/18 05:15 Budesonide (Pulmicort Respule Neb) 0.5 mg Q12HR NEB NEB 02/13/18 08:00 02/19/18 08:03 Montelukast Sodium (Singulair) 10 mg HS PO 02/13/18 21:00 02/18/18 20:45 Tiotropium [place] (Spiriva Inh) 18 mcg DAILY INH 02/13/18 09:00 02/14/18 09:54 Metoprolol Tartrate (Lopressor Inj) 5 mg Q5M PRN IV PUSH sustained HR > 110 02/13/18 02:15 02/18/18 18:49 Diltiazem HCl (Cardizem) 120 mg Q6HR PO 02/13/18 06:00 02/19/18 05:55 Pantoprazole Sodium (Protonix Inj) 40 mg Q24H IV PUSH 02/13/18 03:00 02/19/18 03:31 Methylprednisolone Sodium Succinate (SoluMEDROL INJ) 125 mg Q6HR IV PUSH 02/13/18 09:45 02/19/18 05:55 Albuterol/ Ipratropium (Duoneb Neb) 1 ampule Q2HR NEB PRN NEB WHEEZING 02/13/18 13:15 02/18/18 20:19 Insulin Aspart (NovoLOG SUPPLEMENTAL SCALE) 1 ACHS SLIDING SCALE SQ 02/13/18 17:00 02/19/18 08:00 Esmolol HCl/ Sodium Chloride 250 ml @ 22.56 mls/ hr TITRATE PRN IV Blood Pressure Management 02/13/18 15:00 02/17/18 07:06 Hydralazine HCl (Apresoline Inj) 20 mg Q4H PRN IV PUSH SBP>160, DBP>90 02/14/18 00:00 02/18/18 10:41 Labetalol HCl (Trandate Inj) 10 mg Q4H PRN IV PUSH SBP>160, DBP>90 02/14/18 00:00 02/16/18 02:52 Chlorhexidine Gluconate (Peridex 0.12% Liq) 15 ml BID@08,20 MT 02/14/18 20:00 02/19/18 08:34 Propofol 100 ml @ 2.256 mls/ hr TITRATE PRN IV SEDATION 02/14/18 11:45 02/19/18 05:50 Anticoagulant Citrate Dextose Joya A (Acd Formula Inj) 1,000 ml Q48H OTHER 02/14/18 21:00 02/22/18 21:01 02/14/18 22:49 Albumin Human 3,500 ml @ 250 mls/hr Q48H IV 02/14/18 21:00 02/23/18 10:59 02/18/18 20:48 Calcium Gluconate 3.5 gm/Sodium Chloride 235 ml @ 90 mls/hr Q48H IV 02/16/18 21:00 02/22/18 23:37 02/18/18 21:10 Diphenhydramine HCl (Benadryl) 25 mg Q4H PRN PO SEE LABEL COMMENTS 02/15/18 07:30 02/15/18 13:07 Metoprolol Tartrate (Lopressor) 75 mg BID PO 02/17/18 09:00 02/19/18 08:35 Aztreonam 2000 mg/ Sodium Chloride 100 ml @ 200 mls/hr Q8H IV 02/17/18 12:00 02/19/18 03:31 Enoxaparin Sodium (Lovenox Inj) 40 mg Q24H SQ 02/18/18 17:00 02/18/18 17:35 Vancomycin HCl 1250 mg/Sodium Chloride 262.5 ml @ 250 mls/hr Q12H IV 02/18/18 20:00 02/19/18 08:34 Potassium Phosphate 30 mmol/ Sodium Chloride 260 ml @ 42 mls/hr UNSCH PRN IV SEE LABEL COMMENTS 02/19/18 08:00 02/19/18 08:33 Objective Remarks GENERAL: chronically ill appearing intubated, sedated elderly female, supine in hospital bed. no family members are at bedside. SKIN: Warm and dry. scattered ecchymoses on all extremities. HEAD: Normocephalic. EYES: No injection or drainage. NECK: Supple, trachea midline. CARDIOVASCULAR: +S1/S2 RESPIRATORY: scattered rhonchi, anterior de jesus. on mechanical ventilation. GASTROINTESTINAL: Abdomen distended. EXTREMITIES: edema in all extremities. NEUROLOGICAL: intubated, sedated. Assessment/Plan Problem List: (1) Myasthenia gravis ICD Codes: G70.00 - Myasthenia gravis without (acute) exacerbation Status: Chronic Plan: --consuled by neurology to initiate apheresis with albumin every other day 5 days. Hx/Workup: Patient has a history of myasthenia gravis dating back to the . She has been on various lines of treatment including Mestinon, corticosteroids and Imuran. For the past several years she has been on IVIG infusions every 3 weeks under the care of a neurologist in [place] prior to relocating to the [facility]. She received IVIG infusions for 5 days in a row last week at [facility] and this did not improve her symptoms. The patient was being seen by a tele neurologist who recommended Rituxan infusion. She has been transferred to [facility] for continued care and management. Assessment 77-year-old female with myasthenia gravis exacerbation; hematology consulted for apheresis Plan 1. platelet count decreasing again today. will hold plasma exchange. 2. would recommend transfusion of platelets if a procedure is planned or if bleeding. Attending Statement The exam, history, and the medical decision-making described in the above note were completed with the assistance of the mid-level provider. I reviewed and agree with the findings presented. I attest that I had a [id number] encounter with the patient on the same day, and personally performed and documented my assessment and findings in the medical record. 77 yoF with MG --MG exacerbation/crisis. Neurology team following. She has been tried on multiple other medications including rituximab and. She is s/p one plasmapheresis procedure. Will hold today due to falling counts --cold left foot: vascular study with no area of occluation. She now has pulses. Has been seen by vascular surgery. Spencer to bed secondary to embolic shower, poor cardiac output --aspergillus pneumonia: on antifungal --respiratory failure: intubated --TCP B12, folate WNL. Hepatitis studies negative. infection, critical illness , component of DIC. Martha Singh Feb 19, 2018 09:05 Terri Davenport MD Feb 19, 2018 14:09
[2018-02-19 10:05] LABS: BANDS 11 % (0-6); LYMPHOCYTES 1 % (9-44); MONOCYTES 3 % (0-8); NEUTROPHIL # MANUAL DIFF 5.8 TH/MM3 (1.8-7.7); POLYS (SEG NEUTROPHILS) 85 % (16-70)
[2018-02-19 10:06] LABS: OVALOCYTES 1+ (NORMAL)
[2018-02-19 14:28] LABS: SMOOTH MUSCLE TOTAL AUTOABS Negative (Negative)
--- NOTE | 2018-02-19 16:46 | RADRPT ---
EXAM DATE/TIME: 02/19/2018 16:26 [place] COMPARISON: No previous studies available for comparison. INDICATIONS : Abdominal pain. Evaluate for obstruction. MEDICAL HISTORY : Chronic obstructive pulmonary disease. Congestive heart failure. AFIB. SURGICAL HISTORY : Unresponsive. ENCOUNTER: Initial ACUITY: 2 days PAIN SCORE: Non-responsive. LOCATION: Abdomen. FINDINGS: Supine view of the abdomen was performed. The abdominal bowel gas pattern is normal. No abnormal ma sses, calcifications, or organomegaly is seen. The osseous structures are unremarkable. Scoliosis an d degenerative changes. Minimal bibasilar densities. CONCLUSION: 1. No acute abnormalities. 2. Minimal bibasilar densities. Jose Ames MD on February 19, 2018 at 16:43 Board Certified Radiologist. This report was verified electronically.
[2018-02-19 17:27] LABS: ALPHA-1-ANTITRYPSIN 135 mg/dL (100 - 190)
--- NOTE | 2018-02-19 18:37 | HHI.GIFU ---
Subjective Remarks resting comfortably with her eyes closed ventilator management, and low-dose sedation Skin color pale Abdomen with mild distention and tympany but denies any abdominal pain Drowsy but does respond to simple questions Hemoglobin 9.5 No BM noted , 02/13/2018 (Kayla Gutierrez) Objective Vitals I&O Vital Signs Date Time Temp Pulse Resp B/P (MAP) Pulse Ox O2 Delivery O2 Flow Rate FiO2 02/19/18 18:00 116 02/19/18 16:06 98 35 02/19/18 16:00 105 02/19/18 16:00 35 02/19/18 16:00 97.3 105 21 148/67 (94) 98 02/19/18 14:00 98 02/19/18 13:04 99 35 02/19/18 12:00 115 02/19/18 12:00 92.2 115 22 140/77 (98) 98 02/19/18 12:00 35 02/19/18 10:00 96 02/19/18 08:04 97 35 02/19/18 08:00 35 02/19/18 08:00 92 02/19/18 08:00 98.2 92 17 126/60 (82) 97 02/19/18 06:00 99 02/19/18 04:00 90 02/19/18 04:00 98.5 90 16 144/64 (90) 98 02/19/18 04:00 35 02/19/18 03:29 100 35 02/19/18 02:00 91 02/19/18 00:00 103 02/19/18 00:00 97.8 103 17 114/62 (79) 97 02/19/18 00:00 35 02/18/18 23:38 98 35 02/18/18 22:00 114 02/18/18 20:19 97 35 02/18/18 20:00 130 02/18/18 20:00 35 02/18/18 20:00 98.0 130 23 169/91 (117) 97 I/O 02/18/18 02/18/18 02/18/18 02/19/18 02/19/18 02/19/18 06:59 14:59 22:59 06:59 14:59 22:59 Intake Total 1859.7 ml 285 ml 1550 ml 5084.5 ml 335 ml 565 ml Output Total 1100 ml 650 ml 500 ml 350 ml Balance 759.7 ml 285 ml 900 ml 4584.5 ml 335 ml 215 ml Intake Oral 0 ml 0 ml IV Total 1583.7 ml 285 ml 1200 ml 4964.5 ml 335 ml 440 ml Tube Feeding 156 ml 350 ml 0 ml Tube Irrigant 120 ml 120 ml Other 125 ml Output Urine Total 1100 ml 650 ml 500 ml 350 ml # Bowel Movements 0 0 0 0 Laboratory Laboratory Tests Test 02/19/18 06:15 02/19/18 06:18 White Blood Count 6.0 Red Blood Count 3.73 Hemoglobin 9.5 Hematocrit 28.0 Mean Corpuscular Volume 75.2 Mean Corpuscular Hemoglobin 25.4 Mean Corpuscular Hemoglobin Concent 33.8 Red Cell Distribution Width 25.5 Platelet Count 22 Mean Platelet Volume 9.9 Neutrophils (%) (Auto) 96.6 Lymphocytes (%) (Auto) 1.7 Monocytes (%) (Auto) 1.6 Eosinophils (%) (Auto) 0.0 Basophils (%) (Auto) 0.1 Neutrophils # (Auto) 5.8 Lymphocytes # (Auto) 0.1 Monocytes # (Auto) 0.1 Eosinophils # (Auto) 0.0 Basophils # (Auto) 0.0 CBC Comment AUTO DIFF Differential Total Cells Counted 100 Neutrophils % (Manual) 85 Band Neutrophils % 11 Lymphocytes % 1 Monocytes % 3 Neutrophils # (Manual) 5.8 Differential Comment FINAL DIFF MANUAL Platelet Estimate LOW Platelet Morphology Comment ENLARGED Ovalocytes 1+ Blood Smear Pathologist Review Fibrinogen 217 Blood Urea Nitrogen 22 Creatinine 0.38 Random Glucose 212 Total Protein 4.0 Albumin 2.1 Calcium Level 7.5 Phosphorus Level 2.0 Magnesium Level 2.3 Alkaline Phosphatase 114 Aspartate Amino Transf (AST/SGOT) 54 Alanine Aminotransferase (ALT/SGPT) 279 Total Bilirubin 0.8 Sodium Level 143 Potassium Level 3.4 Chloride Level 114 Carbon Dioxide Level 19.4 Anion Gap 10 Estimat Glomerular Filtration Rate 163 Blood Gas Puncture Site CENTRAL LINE Blood Gas Patient Temperature 98.6 Venous Blood pH 7.39 Venous Blood Partial Pressure CO2 32 Venous Blood Partial Pressure O2 31 Venous Blood HCO3 19 Venous Blood Oxygen Saturation 54 Venous Blood Oxygen Content 6.9 Venous Blood Base Excess -5.4 Oxygen Delivery Device VENTILATOR Blood Gas Ventilator Setting SEE COMMENTS Blood Gas Inspired Oxygen 35 Date/Time Source Procedure Growth Status 02/17/18 14:04 Blood Peripheral Blood Fungal Culture Pending Received 02/17/18 14:04 Blood Peripheral Blood Fungal Culture Pending Received 02/17/18 18:30 Sputum Endotracheal Gram Stain - Final Complete 02/17/18 18:30 Sputum Culture - Final Aspergillus Fumigatus Complete 02/17/18 18:30 Urine Catheterized Urine Urine Culture - Final Clemencia Albicans Complete Imaging Last Impressions Chest X-Ray 02/19/18 0600 Signed Impressions: Service Date/Time: Monday, February 19, 2018 03:41 - CONCLUSION: Persistent bilateral lower lung opacities and pleural effusions. Wilbur Lowry MD Abdomen X-Ray 02/19/18 0000 Signed Impressions: Service Date/Time: Monday, February 19, 2018 16:26 - CONCLUSION: 1. No acute abnormalities. 2. Minimal bibasilar densities. Jose Ames MD Upper Extremity Ultrasound 02/18/18 0000 Signed Impressions: Service Date/Time: Sunday, February 18, 2018 14:21 - CONCLUSION: Normal examination. Perry Green MD Chest CT 02/17/18 1551 Signed Impressions: Service Date/Time: January 16:18 - CONCLUSION: Bilateral lower lobe consolidations right greater left. Small bilateral pleural effusions. No visible pneumothorax. ET tube is in good position.. Perry Green MD Gall Bladder Ultrasound 02/17/18 0000 Signed Impressions: Service Date/Time: January 13:09 - CONCLUSION: 1. Gallbladder wall thickening and pericholecystic fluid suggesting possible acute cholecystitis. Clinical correlation is recommended. A hepatobiliary scan may be helpful to confirm cystic duct obstruction if clinically indicated. 2. Echogenic focus within the gallbladder suggestive of non-shadowing calculus or small polyp. 3. Mild hepatomegaly. 4. Minimal perinephric fluid on the right. Hira Arora MD Lower Extremity Angiography 02/16/18 0000 Signed Impressions: Service Date/Time: Friday, February 16, 2018 21:33 - CONCLUSION: 1. Very sluggish outflow. Findings could be due to poor cardiac output. Emboli to the small, intrinsic vessels of the foot could have a similar appearance. 2. Otherwise, inflow and outflow are widely patent with three-vessel runoff. Martin Padilla MD Arterial Ultrasound 02/16/18 0000 Signed Impressions: Service Date/Time: Friday, February 16, 2018 16:30 - CONCLUSION: 1. Inflow appeared to be adequate bilaterally despite scattered atherosclerotic calcification. 2. Three-vessel runoff on the right. 3. On the left, the dorsalis pedis artery appears to be quite diminutive with limited flow. Anterior tibial and peroneal are patent, however. Martin Padilla MD Aorta w/Runoff CTA 02/16/18 0000 Signed Impressions: Service Date/Time: Friday, February 16, 2018 19:36 - CONCLUSION: 1. Inflow appears to be patent down to the above-knee popliteal bilaterally. 2. On the right, the entire popliteal is patent with the dominant runoff via the posterior tibial. 3. On the left, minimal contrast below the knee joint on both the initial and delayed images. This may represent a combination of poor cardiac output and nonocclusive thrombus in the popliteal region. Again, please the dominant runoff is via the posterior tibial. 4. Bibasilar areas of consolidation/atelectasis with small associated effusions. Cannot exclude a developing infiltrate, especially on the right. 5. Abnormal appearance of the gallbladder with either marked gallbladder wall thickening or pericholecystic fluid. The fluid appears to track down the right paracolic gutter in the pelvis. Gallbladder ultrasound could be performed for further characterization. 6. Diverticular disease of the sigmoid without diverticulitis. Martin Padilla MD Lower Extremity Ultrasound 02/13/18 0000 Signed Impressions: Service Date/Time: Tuesday, February 13, 2018 16:19 - CONCLUSION: No DVT or superficial venous thrombosis is identified within either lower extremity. John Laureano MD Physical Exam HEENT: normocephalic; atraumatic; no jaundice. Skin color pale, oral ET tube CHEST: coarse rhonchi, with some diminished breath sounds at her bases CARDIAC: irr HR, controlled ABDOMEN: Soft, mild distention and tympany, bowel sounds are present in all four quadrants. EXTREMITIES: Lower extremities warm to touch, trace of edema SKIN: no rash; no jaundice. pale RESP THER: Eyes closed drowsy but does respond to verbal stimuli, low-dose sedation for now (Kayla Gutierrez) Assessment and Plan Plan ASSESSMENT - elevated LFTs - acute elevation 02/16/18 DILI vs shock liver vs gallbladder. have decreased some since yesterday. US showing poss acute cholecystitis and suggests HIDA. doubt she would be a surgical candidate at this time - anemia - microcytic likely multifactorial. 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 liver w/u pending. hep panel neg. ?gallbladder etiology. per DR Conteh pt is not candidate for any aggressive interventions. 02/19/2018 patient continues on ventilator not weaning yet. Abdomen is mildly tympanic but no facial grimace and shakes head no to abdominal pain. No bowel movement noted on I/O sheet and per nurse 02/13/2018 , at least 6 days, KUB unremarkable that was just done. This could be from limited activity and immobility, versus medications . LFTs trending down AST 52 ALT 279, hepatitis panel negative, AFP 3.4, ceruloplasmin pending, MATHIEU negative, anti-smooth muscle antibody negative, noted positive mycoplasma pneumoniae IgG PLAN Check for impaction Give oral retention enema 1 Start Dulcolax suppositories daily until patient is having bowel movements Liver workup in process monitor labs supportive care pt seen by myself and Dr Saba and this note is on his behalf (Kayla Gutierrez) Plan Patient was seen and examined, agree with above note, liver function improving, will give her rectal enema to try to help with bowel movement, no significant ileus (Chen Saba MD) Kayla Gutierrez Feb 19, 2018 18:37 Chen Saba MD Feb 19, 2018 19:38
[2018-02-19] MEDS ORDERED: MINERAL OIL ENEMA 118 ML BTL RECTAL ONE (18:45)
--- NOTE | 2018-02-19 19:30 | HHI.IDPN ---
Subjective Subjective Remarks ID X covver for Dr Maravilla case was reviewed no doing good Plt further down to 22 remains o n timbo Aspergilla fumigatus now presnt in 2 sputum clx Antibiotics voricaoznle azactam vanco micafungin Past Medical History miastenia gravis Allergies: Coded Allergies: azathioprine (Verified Allergy, Severe, 02/12/18) Painful rash all over face and body cephalexin (Verified Allergy, Severe, Rash, 02/12/18) rash all over face and chest Objective . Vital Signs Date Time Temp Pulse Resp B/P (MAP) Pulse Ox O2 Delivery O2 Flow Rate FiO2 02/19/18 18:00 116 02/19/18 16:06 98 35 02/19/18 16:00 105 02/19/18 16:00 35 02/19/18 16:00 97.3 105 21 148/67 (94) 98 02/19/18 14:00 98 02/19/18 13:04 99 35 02/19/18 12:00 115 02/19/18 12:00 92.2 115 22 140/77 (98) 98 02/19/18 12:00 35 02/19/18 10:00 96 02/19/18 08:04 97 35 02/19/18 08:00 35 02/19/18 08:00 92 02/19/18 08:00 98.2 92 17 126/60 (82) 97 02/19/18 06:00 99 02/19/18 04:00 90 02/19/18 04:00 98.5 90 16 144/64 (90) 98 02/19/18 04:00 35 02/19/18 03:29 100 35 02/19/18 02:00 91 02/19/18 00:00 103 02/19/18 00:00 97.8 103 17 114/62 (79) 97 02/19/18 00:00 35 02/18/18 23:38 98 35 02/18/18 22:00 114 02/18/18 20:19 97 35 02/18/18 20:00 130 02/18/18 20:00 35 02/18/18 20:00 98.0 130 23 169/91 (117) 97 02/19/18 02/19/18 02/20/18 15:00 23:00 07:00 Intake Total 335 ml 565 ml Output Total 350 ml Balance 335 ml 215 ml IV Total 335 ml 440 ml Other 125 ml Output Urine Total 350 ml # Bowel Movements 0 . Laboratory Tests Test 02/18/18 03:45 02/19/18 06:15 White Blood Count 7.2 TH/MM3 6.0 TH/MM3 Red Blood Count 3.49 MIL/MM3 3.73 MIL/MM3 Hemoglobin 10.0 GM/DL 9.5 GM/DL Hematocrit 27.0 % 28.0 % Mean Corpuscular Volume 77.3 FL 75.2 FL Mean Corpuscular Hemoglobin 28.5 PG 25.4 PG Mean Corpuscular Hemoglobin Concent 36.9 % 33.8 % Red Cell Distribution Width 25.0 % 25.5 % Platelet Count 31 TH/MM3 22 TH/MM3 Mean Platelet Volume 9.9 FL 9.9 FL Neutrophils (%) (Auto) 96.1 % 96.6 % Lymphocytes (%) (Auto) 1.9 % 1.7 % Monocytes (%) (Auto) 1.1 % 1.6 % Eosinophils (%) (Auto) 0.1 % 0.0 % Basophils (%) (Auto) 0.8 % 0.1 % Neutrophils # (Auto) 6.9 TH/MM3 5.8 TH/MM3 Lymphocytes # (Auto) 0.1 TH/MM3 0.1 TH/MM3 Monocytes # (Auto) 0.1 TH/MM3 0.1 TH/MM3 Eosinophils # (Auto) 0.0 TH/MM3 0.0 TH/MM3 Basophils # (Auto) 0.1 TH/MM3 0.0 TH/MM3 CBC Comment AUTO DIFF AUTO DIFF Differential Total Cells Counted 100 100 Neutrophils % (Manual) 93 % 85 % Band Neutrophils % 5 % 11 % Lymphocytes % 1 % 1 % Monocytes % 1 % 3 % Neutrophils # (Manual) 7.1 TH/MM3 5.8 TH/MM3 Nucleated Red Blood Cells 5 /100 WBC Differential Comment FINAL DIFF MANUAL FINAL DIFF MANUAL Platelet Estimate LOW LOW Platelet Morphology Comment NORMAL ENLARGED [place] Cells 2+ Ovalocytes 1+ Blood Smear Pathologist Review Laboratory Tests Test 02/18/18 03:45 02/19/18 06:15 Blood Urea Nitrogen 22 MG/DL 22 MG/DL Creatinine 0.38 MG/DL 0.38 MG/DL Random Glucose 255 MG/DL 212 MG/DL Total Protein 3.9 GM/DL 4.0 GM/DL Albumin 2.1 GM/DL 2.1 GM/DL Calcium Level 5.8 MG/DL 7.5 MG/DL Phosphorus Level 1.7 MG/DL 2.0 MG/DL Magnesium Level 2.2 MG/DL 2.3 MG/DL Alkaline Phosphatase 77 U/L 114 U/L Aspartate Amino Transf (AST/SGOT) 72 U/L 54 U/L Alanine Aminotransferase (ALT/SGPT) 375 U/L 279 U/L Total Bilirubin 1.1 MG/DL 0.8 MG/DL Sodium Level 135 MEQ/L 143 MEQ/L Potassium Level 4.1 MEQ/L 3.4 MEQ/L Chloride Level 107 MEQ/L 114 MEQ/L Carbon Dioxide Level 17.8 MEQ/L 19.4 MEQ/L Anion Gap 10 MEQ/L 10 MEQ/L Estimat Glomerular Filtration Rate 163 ML/MIN 163 ML/MIN Protein Corrected Calcium 7.3 MG/DL Iron Level 19 MCG/DL Total Iron Binding Capacity 157 MCG/DL Percent Iron Saturation 12.1 % Ferritin 245 NG/ML Fooxp-0-Kltdmolderp 135 mg/dL Tumor Marker Alpha Fetoprotein 3.4 NG/ML Microbiology Date/Time Source Procedure Growth Status 02/17/18 14:04 Blood Peripheral Blood Fungal Culture Pending Received 02/17/18 14:04 Blood Peripheral Blood Fungal Culture Pending Received 02/17/18 14:04 Blood Line Aerobic Blood Culture - Preliminary NO GROWTH IN 2 DAYS Resulted 02/17/18 14:04 Blood Line Anaerobic Blood Culture - Preliminary NO GROWTH IN 2 DAYS Resulted 02/17/18 14:00 Blood Peripheral Aerobic Blood Culture - Preliminary NO GROWTH IN 2 DAYS Resulted 02/17/18 14:00 Blood Peripheral Anaerobic Blood Culture - Preliminary NO GROWTH IN 2 DAYS Resulted 02/17/18 18:30 Sputum Endotracheal Gram Stain - Final Complete 02/17/18 18:30 Sputum Culture - Final Aspergillus Fumigatus Complete 02/17/18 18:30 Urine Catheterized Urine Urine Culture - Final Clemencia Albicans Complete 02/17/18 18:30 Urine Catheterized Urine Legionella Antigen - Final PRESUMPTIVE NEGATIVE FOR LEGIONELLA P... Complete 02/17/18 18:30 Urine Catheterized Urine Streptococcus pneumoniae Antigen (M - Final PRESUMPTIVE NEGATIVE FOR STREPTOCOCCU... Complete Imaging Last Impressions Chest X-Ray 02/19/18 0600 Signed Impressions: Service Date/Time: Monday, February 19, 2018 03:41 - CONCLUSION: Persistent bilateral lower lung opacities and pleural effusions. Wilbur Lowry MD Abdomen X-Ray 02/19/18 Signed Impressions: Service Date/Time: Monday, February 19, 2018 16:26 - CONCLUSION: 1. No acute abnormalities. 2. Minimal bibasilar densities. Jose Ames MD Upper Extremity Ultrasound 02/18/18 Signed Impressions: Service Date/Time: Sunday, February 18, 2018 14:21 - CONCLUSION: Normal examination. Perry Green MD Chest CT 02/17/18 1551 Signed Impressions: Service Date/Time: January 16:18 - CONCLUSION: Bilateral lower lobe consolidations right greater left. Small bilateral pleural effusions. No visible pneumothorax. ET tube is in good position.. Perry Green MD Gall Bladder Ultrasound 02/17/18 Signed Impressions: Service Date/Time: January 13:09 - CONCLUSION: 1. Gallbladder wall thickening and pericholecystic fluid suggesting possible acute cholecystitis. Clinical correlation is recommended. A hepatobiliary scan may be helpful to confirm cystic duct obstruction if clinically indicated. 2. Echogenic focus within the gallbladder suggestive of non-shadowing calculus or small polyp. 3. Mild hepatomegaly. 4. Minimal perinephric fluid on the right. Hira Arora MD Lower Extremity Angiography 02/16/18 Signed Impressions: Service Date/Time: Friday, February 16, 2018 21:33 - CONCLUSION: 1. Very sluggish outflow. Findings could be due to poor cardiac output. Emboli to the small, intrinsic vessels of the foot could have a similar appearance. 2. Otherwise, inflow and outflow are widely patent with three-vessel runoff. Martin Padilla MD Arterial Ultrasound 02/16/18 Signed Impressions: Service Date/Time: Friday, February 16, 2018 16:30 - CONCLUSION: 1. Inflow appeared to be adequate bilaterally despite scattered atherosclerotic calcification. 2. Three-vessel runoff on the right. 3. On the left, the dorsalis pedis artery appears to be quite diminutive with limited flow. Anterior tibial and peroneal are patent, however. Martin Padilla MD Aorta w/Runoff CTA 4/25/18 0000 Signed Impressions: Service Date/Time: Friday, February 16, 2018 19:36 - CONCLUSION: 1. Inflow appears to be patent down to the above-knee popliteal bilaterally. 2. On the right, the entire popliteal is patent with the dominant runoff via the posterior tibial. 3. On the left, minimal contrast below the knee joint on both the initial and delayed images. This may represent a combination of poor cardiac output and nonocclusive thrombus in the popliteal region. Again, please the dominant runoff is via the posterior tibial. 4. Bibasilar areas of consolidation/atelectasis with small associated effusions. Cannot exclude a developing infiltrate, especially on the right. 5. Abnormal appearance of the gallbladder with either marked gallbladder wall thickening or pericholecystic fluid. The fluid appears to track down the right paracolic gutter in the pelvis. Gallbladder ultrasound could be performed for further characterization. 6. Diverticular disease of the sigmoid without diverticulitis. Martin Padilla MD Lower Extremity Ultrasound 02/13/18 0000 Signed Impressions: Service Date/Time: Tuesday, February 13, 2018 16:19 - CONCLUSION: No DVT or superficial venous thrombosis is identified within either lower extremity. John Laureano MD Physical Exam GENERAL: Obese., well-developed patient, in no apparent distress. SKIN: Multiple areas of ecchymosis and bruising noted. HEAD: Atraumatic. Normocephalic. No temporal or scalp tenderness. EYES: Pupils equal round and reactive. Extraocular motions intact. No scleral icterus. No injection or drainage. ENT: Intubated. NECK: Trachea midline. Supple, nontender, no meningeal signs. CARDIOVASCULAR: Heart sounds audible. RESPIRATORY: Clear to auscultation. Breath sounds equal bilaterally. No wheezes , rales, or rhonchi. GASTROINTESTINAL: Abdomen soft, on the left lower quadrant of the abdomen there was a dressing in place with an ABD pad and it was soaked in sanguinous secretions. MUSCULOSKELETAL: Left lower extremity with bluish discoloration cold and clammy. Dorsalis pedis pulse only dopplerable Abscent refill on toes tips - purple NEUROLOGICAL: Opens eyes spontaneously. Tracks. Did not follow any commands Psych could not be assessed IV line sites with no evidence of infection. Central line in right IJ site with no evidence of infection. Laboratory Assessment & Plan Remarks Pneumonia on the most recent CTA. Possible healthcare associated pneumonia versus aspergillus or both. No documented history of aspiration. ? Aspergillosis Mold in the sputum: Given history of patient's immune compromised status workup further to decide if treatment needed was planned, but bronch cancelled 2 /2 low plts C.albicans in urine ? colonization. Left foot ischemia: CTA reveals obstruction of the flow at the level of trifurcation so my suspicions that this clot is sitting into the trifurcation and distal popliteal artery s/p TPA lysis. Abnormal LFTs: Abnormal GB pericholecystic fluid. Myasthenia gravis on Imuran and steroids Immune compromised host Prior history of COPD exacerbation Prior history of myasthenia gravis exacerbations History of strep viridans bacteremia Leukocytosis and absence of fevers:? Related to steroids also note patient immunocompromised. Thrombocytopenia Cephalexin allergy: rash Acute cholecystitis per US Recs: cont Azactam IV (Allergy rash to Cephalexin). Follow LFT trend. cont Vanco IV (target 15-20 for pneumonia) Cont voriconazole US abdomen HIDA cholecystostomy tube placement Dee Mao MD Feb 19, 2018 19:30
[2018-02-19] MEDS: RESP: ALBUTEROL 2.5 MG/IPRATROPIUM 0.5 MG NEB (PRN) NEB (19:35)
[2018-02-19] MEDS: MONTELUKAST SODIUM 10 MG TAB PO SCH (21:04)
[2018-02-19] MEDS: METOPROLOL TARTRATE 50 MG TAB PO SCH (21:04)
[2018-02-19 23:36] LABS: PHOSPHORUS 2.8 MG/DL (2.5-4.9)
[2018-02-20] VITALS (18 sets, daily range): BP systolic 100–189; BP diastolic 62–94; PULSE 77–140; RESP 22–29; TEMP 97.7–98.9; O2SAT 92–100
[2018-02-20] MEDS: methylPREDNISolone SOD SUCC 125 MG/2 ML VIAL IV PUSH SCH ×4 (00:40→17:51)
[2018-02-20] MEDS: DILTIAZEM HCL 60 MG TAB PO SCH ×4 (00:40→17:51)
[2018-02-20 05:09] LABS: AUTOMATED NEUTROPHIL # 6.1 TH/MM3 (1.8-7.7); BASOPHIL % 0.1 % (0.0-2.0); EOSINOPHIL % 0.7 % (0.0-4.0); HEMATOCRIT 28.6 % (35.0-46.0); HEMOGLOBIN 9.3 GM/DL (11.6-15.3); LYMPH % 1.4 % (9.0-44.0); LYMPHOCYTE # 0.1 TH/MM3 (1.0-4.8); MEAN CELL VOLUME 76.1 FL (80.0-100.0); MEAN CORPUSCULAR HEMOGLOBIN 24.9 PG (27.0-34.0); MEAN CORPUSCULAR HGB CONC 32.7 % (32.0-36.0); MEAN PLATELET VOLUME 10.4 FL (7.0-11.0); MONO % 2.1 % (0.0-8.0); MONOCYTE # 0.1 TH/MM3 (0-0.9); NEUT % 95.7 % (16.0-70.0); RED BLOOD COUNT 3.76 MIL/MM3 (4.00-5.30); WHITE BLOOD COUNT 6.3 TH/MM3 (4.0-11.0)
[2018-02-20 05:19] LABS: PLATELET COUNT 17 TH/MM3 (150-450)
[2018-02-20 05:21] LABS: ALT (GPT) 222 U/L (10-53); AST (GOT) 56 U/L (15-37); BICARBONATE 18.1 MEQ/L (21.0-32.0); BLOOD UREA NITROGEN 28 MG/DL (7-18); CALCIUM 7.5 MG/DL (8.5-10.1); CHLORIDE 114 MEQ/L (98-107); CREATININE 0.48 MG/DL (0.50-1.00); GLOMERULAR FILTRATION RATE 125 ML/MIN (>89); GLUCOSE,RANDOM 211 MG/DL (74-106); MAGNESIUM 2.4 MG/DL (1.5-2.5); PHOSPHORUS 2.9 MG/DL (2.5-4.9); SODIUM (NA) 143 MEQ/L (136-145)
[2018-02-20 05:23] LABS: ALKALINE PHOSPHATASE 152 U/L (45-117); TOTAL PROTEIN 4.1 GM/DL (6.4-8.2)
[2018-02-20 05:24] LABS: INTERNATIONAL NORMALIZED RATIO 1.1 RATIO; PROTHROMBIN TIME - PATIENT 11.5 SEC (9.8-11.6)
[2018-02-20] MEDS: AZTREONAM INJ 2,000 MG in SODIUM CHLORIDE 0.9% INJ 100 ML IV SCH ×4 (05:24→20:54)
[2018-02-20] MEDS: VORICONAZOLE IV SCH ×2 (05:25→17:52)
[2018-02-20] MEDS: SODIUM CHLOR 0.9% IV SCH ×2 (05:25→17:52)
[2018-02-20] MEDS: PANTOPRAZOLE SODIUM 40 MG VIAL IV PUSH SCH (05:36)
[2018-02-20 06:33] LABS: OVALOCYTES 1+ (NORMAL)
[2018-02-20] MEDS ORDERED: PHARMACY ORDERED LAB-VANCO TROUGH ONE (07:45)
[2018-02-20] MEDS: INSULIN ASPART SUPPLEMENTAL SCALE SQ SCH ×4 (08:00→20:53)
[2018-02-20] MEDS: RESP: ALBUTEROL 2.5 MG/IPRATROPIUM 0.5 MG NEB (PRN) NEB (08:25)
[2018-02-20] MEDS: RESP: BUDESONIDE 0.5 MG/2 ML NEB NEB SCH ×2 (08:25→19:24)
[2018-02-20] MEDS: VANCOMYCIN INJ 1,250 MG in SODIUM CHLOR 0.9% 250 ML INJ 250 ML IV SCH (08:35)
[2018-02-20] MEDS: CHLORHEXIDINE 0.12% (ORAL KIT) 15 ML CUP MT SCH (08:35)
[2018-02-20] MEDS: TIOTROPIUM BROMIDE 18 MCG INH INH SCH (08:37)
[2018-02-20] MEDS: PICC Daily Heparin 100 unit/mL Lock Flush IV FLUSH SCH (08:38)
[2018-02-20] MEDS: DIGOXIN 0.5 MG/2 ML VIAL IV PUSH SCH (08:39)
[2018-02-20] MEDS: METOPROLOL TARTRATE 50 MG TAB PO SCH ×2 (08:41→20:54)
[2018-02-20] MEDS: BISACODYL 10 MG SUPP RECTAL SCH (08:42)
[2018-02-20] MEDS ORDERED: DIGOXIN 0.25 MG TAB PO SCH (09:00)
--- NOTE | 2018-02-20 09:13 | HHI.CCPN ---
Subjective Remarks/Hospital Course This is a 77-year-old female that presented to [facility] on 01/27/2018 with complaints of dyspnea. 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 Her medical history is significant for chronic steroid therapy with prednisone and then subsequently placed on IVIG infusions every 3 weeks secondary to nonresponsiveness of steroid therapy. On 01 27 the patient was admitted to [facility] and treated for sepsis with broad- spectrum antibiotics, which have now been completed. Blood cultures have revealed Streptococcus viridans. The patient continued care at [place] seeing a telemetry neurologist and hematology oncology was consulted, Dr. Zacarias. It was recommended that the patient receive Rituxan and be evaluated formally by a neurologist. Patient was transferred to [facility]. The patient has a history of A. fib RVR, and home medications include metoprolol, digoxin, and Cardizem. These medications were stopped in the last 24 hours secondary to the patient experiencing dysphagia. Patient subsequently went into A. fib RVR early this a.m., heart rate 150's and transferred to ICU. Stat ABG was obtained. critical care medicine was consulted. SUBJ 02/14: Currently patient is quite tachypneic breathing about 40/min, even on BiPAP. Prior to BiPAP patient's NIF-16 and forced vital was 600 ml. Patient clearly failing BiPAP and this is most likely secondary to myasthenia gravis exacerbation. I proceeded to endotracheally intubate the patient placed on mechanical ventilation. Discussed with Dr. Olivarez area both of us agree on starting plasma exchange. Will discuss with hematology Dr. Zacarias 02/15: No events over the night. Due to progressive respiratory distress she was intubated yesterday. T-max of 98.7. I/O 1770/650. She remains on esmolol drip, still in A. fib/flutter on the monitor with heart rate better controlled. She sedated with propofol. 02/16: Patient did well over the night. Patient continues to require esmolol heart rate control, currently at 200, and propofol for sedation. 02/17: Yesterday evening, patient's left foot became more cyanotic. Dr. Conteh from vascular surgery was consulted, patient underwent CTA and IR to patient for left leg angio but no clot was seen. Patient had improved pulse post procedure. This a.m. patient has dopplerable pulse. No other overnight events. T-max of 98.2. Urine output decreased. 02/18: No events over the night. Left foot remains cyanotic with dopplerable pulse. Platelets remain low. Afebrile, with a T-max of 98.1. Documented urine output over the last 24 hours 250 cc. Of esmolol drip, receiving IV hydration. She remains sedated and intubated. 02/19: Patient remains intubated and sedated. Afebrile, with a T-max of 98. Improved urine output. A. fib on telemetry. No family present at bedside. 02/20: No events over the night. Patient remains intubated and sedated, though more awake, attempting to open eyes to voice stimuli. T-max of 98.7 and urine output of 800 cc over the last 24 hours. She remains on 0.3 FiO2. No family present at bedside. ROS -unobtainable, patient is intubated Objective Vital Signs Date Time Temp Pulse Resp B/P (MAP) Pulse Ox O2 Delivery O2 Flow Rate FiO2 02/20/18 08:22 35 02/20/18 08:22 93 02/20/18 06:00 138 02/20/18 04:00 97.9 25 149/94 (112) 02/17/18 07:32 Ventilator 02/16/18 19:15 15.00 Intake and Output 02/20/18 02/20/18 02/21/18 08:00 16:00 00:00 Intake Total 527 ml Output Total 350 ml Balance 177 ml Result Diagram: 02/20/18 0415 02/20/18 0415 Other Results Microbiology Date/Time Source Procedure Growth Status 02/17/18 18:30 Sputum Endotracheal Gram Stain - Final Complete 02/17/18 18:30 Sputum Culture - Final Aspergillus Fumigatus Complete 02/17/18 18:30 Urine Catheterized Urine Urine Culture - Final Clemencia Albicans Complete 02/17/18 18:30 Urine Catheterized Urine Legionella Antigen - Final PRESUMPTIVE NEGATIVE FOR LEGIONELLA P... Complete 02/17/18 18:30 Urine Catheterized Urine Streptococcus pneumoniae Antigen (M - Final PRESUMPTIVE NEGATIVE FOR STREPTOCOCCU... Complete Imaging Last Impressions Chest X-Ray 02/19/18 0600 Signed Impressions: Service Date/Time: Monday, February 19, 2018 03:41 - CONCLUSION: Persistent bilateral lower lung opacities and pleural effusions. Wilbur Lowry MD Abdomen X-Ray 02/19/18 0000 Signed Impressions: Service Date/Time: Monday, February 19, 2018 16:26 - CONCLUSION: 1. No acute abnormalities. 2. Minimal bibasilar densities. Jose Ames MD Upper Extremity Ultrasound 02/18/18 0000 Signed Impressions: Service Date/Time: Sunday, February 18, 2018 14:21 - CONCLUSION: Normal examination. Perry Green MD Chest CT 02/17/18 1551 Signed Impressions: Service Date/Time: January 16:18 - CONCLUSION: Bilateral lower lobe consolidations right greater left. Small bilateral pleural effusions. No visible pneumothorax. ET tube is in good position.. Perry Green MD Gall Bladder Ultrasound 02/17/18 0000 Signed Impressions: Service Date/Time: January 13:09 - CONCLUSION: 1. Gallbladder wall thickening and pericholecystic fluid suggesting possible acute cholecystitis. Clinical correlation is recommended. A hepatobiliary scan may be helpful to confirm cystic duct obstruction if clinically indicated. 2. Echogenic focus within the gallbladder suggestive of non-shadowing calculus or small polyp. 3. Mild hepatomegaly. 4. Minimal perinephric fluid on the right. Hira Arora MD Lower Extremity Angiography 02/16/18 0000 Signed Impressions: Service Date/Time: Friday, February 16, 2018 21:33 - CONCLUSION: 1. Very sluggish outflow. Findings could be due to poor cardiac output. Emboli to the small, intrinsic vessels of the foot could have a similar appearance. 2. Otherwise, inflow and outflow are widely patent with three-vessel runoff. Martin Padilla MD Arterial Ultrasound 02/16/18 0000 Signed Impressions: Service Date/Time: Friday, February 16, 2018 16:30 - CONCLUSION: 1. Inflow appeared to be adequate bilaterally despite scattered atherosclerotic calcification. 2. Three-vessel runoff on the right. 3. On the left, the dorsalis pedis artery appears to be quite diminutive with limited flow. Anterior tibial and peroneal are patent, however. Martin Padilla MD Aorta w/Runoff CTA 02/16/18 0000 Signed Impressions: Service Date/Time: Friday, February 16, 2018 19:36 - CONCLUSION: 1. Inflow appears to be patent down to the above-knee popliteal bilaterally. 2. On the right, the entire popliteal is patent with the dominant runoff via the posterior tibial. 3. On the left, minimal contrast below the knee joint on both the initial and delayed images. This may represent a combination of poor cardiac output and nonocclusive thrombus in the popliteal region. Again, please the dominant runoff is via the posterior tibial. 4. Bibasilar areas of consolidation/atelectasis with small associated effusions. Cannot exclude a developing infiltrate, especially on the right. 5. Abnormal appearance of the gallbladder with either marked gallbladder wall thickening or pericholecystic fluid. The fluid appears to track down the right paracolic gutter in the pelvis. Gallbladder ultrasound could be performed for further characterization. 6. Diverticular disease of the sigmoid without diverticulitis. Martin Padilla MD Lower Extremity Ultrasound 02/13/18 0000 Signed Impressions: Service Date/Time: Tuesday, February 13, 2018 16:19 - CONCLUSION: No DVT or superficial venous thrombosis is identified within either lower extremity. John Laureano MD Objective Remarks General - elderly lady, intubated, sedated, ill-appearing HEENT - pupils equal, reactive, sclera anicteric, neck supple, no JVD, + ETT, + NGT, right IJ HD catheter -site is clean CV - irregularly irregular S1, S2, no murmurs appreciated, tachycardic Chest - still with scattered coarse breath sounds bilateral bases, no wheezes Abdomen - soft, non-tender, not distended, BS present Skin - unchanged, multiple ecchymotic bruises bilateral arms and skin tears covered with dressing, bruises present over the abdomen Extremities - both feet are warm to touch, cyanosis over the left foot is significantly improved, 1+ edema, dopplerable pulse on the left and palpable on the right Neuro - intubated, sedated, opens eyes to voice stimuli, grimaces to pain A/P Problem List: (1) Pneumonia ICD Code: J18.9 - Pneumonia, unspecified organism Status: Acute (2) COPD (chronic obstructive pulmonary disease) ICD Code: J44.9 - Chronic obstructive pulmonary disease, unspecified Status: Chronic (3) Myasthenia gravis ICD Code: G70.00 - Myasthenia gravis without (acute) exacerbation Status: Chronic (4) Current chronic use of systemic steroids ICD Code: Z79.52 - lobsterman (current) use of systemic steroids (5) Anemia ICD Code: D64.9 - Anemia, unspecified Assessment and Plan 1. Myasthenia gravis, with acute exacerbation, completed 1 cycle of plasmapheresis 2. Acute respiratory failure secondary to above, on minimal O2 requirements 3. Vascular occlusive disease with cyanosis of left foot -significantly improved 4. Acute encephalopathy 5. A. fib with RVR, remains in A. fib but rate better controlled, off Esmolol drip 6. Possible pneumonia -completed treatment at the outside hospital. Now patient growing Aspergillus in the sputum 7. History of CHF 8. Hypernatremia -resolved 9. Acute anemia, received 1 unit PRBC transfusion, now improved, count stable 10. Thrombocytopenia -platelet count remains low, HIT negative 11. Elevated liver enzymes and possible acute cholecystitis -AST and ALT continue to improve 1. Attempted CPAP trial, /, tolerating well so far. We will continue CPAP as tolerated then switch back previous mode 2. Vent bundle and bronchodilators. Hold home medication Singulair and Spiriva 3. Continue voriconazole due to immunosuppression. Appreciate ID assistance. Continue to monitor liver enzymes 4. Additional antifungal workup pending. 5. Continue methylprednisolone 125 mg 4 times daily per neurology. She received IVIG therapy for the last 3 weeks at [facility]. 6. Digoxin 0.25 today. Continue Cardizem and will decrease metoprolol to 50 twice daily 7. On aztreonam and Vanco. Levofloxacin was stopped 8. Platelet transfusion per hematology. Restarted on Lovenox yesterday 9. Trickle feeds 10. GI prophylaxis with PPI 11. Might need cholecystostomy tube placement if clinically worsening 12. Plasmapheresis per neuro and hematology No family present at bedside. Darin Douglass MD Feb 20, 2018 09:13
[2018-02-20] MEDS: PROPOFOL 1000 MG/100 ML INJ 100 ML IV PRN ×2 (09:36→17:21)
--- NOTE | 2018-02-20 09:45 | PD.ONC.PN ---
Subjective Subjective Remarks Afebrile overnight. patient intubated but awake. no overnight events per nurse. Objective Data Date Time Temp Pulse Resp B/P (MAP) Pulse Ox O2 Delivery O2 Flow Rate FiO2 02/20/18 08:22 35 02/20/18 08:22 93 35 02/20/18 06:00 138 02/20/18 04:10 94 35 02/20/18 04:00 35 02/20/18 04:00 138 02/20/18 04:00 97.9 138 25 149/94 (112) 93 02/20/18 02:00 140 02/20/18 00:31 97 35 02/20/18 00:00 35 02/20/18 00:00 98.5 140 26 189/84 (119) 97 02/20/18 00:00 140 02/19/18 22:00 93 02/19/18 20:00 96 02/19/18 20:00 98.7 133 23 139/87 (104) 96 02/19/18 20:00 35 02/19/18 19:35 97 35 02/19/18 18:00 116 02/19/18 16:06 98 35 02/19/18 16:00 105 02/19/18 16:00 35 02/19/18 16:00 97.3 105 21 148/67 (94) 98 02/19/18 14:00 98 02/19/18 13:04 99 35 02/19/18 12:00 115 02/19/18 12:00 92.2 115 22 140/77 (98) 98 02/19/18 12:00 35 02/19/18 10:00 96 02/20/18 02/20/18 02/20/18 06:59 14:59 22:59 Intake Total 527 ml 25 ml Output Total 350 ml Balance 177 ml 25 ml Result Diagram: 02/20/18 0415 02/20/18 0415 Laboratory Results Laboratory Tests Test 02/19/18 22:45 02/20/18 04:15 02/20/18 07:45 Potassium Level 3.8 MEQ/L 4.1 MEQ/L Phosphorus Level 2.8 MG/DL 2.9 MG/DL White Blood Count 6.3 TH/MM3 Red Blood Count 3.76 MIL/MM3 Hemoglobin 9.3 GM/DL Hematocrit 28.6 % Mean Corpuscular Volume 76.1 FL Mean Corpuscular Hemoglobin 24.9 PG Mean Corpuscular Hemoglobin Concent 32.7 % Red Cell Distribution Width 26.0 % Platelet Count 17 TH/MM3 Mean Platelet Volume 10.4 FL Neutrophils (%) (Auto) 95.7 % Lymphocytes (%) (Auto) 1.4 % Monocytes (%) (Auto) 2.1 % Eosinophils (%) (Auto) 0.7 % Basophils (%) (Auto) 0.1 % Neutrophils # (Auto) 6.1 TH/MM3 Lymphocytes # (Auto) 0.1 TH/MM3 Monocytes # (Auto) 0.1 TH/MM3 Eosinophils # (Auto) 0.0 TH/MM3 Basophils # (Auto) 0.0 TH/MM3 CBC Comment AUTO DIFF Differential Comment AUTO DIFF CONFIRMED Platelet Estimate LOW Platelet Morphology Comment ENLARGED Ovalocytes 1+ Haptoglobin 134 MG/DL Prothrombin Time 11.5 SEC Prothromb Time International Ratio 1.1 RATIO Activated Partial Thromboplast Time 27.5 SEC Fibrinogen 220 mg/dL Blood Urea Nitrogen 28 MG/DL Creatinine 0.48 MG/DL Random Glucose 211 MG/DL Total Protein 4.1 GM/DL Albumin 2.0 GM/DL Calcium Level 7.5 MG/DL Magnesium Level 2.4 MG/DL Alkaline Phosphatase 152 U/L Aspartate Amino Transf (AST/SGOT) 56 U/L Alanine Aminotransferase (ALT/SGPT) 222 U/L Lactate Dehydrogenase 360 U/L Total Bilirubin 1.0 MG/DL Sodium Level 143 MEQ/L Chloride Level 114 MEQ/L Carbon Dioxide Level 18.1 MEQ/L Anion Gap 11 MEQ/L Estimat Glomerular Filtration Rate 125 ML/MIN Vancomycin Level Trough 22.4 MCG/ML Culture Results Microbiology Date/Time Source Procedure Growth Status 02/17/18 14:04 Blood Peripheral Blood Fungal Culture Pending Received 02/17/18 14:04 Blood Peripheral Blood Fungal Culture Pending Received 02/17/18 14:04 Blood Line Aerobic Blood Culture - Preliminary NO GROWTH IN 2 DAYS Resulted 02/17/18 14:04 Blood Line Anaerobic Blood Culture - Preliminary NO GROWTH IN 2 DAYS Resulted 02/17/18 14:00 Blood Peripheral Aerobic Blood Culture - Preliminary NO GROWTH IN 2 DAYS Resulted 02/17/18 14:00 Blood Peripheral Anaerobic Blood Culture - Preliminary NO GROWTH IN 2 DAYS Resulted 02/17/18 18:30 Sputum Endotracheal Gram Stain - Final Complete 02/17/18 18:30 Sputum Culture - Final Aspergillus Fumigatus Complete 02/17/18 18:30 Urine Catheterized Urine Urine Culture - Final Clemencia Albicans Complete 02/17/18 18:30 Urine Catheterized Urine Legionella Antigen - Final PRESUMPTIVE NEGATIVE FOR LEGIONELLA P... Complete 02/17/18 18:30 Urine Catheterized Urine Streptococcus pneumoniae Antigen (M - Final PRESUMPTIVE NEGATIVE FOR STREPTOCOCCU... Complete Administered Medications Medications (Trade) Dose Ordered Sig/Melissa Route PRN Reason Start Time Stop Time Status Last Admin Dose Admin Acetaminophen (Tylenol) 650 mg Q4H PRN PO TEMP > 100.4 02/12/18 22:30 02/15/18 13:07 Sennosides (Senokot) 17.2 mg Q12H PRN PO Moderate constipation 02/12/18 22:30 02/15/18 12:17 Bisacodyl (Dulcolax Supp) 10 mg DAILY PRN RECTAL SEVERE CONSITIPATION 02/12/18 22:30 02/16/18 05:15 Lactulose (Lactulose Liq) 30 ml DAILY PRN PO SEVERE CONSITIPATION 02/12/18 22:30 02/18/18 15:19 Heparin Sodium (Porcine) (Heparin Central Flush) 200 units DAILY IV FLUSH 02/13/18 09:00 02/16/18 07:57 Heparin Sodium (Porcine) (Heparin Central Flush) 200 units UNSCH PRN IV FLUSH SEE PROTOCOL TABLE 02/13/18 01:00 02/16/18 05:15 Budesonide (Pulmicort Respule Neb) 0.5 mg Q12HR NEB NEB 02/13/18 08:00 02/20/18 08:25 Montelukast Sodium (Singulair) 10 mg HS PO 02/13/18 21:00 02/19/18 21:04 Tiotropium [place] (Spiriva Inh) 18 mcg DAILY INH 02/13/18 09:00 02/14/18 09:54 Metoprolol Tartrate (Lopressor Inj) 5 mg Q5M PRN IV PUSH sustained HR > 110 02/13/18 02:15 02/18/18 18:49 Diltiazem HCl (Cardizem) 120 mg Q6HR PO 02/13/18 06:00 02/20/18 05:24 Pantoprazole Sodium (Protonix Inj) 40 mg Q24H IV PUSH 02/13/18 03:00 02/20/18 05:36 Methylprednisolone Sodium Succinate (SoluMEDROL INJ) 125 mg Q6HR IV PUSH 02/13/18 09:45 02/20/18 05:23 Albuterol/ Ipratropium (Duoneb Neb) 1 ampule Q2HR NEB PRN NEB WHEEZING 02/13/18 13:15 02/20/18 08:25 Insulin Aspart (NovoLOG SUPPLEMENTAL SCALE) 1 ACHS SLIDING SCALE SQ 02/13/18 17:00 02/20/18 08:00 Esmolol HCl/ Sodium Chloride 250 ml @ 22.56 mls/ hr TITRATE PRN IV Blood Pressure Management 02/13/18 15:00 02/17/18 07:06 Hydralazine HCl (Apresoline Inj) 20 mg Q4H PRN IV PUSH SBP>160, DBP>90 02/14/18 00:00 02/18/18 10:41 Labetalol HCl (Trandate Inj) 10 mg Q4H PRN IV PUSH SBP>160, DBP>90 02/14/18 00:00 02/16/18 02:52 Chlorhexidine Gluconate (Peridex 0.12% Liq) 15 ml BID@08,20 MT 02/14/18 20:00 02/20/18 08:35 Propofol 100 ml @ 2.256 mls/ hr TITRATE PRN IV SEDATION 02/14/18 11:45 02/20/18 09:36 Anticoagulant Citrate Dextose Joya A (Acd Formula Inj) 1,000 ml Q48H OTHER 02/14/18 21:00 02/22/18 21:01 02/14/18 22:49 Albumin Human 3,500 ml @ 250 mls/hr Q48H IV 02/14/18 21:00 02/23/18 10:59 02/18/18 20:48 Calcium Gluconate 3.5 gm/Sodium Chloride 235 ml @ 90 mls/hr Q48H IV 02/16/18 21:00 02/22/18 23:37 02/18/18 21:10 Diphenhydramine HCl (Benadryl) 25 mg Q4H PRN PO SEE LABEL COMMENTS 02/15/18 07:30 02/15/18 13:07 Aztreonam 2000 mg/ Sodium Chloride 100 ml @ 200 mls/hr Q8H IV 02/17/18 12:00 02/20/18 05:25 Voriconazole 300 mg/Sodium Chloride 250 ml @ 125 mls/hr Q12H IV 02/19/18 18:00 02/20/18 05:25 Enoxaparin Sodium (Lovenox Inj) 40 mg Q24H SQ 02/18/18 17:00 Future Hold 02/18/18 17:35 Vancomycin HCl 1250 mg/Sodium Chloride 262.5 ml @ 250 mls/hr Q12H IV 02/18/18 20:00 02/20/18 08:35 Potassium Phosphate 30 mmol/ Sodium Chloride 260 ml @ 42 mls/hr UNSCH PRN IV SEE LABEL COMMENTS 02/19/18 08:00 02/19/18 08:33 Metoprolol Tartrate (Lopressor) 50 mg BID PO 02/19/18 21:00 02/20/18 08:41 Bisacodyl (Dulcolax Supp) 10 mg DAILY RECTAL 02/20/18 09:00 02/20/18 08:42 Digoxin (Lanoxin Inj) 0.25 mg DAILY IV PUSH 02/20/18 09:00 02/20/18 08:39 Objective Remarks GENERAL: intubated elderly female, supine in bed. SKIN: Warm and dry. ecchymoses scattered on all extremities. HEAD: Normocephalic. EYES: No injection or drainage. NECK: Supple, trachea midline. CARDIOVASCULAR: +S1/S2 RESPIRATORY: anterior de jesus with scattered rhonchi. on CPAP GASTROINTESTINAL: Abdomen distended. EXTREMITIES: edema in arms and legs. distal legs are warm and well perfused. NEUROLOGICAL: intubated, awake. tracks with eyes. does not follow commands. Assessment/Plan Problem List: (1) Myasthenia gravis ICD Codes: G70.00 - Myasthenia gravis without (acute) exacerbation Status: Chronic Plan: --consuled by neurology to initiate apheresis with albumin every other day 5 days. Hx/Workup: Patient has a history of myasthenia gravis dating back to the . She has been on various lines of treatment including Mestinon, corticosteroids and Imuran. For the past several years she has been on IVIG infusions every 3 weeks under the care of a neurologist in [place] prior to relocating to the [facility]. She received IVIG infusions for 5 days in a row last week at [facility] and this did not improve her symptoms. The patient was being seen by a tele neurologist who recommended Rituxan infusion. She has been transferred to [facility] for continued care and management. Assessment 77-year-old female with myasthenia gravis exacerbation; hematology consulted for apheresis Plan 1. platelet count fell to 17 K today. will give 1unit platelets. continue to hold plasma exchange. 2. monitor CBC, coags Attending Statement The exam, history, and the medical decision-making described in the above note were completed with the assistance of the mid-level provider. I reviewed and agree with the findings presented. I attest that I had a [id number] encounter with the patient on the same day, and personally performed and documented my assessment and findings in the medical record.77 yoF with myastenia gravis crisis s/p multiple lines of therapy with no improvement. S/p one session of plasma exchange. Held secondary to vascular issues and now TCP. B12, folate replete, HIT negative. Mild DIC with prolonged coags, fibrinogen. Will check ddimer. Likley multifactorial due to abx (vancomycin), sepsis. s/p transfusion. Martha Singh Feb 20, 2018 09:45 Terri Davenport MD Feb 20, 2018 15:40
[2018-02-20] MEDS ORDERED: SODIUM CHLOR 0.9% 250 ML INJ 250 ML IV ONE (10:15)
--- NOTE | 2018-02-20 12:11 | HHI.GIFU ---
Subjective Remarks Pt going for HIDA. Objective Vitals I&O Vital Signs Date Time Temp Pulse Resp B/P (MAP) Pulse Ox O2 Delivery O2 Flow Rate FiO2 02/20/18 10:52 97.7 77 29 131/81 94 02/20/18 08:22 35 02/20/18 08:22 93 35 02/20/18 06:00 138 02/20/18 04:10 94 35 02/20/18 04:00 35 02/20/18 04:00 138 02/20/18 04:00 97.9 138 25 149/94 (112) 93 02/20/18 02:00 140 02/20/18 00:31 97 35 02/20/18 00:00 35 02/20/18 00:00 98.5 140 26 189/84 (119) 97 02/20/18 00:00 140 02/19/18 22:00 93 02/19/18 20:00 96 02/19/18 20:00 98.7 133 23 139/87 (104) 96 02/19/18 20:00 35 02/19/18 19:35 97 35 02/19/18 18:00 116 02/19/18 16:06 98 35 02/19/18 16:00 105 02/19/18 16:00 35 02/19/18 16:00 97.3 105 21 148/67 (94) 98 02/19/18 14:00 98 02/19/18 13:04 99 35 I/O 02/19/18 02/19/18 02/19/18 02/20/18 02/20/18 02/20/18 07:00 15:00 23:00 07:00 15:00 23:00 Intake Total 5084.5 ml 335 ml 565 ml 527 ml 336 ml Output Total 500 ml 450.0 ml 350 ml Balance 4584.5 ml 335 ml 115.0 ml 177 ml 336 ml Intake Oral 0 ml IV Total 4964.5 ml 335 ml 440 ml 452 ml 321 ml Tube Feeding 0 ml 75 ml Blood Product IV Normal Saline Flush 15 ml Tube Irrigant 120 ml Other 125 ml Output Urine Total 500 ml 350 ml 350 ml Tube Feeding Residual Discard 100.0 ml # Voids 4 # Bowel Movements 0 0 Laboratory Laboratory Tests Test 02/19/18 22:45 02/20/18 04:15 02/20/18 07:45 Potassium Level 3.8 4.1 Phosphorus Level 2.8 2.9 White Blood Count 6.3 Red Blood Count 3.76 Hemoglobin 9.3 Hematocrit 28.6 Mean Corpuscular Volume 76.1 Mean Corpuscular Hemoglobin 24.9 Mean Corpuscular Hemoglobin Concent 32.7 Red Cell Distribution Width 26.0 Platelet Count 17 Mean Platelet Volume 10.4 Neutrophils (%) (Auto) 95.7 Lymphocytes (%) (Auto) 1.4 Monocytes (%) (Auto) 2.1 Eosinophils (%) (Auto) 0.7 Basophils (%) (Auto) 0.1 Neutrophils # (Auto) 6.1 Lymphocytes # (Auto) 0.1 Monocytes # (Auto) 0.1 Eosinophils # (Auto) 0.0 Basophils # (Auto) 0.0 CBC Comment AUTO DIFF Differential Comment AUTO DIFF CONFIRMED Platelet Estimate LOW Platelet Morphology Comment ENLARGED Ovalocytes 1+ Haptoglobin 134 Prothrombin Time 11.5 Prothromb Time International Ratio 1.1 Activated Partial Thromboplast Time 27.5 Fibrinogen 220 Blood Urea Nitrogen 28 Creatinine 0.48 Random Glucose 211 Total Protein 4.1 Albumin 2.0 Calcium Level 7.5 Magnesium Level 2.4 Alkaline Phosphatase 152 Aspartate Amino Transf (AST/SGOT) 56 Alanine Aminotransferase (ALT/SGPT) 222 Lactate Dehydrogenase 360 Total Bilirubin 1.0 Sodium Level 143 Chloride Level 114 Carbon Dioxide Level 18.1 Anion Gap 11 Estimat Glomerular Filtration Rate 125 Vancomycin Level Trough 22.4 Date/Time Source Procedure Growth Status 02/17/18 14:04 Blood Peripheral Blood Fungal Culture Pending Received 02/17/18 14:04 Blood Peripheral Blood Fungal Culture Pending Received 02/17/18 18:30 Sputum Endotracheal Gram Stain - Final Complete 02/17/18 18:30 Sputum Culture - Final Aspergillus Fumigatus Complete 02/17/18 18:30 Urine Catheterized Urine Urine Culture - Final Clemencia Albicans Complete Imaging Last Impressions Chest X-Ray 02/19/18 0600 Signed Impressions: Service Date/Time: Monday, February 19, 2018 03:41 - CONCLUSION: Persistent bilateral lower lung opacities and pleural effusions. Wilbur Lowry MD Abdomen X-Ray 02/19/18 0000 Signed Impressions: Service Date/Time: Monday, February 19, 2018 16:26 - CONCLUSION: 1. No acute abnormalities. 2. Minimal bibasilar densities. Jose F. Tocci, MD Upper Extremity Ultrasound 02/18/18 Signed Impressions: Service Date/Time: Sunday, February 18, 2018 14:21 - CONCLUSION: Normal examination. Perry Green MD Chest CT 02/17/18 1551 Signed Impressions: Service Date/Time: January 16:18 - CONCLUSION: Bilateral lower lobe consolidations right greater left. Small bilateral pleural effusions. No visible pneumothorax. ET tube is in good position.. Perry Green MD Gall Bladder Ultrasound 02/17/18 Signed Impressions: Service Date/Time: January 13:09 - CONCLUSION: 1. Gallbladder wall thickening and pericholecystic fluid suggesting possible acute cholecystitis. Clinical correlation is recommended. A hepatobiliary scan may be helpful to confirm cystic duct obstruction if clinically indicated. 2. Echogenic focus within the gallbladder suggestive of non-shadowing calculus or small polyp. 3. Mild hepatomegaly. 4. Minimal perinephric fluid on the right. Hira Arora MD Lower Extremity Angiography 02/16/18 Signed Impressions: Service Date/Time: Friday, February 16, 2018 21:33 - CONCLUSION: 1. Very sluggish outflow. Findings could be due to poor cardiac output. Emboli to the small, intrinsic vessels of the foot could have a similar appearance. 2. Otherwise, inflow and outflow are widely patent with three-vessel runoff. Martin Padilla MD Arterial Ultrasound 02/16/18 Signed Impressions: Service Date/Time: Friday, February 16, 2018 16:30 - CONCLUSION: 1. Inflow appeared to be adequate bilaterally despite scattered atherosclerotic calcification. 2. Three-vessel runoff on the right. 3. On the left, the dorsalis pedis artery appears to be quite diminutive with limited flow. Anterior tibial and peroneal are patent, however. Martin Padilla MD Aorta w/Runoff CTA 02/16/18 Signed Impressions: Service Date/Time: Friday, February 16, 2018 19:36 - CONCLUSION: 1. Inflow appears to be patent down to the above-knee popliteal bilaterally. 2. On the right, the entire popliteal is patent with the dominant runoff via the posterior tibial. 3. On the left, minimal contrast below the knee joint on both the initial and delayed images. This may represent a combination of poor cardiac output and nonocclusive thrombus in the popliteal region. Again, please the dominant runoff is via the posterior tibial. 4. Bibasilar areas of consolidation/atelectasis with small associated effusions. Cannot exclude a developing infiltrate, especially on the right. 5. Abnormal appearance of the gallbladder with either marked gallbladder wall thickening or pericholecystic fluid. The fluid appears to track down the right paracolic gutter in the pelvis. Gallbladder ultrasound could be performed for further characterization. 6. Diverticular disease of the sigmoid without diverticulitis. Martin Padilla MD Lower Extremity Ultrasound 02/13/18 0000 Signed Impressions: Service Date/Time: Wednesday, February 13, 2018 16:19 - CONCLUSION: No DVT or superficial venous thrombosis is identified within either lower extremity. John Laureano MD Physical Exam HEENT: normocephalic; atraumatic; no jaundice.intubated CHEST: coarse CARDIAC: irr HR ABDOMEN: Soft, mild distention,BS + EXTREMITIES: left foot dusky SKIN: no rash; no jaundice. 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 have decreased some since yesterday. US showing poss acute cholecystitis and suggests HIDA. doubt she would be a surgical candidate at this time - anemia - microcytic likely multifactorial. 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 liver w/u pending. hep panel neg. ?gallbladder etiology. per DR Conteh pt is not candidate for any aggressive interventions. 02/19/2018 patient continues on ventilator not weaning yet. Abdomen is mildly tympanic but no facial grimace and shakes head no to abdominal pain. No bowel movement noted on I/O sheet and per nurse 02/13/2018 , at least 6 days, KUB unremarkable that was just done. This could be from limited activity and immobility, versus medications . LFTs trending down AST 52 ALT 279, hepatitis panel negative, AFP 3.4, ceruloplasmin pending, MATHIEU negative, anti-smooth muscle antibody negative, noted positive mycoplasma pneumoniae IgG 02/20/18 LFTs trending down. ?shock liver. going for HIDA, will rule out gallbladder etiology. liver w/u so far unremarkable PLAN - await HIDA - monitor labs - supportive care - AMA still pending pt seen by myself and Dr Crespo and this note is on his behalf Marissa Arriaga Feb 20, 2018 12:11
[2018-02-20] MEDS ORDERED: SINCALIDE 5 MCG/5 ML VIAL IV ONE (14:15)
--- NOTE | 2018-02-20 14:49 | RADRPT ---
EXAM DATE/TIME: 02/20/2018 11:41 [facility] COMPARISON: No previous studies available for comparison. INDICATIONS : Right upper quadrant pain. Elevated enzymes. DOSE: 4.1 mCi Tc99m Mebrofenin IV MEDICATION: 1.78 mcg Cholecystokinin IV; No symptomatic response. Cholecystokinin was administered by slow infusion over 8 minutes beginning at 120 minutes. MEDICAL HISTORY : Chronic obstructive pulmonary disease. Congestive heart failure. myasthenia gravis. SURGICAL HISTORY : Hysterectomy. ENCOUNTER: Initial ACUITY: 1 day PAIN SCALE: 5/10 LOCATION: Right upper quadrant TECHNIQUE: Following the intravenous administration of radiotracer, dynamic sequential image were performed with continuous acquisition. Time-activity curves were generated. FINDINGS: HEPATIC KINETICS: There is prompt uptake of radiotracer in the liver. No focal defects are seen. There is normal rate of washout from the hepatic parenchyma. BILIARY CLEARANCE: Activity is first seen in the extrahepatic biliary system at 25 minutes. There is normal excretion i nto the small bowel. GALLBLADDER: Activity is first seen in the gallbladder at 25 minutes. POST CHOLECYSTOKININ: After Cholecystokinin administration, there is prompt emptying of the gallbladder with a 80% ejection fraction. Common bile duct kinetics are normal and there is no evidence of biliary obstruction. BILIARY ENTERIC REFLUX: None observed. CLINICAL: The patient was asymptomatic after Cholecystokinin administration. CONCLUSION: No sign of obstruction. John Castro MD on February 20, 2018 at 14:43 Board Certified Radiologist. This report was verified electronically.
--- NOTE | 2018-02-20 16:36 | RADRPT ---
EXAM DATE/TIME: 02/20/2018 16:07 [facility] COMPARISON: CHEST SINGLE AP, February 19, 2018, 3:41. INDICATIONS : Short of breath. PICC line placement. MEDICAL HISTORY : Congestive heart failure. Osteoporosis. Chronic obstructive pulmonary disease. A-Fib Asthma SURGICAL HISTORY : Hysterectomy. ENCOUNTER: Subsequent ACUITY: 1 week PAIN SCORE: 0/10 LOCATION: Bilateral chest FINDINGS: Stable right IJ central line, ETT and NGT in the stomach. Slightly more prominent patchy airspace dis ease in the right middle to lower lung zones. Stable patchy airspace disease in the left lower lung z one. Stable small right and trace left pleural effusions. Left PICC line tip somewhat obscured but li amber in the central SVC. Cardiomediastinal contours are stable. Remainder of the exam is unchanged. CONCLUSION: 1. Left PICC line tip somewhat obscured but likely in the central SVC. 2. More prominent patchy airspace disease in the right middle to lower lung zones. 3. Stable left lower lung zone patchy airspace disease. 4. Stable small right and trace left pleural effusions. Orion Allen MD on February 20, 2018 at 16:31 Board Certified Radiologist. This report was verified electronically.
[2018-02-20 17:52] LABS: CERULOPLASMIN 18 mg/dL (18-53)
[2018-02-20] MEDS: MONTELUKAST SODIUM 10 MG TAB PO SCH (20:54)
[2018-02-21] VITALS (24 sets, daily range): BP systolic 90–148; BP diastolic 59–91; PULSE 87–148; RESP 20–29; TEMP 97.3–99.7; O2SAT 92–100
--- NOTE | 2018-02-21 02:41 | RADRPT ---
EXAM DATE/TIME: 02/21/2018 01:40 [facility] COMPARISON: CHEST SINGLE AP, February 20, 2018, 16:07. INDICATIONS : Shortness of breath, possible pulmonary disease. MEDICAL HISTORY : Congestive heart failure. Osteoporosis. Chronic obstructive pulmonary disease. A-Fib Asthma SURGICAL HISTORY : Hysterectomy. ENCOUNTER: Subsequent ACUITY: 1 week PAIN SCORE: Non-responsive. LOCATION: Bilateral chest FINDINGS: A single view of the chest demonstrates bibasilar airspace disease, right greater than left. Probable right perihilar infiltrate, unchanged. Heart size is borderline prominent. Life support tubes are st able in position including endotracheal tube, left upper extremity PICC line and nasogastric tube. On the prior vertebral plasty in the upper and mid dorsal spine. Osseous structures are otherwise intac t. CONCLUSION: 1. Stable appearance of the chest with bibasilar airspace disease and associated effusions, right wor se than left. Possible right perihilar infiltrate, unchanged. 2. Stable position of life support tubes. Martin Padilla MD on February 21, 2018 at 2:36 Board Certified Radiologist. This report was verified electronically.
[2018-02-21] MEDS: DILTIAZEM HCL 60 MG TAB PO SCH ×5 (03:25→22:48)
[2018-02-21] MEDS: methylPREDNISolone SOD SUCC 125 MG/2 ML VIAL IV PUSH SCH ×5 (03:25→22:47)
[2018-02-21] MEDS: PROPOFOL 1000 MG/100 ML INJ 100 ML IV PRN ×4 (03:26→23:19)
[2018-02-21 04:20] LABS: AUTOMATED NEUTROPHIL # 4.2 TH/MM3 (1.8-7.7); BASOPHIL % 0.1 % (0.0-2.0); EOSINOPHIL % 0.1 % (0.0-4.0); HEMATOCRIT 28.1 % (35.0-46.0); HEMOGLOBIN 9.3 GM/DL (11.6-15.3); LYMPH % 2.8 % (9.0-44.0); LYMPHOCYTE # 0.1 TH/MM3 (1.0-4.8); MEAN CELL VOLUME 75.6 FL (80.0-100.0); MEAN CORPUSCULAR HGB CONC 33.1 % (32.0-36.0); MEAN PLATELET VOLUME 8.6 FL (7.0-11.0); MONO % 1.8 % (0.0-8.0); MONOCYTE # 0.1 TH/MM3 (0-0.9); NEUT % 95.2 % (16.0-70.0); PLATELET COUNT 39 TH/MM3 (150-450); RED BLOOD COUNT 3.71 MIL/MM3 (4.00-5.30); RED CELL DISTRIBUTION WIDTH 26.2 % (11.6-17.2); WHITE BLOOD COUNT 4.4 TH/MM3 (4.0-11.0)
[2018-02-21 04:36] LABS: ALBUMIN 1.9 GM/DL (3.4-5.0); AST (GOT) 54 U/L (15-37); BICARBONATE 18.1 MEQ/L (21.0-32.0); BLOOD UREA NITROGEN 29 MG/DL (7-18); CALCIUM 7.5 MG/DL (8.5-10.1); CHLORIDE 116 MEQ/L (98-107); CREATININE 0.42 MG/DL (0.50-1.00); GLOMERULAR FILTRATION RATE 146 ML/MIN (>89); GLUCOSE,RANDOM 200 MG/DL (74-106); MAGNESIUM 2.5 MG/DL (1.5-2.5); SODIUM (NA) 145 MEQ/L (136-145)
[2018-02-21 04:37] LABS: ALT (GPT) 170 U/L (10-53)
[2018-02-21 04:39] LABS: ALKALINE PHOSPHATASE 151 U/L (45-117); PHOSPHORUS 2.3 MG/DL (2.5-4.9); TOTAL BILIRUBIN ADULT 0.8 MG/DL (0.2-1.0); TOTAL PROTEIN 4.2 GM/DL (6.4-8.2)
[2018-02-21] MEDS: AZTREONAM INJ 2,000 MG in SODIUM CHLORIDE 0.9% INJ 100 ML IV SCH ×3 (04:58→20:03)
[2018-02-21] MEDS: PANTOPRAZOLE SODIUM 40 MG VIAL IV PUSH SCH (04:58)
[2018-02-21] MEDS ORDERED: VANCOMYCIN INJ 1,250 MG in SODIUM CHLOR 0.9% 250 ML INJ 250 ML IV SCH (06:00)
[2018-02-21] MEDS: SODIUM CHLOR 0.9% IV SCH ×2 (06:47→17:50)
[2018-02-21] MEDS: VORICONAZOLE IV SCH ×2 (06:47→17:50)
[2018-02-21] MEDS: RESP: BUDESONIDE 0.5 MG/2 ML NEB NEB SCH ×2 (08:07→19:40)
--- NOTE | 2018-02-21 08:09 | PD.ONC.PN ---
Subjective Subjective Remarks Patient seen and examined, vital signs, labs, medications and events over the past 48 hours reviewed. The patient remains intubated, sedated, she now has multiple sputum cultures positive for fungal species; including candidal and aspergillus. She is on antifungals and antibacterials. Her respiratory status is not improved. She remains cytopenic with thrombocytopenia in particular. Over the weekend she was taken off Lovenox 40 mg subcu once daily due to a platelet count of 17,000. She was transfused 1 unit of platelets yesterday. Objective Data Date Time Temp Pulse Resp B/P (MAP) Pulse Ox O2 Delivery O2 Flow Rate FiO2 02/21/18 06:00 99.7 87 24 109/71 (84) 96 02/21/18 06:00 119 02/21/18 06:00 50 02/21/18 03:55 98 50 02/21/18 02:00 89 02/21/18 00:40 99 50 02/21/18 00:00 50 02/21/18 00:00 89 02/21/18 00:00 97.9 99 20 139/59 (85) 99 02/20/18 22:00 92 02/20/18 20:00 98.9 86 22 128/62 (84) 98 02/20/18 20:00 86 02/20/18 20:00 50 02/20/18 19:22 98 50 02/20/18 18:00 108 02/20/18 16:00 35 02/20/18 16:00 97.7 109 27 174/69 (104) 97 02/20/18 16:00 109 02/20/18 15:39 97 50 02/20/18 15:36 35 02/20/18 14:26 100 60 02/20/18 14:00 116 02/20/18 12:00 60 02/20/18 10:52 97.7 77 29 131/81 94 02/20/18 10:00 50 02/20/18 10:00 101 02/20/18 08:22 35 02/20/18 08:22 93 35 02/21/18 02/21/18 02/21/18 07:00 15:00 23:00 Intake Total 406 ml Output Total 450 ml Balance -44 ml Result Diagram: 02/21/18 0400 02/21/18 0400 Laboratory Results Laboratory Tests Test 02/20/18 15:13 02/20/18 15:55 02/21/18 04:00 Platelet Count 63 TH/MM3 39 TH/MM3 D-Dimer Quantitative (PE/DVT) 0.94 MG/L FEU White Blood Count 4.4 TH/MM3 Red Blood Count 3.71 MIL/MM3 Hemoglobin 9.3 GM/DL Hematocrit 28.1 % Mean Corpuscular Volume 75.6 FL Mean Corpuscular Hemoglobin 25.0 PG Mean Corpuscular Hemoglobin Concent 33.1 % Red Cell Distribution Width 26.2 % Mean Platelet Volume 8.6 FL Neutrophils (%) (Auto) 95.2 % Lymphocytes (%) (Auto) 2.8 % Monocytes (%) (Auto) 1.8 % Eosinophils (%) (Auto) 0.1 % Basophils (%) (Auto) 0.1 % Neutrophils # (Auto) 4.2 TH/MM3 Lymphocytes # (Auto) 0.1 TH/MM3 Monocytes # (Auto) 0.1 TH/MM3 Eosinophils # (Auto) 0.0 TH/MM3 Basophils # (Auto) 0.0 TH/MM3 CBC Comment AUTO DIFF Differential Comment AUTO DIFF CONFIRMED Blood Urea Nitrogen 29 MG/DL Creatinine 0.42 MG/DL Random Glucose 200 MG/DL Total Protein 4.2 GM/DL Albumin 1.9 GM/DL Calcium Level 7.5 MG/DL Phosphorus Level 2.3 MG/DL Magnesium Level 2.5 MG/DL Alkaline Phosphatase 151 U/L Aspartate Amino Transf (AST/SGOT) 54 U/L Alanine Aminotransferase (ALT/SGPT) 170 U/L Total Bilirubin 0.8 MG/DL Sodium Level 145 MEQ/L Potassium Level 4.0 MEQ/L Chloride Level 116 MEQ/L Carbon Dioxide Level 18.1 MEQ/L Anion Gap 11 MEQ/L Estimat Glomerular Filtration Rate 146 ML/MIN Imaging Studies Last 24 hours Impressions Chest X-Ray 02/21/18 0600 Signed Impressions: Service Date/Time: Wednesday, February 21, 2018 01:40 - CONCLUSION: 1. Stable appearance of the chest with bibasilar airspace disease and associated effusions, right worse than left. Possible right perihilar infiltrate, unchanged. 2. Stable position of life support tubes. Martin Padilla MD Administered Medications Medications (Trade) Dose Ordered Sig/Melissa Route PRN Reason Start Time Stop Time Status Last Admin Dose Admin Acetaminophen (Tylenol) 650 mg Q4H PRN PO TEMP > 100.4 02/12/18 22:30 02/15/18 13:07 Sennosides (Senokot) 17.2 mg Q12H PRN PO Moderate constipation 02/12/18 22:30 02/15/18 12:17 Bisacodyl (Dulcolax Supp) 10 mg DAILY PRN RECTAL SEVERE CONSITIPATION 02/12/18 22:30 02/16/18 05:15 Lactulose (Lactulose Liq) 30 ml DAILY PRN PO SEVERE CONSITIPATION 02/12/18 22:30 02/18/18 15:19 Heparin Sodium (Porcine) (Heparin Central Flush) 200 units DAILY IV FLUSH 02/13/18 09:00 02/16/18 07:57 Heparin Sodium (Porcine) (Heparin Central Flush) 200 units UNSCH PRN IV FLUSH SEE PROTOCOL TABLE 02/13/18 01:00 02/16/18 05:15 Budesonide (Pulmicort Respule Neb) 0.5 mg Q12HR NEB NEB 02/13/18 08:00 02/20/18 19:24 Montelukast Sodium (Singulair) 10 mg HS PO 02/13/18 21:00 02/20/18 20:54 Tiotropium [place] (Spiriva Inh) 18 mcg DAILY INH 02/13/18 09:00 02/14/18 09:54 Metoprolol Tartrate (Lopressor Inj) 5 mg Q5M PRN IV PUSH sustained HR > 110 02/13/18 02:15 02/18/18 18:49 Diltiazem HCl (Cardizem) 120 mg Q6HR PO 02/13/18 06:00 02/21/18 05:43 Pantoprazole Sodium (Protonix Inj) 40 mg Q24H IV PUSH 02/13/18 03:00 02/21/18 04:58 Methylprednisolone Sodium Succinate (SoluMEDROL INJ) 125 mg Q6HR IV PUSH 02/13/18 09:45 02/21/18 05:42 Albuterol/ Ipratropium (Duoneb Neb) 1 ampule Q2HR NEB PRN NEB WHEEZING 02/13/18 13:15 02/20/18 08:25 Insulin Aspart (NovoLOG SUPPLEMENTAL SCALE) 1 ACHS SLIDING SCALE SQ 02/13/18 17:00 02/20/18 20:53 Esmolol HCl/ Sodium Chloride 250 ml @ 22.56 mls/ hr TITRATE PRN IV Blood Pressure Management 02/13/18 15:00 02/17/18 07:06 Hydralazine HCl (Apresoline Inj) 20 mg Q4H PRN IV PUSH SBP>160, DBP>90 02/14/18 00:00 02/18/18 10:41 Labetalol HCl (Trandate Inj) 10 mg Q4H PRN IV PUSH SBP>160, DBP>90 02/14/18 00:00 02/16/18 02:52 Chlorhexidine Gluconate (Peridex 0.12% Liq) 15 ml BID@08,20 MT 02/14/18 20:00 02/20/18 08:35 Propofol 100 ml @ 2.256 mls/ hr TITRATE PRN IV SEDATION 02/14/18 11:45 02/21/18 03:26 Anticoagulant Citrate Dextose Joya A (Acd Formula Inj) 1,000 ml Q48H OTHER 02/14/18 21:00 02/22/18 21:01 02/14/18 22:49 Albumin Human 3,500 ml @ 250 mls/hr Q48H IV 02/14/18 21:00 02/23/18 10:59 02/18/18 20:48 Calcium Gluconate 3.5 gm/Sodium Chloride 235 ml @ 90 mls/hr Q48H IV 02/16/18 21:00 02/22/18 23:37 02/18/18 21:10 Diphenhydramine HCl (Benadryl) 25 mg Q4H PRN PO SEE LABEL COMMENTS 02/15/18 07:30 02/15/18 13:07 Aztreonam 2000 mg/ Sodium Chloride 100 ml @ 200 mls/hr Q8H IV 02/17/18 12:00 02/21/18 04:58 Voriconazole 300 mg/Sodium Chloride 250 ml @ 125 mls/hr Q12H IV 02/19/18 18:00 02/21/18 06:47 Enoxaparin Sodium (Lovenox Inj) 40 mg Q24H SQ 02/18/18 17:00 Future Hold 02/18/18 17:35 Potassium Phosphate 30 mmol/ Sodium Chloride 260 ml @ 42 mls/hr UNSCH PRN IV SEE LABEL COMMENTS 02/19/18 08:00 02/19/18 08:33 Metoprolol Tartrate (Lopressor) 50 mg BID PO 02/19/18 21:00 02/20/18 20:54 Bisacodyl (Dulcolax Supp) 10 mg DAILY RECTAL 02/20/18 09:00 02/20/18 08:42 Digoxin (Lanoxin Inj) 0.25 mg DAILY IV PUSH 02/20/18 09:00 02/20/18 08:39 Vancomycin HCl 1250 mg/Sodium Chloride 262.5 ml @ 250 mls/hr Q18H IV 02/21/18 06:00 02/21/18 05:42 Objective Remarks GENERAL: Elderly lady, critically ill-appearing, remains intubated, sedated and nonresponsive. Patient's nurses were in the room at the time I examined her this morning. SKIN: Multiple ecchymotic type lesions noted over the upper extremities and lower extremities, she has thin skin with peeling in various points. HEAD: Atraumatic. Normocephalic. No temporal or scalp tenderness. EYES: No scleral icterus. No injection or drainage. Pupils are sluggishly responsive. ENT: Nose without bleeding,no active bleeding noted. The patient has an ET tube and OG tube in place, there is dried blood on the right side of her lip. NECK: Trachea midline. No JVD or lymphadenopathy. Supple, nontender, no meningeal signs. CARDIOVASCULAR: Irregular, rate is better controlled, S1-S2 no obvious murmurs rubs gallops. RESPIRATORY: Intubated, good air movement of the upper and middle lung zones with decreased bibasilar breath sounds. GASTROINTESTINAL: Nondistended no palpable organ enlargement. Protuberant belly , soft, nontender MUSCULOSKELETAL: Generally decreased muscle mass, generally decreased motor strength. Atrophy. Neurologic: No spontaneous movements. Extremities: cool and dry to the touch. Cyanosis of the left foot on the dorsum and plantar surface. As well as of the left toes. Pulses: Faint/thready peripheral pulses on bilateral feet and in the radial pulses. Skin: Thin, extensive bruising, peeling and bruising noted. Assessment/Plan Problem List: (1) Myasthenia gravis ICD Codes: G70.00 - Myasthenia gravis without (acute) exacerbation Status: Chronic Plan: --consuled by neurology to initiate apheresis with albumin every other day 5 days. Hx/Workup: Patient has a history of myasthenia gravis dating back to the . She has been on various lines of treatment including Mestinon, corticosteroids and Imuran. For the past several years she has been on IVIG infusions every 3 weeks under the care of a neurologist in [place] prior to relocating to the [facility]. She received IVIG infusions for 5 days in a row last week at [facility], [place] and this did not improve her symptoms. The patient was being seen by a tele neurologist who recommended Rituxan infusion. She has been transferred to [facility] for continued care and management. Assessment 77-year-old female with respiratory failure, long-term use of steroids for management of myasthenia gravis. She was transferred to this facility due to worsening difficulty breathing, cough and worsening cytopenias. The hematology service was initially asked to see her to help coordinate plasma exchange treatments for a presumed myasthenia gravis exacerbation. The extent of her myasthenia gravis exacerbation is not clear however will we do know that she has a likely fungal pneumonia which is the likely cause of her respiratory failure. As a consequence of her fungal sepsis she has severe thrombocytopenia. Likely secondary to a peripheral consumptive coagulopathy. Plan 1. Severe sepsis with resultant DIC: Thrombocytopenia noted, she was transfused platelets yesterday with transient improvement. I anticipate her platelet counts improve as the DIC improves. 2. Myasthenia gravis: To help coordinate plasma exchange treatments with the initial indication for hematology consultation. She will remain on plasma exchange treatments as per the recommendations of our neurologist. Overall her prognosis is poor. Nursing staff explained that palliative care has been involved in the case. I think this is reasonable. Haile Zacarias MD Feb 21, 2018 08:09
[2018-02-21] MEDS: DIGOXIN 0.5 MG/2 ML VIAL IV PUSH SCH (08:20)
[2018-02-21] MEDS: TIOTROPIUM BROMIDE 18 MCG INH INH SCH (08:21)
[2018-02-21] MEDS: BISACODYL 10 MG SUPP RECTAL SCH (08:21)
[2018-02-21] MEDS: METOPROLOL TARTRATE 50 MG TAB PO SCH ×2 (08:21→20:03)
[2018-02-21] MEDS: INSULIN ASPART SUPPLEMENTAL SCALE SQ SCH ×4 (08:22→20:27)
[2018-02-21] MEDS: CHLORHEXIDINE 0.12% (ORAL KIT) 15 ML CUP MT SCH ×2 (08:22→20:03)
[2018-02-21] MEDS: PICC Daily Heparin 100 unit/mL Lock Flush IV FLUSH SCH (08:23)
--- NOTE | 2018-02-21 08:52 | HHI.CCPN ---
Subjective Remarks/Hospital Course This is a 77-year-old female that presented to [facility] on 01/27/2018 with complaints of dyspnea. 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 Her medical history is significant for chronic steroid therapy with prednisone and then subsequently placed on IVIG infusions every 3 weeks secondary to nonresponsiveness of steroid therapy. On 01 27 the patient was admitted to [facility] and treated for sepsis with broad- spectrum antibiotics, which have now been completed. Blood cultures have revealed Streptococcus viridans. The patient continued care at [place] seeing a telemetry neurologist and hematology oncology was consulted, Dr. Zacarias. It was recommended that the patient receive Rituxan and be evaluated formally by a neurologist. Patient was transferred to [facility]. The patient has a history of A. fib RVR, and home medications include metoprolol, digoxin, and Cardizem. These medications were stopped in the last 24 hours secondary to the patient experiencing dysphagia. Patient subsequently went into A. fib RVR early this a.m., heart rate 150's and transferred to ICU. Stat ABG was obtained. critical care medicine was consulted. SUBJ 02/14: Currently patient is quite tachypneic breathing about 40/min, even on BiPAP. Prior to BiPAP patient's NIF-16 and forced vital was 600 ml. Patient clearly failing BiPAP and this is most likely secondary to myasthenia gravis exacerbation. I proceeded to endotracheally intubate the patient placed on mechanical ventilation. Discussed with Dr. Olivarez area both of us agree on starting plasma exchange. Will discuss with hematology Dr. Zacarias 02/15: No events over the night. Due to progressive respiratory distress she was intubated yesterday. T-max of 98.7. I/O 1770/650. She remains on esmolol drip, still in A. fib/flutter on the monitor with heart rate better controlled. She sedated with propofol. 02/16: Patient did well over the night. Patient continues to require esmolol heart rate control, currently at 200, and propofol for sedation. 02/17: Yesterday evening, patient's left foot became more cyanotic. Dr. Conteh from vascular surgery was consulted, patient underwent CTA and IR to patient for left leg angio but no clot was seen. Patient had improved pulse post procedure. This a.m. patient has dopplerable pulse. No other overnight events. T-max of 98.2. Urine output decreased. 02/18: No events over the night. Left foot remains cyanotic with dopplerable pulse. Platelets remain low. Afebrile, with a T-max of 98.1. Documented urine output over the last 24 hours 250 cc. Of esmolol drip, receiving IV hydration. She remains sedated and intubated. 02/19: Patient remains intubated and sedated. Afebrile, with a T-max of 98. Improved urine output. A. fib on telemetry. No family present at bedside. 02/20: No events over the night. Patient remains intubated and sedated, though more awake, attempting to open eyes to voice stimuli. T-max of 98.7 and urine output of 800 cc over the last 24 hours. She remains on 0.3 FiO2. No family present at bedside. 02/21: Patient remains intubated and sedated. T-max of 98.9. Attempts to open her eyes but does not follow commands. On propofol at 30. Had a HIDA scan yesterday which was negative. Morning chest x-ray reviewed, still with bibasilar infiltrates, no significant change. ROS -unobtainable, patient is intubated Objective Vital Signs Date Time Temp Pulse Resp B/P (MAP) Pulse Ox O2 Delivery O2 Flow Rate FiO2 02/21/18 08:12 98 50 02/21/18 06:00 99.7 87 24 109/71 (84) 02/17/18 07:32 Ventilator Intake and Output 02/21/18 02/21/18 02/22/18 08:00 16:00 00:00 Intake Total 406 ml Output Total 450 ml Balance -44 ml Result Diagram: 02/21/1839902/21/18 040 Imaging Last 24 hours Impressions Chest X-Ray 02/21/18 0600 Signed Impressions: Service Date/Time: Wednesday, February 21, 2018 01:40 - CONCLUSION: 1. Stable appearance of the chest with bibasilar airspace disease and associated effusions, right worse than left. Possible right perihilar infiltrate, unchanged. 2. Stable position of life support tubes. Martin Padilla MD Last Impressions Chest X-Ray 02/19/18 0600 Signed Impressions: Service Date/Time: Monday, February 19, 2018 03:41 - CONCLUSION: Persistent bilateral lower lung opacities and pleural effusions. Wilbur Lowry MD Abdomen X-Ray 02/19/18 0000 Signed Impressions: Service Date/Time: Monday, February 19, 2018 16:26 - CONCLUSION: 1. No acute abnormalities. 2. Minimal bibasilar densities. Jose Ames MD Upper Extremity Ultrasound 02/18/18 0000 Signed Impressions: Service Date/Time: Sunday, February 18, 2018 14:21 - CONCLUSION: Normal examination. Perry Green MD Chest CT 02/17/18 1551 Signed Impressions: Service Date/Time: January 16:18 - CONCLUSION: Bilateral lower lobe consolidations right greater left. Small bilateral pleural effusions. No visible pneumothorax. ET tube is in good position.. Perry Green MD Gall Bladder Ultrasound 02/17/18 0000 Signed Impressions: Service Date/Time: January 13:09 - CONCLUSION: 1. Gallbladder wall thickening and pericholecystic fluid suggesting possible acute cholecystitis. Clinical correlation is recommended. A hepatobiliary scan may be helpful to confirm cystic duct obstruction if clinically indicated. 2. Echogenic focus within the gallbladder suggestive of non-shadowing calculus or small polyp. 3. Mild hepatomegaly. 4. Minimal perinephric fluid on the right. Hira Arora MD Lower Extremity Angiography 02/16/18 0000 Signed Impressions: Service Date/Time: Friday, February 16, 2018 21:33 - CONCLUSION: 1. Very sluggish outflow. Findings could be due to poor cardiac output. Emboli to the small, intrinsic vessels of the foot could have a similar appearance. 2. Otherwise, inflow and outflow are widely patent with three-vessel runoff. Martin Padilla MD Arterial Ultrasound 02/16/18 0000 Signed Impressions: Service Date/Time: Friday, February 16, 2018 16:30 - CONCLUSION: 1. Inflow appeared to be adequate bilaterally despite scattered atherosclerotic calcification. 2. Three-vessel runoff on the right. 3. On the left, the dorsalis pedis artery appears to be quite diminutive with limited flow. Anterior tibial and peroneal are patent, however. Martin Padilla MD Aorta w/Runoff CTA 02/16/18 0000 Signed Impressions: Service Date/Time: Friday, February 16, 2018 19:36 - CONCLUSION: 1. Inflow appears to be patent down to the above-knee popliteal bilaterally. 2. On the right, the entire popliteal is patent with the dominant runoff via the posterior tibial. 3. On the left, minimal contrast below the knee joint on both the initial and delayed images. This may represent a combination of poor cardiac output and nonocclusive thrombus in the popliteal region. Again, please the dominant runoff is via the posterior tibial. 4. Bibasilar areas of consolidation/atelectasis with small associated effusions. Cannot exclude a developing infiltrate, especially on the right. 5. Abnormal appearance of the gallbladder with either marked gallbladder wall thickening or pericholecystic fluid. The fluid appears to track down the right paracolic gutter in the pelvis. Gallbladder ultrasound could be performed for further characterization. 6. Diverticular disease of the sigmoid without diverticulitis. Martin Padilla MD Lower Extremity Ultrasound 02/13/18 0000 Signed Impressions: Service Date/Time: Tuesday, February 13, 2018 16:19 - CONCLUSION: No DVT or superficial venous thrombosis is identified within either lower extremity. John Laureano MD Objective Remarks General - elderly lady, intubated, sedated, ill-appearing HEENT - pupils equal, reactive, sclera anicteric, neck supple, no JVD, + ETT, + NGT, right IJ HD catheter -site is clean CV - irregularly irregular S1, S2, no murmurs appreciated, tachycardic Chest - still with scattered coarse breath sounds bilateral bases, no wheezes Abdomen - soft, non-tender, not distended, BS present Skin - unchanged, multiple ecchymotic bruises bilateral arms and skin tears covered with dressing, bruises present over the abdomen Extremities - both feet are warm to touch, cyanosis over the left foot is significantly improved, 1+ edema, dopplerable pulse on the left and palpable on the right Neuro - intubated, sedated, opens eyes to voice stimuli, grimaces to pain A/P Problem List: (1) Pneumonia ICD Code: J18.9 - Pneumonia, unspecified organism Status: Acute (2) COPD (chronic obstructive pulmonary disease) ICD Code: J44.9 - Chronic obstructive pulmonary disease, unspecified Status: Chronic (3) Myasthenia gravis ICD Code: G70.00 - Myasthenia gravis without (acute) exacerbation Status: Chronic (4) Current chronic use of systemic steroids ICD Code: Z79.52 - terminal carman (current) use of systemic steroids (5) Anemia ICD Code: D64.9 - Anemia, unspecified Assessment and Plan 1. Myasthenia gravis, with acute exacerbation, completed 1 cycle of plasmapheresis 2. Acute respiratory failure secondary to above, on minimal O2 requirements, tolerated CPAP for 2 hours yesterday 3. Vascular occlusive disease with cyanosis of left foot -significantly improved 4. Acute encephalopathy 5. A. fib with RVR, remains in A. fib but rate better controlled -she remains off Esmolol drip 6. Possible pneumonia -completed treatment at the outside hospital. Now patient growing Aspergillus in the sputum 7. History of CHF 8. Hypernatremia -resolved 9. Acute anemia, received 1 unit PRBC transfusion, now improved, count stable 10. Thrombocytopenia -platelet count remains low, received platelet transfusion on Wednesday, HIT negative 11. Elevated liver enzymes and possible acute cholecystitis -AST and ALT continue to improve, HIDA scan negative 1. Attempt CPAP trial again today 2. Vent bundle and bronchodilators. Hold home medication Singulair and Spiriva 3. Continue voriconazole due to immunosuppression. Appreciate ID assistance. Continue to monitor liver enzymes 4. Additional antifungal workup is pending. No role for bronchoscopy at this time due to severe thrombocytopenia and microorganism being isolated in 2 different sputum cultures 5. Continue methylprednisolone 125 mg 4 times daily per neurology. She received IVIG therapy for the last [address] [facility]. 6. Continue digoxin and Cardizem will try to taper off beta-elana as tolerated in the setting of myasthenia crisis 7. On aztreonam and Vanco. Levofloxacin was stopped 8. Platelet transfusion per hematology. Restarted on Lovenox 9. Trickle feeds due to high residuals 10. GI prophylaxis with PPI 11. Plasmapheresis per neuro and hematology No family present at bedside. Darin Douglass MD Feb 21, 2018 08:52
[2018-02-21 09:10] LABS: INTERNATIONAL NORMALIZED RATIO 1.2 RATIO; PROTHROMBIN TIME - PATIENT 12.6 SEC (9.8-11.6)
[2018-02-21] MEDS ORDERED: CALCIUM GLUCONATE INJ 4 GM in SODIUM CHLOR 0.9% 250 ML INJ 200 ML IV ONE (10:00)
[2018-02-21] MEDS ORDERED: ALBUMIN 5% IV ONE (11:00)
[2018-02-21] MEDS ORDERED: ALTEPLASE RECOMBINANT 2 MG VIAL INTRACATH ONE (11:15)
--- NOTE | 2018-02-21 12:08 | HHI.GIFU ---
Subjective Remarks Pt intubated. Plasmapheresis pending. Family reportedly coming soon. + BM. (Marissa Arriaga) Objective Vitals I&O Vital Signs Date Time Temp Pulse Resp B/P (MAP) Pulse Ox O2 Delivery O2 Flow Rate FiO2 02/21/18 10:00 88 02/21/18 08:15 50 02/21/18 08:12 98 50 02/21/18 08:12 50 02/21/18 08:00 98.1 93 20 125/62 (83) 99 02/21/18 08:00 93 02/21/18 07:00 50 02/21/18 06:00 99.7 87 24 109/71 (84) 96 02/21/18 06:00 119 02/21/18 06:00 50 02/21/18 03:55 98 50 02/21/18 02:00 89 02/21/18 00:40 99 50 02/21/18 00:00 50 02/21/18 00:00 89 02/21/18 00:00 97.9 99 20 139/59 (85) 99 02/20/18 22:00 92 02/20/18 20:00 98.9 86 22 128/62 (84) 98 02/20/18 20:00 86 02/20/18 20:00 50 02/20/18 19:22 98 50 02/20/18 18:00 108 02/20/18 16:00 35 02/20/18 16:00 97.7 109 27 174/69 (104) 97 02/20/18 16:00 109 02/20/18 15:39 97 50 02/20/18 15:36 35 02/20/18 14:26 100 60 02/20/18 14:00 116 02/20/18 12:00 60 I/O 02/20/18 02/20/18 02/20/18 02/21/18 02/21/18 02/21/18 07:00 15:00 23:00 07:00 15:00 23:00 Intake Total 527 ml 584 ml 315 ml 706 ml Output Total 350 ml 525 ml 450 ml Balance 177 ml 584 ml -210 ml 256 ml IV Total 452 ml 336 ml 35 ml 591 ml Tube Feeding 75 ml 40 ml 115 ml Platelets 233 ml Blood Product IV Normal Saline Flush 15 ml Other 240 ml Output Urine Total 350 ml 525 ml 450 ml # Voids 4 # Bowel Movements 0 1 Laboratory Laboratory Tests Test 02/20/18 15:13 02/20/18 15:55 02/21/18 04:00 02/21/18 08:35 Platelet Count 63 39 D-Dimer Quantitative (PE/DVT) 0.94 White Blood Count 4.4 Red Blood Count 3.71 Hemoglobin 9.3 Hematocrit 28.1 Mean Corpuscular Volume 75.6 Mean Corpuscular Hemoglobin 25.0 Mean Corpuscular Hemoglobin Concent 33.1 Red Cell Distribution Width 26.2 Mean Platelet Volume 8.6 Neutrophils (%) (Auto) 95.2 Lymphocytes (%) (Auto) 2.8 Monocytes (%) (Auto) 1.8 Eosinophils (%) (Auto) 0.1 Basophils (%) (Auto) 0.1 Neutrophils # (Auto) 4.2 Lymphocytes # (Auto) 0.1 Monocytes # (Auto) 0.1 Eosinophils # (Auto) 0.0 Basophils # (Auto) 0.0 CBC Comment AUTO DIFF Differential Comment AUTO DIFF CONFIRMED Blood Urea Nitrogen 29 Creatinine 0.42 Random Glucose 200 Total Protein 4.2 Albumin 1.9 Calcium Level 7.5 Phosphorus Level 2.3 Magnesium Level 2.5 Alkaline Phosphatase 151 Aspartate Amino Transf (AST/SGOT) 54 Alanine Aminotransferase (ALT/SGPT) 170 Total Bilirubin 0.8 Sodium Level 145 Potassium Level 4.0 Chloride Level 116 Carbon Dioxide Level 18.1 Anion Gap 11 Estimat Glomerular Filtration Rate 146 Prothrombin Time 12.6 Prothromb Time International Ratio 1.2 Activated Partial Thromboplast Time 27.2 Fibrinogen 309 Date/Time Source Procedure Growth Status 02/17/18 14:04 Blood Peripheral Blood Fungal Culture Pending Received 02/17/18 14:04 Blood Peripheral Blood Fungal Culture Pending Received 02/17/18 18:30 Sputum Endotracheal Gram Stain - Final Complete 02/17/18 18:30 Sputum Culture - Final Aspergillus Fumigatus Complete 02/17/18 18:30 Urine Catheterized Urine Urine Culture - Final Clemencia Albicans Complete Imaging Last Impressions Chest X-Ray 02/21/18 0600 Signed Impressions: Service Date/Time: Wednesday, February 21, 2018 01:40 - CONCLUSION: 1. Stable appearance of the chest with bibasilar airspace disease and associated effusions, right worse than left. Possible right perihilar infiltrate, unchanged. 2. Stable position of life support tubes. Martin Padilla MD Hepatobiliary Scan Nuclear Medicine 02/20/18 Signed Impressions: Service Date/Time: Tuesday, February 20, 2018 11:41 - CONCLUSION: No sign of obstruction. John Castro MD Abdomen X-Ray 02/19/18 Signed Impressions: Service Date/Time: Monday, February 19, 2018 16:26 - CONCLUSION: 1. No acute abnormalities. 2. Minimal bibasilar densities. Jose Ames MD Upper Extremity Ultrasound 02/18/18 Signed Impressions: Service Date/Time: Sunday, February 18, 2018 14:21 - CONCLUSION: Normal examination. Perry Green MD Chest CT 02/17/18 1551 Signed Impressions: Service Date/Time: January 16:18 - CONCLUSION: Bilateral lower lobe consolidations right greater left. Small bilateral pleural effusions. No visible pneumothorax. ET tube is in good position.. Perry Green MD Gall Bladder Ultrasound 02/17/18 Signed Impressions: Service Date/Time: January 13:09 - CONCLUSION: 1. Gallbladder wall thickening and pericholecystic fluid suggesting possible acute cholecystitis. Clinical correlation is recommended. A hepatobiliary scan may be helpful to confirm cystic duct obstruction if clinically indicated. 2. Echogenic focus within the gallbladder suggestive of non-shadowing calculus or small polyp. 3. Mild hepatomegaly. 4. Minimal perinephric fluid on the right. Hira Arora MD Lower Extremity Angiography 02/16/18 Signed Impressions: Service Date/Time: Friday, February 16, 2018 21:33 - CONCLUSION: 1. Very sluggish outflow. Findings could be due to poor cardiac output. Emboli to the small, intrinsic vessels of the foot could have a similar appearance. 2. Otherwise, inflow and outflow are widely patent with three-vessel runoff. Martin Padilla MD Arterial Ultrasound 02/16/18 Signed Impressions: Service Date/Time: Friday, February 16, 2018 16:30 - CONCLUSION: 1. Inflow appeared to be adequate bilaterally despite scattered atherosclerotic calcification. 2. Three-vessel runoff on the right. 3. On the left, the dorsalis pedis artery appears to be quite diminutive with limited flow. Anterior tibial and peroneal are patent, however. Martin Padilla MD Aorta w/Runoff CTA 02/16/18 0000 Signed Impressions: Service Date/Time: Friday, February 16, 2018 19:36 - CONCLUSION: 1. Inflow appears to be patent down to the above-knee popliteal bilaterally. 2. On the right, the entire popliteal is patent with the dominant runoff via the posterior tibial. 3. On the left, minimal contrast below the knee joint on both the initial and delayed images. This may represent a combination of poor cardiac output and nonocclusive thrombus in the popliteal region. Again, please the dominant runoff is via the posterior tibial. 4. Bibasilar areas of consolidation/atelectasis with small associated effusions. Cannot exclude a developing infiltrate, especially on the right. 5. Abnormal appearance of the gallbladder with either marked gallbladder wall thickening or pericholecystic fluid. The fluid appears to track down the right paracolic gutter in the pelvis. Gallbladder ultrasound could be performed for further characterization. 6. Diverticular disease of the sigmoid without diverticulitis. Martin Padilla MD Lower Extremity Ultrasound 02/13/18 0000 Signed Impressions: Service Date/Time: Tuesday, February 13, 2018 16:19 - CONCLUSION: No DVT or superficial venous thrombosis is identified within either lower extremity. John Laureano MD Physical Exam HEENT: normocephalic; atraumatic; no jaundice.intubated CHEST: coarse CARDIAC: irr HR ABDOMEN: Soft, mild distention,BS + EXTREMITIES: left foot dusky SKIN: no rash; no jaundice. pale SKI BASE [employer]MER: sedated on vent (Marissa Arriaga) Assessment and Plan Plan ASSESSMENT - elevated LFTs - acute elevation 02/16/18 DILI vs shock liver vs gallbladder. have decreased some since yesterday. US showing poss acute cholecystitis and suggests HIDA. doubt she would be a surgical candidate at this time - anemia - microcytic likely multifactorial. 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 liver w/u pending. hep panel neg. ?gallbladder etiology. per DR Conteh pt is not candidate for any aggressive interventions. 02/19/2018 patient continues on ventilator not weaning yet. Abdomen is mildly tympanic but no facial grimace and shakes head no to abdominal pain. No bowel movement noted on I/O sheet and per nurse 02/13/2018 , at least 6 days, KUB unremarkable that was just done. This could be from limited activity and immobility, versus medications . LFTs trending down AST 52 ALT 279, hepatitis panel negative, AFP 3.4, ceruloplasmin pending, MATHIEU negative, anti-smooth muscle antibody negative, noted positive mycoplasma pneumoniae IgG 02/20/18 LFTs trending down. ?shock liver. going for HIDA, will rule out gallbladder etiology. liver w/u so far unremarkable 02/21/18 HIDA normal. LFTs trending down. shock liver vs DILI. hem/onc following, going for plasmapheresis. pallliative care consulted. PLAN - AMA pending - await palliative care consult - supportive care pt seen by myself and Dr Saba and this note is on his behalf (Marissa Arriaga) Plan Patient was seen and examined, agree with above note, liver function are improving, AMA still pending but most likely going to be negative, palliative consult is pending, we will follow-up as needed please call us back worsening liver function test or any other GI issues need to be addressed (Chen Saba MD) Marissa Arriaga Feb 21, 2018 12:08 Chen Saba MD Feb 21, 2018 14:12
--- NOTE | 2018-02-21 12:24 | HHI.IDPN ---
Subjective Subjective Remarks Ms. Vasquez is 77 y/o CF with PMHx significant for Myasthenia gravis dating back to . She has been on Mestinon since which were reportedly not effective according to family. Patient was subsequently placed on steroids for many years. Recently patient got placed on Imuran. Patient developed an allergic reaction to Imuran and therefore had to be discontinued after 2 doses. Patient has also received over the last several years several infusions of IVIG every 3 weeks under the care of her neurologist in [place]. Patient was initially admitted at [facility] and was reportedly being followed by telemetry neurologist who evaluated the patient via Internet connection with video connection to assist with patient's myasthenia gravis. The recommendation was for patient to receive rituximab therapy for management of myasthenia gravis. Hematology Dr.Zafar Zacarias was consulted. Patient was hospitalized on January 27, 2018 with complaints of difficulty breathing, cough and chills. She was treated for sepsis in the ICU unit and was on a BiPAP machine. She had blood cultures drawn during that hospitalization which were positive for strep viridans and patient was started on broad-spectrum antibiotics. Patient was thought to have a myasthenia exacerbation and was started on high-dose corticosteroids. She also received IV IgG last weeks approximately 5 sessions. Her symptoms reportedly did not improve and therefore the telemetry neurologist to was consulted recommended Rituxan infusions. Dr. Haile Zacarias was consulted and recommended transfer to [facility] for formal evaluation by a neurologist for appropriate management of myasthenia gravis. The patient was therefore transferred to [facility] in [place]. Patient was initially placed on BiPAP for tachycardia and respiratory difficulty and thereafter was evaluated by critical care and intubated placed on ventilator. Patient had further infectious disease workup including a sputum culture this time. This culture is positive for mold and infectious diseases consulted due to concern for Aspergillus pneumonia and immune compromised patient. 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 Overnight events reviewed. No fevers No rash No diarrhea Remains intubated. Did not wake up for me. Platelets low. Undergoing plasmapheresis. Not a candidate for Bronch in view of low platelets. 2nd sputum Cx grew Mold as well. On Empiric voriconazole. Palliative care consulted. Antibiotics voriconazole azactam vanco micafungin Past Medical History miastenia gravis Allergies: Coded Allergies: azathioprine (Verified Allergy, Severe, 02/12/18) Painful rash all over face and body cephalexin (Verified Allergy, Severe, Rash, 02/12/18) rash all over face and chest Objective . Vital Signs Date Time Temp Pulse Resp B/P (MAP) Pulse Ox O2 Delivery O2 Flow Rate FiO2 02/21/18 12:19 97 50 02/21/18 10:00 88 02/21/18 08:15 50 02/21/18 08:12 98 50 02/21/18 08:12 50 02/21/18 08:00 98.1 93 20 125/62 (83) 99 02/21/18 08:00 93 02/21/18 07:00 50 02/21/18 06:00 99.7 87 24 109/71 (84) 96 02/21/18 06:00 119 02/21/18 06:00 50 02/21/18 03:55 98 50 02/21/18 02:00 89 02/21/18 00:40 99 50 02/21/18 00:00 50 02/21/18 00:00 89 02/21/18 00:00 97.9 99 20 139/59 (85) 99 02/20/18 22:00 92 02/20/18 20:00 98.9 86 22 128/62 (84) 98 02/20/18 20:00 86 02/20/18 20:00 50 02/20/18 19:22 98 50 02/20/18 18:00 108 02/20/18 16:00 35 02/20/18 16:00 97.7 109 27 174/69 (104) 97 02/20/18 16:00 109 02/20/18 15:39 97 50 02/20/18 15:36 35 02/20/18 14:26 100 60 02/20/18 14:00 116 . Laboratory Tests Test 02/20/18 04:15 02/20/18 15:13 02/21/18 04:00 White Blood Count 6.3 TH/MM3 4.4 TH/MM3 Red Blood Count 3.76 MIL/MM3 3.71 MIL/MM3 Hemoglobin 9.3 GM/DL 9.3 GM/DL Hematocrit 28.6 % 28.1 % Mean Corpuscular Volume 76.1 FL 75.6 FL Mean Corpuscular Hemoglobin 24.9 PG 25.0 PG Mean Corpuscular Hemoglobin Concent 32.7 % 33.1 % Red Cell Distribution Width 26.0 % 26.2 % Platelet Count 17 TH/MM3 63 TH/MM3 39 TH/MM3 Mean Platelet Volume 10.4 FL 8.6 FL Neutrophils (%) (Auto) 95.7 % 95.2 % Lymphocytes (%) (Auto) 1.4 % 2.8 % Monocytes (%) (Auto) 2.1 % 1.8 % Eosinophils (%) (Auto) 0.7 % 0.1 % Basophils (%) (Auto) 0.1 % 0.1 % Neutrophils # (Auto) 6.1 TH/MM3 4.2 TH/MM3 Lymphocytes # (Auto) 0.1 TH/MM3 0.1 TH/MM3 Monocytes # (Auto) 0.1 TH/MM3 0.1 TH/MM3 Eosinophils # (Auto) 0.0 TH/MM3 0.0 TH/MM3 Basophils # (Auto) 0.0 TH/MM3 0.0 TH/MM3 CBC Comment AUTO DIFF AUTO DIFF Differential Comment AUTO DIFF CONFIRMED AUTO DIFF CONFIRMED Platelet Estimate LOW Platelet Morphology Comment ENLARGED Ovalocytes 1+ Haptoglobin 134 MG/DL Laboratory Tests Test 02/19/18 22:45 02/20/18 04:15 02/21/18 04:00 Potassium Level 3.8 MEQ/L 4.1 MEQ/L 4.0 MEQ/L Phosphorus Level 2.8 MG/DL 2.9 MG/DL 2.3 MG/DL Blood Urea Nitrogen 28 MG/DL 29 MG/DL Creatinine 0.48 MG/DL 0.42 MG/DL Random Glucose 211 MG/DL 200 MG/DL Total Protein 4.1 GM/DL 4.2 GM/DL Albumin 2.0 GM/DL 1.9 GM/DL Calcium Level 7.5 MG/DL 7.5 MG/DL Magnesium Level 2.4 MG/DL 2.5 MG/DL Alkaline Phosphatase 152 U/L 151 U/L Aspartate Amino Transf (AST/SGOT) 56 U/L 54 U/L Alanine Aminotransferase (ALT/SGPT) 222 U/L 170 U/L Lactate Dehydrogenase 360 U/L Total Bilirubin 1.0 MG/DL 0.8 MG/DL Sodium Level 143 MEQ/L 145 MEQ/L Chloride Level 114 MEQ/L 116 MEQ/L Carbon Dioxide Level 18.1 MEQ/L 18.1 MEQ/L Anion Gap 11 MEQ/L 11 MEQ/L Estimat Glomerular Filtration Rate 125 ML/MIN 146 ML/MIN Imaging Last Impressions Chest X-Ray 02/19/18 0600 Signed Impressions: Service Date/Time: Monday, February 19, 2018 03:41 - CONCLUSION: Persistent bilateral lower lung opacities and pleural effusions. Wilbur Lowry MD Abdomen X-Ray 02/19/18 0000 Signed Impressions: Service Date/Time: Monday, February 19, 2018 16:26 - CONCLUSION: 1. No acute abnormalities. 2. Minimal bibasilar densities. Jose Ames MD Upper Extremity Ultrasound 02/18/18 0000 Signed Impressions: Service Date/Time: Sunday, February 18, 2018 14:21 - CONCLUSION: Normal examination. Perry Green MD Chest CT 02/17/18 1551 Signed Impressions: Service Date/Time: January 16:18 - CONCLUSION: Bilateral lower lobe consolidations right greater left. Small bilateral pleural effusions. No visible pneumothorax. ET tube is in good position.. Perry Green MD Gall Bladder Ultrasound 02/17/18 0000 Signed Impressions: Service Date/Time: January 13:09 - CONCLUSION: 1. Gallbladder wall thickening and pericholecystic fluid suggesting possible acute cholecystitis. Clinical correlation is recommended. A hepatobiliary scan may be helpful to confirm cystic duct obstruction if clinically indicated. 2. Echogenic focus within the gallbladder suggestive of non-shadowing calculus or small polyp. 3. Mild hepatomegaly. 4. Minimal perinephric fluid on the right. Hira Arora MD Lower Extremity Angiography 02/16/18 0000 Signed Impressions: Service Date/Time: Friday, February 16, 2018 21:33 - CONCLUSION: 1. Very sluggish outflow. Findings could be due to poor cardiac output. Emboli to the small, intrinsic vessels of the foot could have a similar appearance. 2. Otherwise, inflow and outflow are widely patent with three-vessel runoff. Martin Padilla MD Arterial Ultrasound 02/16/18 0000 Signed Impressions: Service Date/Time: Friday, February 16, 2018 16:30 - CONCLUSION: 1. Inflow appeared to be adequate bilaterally despite scattered atherosclerotic calcification. 2. Three-vessel runoff on the right. 3. On the left, the dorsalis pedis artery appears to be quite diminutive with limited flow. Anterior tibial and peroneal are patent, however. Martin Padilla MD Aorta w/Runoff CTA 02/16/18 0000 Signed Impressions: Service Date/Time: Friday, February 16, 2018 19:36 - CONCLUSION: 1. Inflow appears to be patent down to the above-knee popliteal bilaterally. 2. On the right, the entire popliteal is patent with the dominant runoff via the posterior tibial. 3. On the left, minimal contrast below the knee joint on both the initial and delayed images. This may represent a combination of poor cardiac output and nonocclusive thrombus in the popliteal region. Again, please the dominant runoff is via the posterior tibial. 4. Bibasilar areas of consolidation/atelectasis with small associated effusions. Cannot exclude a developing infiltrate, especially on the right. 5. Abnormal appearance of the gallbladder with either marked gallbladder wall thickening or pericholecystic fluid. The fluid appears to track down the right paracolic gutter in the pelvis. Gallbladder ultrasound could be performed for further characterization. 6. Diverticular disease of the sigmoid without diverticulitis. Martin Padilla MD Lower Extremity Ultrasound 02/13/18 0000 Signed Impressions: Service Date/Time: Tuesday, February 13, 2018 16:19 - CONCLUSION: No DVT or superficial venous thrombosis is identified within either lower extremity. John Laureano MD Physical Exam GENERAL: Obese., well-developed patient, in no apparent distress. SKIN: Multiple areas of ecchymosis and bruising noted. HEAD: Atraumatic. Normocephalic. No temporal or scalp tenderness. EYES: Pupils equal round and reactive. Extraocular motions intact. No scleral icterus. No injection or drainage. ENT: Intubated. NECK: Trachea midline. Supple, nontender, no meningeal signs. CARDIOVASCULAR: Heart sounds audible. RESPIRATORY: Clear to auscultation. Breath sounds equal bilaterally. No wheezes , rales, or rhonchi. GASTROINTESTINAL: Abdomen soft, NT. Bruising on abdominal wall skin. MUSCULOSKELETAL: Left lower extremity with bluish discoloration cold and clammy. NEUROLOGICAL: Opens eyes spontaneously. Tracks. Did not follow any commands Psych could not be assessed IV line sites with no evidence of infection. Central line in right IJ site with no evidence of infection. Laboratory Assessment & Plan Remarks Pneumonia. Possible healthcare associated pneumonia versus aspergillus or both. No documented history of aspiration. ? Aspergillosis Mold in the sputum: Given history of patient's immune compromised status workup further to decide if treatment needed was planned, but bronch cancelled 2 /2 low plts C.albicans in urine ? colonization. Left foot ischemia: CTA reveals obstruction of the flow at the level of trifurcation so my suspicions that this clot is sitting into the trifurcation and distal popliteal artery s/p TPA lysis. Abnormal LFTs: Abnormal GB pericholecystic fluid. Myasthenia gravis on Imuran and steroids Immune compromised host Prior history of COPD exacerbation Prior history of myasthenia gravis exacerbations History of strep viridans bacteremia Leukocytosis and absence of fevers:? Related to steroids also note patient immunocompromised. Thrombocytopenia Cephalexin allergy: rash Acute cholecystitis per US Recs: cont Azactam IV (Allergy rash to Cephalexin). Follow LFT trend. DC Vanco IV repeat sputum and other cx with no MRSA. Cont voriconazole follow LFTs HIDA scan negative, GI following. Hemonc following for low platelets. Await Palliative care input: re: goals of therapy. Radha Leong RN, MD Feb 21, 2018 12:24
--- NOTE | 2018-02-21 14:14 | PD.CONS ---
Consult Service Palliative Care Consult Requested By Dr Douglass. Primary Care Physician Unknown Reason for Consultation a. To assist with evaluation and management of symptoms including: Dyspnea, weakness b. To assist medical decision maker(s) with: better understanding of current medical conditions; weighing benefits/burdens of medical treatment options; making medical treatment decisions. HPI History of Present Illness This 77-year-old patient was admitted to [facility] 02/12/18, as a transfer from [facility]. She had been hospitalized there since 01/27/[address] Zacarias following patient there recommended treatment with Rituxan, which she was unable to obtain there, thus was transferred to [facility]. She has known history of myasthenia gravis, CHF, atrial fibrillation, SVT, asthma, GERD, osteoporosis with compression fracture T5 through T8, and recent strep viridans bacteremia. Upon initial arrival she was reporting progressive worsening symptoms of myasthenia gravis. She denied fever chills. Talking was limited due to shortness of breath. * Neurology was consulted to assist with management of myasthenia gravis. Medical oncology also consulted to continue with recommended treatments. Status post ST evaluation, did not tolerate, n.p.o. maintained. PT and ST consulted. CXR noted without acute process. Patient recently underwent treatment at [facility] with aztreonam, doxycycline. * Neurology: Patient with long history myasthenia gravis. Possible she may have received IVIG [facility]. Will need to review additional records. Awaiting oncology's evaluations. * Oncology: Dr. Zacarias evaluated; he notes patient originally seen by him 02/12 at [facility]. Patient with myasthenia gravis dating back to she has been on various lines of treatment which had been stopped due to being ineffective. Patient had been on corticosteroids with prednisone for many years , then initiated on Imuran, she had an allergic reaction of that. For the past few year she has been on IVIG infusions every 3 weeks under a neurologist in [place]. She relocated to [place] however has been in the hospital during most of her time there. She initially presented with complaints of difficulty breathing, cough and chills. She was treated for sepsis requiring ICU course, BiPAP. Blood cultures are positive Streptococcus viridans, she had been undergoing treatment with broad-spectrum antibiotics. assessed to be a myasthenia gravis exacerbation and was initiated on high-dose corticosteroids and also received IVIG infusions for 5 days in a row the week before transfer here. Symptoms did not improve and a "tele" neurologist was consulted who recommended Rituxan, thus Dr. Zacarias was consulted. He recommended transfer for formal neurology evaluation for further management. Upon transfer here oncology notes to his exam patient appears quite frail with difficulty talking and swallowing extremely weak and feels she requires treatment other than rituximab to manage short-term requests and other issues related to myasthenia gravis. He notes usually asked to provide plasma exchange therapy for immediate relief in the circumstances. Upon transfer to [place] she developed some difficulty breathing and tachycardia requiring ICU and BiPAP. Awaiting additional recommendations per neurology however may assist with arranging plasma exchange therapy if indicated. Will also help arrange rituximab if reasonable therapy per neurology. * Patient in the ICU noted to have A. fib RVR. Treated with esmolol. Acute respiratory insufficiency secondary to myasthenia gravis. On BiPAP in the ICU. Repeat blood cultures. * 2D echo: Left ventricular systolic function normal with EF 55-60%. * 02/14 wound care following for multiple bullous areas to upper and lower extremities. Patient with a few partial thickness wounds to lower extremity, buttocks. * 02/14 started on plasma exchange therapy. Intubated secondary to worsened respiratory status, hypoxia. Acute anemia no clear source, transfuse 2 units RBC, + cryo * 02/16 CV surgery consulted for reported cold left foot. Vascular surgery notes patient with vascular occlusive disease probably an acute embolus in the face of hematologic abnormalities including exacerbation of myasthenia gravis with, atrial fibrillation, and she had not been able to be continued on anticoagulation. CTA done hard to tell where the clot is but believes it is sitting over trifurcation. Will attempt thromboembolectomy; discuss with interventional radiology TPA lysis catheter. If TPA not effective can consider embolectomy.patient underwent CTA and IR to patient for left leg angio but no clot was seen. Patient had improved pulse post procedure. * 02/17 GI consulted for worsening LFTs, and ultrasound suggestive of possible cholecystitis. Due to clinical condition patient not likely to be able to undergo MRCP or HIDA scan. Monitor LFTs. Recommend surgery consultation. May require cholecystostomy tube. Bilirubin returning to normal probably not biliary obstruction. Thrombocytopenic, HIT panel pending. * ID consulted/following--- sputum culture positive for Aspergillus , plan for bronchoscopy however this was canceled due to low platelets. Started on voriconazole. CT chest ordered without IV contrast. Patient continued on Azactam, Vanco * 02/21 remains intubated and sedated. On propofol. HIDA scan completed - negative. LFTs downtrending. CXR with bibasilar infiltrates. Plan for CPAP trials, tolerated 2 hours yesterday. Platelet transfusions per hematology. Patient seen in room no visitors present. She is lightly sedated on mechanical vent. She does open eyes to verbal and touch. She nods very slightly, very weakly to some yes and no questions. She does not move to commands. She does not move to pain though appears to localize. Discussed with critical care, primary nurse. Following exam call to patient daughter Lizz spoke with her at length on the phone about 35 minutes. She details patient just moved up to this area the first week of January. She actually signed out of the hospital AM in [facility] to complete the move up here assuring them that she would present back to the hospital up here, which she did at [facility] in [facility]. 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 She managed all his meds , he was unable to continue paying the bills, unable to assist with managing the household about a year or so ago. She helped him up with his frequent falls. She did all the driving. Daughter reports patient Jordi has good long -term recall and can function with some assistance day today, but has very poor short-term memory and cannot remember what they talked about from one day to the next. He understands that his is in the hospital and that she is currently stable but may not fully process all the details. Lizz indicates he is designated as medical decision maker on patient living will , and that she is designated as next if he is unable. Function/Cognitive Trajectory Previously lived [facility] an [facility] setting, recently moved here from out of the area with her who also is disabled and requires care. Required maximum assistance for ADLs Review of Systems ROS Limitations: Clinical Condition, Intubated Past Family Social History Coded Allergies: azathioprine (Verified Allergy, Severe, 02/12/18) Painful rash all over face and body cephalexin (Verified Allergy, Severe, Rash, 02/12/18) rash all over face and chest Past Medical History Myasthenia gravis Congestive heart failure Atrial fibrillation with rapid ventricular response Paroxysmal SVT COPD/asthma GERD Osteoporosis with compression fracture T5 through T8 Strep viridans bacteremia Pneumonia . Past Surgical History Hysterectomy Bilateral cataract surgery . Reported Medications Pulmicort Respules (Budesonide) 0.5 Mg/2 Ml Neb 0.5 Mg NEB Q12HR NEB Spiriva Handihaler (Tiotropium Inh) 18 Mcg Cap 18 Mcg INH DAILY 1 capsule = 18 mcg Simethicone 125 Mg Cap 80 Mg PO TID PRN Protonix (Pantoprazole Sodium) 40 Mg Tab 40 Mg PO DAILY Florastor (Saccharomyces Boulardii) 250 Mg Cap 250 Mg PO BID Nystatin Liq 100,000 unit/ml Susp 5 Ml SWISH-SWAL QID Montelukast (Montelukast Sodium) 10 Mg Tab 10 Mg PO HS Metoprolol Tartrate 75 Mg Tab 75 Mg PO BID Cymbalta DR (Duloxetine HCl) 30 Mg Capdr 30 Mg PO DAILY Cardizem (Diltiazem HCl) 120 Mg Tab 120 Mg PO QID Diltiazem ER 12 HR (Diltiazem HCl) 120 Mg Caper 120 Mg PO Q6HR Digoxin 0.25 Mg Tab 0.25 Mg PO DAILY Aspirin 81 Low Dose (Aspirin) 81 Mg Chew 81 Mg CHEW DAILY Lovenox Inj (Enoxaparin Sodium) 40 Mg/0.4 Ml Syr 40 Mg SQ BID Novolog Inj (Insulin Aspart) 1,000 Unit/10 Ml Vial 0 SQ DIRECTED Sliding Scale as directed. Solu-Medrol Inj (Methylprednisolone Sodium Succinate) 500 Mg/4 Ml Inj 40 Mg IV BID Duoneb (Ipratropium-Albuterol Neb) 0.5-2.5 Mg/3 Ml Neb 1 Nebule INH Q6HR NEB . Current Medications Medications (Trade) Dose Ordered Sig/Melissa Route Start Time Stop Time Status Last Admin (Tylenol) 650 mg Q4H PRN PO 02/12/18 22:30 02/15/18 13:07 (Zofran Inj) 4 mg Q6H PRN IVP 02/12/18 22:30 (Narcan Inj) 0.4 mg UNSCH PRN IV PUSH 02/12/18 22:30 (Kathryn-Colace) 1 tab BID PO 02/13/18 09:00 Future Hold (Milk Of Magnesia Liq) 30 ml Q12H PRN PO 02/12/18 22:30 (Senokot) 17.2 mg Q12H PRN PO 02/12/18 22:30 02/15/18 12:17 (Dulcolax Supp) 10 mg DAILY PRN RECTAL 02/12/18 22:30 02/16/18 05:15 (Lactulose Liq) 30 ml DAILY PRN PO 02/12/18 22:30 02/18/18 15:19 (NS Flush) 5 ml UNSCH PRN IV FLUSH 02/13/18 01:00 (Heparin Central Flush) 200 units DAILY IV FLUSH 02/13/18 09:00 02/16/18 07:57 (NS Flush) 5 ml UNSCH PRN IV FLUSH 02/13/18 01:00 (Heparin Central Flush) 200 units UNSCH PRN IV FLUSH 02/13/18 01:00 02/16/18 05:15 (NS Flush) 5 ml UNSCH PRN IV FLUSH 02/13/18 01:00 (Aspirin Chew) 81 mg DAILY CHEW 02/13/18 09:00 Future Hold (Pulmicort Respule Neb) 0.5 mg Q12HR NEB NEB 02/13/18 08:00 02/21/18 08:07 (Singulair) 10 mg HS PO 02/13/18 21:00 02/20/18 20:54 (Mycostatin Liq) 5 ml QID SWISH-SWAL 02/13/18 09:00 Future Hold (Spiriva Inh) 18 mcg DAILY INH 02/13/18 09:00 02/14/18 09:54 (Lopressor Inj) 5 mg Q5M PRN IV PUSH 02/13/18 02:15 02/18/18 18:49 (Cardizem) 120 mg Q6HR PO 02/13/18 06:00 02/21/18 11:52 (Protonix Inj) 40 mg Q24H IV PUSH 02/13/18 03:00 02/21/18 04:58 (SoluMEDROL INJ) 125 mg Q6HR IV PUSH 02/13/18 09:45 02/21/18 11:52 (Duoneb Neb) 1 ampule Q2HR NEB PRN NEB 02/13/18 13:15 02/20/18 08:25 (D50w (Vial) Inj) 50 ml UNSCH PRN IV PUSH 02/13/18 14:30 (Glucagon Inj) 1 mg UNSCH PRN OTHER 02/13/18 14:30 (NovoLOG SUPPLEMENTAL SCALE) 1 ACHS SLIDING SCALE SQ 02/13/18 17:00 02/21/18 11:52 Esmolol HCl/ Sodium Chloride 250 ml @ 22.56 mls/ hr TITRATE PRN IV 02/13/18 15:00 02/17/18 07:06 Miscellaneous Information Patient in critical care unit? Ass... Q361D .XX 02/13/18 16:00 (Apresoline Inj) 20 mg Q4H PRN IV PUSH 02/14/18 00:00 02/18/18 10:41 (Trandate Inj) 10 mg Q4H PRN IV PUSH 02/14/18 00:00 02/16/18 02:52 (Peridex 0.12% Liq) 15 ml BID@08,20 MT 02/14/18 20:00 02/21/18 08:22 Propofol 100 ml @ 2.256 mls/ hr TITRATE PRN IV 02/14/18 11:45 02/21/18 10:53 Phenylephrine HCl 40 mg/Dextrose 500 ml @ 30 mls/hr TITRATE PRN IV 02/14/18 12:15 (Brethine Inj) 1 mg UNSCH PRN SQ 02/14/18 12:15 (NS Flush) 5 ml UNSCH PRN IV FLUSH 02/14/18 13:00 (Heparin Inj) 2,000 units UNSCH PRN IV FLUSH 02/14/18 13:00 (Acd Formula Inj) 1,000 ml Q48H OTHER 02/14/18 21:00 02/22/18 21:01 02/14/18 22:49 Albumin Human 3,500 ml @ 250 mls/hr Q48H IV 02/14/18 21:00 02/23/18 10:59 02/18/18 20:48 (Benadryl Inj) 25 mg UNSCH PRN IV PUSH 02/14/18 21:00 02/23/18 20:59 (Heparin Inj) 1,000 units UNSCH PRN IV FLUSH 02/14/18 21:00 02/23/18 20:59 Calcium Gluconate 3.5 gm/Sodium Chloride 235 ml @ 90 mls/hr Q48H IV 02/16/18 21:00 02/22/18 23:37 02/18/18 21:10 (Tylenol) 650 mg Q4H PRN PO 02/15/18 07:30 (Benadryl) 25 mg Q4H PRN PO 02/15/18 07:30 02/15/18 13:07 Aztreonam 2000 mg/ Sodium Chloride 100 ml @ 200 mls/hr Q8H IV 02/17/18 12:00 02/21/18 11:53 Pharmacy Profile Note 0 ml @ 0 mls/hr UNSCH OTHER 02/17/18 11:00 Voriconazole 300 mg/Sodium Chloride 250 ml @ 125 mls/hr Q12H IV 02/19/18 18:00 02/21/18 06:47 (Lovenox Inj) 40 mg Q24H SQ 02/18/18 17:00 Future Hold 02/18/18 17:35 Potassium Chloride 100 ml @ 50 mls/hr Q2H PRN IV 02/19/18 08:00 Potassium Chloride 100 ml @ 50 mls/hr Q2H PRN IV 02/19/18 08:00 (K-Lyte Cl Eff) 50 meq UNSCH PRN PO 02/19/18 08:00 Potassium Chloride 100 ml @ 25 mls/hr UNSCH PRN IV 02/19/18 08:00 Potassium Chloride 100 ml @ 50 mls/hr Q2H PRN IV 02/19/18 08:00 Magnesium Sulfate 4 gm/Sodium Chloride 100 ml @ 50 mls/hr UNSCH PRN IV 02/19/18 08:00 (Mag-Ox) 800 mg UNSCH PRN PO 02/19/18 08:00 Magnesium Sulfate 2 gm/Sodium Chloride 100 ml @ 50 mls/hr UNSCH PRN IV 02/19/18 08:00 (K-Phos) 2,000 mg Q4H PRN PO 02/19/18 08:00 Sodium Phosphate 30 mmol/Sodium Chloride 250 ml @ 42 mls/hr UNSCH PRN IV 02/19/18 08:00 (K-Phos) 2,000 mg UNSCH PRN PO/TUBE 02/19/18 08:00 Potassium Phosphate 30 mmol/ Sodium Chloride 260 ml @ 42 mls/hr UNSCH PRN IV 02/19/18 08:00 02/19/18 08:33 (Lopressor) 50 mg BID PO 02/19/18 21:00 02/21/18 08:21 (Dulcolax Supp) 10 mg DAILY RECTAL 02/20/18 09:00 02/21/18 08:21 (Lanoxin Inj) 0.25 mg DAILY IV PUSH 02/20/18 09:00 02/21/18 08:20 Vancomycin HCl 1250 mg/Sodium Chloride 262.5 ml @ 250 mls/hr Q18H IV 02/21/18 06:00 02/21/18 05:42 ([facility] Ordered Lab Info) SPECIFIC LAB TO BE DRAWN:VANCOMYCIN TROUGH DATE TO... ONCE ONCE .XX 02/23/18 11:45 02/23/18 11:46 Albumin Human 4,000 ml @ 250 mls/hr ONCE ONCE IV 02/21/18 11:00 02/22/18 02:59 Family History Son had cystic fibrosis, he is . Substance Use Tobacco: Quit smoking 1979 Alcohol: Occasional/once a month or less Prescription med abuse: Illicits: Psychosocial History Retired [employer]. Moved to this area with her from [place] last month to be nearer to her daughter. Lived in [place] the past 20-25 years. has dementia and is in [facility] area. This is patient's second . She has 1 daughter Lizz, from previous marriage. 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 . Spiritual/Cultural Factors Spiritism though does not actively participate, daughter does not feel she would want regular senior care provider visits. . Living Will: Never completed Health Care Surrogate: Never completed Durable Power of Straightedge Machine Operator Helper: Never completed Ethical and Legal Issues Patient currently unable to participate due to clinical condition. Not clear that she will regain ability to clearly communicate and participate in decision- making. Daughter Lizz indicates she does have a living well, advanced directives and paperwork designating a medical proxy or D POA. Daughter tells me that her Jordi is designated as primary with Lizz as a secondary if the unable. I have requested copies of these documents she will bring with her tomorrow morning. Patient reported to have early dementia, required to assist with ADLs and self-care tasks, reported to have poor short-term memory may not be able to make informed medical decisions. . Physical Exam Vital Signs Date Time Temp Pulse Resp B/P (MAP) Pulse Ox O2 Delivery O2 Flow Rate FiO2 02/21/18 12:19 97 50 02/21/18 12:00 98.6 96 26 123/65 (84) 98 02/21/18 12:00 96 02/21/18 12:00 50 02/21/18 10:00 88 02/21/18 08:15 50 02/21/18 08:12 98 50 02/21/18 08:12 50 02/21/18 08:00 98.1 93 20 125/62 (83) 99 02/21/18 08:00 93 02/21/18 07:00 50 02/21/18 06:00 99.7 87 24 109/71 (84) 96 02/21/18 06:00 119 02/21/18 06:00 50 02/21/18 03:55 98 50 02/21/18 02:00 89 02/21/18 00:40 99 50 02/21/18 00:00 50 02/21/18 00:00 89 02/21/18 00:00 97.9 99 20 139/59 (85) 99 02/20/18 22:00 92 02/20/18 20:00 98.9 86 22 128/62 (84) 98 02/20/18 20:00 86 02/20/18 20:00 50 02/20/18 19:22 98 50 02/20/18 18:00 108 02/20/18 16:00 35 02/20/18 16:00 97.7 109 27 174/69 (104) 97 02/20/18 16:00 109 02/20/18 15:39 97 50 02/20/18 15:36 35 02/20/18 14:26 100 60 02/20/18 14:00 116 Exam CONSTITUTIONAL/GENERAL: This is an adequately nourished patient, in no apparent distress, ill-appearing on mechanical vent. TUBES/LINES/DRAINS: Right IJ vascular access catheter, left upper arm PICC, Maria catheter, ET tube, OG tube SKIN: No jaundice, rashes, or lesions. Multiple areas of ecchymosis to chest, bilateral arms, bilateral legs. Ecchymosis to abdomen, right groin. Some of these areas very dark purple. Skin edematous some areas of weeping. Right arm covered with gauze wrap dressing reported to be weeping, some areas of skin tears. Skin warm and dry. HEAD: Atraumatic. Normocephalic. EYES: Pupils equal and round and reactive. Opens eyes weakly to verbal and touch. Extraocular motions intact. No scleral icterus. No injection or drainage. Fundi not examined. ENT: Nose without bleeding or purulent drainage. Unable to fully visualize oropharynx secondary to ET tube, OG tube. NECK: Trachea midline. Supple, nontender. No palpable thyroid enlargement or nodularity. CARDIOVASCULAR: Irregular rate and rhythm. No murmur. Atrial fibrillation visible on bedside monitor. No JVD. Peripheral pulses faint. Unable to palpate left pedal pulse reported positive Via Doppler. RESPIRATORY/CHEST: Symmetric, unlabored respirations. Clear to auscultation. Breath sounds equal bilaterally. No wheezes, rales, or rhonchi. GASTROINTESTINAL: Abdomen soft, no apparent tenderness, round, nondistended. No palpable masses. Bowel sounds hypoactive.OG tube w TF infusing. GENITOURINARY: Without palpable bladder distension. Maria catheter in place dark yellow urine. MUSCULOSKELETAL: Extremities without clubbing, cyanosis. + gen edema to 4 extremities. No joint tenderness or effusion noted. LYMPHATICS: No palpable cervical or supraclavicular adenopathy. NEUROLOGICAL: Lightly sedated on mechanical vent propofol 20 mics.nods very weakly to some yes/no questions. does not move extremities to pain or command. PSYCHIATRIC: No obvious anxiety/depression limited assessment 2/2 to clinical condition . Diagnostic Tests Laboratory Laboratory Tests Test 02/19/18 06:15 02/19/18 06:18 02/19/18 22:45 02/20/18 04:15 White Blood Count 6.0 TH/MM3 (4.0-11.0) 6.3 TH/MM3 (4.0-11.0) Red Blood Count 3.73 MIL/MM3 (4.00-5.30) 3.76 MIL/MM3 (4.00-5.30) Hemoglobin 9.5 GM/DL (11.6-15.3) 9.3 GM/DL (11.6-15.3) Hematocrit 28.0 % (35.0-46.0) 28.6 % (35.0-46.0) Mean Corpuscular Volume 75.2 FL (80.0-100.0) 76.1 FL (80.0-100.0) Mean Corpuscular Hemoglobin 25.4 PG (27.0-34.0) 24.9 PG (27.0-34.0) Mean Corpuscular Hemoglobin Concent 33.8 % (32.0-36.0) 32.7 % (32.0-36.0) Red Cell Distribution Width 25.5 % (11.6-17.2) 26.0 % (11.6-17.2) Platelet Count 22 TH/MM3 (150-450) 17 TH/MM3 (150-450) Mean Platelet Volume 9.9 FL (7.0-11.0) 10.4 FL (7.0-11.0) Neutrophils (%) (Auto) 96.6 % (16.0-70.0) 95.7 % (16.0-70.0) Lymphocytes (%) (Auto) 1.7 % (9.0-44.0) 1.4 % (9.0-44.0) Monocytes (%) (Auto) 1.6 % (0.0-8.0) 2.1 % (0.0-8.0) Eosinophils (%) (Auto) 0.0 % (0.0-4.0) 0.7 % (0.0-4.0) Basophils (%) (Auto) 0.1 % (0.0-2.0) 0.1 % (0.0-2.0) Neutrophils # (Auto) 5.8 TH/MM3 (1.8-7.7) 6.1 TH/MM3 (1.8-7.7) Lymphocytes # (Auto) 0.1 TH/MM3 (1.0-4.8) 0.1 TH/MM3 (1.0-4.8) Monocytes # (Auto) 0.1 TH/MM3 (0-0.9) 0.1 TH/MM3 (0-0.9) Eosinophils # (Auto) 0.0 TH/MM3 (0-0.4) 0.0 TH/MM3 (0-0.4) Basophils # (Auto) 0.0 TH/MM3 (0-0.2) 0.0 TH/MM3 (0-0.2) CBC Comment AUTO DIFF AUTO DIFF Differential Total Cells Counted 100 Neutrophils % (Manual) 85 % (16-70) Band Neutrophils % 11 % (0-6) Lymphocytes % 1 % (9-44) Monocytes % 3 % (0-8) Neutrophils # (Manual) 5.8 TH/MM3 (1.8-7.7) Differential Comment FINAL DIFF MANUAL AUTO DIFF CONFIRMED Platelet Estimate LOW (NORMAL) LOW (NORMAL) Platelet Morphology Comment ENLARGED (NORMAL) ENLARGED (NORMAL) Ovalocytes 1+ (NORMAL) 1+ (NORMAL) Blood Smear Pathologist Review Fibrinogen 217 mg/dL (227-377) 220 mg/dL (227-377) Blood Urea Nitrogen 22 MG/DL (7-18) 28 MG/DL (7-18) Creatinine 0.38 MG/DL (0.50-1.00) 0.48 MG/DL (0.50-1.00) Random Glucose 212 MG/DL (74-106) 211 MG/DL (74-106) Total Protein 4.0 GM/DL (6.4-8.2) 4.1 GM/DL (6.4-8.2) Albumin 2.1 GM/DL (3.4-5.0) 2.0 GM/DL (3.4-5.0) Calcium Level 7.5 MG/DL (8.5-10.1) 7.5 MG/DL (8.5-10.1) Phosphorus Level 2.0 MG/DL (2.5-4.9) 2.8 MG/DL (2.5-4.9) 2.9 MG/DL (2.5-4.9) Magnesium Level 2.3 MG/DL (1.5-2.5) 2.4 MG/DL (1.5-2.5) Alkaline Phosphatase 114 U/L (45-117) 152 U/L (45-117) Aspartate Amino Transf (AST/SGOT) 54 U/L (15-37) 56 U/L (15-37) Alanine Aminotransferase (ALT/SGPT) 279 U/L (10-53) 222 U/L (10-53) Total Bilirubin 0.8 MG/DL (0.2-1.0) 1.0 MG/DL (0.2-1.0) Sodium Level 143 MEQ/L (136-145) 143 MEQ/L (136-145) Potassium Level 3.4 MEQ/L (3.5-5.1) 3.8 MEQ/L (3.5-5.1) 4.1 MEQ/L (3.5-5.1) Chloride Level 114 MEQ/L (98-107) 114 MEQ/L (98-107) Carbon Dioxide Level 19.4 MEQ/L (21.0-32.0) 18.1 MEQ/L (21.0-32.0) Anion Gap 10 MEQ/L (5-15) 11 MEQ/L (5-15) Estimat Glomerular Filtration Rate 163 ML/MIN (>89) 125 ML/MIN (>89) Blood Gas Puncture Site CENTRAL LINE Blood Gas Patient Temperature 98.6 Venous Blood pH 7.39 (7.360-7.400) Venous Blood Partial Pressure CO2 32 mmHg (44-48) Venous Blood Partial Pressure O2 31 mmHg (35-40) Venous Blood HCO3 19 mmol/L (22-26) Venous Blood Oxygen Saturation 54 % (70-76) Venous Blood Oxygen Content 6.9 Vol % (9.0-17.0) Venous Blood Base Excess -5.4 mmol/L (-2-2) Oxygen Delivery Device VENTILATOR Blood Gas Ventilator Setting SEE COMMENTS Blood Gas Inspired Oxygen 35 % Haptoglobin 134 MG/DL (30-200) Prothrombin Time 11.5 SEC (9.8-11.6) Prothromb Time International Ratio 1.1 RATIO Activated Partial Thromboplast Time 27.5 SEC (24.3-30.1) Lactate Dehydrogenase 360 U/L (84-246) Test 02/20/18 07:45 02/20/18 15:13 02/20/18 15:55 02/21/18 04:00 Vancomycin Level Trough 22.4 MCG/ML (5.0-10.0) Platelet Count 63 TH/MM3 (150-450) 39 TH/MM3 (150-450) D-Dimer Quantitative (PE/DVT) 0.94 MG/L FEU (0.00-0.50) White Blood Count 4.4 TH/MM3 (4.0-11.0) Red Blood Count 3.71 MIL/MM3 (4.00-5.30) Hemoglobin 9.3 GM/DL (11.6-15.3) Hematocrit 28.1 % (35.0-46.0) Mean Corpuscular Volume 75.6 FL (80.0-100.0) Mean Corpuscular Hemoglobin 25.0 PG (27.0-34.0) Mean Corpuscular Hemoglobin Concent 33.1 % (32.0-36.0) Red Cell Distribution Width 26.2 % (11.6-17.2) Mean Platelet Volume 8.6 FL (7.0-11.0) Neutrophils (%) (Auto) 95.2 % (16.0-70.0) Lymphocytes (%) (Auto) 2.8 % (9.0-44.0) Monocytes (%) (Auto) 1.8 % (0.0-8.0) Eosinophils (%) (Auto) 0.1 % (0.0-4.0) Basophils (%) (Auto) 0.1 % (0.0-2.0) Neutrophils # (Auto) 4.2 TH/MM3 (1.8-7.7) Lymphocytes # (Auto) 0.1 TH/MM3 (1.0-4.8) Monocytes # (Auto) 0.1 TH/MM3 (0-0.9) Eosinophils # (Auto) 0.0 TH/MM3 (0-0.4) Basophils # (Auto) 0.0 TH/MM3 (0-0.2) CBC Comment AUTO DIFF Differential Comment AUTO DIFF CONFIRMED Blood Urea Nitrogen 29 MG/DL (7-18) Creatinine 0.42 MG/DL (0.50-1.00) Random Glucose 200 MG/DL (74-106) Total Protein 4.2 GM/DL (6.4-8.2) Albumin 1.9 GM/DL (3.4-5.0) Calcium Level 7.5 MG/DL (8.5-10.1) Phosphorus Level 2.3 MG/DL (2.5-4.9) Magnesium Level 2.5 MG/DL (1.5-2.5) Alkaline Phosphatase 151 U/L (45-117) Aspartate Amino Transf (AST/SGOT) 54 U/L (15-37) Alanine Aminotransferase (ALT/SGPT) 170 U/L (10-53) Total Bilirubin 0.8 MG/DL (0.2-1.0) Sodium Level 145 MEQ/L (136-145) Potassium Level 4.0 MEQ/L (3.5-5.1) Chloride Level 116 MEQ/L (98-107) Carbon Dioxide Level 18.1 MEQ/L (21.0-32.0) Anion Gap 11 MEQ/L (5-15) Estimat Glomerular Filtration Rate 146 ML/MIN (>89) Test 02/21/18 08:35 Prothrombin Time 12.6 SEC (9.8-11.6) Prothromb Time International Ratio 1.2 RATIO Activated Partial Thromboplast Time 27.2 SEC (24.3-30.1) Fibrinogen 309 mg/dL (227-377) Result Diagram: 02/21/18 0400 02/21/18 0400 Microbiology Microbiology Date/Time Source Procedure Growth Status 02/17/18 14:04 Blood Peripheral Blood Fungal Culture Pending Received 02/17/18 14:04 Blood Peripheral Blood Fungal Culture Pending Received 02/17/18 18:30 Sputum Endotracheal Gram Stain - Final Complete 02/17/18 18:30 Sputum Culture - Final Aspergillus Fumigatus Complete 02/17/18 18:30 Urine Catheterized Urine Urine Culture - Final Clemencia Albicans Complete Imaging Last Impressions Chest X-Ray 02/21/18 0600 Signed Impressions: Service Date/Time: Wednesday, February 21, 2018 01:40 - CONCLUSION: 1. Stable appearance of the chest with bibasilar airspace disease and associated effusions, right worse than left. Possible right perihilar infiltrate, unchanged. 2. Stable position of life support tubes. Martin Padilla MD Hepatobiliary Scan Nuclear Medicine 02/20/18 0000 Signed Impressions: Service Date/Time: Tuesday, February 20, 2018 11:41 - CONCLUSION: No sign of obstruction. John Castro MD Abdomen X-Ray 02/19/18 0000 Signed Impressions: Service Date/Time: Monday, February 19, 2018 16:26 - CONCLUSION: 1. No acute abnormalities. 2. Minimal bibasilar densities. Jose Ames MD Upper Extremity Ultrasound 02/18/18 0000 Signed Impressions: Service Date/Time: Sunday, February 18, 2018 14:21 - CONCLUSION: Normal examination. Perry Green MD Chest CT 02/17/18 1551 Signed Impressions: Service Date/Time: January 16:18 - CONCLUSION: Bilateral lower lobe consolidations right greater left. Small bilateral pleural effusions. No visible pneumothorax. ET tube is in good position.. Perry Green MD Gall Bladder Ultrasound 02/17/18 0000 Signed Impressions: Service Date/Time: January 13:09 - CONCLUSION: 1. Gallbladder wall thickening and pericholecystic fluid suggesting possible acute cholecystitis. Clinical correlation is recommended. A hepatobiliary scan may be helpful to confirm cystic duct obstruction if clinically indicated. 2. Echogenic focus within the gallbladder suggestive of non-shadowing calculus or small polyp. 3. Mild hepatomegaly. 4. Minimal perinephric fluid on the right. Hira Arora MD Lower Extremity Angiography 02/16/18 0000 Signed Impressions: Service Date/Time: Friday, February 16, 2018 21:33 - CONCLUSION: 1. Very sluggish outflow. Findings could be due to poor cardiac output. Emboli to the small, intrinsic vessels of the foot could have a similar appearance. 2. Otherwise, inflow and outflow are widely patent with three-vessel runoff. Martin Padilla MD Arterial Ultrasound 02/16/18 0000 Signed Impressions: Service Date/Time: Friday, February 16, 2018 16:30 - CONCLUSION: 1. Inflow appeared to be adequate bilaterally despite scattered atherosclerotic calcification. 2. Three-vessel runoff on the right. 3. On the left, the dorsalis pedis artery appears to be quite diminutive with limited flow. Anterior tibial and peroneal are patent, however. Martin Padilla MD Aorta w/Runoff CTA 02/16/18 0000 Signed Impressions: Service Date/Time: Friday, February 16, 2018 19:36 - CONCLUSION: 1. Inflow appears to be patent down to the above-knee popliteal bilaterally. 2. On the right, the entire popliteal is patent with the dominant runoff via the posterior tibial. 3. On the left, minimal contrast below the knee joint on both the initial and delayed images. This may represent a combination of poor cardiac output and nonocclusive thrombus in the popliteal region. Again, please the dominant runoff is via the posterior tibial. 4. Bibasilar areas of consolidation/atelectasis with small associated effusions. Cannot exclude a developing infiltrate, especially on the right. 5. Abnormal appearance of the gallbladder with either marked gallbladder wall thickening or pericholecystic fluid. The fluid appears to track down the right paracolic gutter in the pelvis. Gallbladder ultrasound could be performed for further characterization. 6. Diverticular disease of the sigmoid without diverticulitis. Martin Padilla MD Lower Extremity Ultrasound 02/13/18 0000 Signed Impressions: Service Date/Time: Tuesday, February 13, 2018 16:19 - CONCLUSION: No DVT or superficial venous thrombosis is identified within either lower extremity. John Laureano MD Procedures 02/14 intubated . Patient/Family Conference Family Conference Location: Telephone Issues Discussed: Spoke with daughter Lizz 35 minutes on phone. Discussion included the following : * Palliative care role, purpose, approach * Additional medical, psychosocial, and spiritual history * Patients general health, functional status, and cognitive changes in the months leading up to the current hospitalization * Patient/family understanding of the current medical problems * Patient/family understanding of prognosis * Patients goals of care as best understood from advance directives and/or conversations and/or values * Current medical treatment options and benefits/burdens of those options * CODE STATUS-what resuscitation entails, benefits/burdens * Legal decision makers per advanced directive documents versus [place] statutes , review of patient reported dementia, unclear if he will be able to make decisions though he may be able to participate in shared decision making with daughter. * Questions answered to the best of my ability * Palliative care contact information provided She details patient just moved up to this area the first week of January. She actually signed out of the hospital AM in [facility] to complete the move up here assuring them that she would present back to the hospital up here, which she did at [facility] in [facility]. 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 She managed all his meds , he was unable to continue paying the bills, unable to assist with managing the household about a year or so ago. She helped him up with his frequent falls. She did all the driving. Daughter reports patient Jordi has good long -term recall and can function with some assistance day today, but has very poor short-term memory and cannot remember what they talked about from one day to the next. He understands that his is in the hospital and that she is currently stable but may not fully process all the details. Lizz is supported by her own daughter who just completed medical school. Lizz appears to have a good understanding of clinical conditions, treatment options, prognoses. Recent indicates that patient living will details that patient would not want prolonged, artificial measures in the presence of terminal, or end-stage illness for which she would not make a meaningful recovery. She also tells me that during her first presentation to the other hospital she did not want DNR status but that was based on her condition at that time as she was still doing fairly well. 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 She also feels he does not show signs of significant improvement in recovery she would likely not want to continue with measures that are not providing her benefit. Upon review of patient ability to participate in decision-making advised that we can attempt meetings with him and include him in shared decision making though certainly if he has impaired short-term memory and is unable to remember conversations regarding benefits burdens, conditions, prognosis etc. he would not be able to make informed decisions. All questions answered, provided palliative contact information. Plan for additional meeting with her around 10 AM tomorrow when patient has been able to be present as well. Assessment and Plan Disease Oriented Problem List: (1) Aspergillosis, with pneumonia (2) Thrombocytopenia (3) Myasthenia gravis (4) Anemia (5) COPD (chronic obstructive pulmonary disease) (6) Current chronic use of systemic steroids (7) Elevated LFTs (8) Viridans streptococci infection Comment: history of (9) Leukocytosis (10) Cholecystitis, acute (11) Ischemic foot Symptom Scale: (1) Dyspnea 0-10 Scale: Unable to quantify (2) Weakness 0-10 Scale: Unable to quantify Pertinent Non-Medical Issues Psychosocial:Retired [employer]. Moved to this area with her from [place] last month to be nearer to her daughter. Lived in [place] the past 20-25 years. has dementia and is in [facility] area. This is patient's second . She has 1 daughter Lizz, from previous marriage. Prior to most recent hospitalization in [facility] patient was independent with all ADLs , no cognitive or functional deficits, and essentially was a full-time caregiver for her . Spiritual: Spiritism though does not actively participate, daughter does not feel she would want regular senior care provider visits. Legal:Patient currently unable to participate due to clinical condition. Not clear that she will regain ability to clearly communicate and participate in decision-making. Daughter Lizz indicates she does have a living well, advanced directives and paperwork designating a medical proxy or D POA. Daughter tells me that her Jordi is designated as primary with Lizz as a secondary if the unable. I have requested copies of these documents she will bring with her tomorrow morning. Patient reported to have early dementia, required to assist with ADLs and self-care tasks, reported to have poor short-term memory may not be able to make informed medical decisions. Ethical issues impacting care: No ethical issues identified . Important Contacts dtr Lizz Andre [phone] / [phone] . Prognosis This patient was recently treated at another facility for pneumonia, and required transfer here for further treatment of her underlying myasthenia gravis. She has remained in ICU on mechanical vent. She now has Aspergillus in her sputum, and remains on mechanical vent. Prognosis for long-term survival and recovery back to prior status is poor given multiple comorbidities and prolonged hospitalization. Code Status: Full Code Plan * Legal decision maker: Patient currently unable to participate due to clinical condition. Not clear that she will regain ability to clearly communicate and participate in decision-making. Daughter Lizz indicates she does have a living well, advanced directives and paperwork designating a medical proxy or D POA. Daughter tells me that her Jordi is designated as primary with Lizz as a secondary if the unable. I have requested copies of these documents she will bring with her tomorrow morning. Patient reported to have early dementia, required to assist with ADLs and self-care tasks, reported to have poor short-term memory may not be able to make informed medical decisions. * Goals: TBD. Plan for meeting with AND daughter Lizz tomorrow around 10 AM. Daughter wishes to discuss DNR status with patient , believes patient would want DNR at this time given condition. * CODE STATUS: Full code by default * SYMPTOMS: --Dyspnea-intubated on 02/14.+ Aspergillus pneumonia, + weakness secondary to myasthenia gravis. CXR stable without significant improvement. Tolerating short CPAP trials 2 hours. Possible may require tracheostomy for long-term ventilation if goals aggressive. Also possible may be able to medically extubate if continues to tolerate CPAP however would remain high risk for aspiration and reintubation. --Weakness-history of myasthenia gravis. Has been on steroids long-term. Recently transferred to this hospital to receive additional treatment. Has been ordered for plasmapheresis however due to ongoing thrombocytopenia has not been able to complete treatments, today is scheduled for a second plasmapheresis since admission here 02/12. Weakness expected to be compounded by prolonged bedbound status and ongoing acute illness. --Pain-patient with no reported chronic pain syndromes, today nods no weakly to pain, no apparent distress. Will continue to evaluate. * Palliative care will continue to follow during hospital course as condition evolves, to assist patient/decision-maker with understanding of medical conditions, weighing benefits/burdens of treatment options, for clarification of goals of treatment. Additionally will assist with any symptoms of palliative concern Time Spent Total Floor Time (mins): 75 (Chart review, discussion with nursing, discussion with critical care, exam, conversation with daughter on phone) Thank you for the opportunity to participate in the care of Ms. Vasquez. Attestation To help prompt me to consider important information that might be impacting today's encounter and assessment, information from prior notes written by myself or my colleagues may have been "brought forward" into today's note. My signature on this note, however, is an attestation that I personally performed the exam, history, and/or decision-making noted today, and, unless otherwise indicated, the interactions with patient, family, and staff as well as the review of records all occurred today. I also attest that the listed assessment and stated plan reflect my best clinical judgment today based on the combination of historical information, prior notes, and today's exam/ interactions. When time spent is documented, it refers only to time spent today by the signer, or if indicated, combined time spent today by collaborating physician/nurse practitioner. Ann Torres Feb 21, 2018 14:14
[2018-02-21] MEDS: ANTICOAGULANT CITRATE DEXTROSE SOLN-A 1L OTHER SCH (15:07)
[2018-02-21] MEDS: ALBUMIN 5% INJ 3,500 ML IV SCH (15:07)
[2018-02-21] MEDS: MONTELUKAST SODIUM 10 MG TAB PO SCH (20:04)
[2018-02-22] VITALS (35 sets, daily range): BP systolic 91–133; BP diastolic 54–74; PULSE 82–124; RESP 20–29; TEMP 97–98.8; O2SAT 91–99
[2018-02-22] MEDS: AZTREONAM INJ 2,000 MG in SODIUM CHLORIDE 0.9% INJ 100 ML IV SCH ×2 (03:09→16:44)
[2018-02-22] MEDS: PANTOPRAZOLE SODIUM 40 MG VIAL IV PUSH SCH (03:09)
[2018-02-22 04:13] LABS: BASOPHIL % 0.2 % (0.0-2.0); EOSINOPHIL % 0.2 % (0.0-4.0); HEMATOCRIT 25.3 % (35.0-46.0); HEMOGLOBIN 8.5 GM/DL (11.6-15.3); LYMPHOCYTE # 0.1 TH/MM3 (1.0-4.8); MEAN CELL VOLUME 77.4 FL (80.0-100.0); MEAN CORPUSCULAR HEMOGLOBIN 26.1 PG (27.0-34.0); MEAN CORPUSCULAR HGB CONC 33.7 % (32.0-36.0); MEAN PLATELET VOLUME 9.8 FL (7.0-11.0); NEUT % 95.6 % (16.0-70.0); PLATELET COUNT 21 TH/MM3 (150-450); RED BLOOD COUNT 3.26 MIL/MM3 (4.00-5.30); RED CELL DISTRIBUTION WIDTH 26.4 % (11.6-17.2); WHITE BLOOD COUNT 4.2 TH/MM3 (4.0-11.0)
[2018-02-22] MEDS: PROPOFOL 1000 MG/100 ML INJ 100 ML IV PRN ×5 (04:32→23:42)
[2018-02-22 05:16] LABS: ALBUMIN 1.8 GM/DL (3.4-5.0); BICARBONATE 17.5 MEQ/L (21.0-32.0); CALCIUM 6.9 MG/DL (8.5-10.1); CREATININE 0.57 MG/DL (0.50-1.00); MAGNESIUM 2.6 MG/DL (1.5-2.5); TOTAL BILIRUBIN ADULT 0.9 MG/DL (0.2-1.0); TOTAL PROTEIN 3.5 GM/DL (6.4-8.2)
[2018-02-22] MEDS: VORICONAZOLE IV SCH ×2 (05:57→17:15)
[2018-02-22] MEDS: SODIUM CHLOR 0.9% IV SCH ×2 (05:57→17:15)
[2018-02-22] MEDS: methylPREDNISolone SOD SUCC 125 MG/2 ML VIAL IV PUSH SCH ×4 (05:57→23:41)
[2018-02-22] MEDS: DILTIAZEM HCL 60 MG TAB PO SCH ×4 (05:57→23:42)
[2018-02-22] MEDS: RESP: BUDESONIDE 0.5 MG/2 ML NEB NEB SCH ×2 (07:39→20:02)
--- NOTE | 2018-02-22 08:11 | PD.ONC.PN ---
Subjective Subjective Remarks Patient seen and examined, vital signs, labs and overnight events reviewed. Per nursing staff plasma exchange was initiated however her plasma was seemingly to viscus for the plasma exchange machine to maintain flow. The procedure was therefore terminated. Prior to termination the nursing staff reports various techniques including dilution, changing of tubing and changing of speed of the centrifuge were performed. This morning, the patient is on CPAP trials. She remains intubated and sedated. Her platelet counts are down 21,000, there is no signs of overt bleeding. Objective Data Date Time Temp Pulse Resp B/P (MAP) Pulse Ox O2 Delivery O2 Flow Rate FiO2 02/22/18 07:42 50 02/22/18 07:42 98 50 02/22/18 06:00 90 02/22/18 05:00 85 22 99/61 (74) 95 02/22/18 04:30 88 24 113/57 (75) 95 02/22/18 04:07 96 50 02/22/18 04:00 85 02/22/18 04:00 97.0 86 24 114/57 (76) 94 02/22/18 04:00 50 02/22/18 03:30 84 25 100/67 (78) 95 02/22/18 03:00 92 20 96/58 (71) 96 02/22/18 02:30 82 21 91/56 (68) 95 02/22/18 02:00 85 21 97/58 (71) 95 02/22/18 02:00 85 02/22/18 01:30 93 21 102/65 (77) 96 02/22/18 01:03 99 50 02/22/18 01:00 106 22 105/58 (74) 96 02/22/18 00:30 109 22 114/65 (81) 97 02/22/18 00:00 124 02/22/18 00:00 50 02/22/18 00:00 98.0 124 29 124/73 (90) 96 02/21/18 23:33 135 24 137/70 (92) 98 02/21/18 23:30 122 23 99 02/21/18 23:00 132 23 91/66 (74) 97 02/21/18 22:30 128 24 98 02/21/18 22:00 148 27 141/91 (108) 97 02/21/18 22:00 148 02/21/18 21:42 128 23 126/65 (85) 97 02/21/18 21:30 97 50 02/21/18 21:30 115 23 97 02/21/18 21:00 143 25 90/70 (77) 97 02/21/18 20:00 97.7 124 26 148/83 (104) 92 02/21/18 20:00 50 02/21/18 20:00 124 02/21/18 19:40 96 50 02/21/18 18:00 122 02/21/18 16:00 104 02/21/18 16:00 97.3 104 29 148/91 (110) 98 02/21/18 16:00 50 02/21/18 15:56 100 50 02/21/18 14:00 94 02/21/18 12:19 97 50 02/21/18 12:00 98.6 96 26 123/65 (84) 98 02/21/18 12:00 96 02/21/18 12:00 50 02/21/18 10:00 88 02/21/18 08:15 50 02/21/18 08:12 98 50 02/21/18 08:12 50 02/22/18 02/22/18 02/22/18 07:00 15:00 23:00 Intake Total 500 ml Output Total 350 ml Balance 150 ml Result Diagram: 02/22/18 0345 02/22/18 0345 Laboratory Results Laboratory Tests Test 02/21/18 08:35 02/22/18 03:45 Prothrombin Time 12.6 SEC Prothromb Time International Ratio 1.2 RATIO Activated Partial Thromboplast Time 27.2 SEC Fibrinogen 309 mg/dL White Blood Count 4.2 TH/MM3 Red Blood Count 3.26 MIL/MM3 Hemoglobin 8.5 GM/DL Hematocrit 25.3 % Mean Corpuscular Volume 77.4 FL Mean Corpuscular Hemoglobin 26.1 PG Mean Corpuscular Hemoglobin Concent 33.7 % Red Cell Distribution Width 26.4 % Platelet Count 21 TH/MM3 Mean Platelet Volume 9.8 FL Neutrophils (%) (Auto) 95.6 % Lymphocytes (%) (Auto) 3.0 % Monocytes (%) (Auto) 1.0 % Eosinophils (%) (Auto) 0.2 % Basophils (%) (Auto) 0.2 % Neutrophils # (Auto) 4.0 TH/MM3 Lymphocytes # (Auto) 0.1 TH/MM3 Monocytes # (Auto) 0.0 TH/MM3 Eosinophils # (Auto) 0.0 TH/MM3 Basophils # (Auto) 0.0 TH/MM3 CBC Comment AUTO DIFF Blood Urea Nitrogen 37 MG/DL Creatinine 0.57 MG/DL Random Glucose 235 MG/DL Total Protein 3.5 GM/DL Albumin 1.8 GM/DL Calcium Level 6.9 MG/DL Phosphorus Level 3.0 MG/DL Magnesium Level 2.6 MG/DL Alkaline Phosphatase 127 U/L Aspartate Amino Transf (AST/SGOT) 55 U/L Alanine Aminotransferase (ALT/SGPT) 94 U/L Total Bilirubin 0.9 MG/DL Sodium Level 146 MEQ/L Potassium Level 4.5 MEQ/L Chloride Level 118 MEQ/L Carbon Dioxide Level 17.5 MEQ/L Anion Gap 11 MEQ/L Estimat Glomerular Filtration Rate 102 ML/MIN Protein Corrected Calcium 9.0 MG/DL Administered Medications Medications (Trade) Dose Ordered Sig/Melissa Route PRN Reason Start Time Stop Time Status Last Admin Dose Admin Acetaminophen (Tylenol) 650 mg Q4H PRN PO TEMP > 100.4 02/12/18 22:30 02/15/18 13:07 Sennosides (Senokot) 17.2 mg Q12H PRN PO Moderate constipation 02/12/18 22:30 02/15/18 12:17 Bisacodyl (Dulcolax Supp) 10 mg DAILY PRN RECTAL SEVERE CONSITIPATION 02/12/18 22:30 02/16/18 05:15 Lactulose (Lactulose Liq) 30 ml DAILY PRN PO SEVERE CONSITIPATION 02/12/18 22:30 02/18/18 15:19 Heparin Sodium (Porcine) (Heparin Central Flush) 200 units DAILY IV FLUSH 02/13/18 09:00 02/16/18 07:57 Heparin Sodium (Porcine) (Heparin Central Flush) 200 units UNSCH PRN IV FLUSH SEE PROTOCOL TABLE 02/13/18 01:00 02/16/18 05:15 Budesonide (Pulmicort Respule Neb) 0.5 mg Q12HR NEB NEB 02/13/18 08:00 02/22/18 07:39 Montelukast Sodium (Singulair) 10 mg HS PO 02/13/18 21:00 02/21/18 20:04 Tiotropium [place] (Spiriva Inh) 18 mcg DAILY INH 02/13/18 09:00 02/14/18 09:54 Metoprolol Tartrate (Lopressor Inj) 5 mg Q5M PRN IV PUSH sustained HR > 110 02/13/18 02:15 02/18/18 18:49 Diltiazem HCl (Cardizem) 120 mg Q6HR PO 02/13/18 06:00 02/22/18 05:57 Pantoprazole Sodium (Protonix Inj) 40 mg Q24H IV PUSH 02/13/18 03:00 02/22/18 03:09 Methylprednisolone Sodium Succinate (SoluMEDROL INJ) 125 mg Q6HR IV PUSH 02/13/18 09:45 02/22/18 05:57 Albuterol/ Ipratropium (Duoneb Neb) 1 ampule Q2HR NEB PRN NEB WHEEZING 02/13/18 13:15 02/20/18 08:25 Insulin Aspart (NovoLOG SUPPLEMENTAL SCALE) 1 ACHS SLIDING SCALE SQ 02/13/18 17:00 02/21/18 20:27 Esmolol HCl/ Sodium Chloride 250 ml @ 22.56 mls/ hr TITRATE PRN IV Blood Pressure Management 02/13/18 15:00 02/17/18 07:06 Hydralazine HCl (Apresoline Inj) 20 mg Q4H PRN IV PUSH SBP>160, DBP>90 02/14/18 00:00 02/18/18 10:41 Labetalol HCl (Trandate Inj) 10 mg Q4H PRN IV PUSH SBP>160, DBP>90 02/14/18 00:00 02/16/18 02:52 Chlorhexidine Gluconate (Peridex 0.12% Liq) 15 ml BID@08,20 MT 02/14/18 20:00 02/21/18 20:03 Propofol 100 ml @ 2.256 mls/ hr TITRATE PRN IV SEDATION 02/14/18 11:45 02/22/18 04:32 Anticoagulant Citrate Dextose Joya A (Acd Formula Inj) 1,000 ml Q48H OTHER 02/14/18 21:00 02/22/18 21:01 02/21/18 15:07 Albumin Human 3,500 ml @ 250 mls/hr Q48H IV 02/14/18 21:00 02/23/18 10:59 02/21/18 15:07 Heparin Sodium (Porcine) (Heparin Inj) 1,000 units UNSCH PRN IV FLUSH FLUSH AFTER USING IV ACCESS 02/14/18 21:00 02/23/18 20:59 02/21/18 15:08 Calcium Gluconate 3.5 gm/Sodium Chloride 235 ml @ 90 mls/hr Q48H IV 02/16/18 21:00 02/22/18 23:37 02/18/18 21:10 Diphenhydramine HCl (Benadryl) 25 mg Q4H PRN PO SEE LABEL COMMENTS 02/15/18 07:30 02/15/18 13:07 Aztreonam 2000 mg/ Sodium Chloride 100 ml @ 200 mls/hr Q8H IV 02/17/18 12:00 02/22/18 03:09 Voriconazole 300 mg/Sodium Chloride 250 ml @ 125 mls/hr Q12H IV 02/19/18 18:00 02/22/18 05:57 Enoxaparin Sodium (Lovenox Inj) 40 mg Q24H SQ 02/18/18 17:00 Future Hold 02/18/18 17:35 Potassium Phosphate 30 mmol/ Sodium Chloride 260 ml @ 42 mls/hr UNSCH PRN IV SEE LABEL COMMENTS 02/19/18 08:00 02/19/18 08:33 Metoprolol Tartrate (Lopressor) 50 mg BID PO 02/19/18 21:00 02/21/18 20:03 Bisacodyl (Dulcolax Supp) 10 mg DAILY RECTAL 02/20/18 09:00 02/21/18 08:21 Digoxin (Lanoxin Inj) 0.25 mg DAILY IV PUSH 02/20/18 09:00 02/21/18 08:20 Objective Remarks GENERAL: Elderly lady, critically ill-appearing, remains intubated, sedated and nonresponsive. Patient's nurses were in the room at the time I examined her this morning. SKIN: Multiple ecchymotic type lesions noted over the upper extremities and lower extremities, she has thin skin with peeling in various points. HEAD: Atraumatic. Normocephalic. No temporal or scalp tenderness. EYES: No scleral icterus. No injection or drainage. Pupils are sluggishly responsive. ENT: Nose without bleeding,no active bleeding noted. The patient has an ET tube and OG tube in place, there is dried blood on the right side of her lip. NECK: Trachea midline. No JVD or lymphadenopathy. Supple, nontender, no meningeal signs. CARDIOVASCULAR: Irregular, rate is better controlled, S1-S2 no obvious murmurs rubs gallops. RESPIRATORY: Intubated, good air movement of the upper and middle lung zones with decreased bibasilar breath sounds. GASTROINTESTINAL: Nondistended no palpable organ enlargement. Protuberant belly , soft, nontender MUSCULOSKELETAL: Generally decreased muscle mass, generally decreased motor strength. Atrophy. Neurologic: No spontaneous movements. Extremities: cool and dry to the touch. Cyanosis of the left foot on the dorsum and plantar surface. As well as of the left toes. Pulses: Faint/thready peripheral pulses on bilateral feet and in the radial pulses. Skin: Thin, extensive bruising, peeling and bruising noted. Assessment/Plan Problem List: (1) Myasthenia gravis ICD Codes: G70.00 - Myasthenia gravis without (acute) exacerbation Status: Chronic Plan: --consuled by neurology to initiate apheresis with albumin every other day 5 days. Hx/Workup: Patient has a history of myasthenia gravis dating back to the . She has been on various lines of treatment including Mestinon, corticosteroids and Imuran. For the past several years she has been on IVIG infusions every 3 weeks under the care of a neurologist in [place] prior to relocating to the [facility]. She received IVIG infusions for 5 days in a row last week at [facility] and this did not improve her symptoms. The patient was being seen by a tele neurologist who recommended Rituxan infusion. She has been transferred to [facility] for continued care and management. Assessment 77-year-old female with respiratory failure, long-term use of steroids for management of myasthenia gravis. She was transferred to this facility due to worsening difficulty breathing, cough and worsening cytopenias. The hematology service was initially asked to see her to help coordinate plasma exchange treatments for a presumed myasthenia gravis exacerbation. The extent of her myasthenia gravis exacerbation is not clear however will we do know that she has a likely fungal pneumonia which is the likely cause of her respiratory failure. As a consequence of her fungal sepsis she has severe thrombocytopenia. Likely secondary to a peripheral consumptive coagulopathy. Plan 1. Severe sepsis with resultant DIC: Thrombocytopenia noted, she was transfused platelets yesterday with transient improvement. I anticipate her platelet counts improve as the DIC improves. Hold off on additional platelet transfusions, I suspect this patient is prothrombotic. She is not overtly bleeding. 2. Myasthenia gravis: I will talk to the dialysis team to resume or attempt plasma exchange again today. I will asked the nursing staff to hydrate the patient as best we can prior to exchanging today to help circumvent the issue with serum viscosity/plasma viscosity. Overall her prognosis is poor. Nursing staff explained that palliative care has been involved in the case. I think this is reasonable. Haile Zacarias MD February 22, 2018 08:11
[2018-02-22] MEDS: METOPROLOL TARTRATE 50 MG TAB PO SCH ×2 (08:22→20:18)
[2018-02-22] MEDS: DIGOXIN 0.5 MG/2 ML VIAL IV PUSH SCH (08:22)
[2018-02-22] MEDS: PICC PRN Heparin 100 units/ml Lock Flush IV FLUSH (08:24)
[2018-02-22 08:35] LABS: BANDS 34 % (0-6); CORRECTED NUCLEATED RBC 6 /100 WBC (0-0); LYMPHOCYTES 3 % (9-44); MONOCYTES 2 % (0-8); NUCLEATED RED BLOOD CELL 6 (0-0); POLYS (SEG NEUTROPHILS) 61 % (16-70)
[2018-02-22 08:37] LABS: KERATOCYTES OCC (NORMAL); OVALOCYTES 1+ (NORMAL)
[2018-02-22] MEDS: BISACODYL 10 MG SUPP RECTAL SCH (09:00)
[2018-02-22] MEDS: TIOTROPIUM BROMIDE 18 MCG INH INH SCH (09:00)
[2018-02-22] MEDS: PICC Daily Heparin 100 unit/mL Lock Flush IV FLUSH SCH (09:00)
[2018-02-22] MEDS: INSULIN ASPART SUPPLEMENTAL SCALE SQ SCH ×4 (09:20→20:19)
[2018-02-22] MEDS: CHLORHEXIDINE 0.12% (ORAL KIT) 15 ML CUP MT SCH ×2 (09:21→19:33)
--- NOTE | 2018-02-22 10:39 | HHI.IDPN ---
Subjective Subjective Remarks Ms. Vasquez is 77 y/o CF with PMHx significant for Myasthenia gravis dating back to . She has been on Mestinon since which were reportedly not effective according to family. Patient was subsequently placed on steroids for many years. Recently patient got placed on Imuran. Patient developed an allergic reaction to Imuran and therefore had to be discontinued after 2 doses. Patient has also received over the last several years several infusions of IVIG every 3 weeks under the care of her neurologist in [place]. Patient was initially admitted at [facility] and was reportedly being followed by telemetry neurologist who evaluated the patient via Internet connection with video connection to assist with patient's myasthenia gravis. The recommendation was for patient to receive rituximab therapy for management of myasthenia gravis. Hematology Dr.Zafar Zacarias was consulted. Patient was hospitalized on January 27, 2018 with complaints of difficulty breathing, cough and chills. She was treated for sepsis in the ICU unit and was on a BiPAP machine. She had blood cultures drawn during that hospitalization which were positive for strep viridans and patient was started on broad-spectrum antibiotics. Patient was thought to have a myasthenia exacerbation and was started on high-dose corticosteroids. She also received IV IgG last weeks approximately 5 sessions. Her symptoms reportedly did not improve and therefore the telemetry neurologist to was consulted recommended Rituxan infusions. Dr. Haile Zacarias was consulted and recommended transfer to [facility] for formal evaluation by a neurologist for appropriate management of myasthenia gravis. The patient was therefore transferred to [facility] in [place]. Patient was initially placed on BiPAP for tachycardia and respiratory difficulty and thereafter was evaluated by critical care and intubated placed on ventilator. Patient had further infectious disease workup including a sputum culture this time. This culture is positive for mold and infectious diseases consulted due to concern for Aspergillus pneumonia and immune compromised patient. 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 Overnight events reviewed. No fevers No rash No diarrhea Remains intubated. Did not wake up for me. Platelets low. Issues during plasmapheresis. Not a candidate for Bronch in view of low platelets. 2nd sputum Cx grew Mold as well. On Empiric voriconazole. Palliative care consulted: family meeting today. Antibiotics voriconazole azactam Lines Line sites with no e.o infection Past Medical History Myaesthenia gravis Allergies: Coded Allergies: azathioprine (Verified Allergy, Severe, 02/12/18) Painful rash all over face and body cephalexin (Verified Allergy, Severe, Rash, 02/12/18) rash all over face and chest Objective . Vital Signs Date Time Temp Pulse Resp B/P (MAP) Pulse Ox O2 Delivery O2 Flow Rate FiO2 02/22/18 07:42 50 02/22/18 07:42 98 50 02/22/18 06:00 90 02/22/18 05:00 85 22 99/61 (74) 95 02/22/18 04:30 88 24 113/57 (75) 95 02/22/18 04:07 96 50 02/22/18 04:00 85 02/22/18 04:00 97.0 86 24 114/57 (76) 94 02/22/18 04:00 50 02/22/18 03:30 84 25 100/67 (78) 95 02/22/18 03:00 92 20 96/58 (71) 96 02/22/18 02:30 82 21 91/56 (68) 95 02/22/18 02:00 85 21 97/58 (71) 95 02/22/18 02:00 85 02/22/18 01:30 93 21 102/65 (77) 96 02/22/18 01:03 99 50 02/22/18 01:00 106 22 105/58 (74) 96 02/22/18 00:30 109 22 114/65 (81) 97 02/22/18 00:00 124 02/22/18 00:00 50 02/22/18 00:00 98.0 124 29 124/73 (90) 96 02/21/18 23:33 135 24 137/70 (92) 98 02/21/18 23:30 122 23 99 02/21/18 23:00 132 23 91/66 (74) 97 02/21/18 22:30 128 24 98 02/21/18 22:00 148 27 141/91 (108) 97 02/21/18 22:00 148 02/21/18 21:42 128 23 126/65 (85) 97 02/21/18 21:30 97 50 02/21/18 21:30 115 23 97 02/21/18 21:00 143 25 90/70 (77) 97 02/21/18 20:00 97.7 124 26 148/83 (104) 92 02/21/18 20:00 50 02/21/18 20:00 124 02/21/18 19:40 96 50 02/21/18 18:00 122 02/21/18 16:00 104 02/21/18 16:00 97.3 104 29 148/91 (110) 98 02/21/18 16:00 50 02/21/18 15:56 100 50 02/21/18 14:00 94 02/21/18 12:19 97 50 02/21/18 12:00 98.6 96 26 123/65 (84) 98 02/21/18 12:00 96 02/21/18 12:00 50 . Laboratory Tests Test 02/20/18 15:13 02/21/18 04:00 02/22/18 03:45 Platelet Count 63 TH/MM3 39 TH/MM3 21 TH/MM3 White Blood Count 4.4 TH/MM3 4.2 TH/MM3 Red Blood Count 3.71 MIL/MM3 3.26 MIL/MM3 Hemoglobin 9.3 GM/DL 8.5 GM/DL Hematocrit 28.1 % 25.3 % Mean Corpuscular Volume 75.6 FL 77.4 FL Mean Corpuscular Hemoglobin 25.0 PG 26.1 PG Mean Corpuscular Hemoglobin Concent 33.1 % 33.7 % Red Cell Distribution Width 26.2 % 26.4 % Mean Platelet Volume 8.6 FL 9.8 FL Neutrophils (%) (Auto) 95.2 % 95.6 % Lymphocytes (%) (Auto) 2.8 % 3.0 % Monocytes (%) (Auto) 1.8 % 1.0 % Eosinophils (%) (Auto) 0.1 % 0.2 % Basophils (%) (Auto) 0.1 % 0.2 % Neutrophils # (Auto) 4.2 TH/MM3 4.0 TH/MM3 Lymphocytes # (Auto) 0.1 TH/MM3 0.1 TH/MM3 Monocytes # (Auto) 0.1 TH/MM3 0.0 TH/MM3 Eosinophils # (Auto) 0.0 TH/MM3 0.0 TH/MM3 Basophils # (Auto) 0.0 TH/MM3 0.0 TH/MM3 CBC Comment AUTO DIFF AUTO DIFF Differential Comment AUTO DIFF CONFIRMED FINAL DIFF MANUAL Differential Total Cells Counted 100 Neutrophils % (Manual) 61 % Band Neutrophils % 34 % Lymphocytes % 3 % Monocytes % 2 % Neutrophils # (Manual) 4.0 TH/MM3 Nucleated Red Blood Cells 6 /100 WBC Platelet Estimate LOW Platelet Morphology Comment NORMAL Ovalocytes 1+ Keratocytes OCC Laboratory Tests Test 02/21/18 04:00 02/22/18 03:45 Blood Urea Nitrogen 29 MG/DL 37 MG/DL Creatinine 0.42 MG/DL 0.57 MG/DL Random Glucose 200 MG/DL 235 MG/DL Total Protein 4.2 GM/DL 3.5 GM/DL Albumin 1.9 GM/DL 1.8 GM/DL Calcium Level 7.5 MG/DL 6.9 MG/DL Phosphorus Level 2.3 MG/DL 3.0 MG/DL Magnesium Level 2.5 MG/DL 2.6 MG/DL Alkaline Phosphatase 151 U/L 127 U/L Aspartate Amino Transf (AST/SGOT) 54 U/L 55 U/L Alanine Aminotransferase (ALT/SGPT) 170 U/L 94 U/L Total Bilirubin 0.8 MG/DL 0.9 MG/DL Sodium Level 145 MEQ/L 146 MEQ/L Potassium Level 4.0 MEQ/L 4.5 MEQ/L Chloride Level 116 MEQ/L 118 MEQ/L Carbon Dioxide Level 18.1 MEQ/L 17.5 MEQ/L Anion Gap 11 MEQ/L 11 MEQ/L Estimat Glomerular Filtration Rate 146 ML/MIN 102 ML/MIN Protein Corrected Calcium 9.0 MG/DL Imaging Last Impressions Chest X-Ray 02/19/18 0600 Signed Impressions: Service Date/Time: Monday, February 19, 2018 03:41 - CONCLUSION: Persistent bilateral lower lung opacities and pleural effusions. Wilbur Lowry MD Abdomen X-Ray 02/19/18 0000 Signed Impressions: Service Date/Time: Monday, February 19, 2018 16:26 - CONCLUSION: 1. No acute abnormalities. 2. Minimal bibasilar densities. Jose Ames MD Upper Extremity Ultrasound 02/18/18 0000 Signed Impressions: Service Date/Time: Sunday, February 18, 2018 14:21 - CONCLUSION: Normal examination. Perry Green MD Chest CT 02/17/18 1551 Signed Impressions: Service Date/Time: January 16:18 - CONCLUSION: Bilateral lower lobe consolidations right greater left. Small bilateral pleural effusions. No visible pneumothorax. ET tube is in good position.. Perry Green MD Gall Bladder Ultrasound 02/17/18 Signed Impressions: Service Date/Time: January 13:09 - CONCLUSION: 1. Gallbladder wall thickening and pericholecystic fluid suggesting possible acute cholecystitis. Clinical correlation is recommended. A hepatobiliary scan may be helpful to confirm cystic duct obstruction if clinically indicated. 2. Echogenic focus within the gallbladder suggestive of non-shadowing calculus or small polyp. 3. Mild hepatomegaly. 4. Minimal perinephric fluid on the right. Hira Arora MD Lower Extremity Angiography 02/16/18 Signed Impressions: Service Date/Time: Friday, February 16, 2018 21:33 - CONCLUSION: 1. Very sluggish outflow. Findings could be due to poor cardiac output. Emboli to the small, intrinsic vessels of the foot could have a similar appearance. 2. Otherwise, inflow and outflow are widely patent with three-vessel runoff. Martin Padilla MD Arterial Ultrasound 02/16/18 Signed Impressions: Service Date/Time: Friday, February 16, 2018 16:30 - CONCLUSION: 1. Inflow appeared to be adequate bilaterally despite scattered atherosclerotic calcification. 2. Three-vessel runoff on the right. 3. On the left, the dorsalis pedis artery appears to be quite diminutive with limited flow. Anterior tibial and peroneal are patent, however. Martin Padilla MD Aorta w/Runoff CTA 02/16/18 Signed Impressions: Service Date/Time: Friday, February 16, 2018 19:36 - CONCLUSION: 1. Inflow appears to be patent down to the above-knee popliteal bilaterally. 2. On the right, the entire popliteal is patent with the dominant runoff via the posterior tibial. 3. On the left, minimal contrast below the knee joint on both the initial and delayed images. This may represent a combination of poor cardiac output and nonocclusive thrombus in the popliteal region. Again, please the dominant runoff is via the posterior tibial. 4. Bibasilar areas of consolidation/atelectasis with small associated effusions. Cannot exclude a developing infiltrate, especially on the right. 5. Abnormal appearance of the gallbladder with either marked gallbladder wall thickening or pericholecystic fluid. The fluid appears to track down the right paracolic gutter in the pelvis. Gallbladder ultrasound could be performed for further characterization. 6. Diverticular disease of the sigmoid without diverticulitis. Martin Padilla MD Lower Extremity Ultrasound 02/13/18 0000 Signed Impressions: Service Date/Time: Tuesday, February 13, 2018 16:19 - CONCLUSION: No DVT or superficial venous thrombosis is identified within either lower extremity. John Laureano MD Physical Exam GENERAL: Obese., well-developed patient, in no apparent distress. SKIN: Multiple areas of ecchymosis and bruising noted. HEAD: Atraumatic. Normocephalic. No temporal or scalp tenderness. EYES: Pupils equal round and reactive. Extraocular motions intact. No scleral icterus. No injection or drainage. ENT: Intubated. NECK: Trachea midline. Supple, nontender, no meningeal signs. CARDIOVASCULAR: Heart sounds audible. RESPIRATORY: Clear to auscultation. Breath sounds equal bilaterally. No wheezes , rales, or rhonchi. GASTROINTESTINAL: Abdomen soft, NT. Bruising on abdominal wall skin. MUSCULOSKELETAL: Left lower extremity with bluish discoloration cold and clammy. NEUROLOGICAL: Opens eyes spontaneously. Tracks. Did not follow any commands Psych could not be assessed IV line sites with no evidence of infection. Central line in right IJ site with no evidence of infection. Laboratory Assessment & Plan Remarks Pneumonia. Possible healthcare associated pneumonia versus aspergillus or both. No documented history of aspiration. ? Pulm Aspergillosis Mold in the sputum: Given history of patient's immune compromised status workup further to decide if treatment needed was planned, but bronch cancelled 2 /2 low plts C.albicans in urine ? colonization. Left foot ischemia: CTA reveals obstruction of the flow at the level of trifurcation so my suspicions that this clot is sitting into the trifurcation and distal popliteal artery s/p TPA lysis. Abnormal LFTs: Abnormal GB pericholecystic fluid. Myasthenia gravis on Imuran and steroids Immune compromised host Prior history of COPD exacerbation Prior history of myasthenia gravis exacerbations History of strep viridans bacteremia Leukocytosis and absence of fevers:? Related to steroids also note patient immunocompromised. Thrombocytopenia Cephalexin allergy: rash Acute cholecystitis per US Recs: cont Azactam IV reduce dose to q12 hrs since no PSAE isolated. (Allergy rash to Cephalexin). Follow LFT trend. Cont voriconazole follow LFTs HIDA scan negative, GI following. Hemonc following for low platelets. Await Palliative care input: re: goals of therapy. sapna RN dw Palliative care VICE CHANCELLOR Ann Torres: family meeting today. Radha Maravilla MD February 22, 2018 10:39
--- NOTE | 2018-02-22 11:18 | HHI.HCPN ---
Reason for visit a. To assist with evaluation and management of symptoms including: Dyspnea, weakness b. To assist medical decision maker(s) with: better understanding of current medical conditions; weighing benefits/burdens of medical treatment options; making medical treatment decisions. Subjective/Interval History Pt seen today for planned follow-up meeting with , daughter to discuss decision-maker, conditions, goals. No acute events overnight. CPAP trials continue, per nursing patient tolerated CPAP for several hours yesterday. Unable to complete plasma exchange yesterday per nursing report patient blood too viscus. Hematology continues to follow will attempt again today. Platelets 21, no obvious signs of bleeding. Hemoglobin 8.5/hematocrit 25.3. Discussed with nursing, infectious disease, critical care . . Family/friend interactions Met with patient , daughter approximately 35 minutes. Discussion included: * Palliative care role, team members, reason for consult * Review of patient recent medical course, ongoing hospital course, current conditions and current treatments in place * Review of patient cognitive and functional status in the months to weeks prior to this admission * family understanding of current medical conditions, prognosis, treatment options * Brief review of continued aggressive course versus de-escalation and transition to comfort focus * CODE STATUS[] - and daughter elects alternate CODE STATUS, intubation only based on patient known wishes * Exploration of legal decision makers-per healthcare surrogate designation is listed as primary with daughter listed as alternate, indicates he is not always readily available as he lives in an [place], and that he remains in close communication with daughter Lizz and that patient interested both of them to make medical decisions he would like to be included in shared decision making when possible, however also is fine with Lizz serving as the main contact for decisions * Palliative care contact information provided Explore with patient his recall of recent events and patient trajectory. He appears to have good general recall though some confusion of dates and events. He appears to have reasonable general understanding of general condition and prognosis. He understands that the patient has a problem with her "pneumonia, platelets, and myasthenia". He indicates that the patient designated both him and the patient's daughter as decision makers and that he has some health concerns of his own and lives in an [facility] setting so is not always available, he agrees to be included in decision-making when available but indicates that he is in close communication with Lizz, and that she is able to travel to the hospital easily, and he trusts her to be the primary contact for patient updates, decisions. Upon exploration of conditions, treatments, possible trajectories: They would like to readdress REINTUBATION status should the patient be able to medically extubate in the coming days. In regards to ongoing treatment goals, they are hopeful that if the myasthenia gravis can be successfully treated then her other conditions may improve some as well. They would like to continue with all available interventions short of cardiac resuscitation in the hopes that the patient will show some improvement in the coming days. They are open to ongoing conversations as condition evolves. They do indicate that the patient has expressed she would not want prolonged artificial measures if she would not have a chance of meaningful recovery. Advance Directives Living Will: Copy in medical record Health Care Surrogate: Copy in medical record Durable Power of Verification Rep: Copy in medical record Advance Directive Specifics Significant change in goals: 02/22 elected alternate code intubation only Objective Vital Signs Date Time Temp Pulse Resp B/P (MAP) Pulse Ox O2 Delivery O2 Flow Rate FiO2 02/22/18 07:42 50 02/22/18 07:42 98 50 02/22/18 06:00 90 02/22/18 05:00 85 22 99/61 (74) 95 02/22/18 04:30 88 24 113/57 (75) 95 02/22/18 04:07 96 50 02/22/18 04:00 85 02/22/18 04:00 97.0 86 24 114/57 (76) 94 02/22/18 04:00 50 02/22/18 03:30 84 25 100/67 (78) 95 02/22/18 03:00 92 20 96/58 (71) 96 02/22/18 02:30 82 21 91/56 (68) 95 02/22/18 02:00 85 21 97/58 (71) 95 02/22/18 02:00 85 02/22/18 01:30 93 21 102/65 (77) 96 02/22/18 01:03 99 50 02/22/18 01:00 106 22 105/58 (74) 96 02/22/18 00:30 109 22 114/65 (81) 97 02/22/18 00:00 124 02/22/18 00:00 50 02/22/18 00:00 98.0 124 29 124/73 (90) 96 4/30/18 23:33 135 24 137/70 (92) 98 02/21/18 23:30 122 23 99 02/21/18 23:00 132 23 91/66 (74) 97 02/21/18 22:30 128 24 98 02/21/18 22:00 148 27 141/91 (108) 97 02/21/18 22:00 148 02/21/18 21:42 128 23 126/65 (85) 97 02/21/18 21:30 97 50 02/21/18 21:30 115 23 97 02/21/18 21:00 143 25 90/70 (77) 97 02/21/18 20:00 97.7 124 26 148/83 (104) 92 02/21/18 20:00 50 02/21/18 20:00 124 02/21/18 19:40 96 50 02/21/18 18:00 122 02/21/18 16:00 104 02/21/18 16:00 97.3 104 29 148/91 (110) 98 02/21/18 16:00 50 02/21/18 15:56 100 50 02/21/18 14:00 94 02/21/18 12:19 97 50 02/21/18 12:00 98.6 96 26 123/65 (84) 98 02/21/18 12:00 96 02/21/18 12:00 50 Intake & Output 02/22/18 02/22/18 07:00 19:00 Intake Total 600 ml Output Total 410.0 ml Balance 190.0 ml IV Total 429 ml Tube Feeding 111 ml Other 60 ml Output Urine Total 350 ml Tube Feeding Residual Discard 60.0 ml # Bowel Movements 1 Physical Exam CONSTITUTIONAL/GENERAL: This is an adequately nourished patient, in no apparent distress, ill-appearing on mechanical vent. TUBES/LINES/DRAINS: Right IJ vascular access catheter, left upper arm PICC, Maria catheter, ET tube, OG tube SKIN: No jaundice, rashes, or lesions. Pale . multiple areas of ecchymosis to chest, bilateral arms, bilateral legs. Ecchymosis to abdomen, right groin. Some of these areas very dark purple. Skin edematous some areas of weeping. Right arm covered with gauze wrap dressing reported to be weeping, some areas of skin tears. Skin warm and dry. ENT: Nose without bleeding or purulent drainage. Unable to fully visualize oropharynx secondary to ET tube, OG tube. CARDIOVASCULAR: Irregular rate and rhythm. No murmur. Atrial fibrillation visible on bedside monitor. No JVD. Peripheral pulses faint. Unable to palpate left pedal pulse reported positive Via Doppler, faint posterior tibial palp to left. RESPIRATORY/CHEST: Symmetric, unlabored respirations via mechanical vent. Scattered rhonchi. GASTROINTESTINAL: Abdomen soft, no apparent tenderness, round, nondistended. No palpable masses. Bowel sounds hypoactive-tube feed infusing via OG tube. NEUROLOGICAL: sedated on mechanical vent propofol 35 mics. Does not arouse to my exam. no eye opening. No movement of extremities. PSYCHIATRIC: No obvious anxiety/depression limited assessment 2/2 to clinical condition . Diagnostic Tests Laboratory Laboratory Tests Test 02/19/18 22:45 02/20/18 04:15 02/20/18 07:45 02/20/18 15:13 Potassium Level 3.8 MEQ/L (3.5-5.1) 4.1 MEQ/L (3.5-5.1) Phosphorus Level 2.8 MG/DL (2.5-4.9) 2.9 MG/DL (2.5-4.9) White Blood Count 6.3 TH/MM3 (4.0-11.0) Red Blood Count 3.76 MIL/MM3 (4.00-5.30) Hemoglobin 9.3 GM/DL (11.6-15.3) Hematocrit 28.6 % (35.0-46.0) Mean Corpuscular Volume 76.1 FL (80.0-100.0) Mean Corpuscular Hemoglobin 24.9 PG (27.0-34.0) Mean Corpuscular Hemoglobin Concent 32.7 % (32.0-36.0) Red Cell Distribution Width 26.0 % (11.6-17.2) Platelet Count 17 TH/MM3 (150-450) 63 TH/MM3 (150-450) Mean Platelet Volume 10.4 FL (7.0-11.0) Neutrophils (%) (Auto) 95.7 % (16.0-70.0) Lymphocytes (%) (Auto) 1.4 % (9.0-44.0) Monocytes (%) (Auto) 2.1 % (0.0-8.0) Eosinophils (%) (Auto) 0.7 % (0.0-4.0) Basophils (%) (Auto) 0.1 % (0.0-2.0) Neutrophils # (Auto) 6.1 TH/MM3 (1.8-7.7) Lymphocytes # (Auto) 0.1 TH/MM3 (1.0-4.8) Monocytes # (Auto) 0.1 TH/MM3 (0-0.9) Eosinophils # (Auto) 0.0 TH/MM3 (0-0.4) Basophils # (Auto) 0.0 TH/MM3 (0-0.2) CBC Comment AUTO DIFF Differential Comment AUTO DIFF CONFIRMED Platelet Estimate LOW (NORMAL) Platelet Morphology Comment ENLARGED (NORMAL) Ovalocytes 1+ (NORMAL) Haptoglobin 134 MG/DL (30-200) Prothrombin Time 11.5 SEC (9.8-11.6) Prothromb Time International Ratio 1.1 RATIO Activated Partial Thromboplast Time 27.5 SEC (24.3-30.1) Fibrinogen 220 mg/dL (227-377) Blood Urea Nitrogen 28 MG/DL (7-18) Creatinine 0.48 MG/DL (0.50-1.00) Random Glucose 211 MG/DL (74-106) Total Protein 4.1 GM/DL (6.4-8.2) Albumin 2.0 GM/DL (3.4-5.0) Calcium Level 7.5 MG/DL (8.5-10.1) Magnesium Level 2.4 MG/DL (1.5-2.5) Alkaline Phosphatase 152 U/L (45-117) Aspartate Amino Transf (AST/SGOT) 56 U/L (15-37) Alanine Aminotransferase (ALT/SGPT) 222 U/L (10-53) Lactate Dehydrogenase 360 U/L (84-246) Total Bilirubin 1.0 MG/DL (0.2-1.0) Sodium Level 143 MEQ/L (136-145) Chloride Level 114 MEQ/L (98-107) Carbon Dioxide Level 18.1 MEQ/L (21.0-32.0) Anion Gap 11 MEQ/L (5-15) Estimat Glomerular Filtration Rate 125 ML/MIN (>89) Vancomycin Level Trough 22.4 MCG/ML (5.0-10.0) Test 4/29/18 15:55 02/21/18 04:00 02/21/18 08:35 02/22/18 03:45 D-Dimer Quantitative (PE/DVT) 0.94 MG/L FEU (0.00-0.50) White Blood Count 4.4 TH/MM3 (4.0-11.0) 4.2 TH/MM3 (4.0-11.0) Red Blood Count 3.71 MIL/MM3 (4.00-5.30) 3.26 MIL/MM3 (4.00-5.30) Hemoglobin 9.3 GM/DL (11.6-15.3) 8.5 GM/DL (11.6-15.3) Hematocrit 28.1 % (35.0-46.0) 25.3 % (35.0-46.0) Mean Corpuscular Volume 75.6 FL (80.0-100.0) 77.4 FL (80.0-100.0) Mean Corpuscular Hemoglobin 25.0 PG (27.0-34.0) 26.1 PG (27.0-34.0) Mean Corpuscular Hemoglobin Concent 33.1 % (32.0-36.0) 33.7 % (32.0-36.0) Red Cell Distribution Width 26.2 % (11.6-17.2) 26.4 % (11.6-17.2) Platelet Count 39 TH/MM3 (150-450) 21 TH/MM3 (150-450) Mean Platelet Volume 8.6 FL (7.0-11.0) 9.8 FL (7.0-11.0) Neutrophils (%) (Auto) 95.2 % (16.0-70.0) 95.6 % (16.0-70.0) Lymphocytes (%) (Auto) 2.8 % (9.0-44.0) 3.0 % (9.0-44.0) Monocytes (%) (Auto) 1.8 % (0.0-8.0) 1.0 % (0.0-8.0) Eosinophils (%) (Auto) 0.1 % (0.0-4.0) 0.2 % (0.0-4.0) Basophils (%) (Auto) 0.1 % (0.0-2.0) 0.2 % (0.0-2.0) Neutrophils # (Auto) 4.2 TH/MM3 (1.8-7.7) 4.0 TH/MM3 (1.8-7.7) Lymphocytes # (Auto) 0.1 TH/MM3 (1.0-4.8) 0.1 TH/MM3 (1.0-4.8) Monocytes # (Auto) 0.1 TH/MM3 (0-0.9) 0.0 TH/MM3 (0-0.9) Eosinophils # (Auto) 0.0 TH/MM3 (0-0.4) 0.0 TH/MM3 (0-0.4) Basophils # (Auto) 0.0 TH/MM3 (0-0.2) 0.0 TH/MM3 (0-0.2) CBC Comment AUTO DIFF AUTO DIFF Differential Comment AUTO DIFF CONFIRMED FINAL DIFF MANUAL Blood Urea Nitrogen 29 MG/DL (7-18) 37 MG/DL (7-18) Creatinine 0.42 MG/DL (0.50-1.00) 0.57 MG/DL (0.50-1.00) Random Glucose 200 MG/DL (74-106) 235 MG/DL (74-106) Total Protein 4.2 GM/DL (6.4-8.2) 3.5 GM/DL (6.4-8.2) Albumin 1.9 GM/DL (3.4-5.0) 1.8 GM/DL (3.4-5.0) Calcium Level 7.5 MG/DL (8.5-10.1) 6.9 MG/DL (8.5-10.1) Phosphorus Level 2.3 MG/DL (2.5-4.9) 3.0 MG/DL (2.5-4.9) Magnesium Level 2.5 MG/DL (1.5-2.5) 2.6 MG/DL (1.5-2.5) Alkaline Phosphatase 151 U/L (45-117) 127 U/L (45-117) Aspartate Amino Transf (AST/SGOT) 54 U/L (15-37) 55 U/L (15-37) Alanine Aminotransferase (ALT/SGPT) 170 U/L (10-53) 94 U/L (10-53) Total Bilirubin 0.8 MG/DL (0.2-1.0) 0.9 MG/DL (0.2-1.0) Sodium Level 145 MEQ/L (136-145) 146 MEQ/L (136-145) Potassium Level 4.0 MEQ/L (3.5-5.1) 4.5 MEQ/L (3.5-5.1) Chloride Level 116 MEQ/L (98-107) 118 MEQ/L (98-107) Carbon Dioxide Level 18.1 MEQ/L (21.0-32.0) 17.5 MEQ/L (21.0-32.0) Anion Gap 11 MEQ/L (5-15) 11 MEQ/L (5-15) Estimat Glomerular Filtration Rate 146 ML/MIN (>89) 102 ML/MIN (>89) Prothrombin Time 12.6 SEC (9.8-11.6) Prothromb Time International Ratio 1.2 RATIO Activated Partial Thromboplast Time 27.2 SEC (24.3-30.1) Fibrinogen 309 mg/dL (227-377) Differential Total Cells Counted 100 Neutrophils % (Manual) 61 % (16-70) Band Neutrophils % 34 % (0-6) Lymphocytes % 3 % (9-44) Monocytes % 2 % (0-8) Neutrophils # (Manual) 4.0 TH/MM3 (1.8-7.7) Nucleated Red Blood Cells 6 /100 WBC (0-0) Platelet Estimate LOW (NORMAL) Platelet Morphology Comment NORMAL (NORMAL) Ovalocytes 1+ (NORMAL) Keratocytes OCC (NORMAL) Protein Corrected Calcium 9.0 MG/DL (8.5-10.1) Result Diagram: 02/22/18 0345 02/22/18 0345 Imaging Last Impressions Chest X-Ray 02/21/18 0600 Signed Impressions: Service Date/Time: Wednesday, February 21, 2018 01:40 - CONCLUSION: 1. Stable appearance of the chest with bibasilar airspace disease and associated effusions, right worse than left. Possible right perihilar infiltrate, unchanged. 2. Stable position of life support tubes. Martin Padilla MD Hepatobiliary Scan Nuclear Medicine 02/20/18 0000 Signed Impressions: Service Date/Time: Tuesday, February 20, 2018 11:41 - CONCLUSION: No sign of obstruction. John Castro MD Abdomen X-Ray 02/19/18 0000 Signed Impressions: Service Date/Time: Monday, February 19, 2018 16:26 - CONCLUSION: 1. No acute abnormalities. 2. Minimal bibasilar densities. Jose Ames MD Upper Extremity Ultrasound 02/18/18 0000 Signed Impressions: Service Date/Time: Sunday, February 18, 2018 14:21 - CONCLUSION: Normal examination. Perry Green MD Chest CT 02/17/18 1551 Signed Impressions: Service Date/Time: January 16:18 - CONCLUSION: Bilateral lower lobe consolidations right greater left. Small bilateral pleural effusions. No visible pneumothorax. ET tube is in good position.. Perry Green MD Gall Bladder Ultrasound 02/17/18 0000 Signed Impressions: Service Date/Time: January 13:09 - CONCLUSION: 1. Gallbladder wall thickening and pericholecystic fluid suggesting possible acute cholecystitis. Clinical correlation is recommended. A hepatobiliary scan may be helpful to confirm cystic duct obstruction if clinically indicated. 2. Echogenic focus within the gallbladder suggestive of non-shadowing calculus or small polyp. 3. Mild hepatomegaly. 4. Minimal perinephric fluid on the right. Hira Arora MD Lower Extremity Angiography 02/16/18 Signed Impressions: Service Date/Time: Friday, February 16, 2018 21:33 - CONCLUSION: 1. Very sluggish outflow. Findings could be due to poor cardiac output. Emboli to the small, intrinsic vessels of the foot could have a similar appearance. 2. Otherwise, inflow and outflow are widely patent with three-vessel runoff. Martin Padilla MD Arterial Ultrasound 02/16/18 0000 Signed Impressions: Service Date/Time: Friday, February 16, 2018 16:30 - CONCLUSION: 1. Inflow appeared to be adequate bilaterally despite scattered atherosclerotic calcification. 2. Three-vessel runoff on the right. 3. On the left, the dorsalis pedis artery appears to be quite diminutive with limited flow. Anterior tibial and peroneal are patent, however. Martin Padilla MD Aorta w/Runoff CTA 02/16/18 Signed Impressions: Service Date/Time: Friday, February 16, 2018 19:36 - CONCLUSION: 1. Inflow appears to be patent down to the above-knee popliteal bilaterally. 2. On the right, the entire popliteal is patent with the dominant runoff via the posterior tibial. 3. On the left, minimal contrast below the knee joint on both the initial and delayed images. This may represent a combination of poor cardiac output and nonocclusive thrombus in the popliteal region. Again, please the dominant runoff is via the posterior tibial. 4. Bibasilar areas of consolidation/atelectasis with small associated effusions. Cannot exclude a developing infiltrate, especially on the right. 5. Abnormal appearance of the gallbladder with either marked gallbladder wall thickening or pericholecystic fluid. The fluid appears to track down the right paracolic gutter in the pelvis. Gallbladder ultrasound could be performed for further characterization. 6. Diverticular disease of the sigmoid without diverticulitis. Martin Padilla MD Lower Extremity Ultrasound 02/13/18 0000 Signed Impressions: Service Date/Time: Tuesday, February 13, 2018 16:19 - CONCLUSION: No DVT or superficial venous thrombosis is identified within either lower extremity. John Laureano MD Procedures 02/14 intubated . 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 Moved to this area with her from [place] last month to be nearer to her daughter. Lived in [place] the past 20-25 years. has dementia and is in [facility]/memory care area. This is patient's second . She has 1 daughter Lizz, from previous marriage. 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 Spiritual: Zoroastrianism though does not actively participate, daughter does not feel she would want auto customize painter visits. Legal:Patient currently unable to participate due to clinical condition. Not clear that she will regain ability to clearly communicate and participate in decision-making. Daughter Lizz indicates she does have a living well, advanced directives and paperwork designating a medical proxy or D POA. Daughter tells me that her Jordi is designated as primary with Lizz as a secondary if the unable. I have requested copies of these documents she will bring with her tomorrow morning. Patient reported to have early dementia, required to assist with ADLs and self-care tasks, reported to have poor short-term memory may not be able to make informed medical decisions. Ethical issues impacting care: No ethical issues identified . Important Contacts dtr Lizz Andre [phone] / [phone] spouse Jordi Onore- lives at [facility], does not have private phone #, [phone] [id number] [place] . Prognosis This patient was recently treated at another facility for pneumonia, and required transfer here for further treatment of her underlying myasthenia gravis. She has remained in ICU on mechanical vent. She now has Aspergillus in her sputum, and remains on mechanical vent. Prognosis for long-term survival and recovery back to prior status is poor given multiple comorbidities and prolonged hospitalization. Code Status: Full Code Plan * Legal decision maker: Patient currently unable to participate due to clinical condition. Not clear that she will regain ability to clearly communicate and participate in decision-making. Daughter Lizz indicates she does have a living well, advanced directives and paperwork designating a medical proxy or D POA. Daughter tells me that her Jordi is designated as primary with Lizz as a secondary if the unable. I have requested copies of these documents she will bring with her tomorrow morning. Patient reported to have early dementia, required to assist with ADLs and self-care tasks, reported to have poor short-term memory may not be able to make informed medical decisions. 02/22/18: Patient Jordi presents with very mild forgetfulness, fair/reasonable general recall of patient conditions and prognosis. indicates due to requiring care and living in an [facility] himself he is not always readily available agrees to shared decision making with daughter Lizz when he is available, but that Lizz remains in close communication with him and he is fine with her serving as primary contact and decision-maker, as she does include him. * Goals: They would like to readdress REINTUBATION status should the patient be able to medically extubate in the coming days. In regards to ongoing treatment goals, they are hopeful that if the myasthenia gravis can be successfully treated then her other conditions may improve some as well. They would like to continue with all available interventions short of cardiac resuscitation in the hopes that the patient will show some improvement in the coming days. They are open to ongoing conversations as condition evolves. They do indicate that the patient has expressed she would not want prolonged artificial measures if she would not have a chance of meaningful recovery. * CODE STATUS: alt code, INTUBATION ONLY * SYMPTOMS: --Dyspnea-intubated on 02/14.+ Aspergillus pneumonia, + weakness secondary to myasthenia gravis. CXR stable without significant improvement. Tolerating short CPAP trials 2 hours. Possible may require tracheostomy for long-term ventilation if goals aggressive. Also possible may be able to medically extubate if continues to tolerate CPAP however would remain high risk for aspiration and reintubation. --Weakness-history of myasthenia gravis. Has been on steroids long-term. Recently transferred to [facility] to receive additional treatment. Has been ordered for plasmapheresis however due to ongoing thrombocytopenia has not been able to complete treatments, had attempted plasmapheresis 02/21, unable to complete due to blood viscosity, planned for repeat attempt today 02/22. Weakness expected to be compounded by prolonged bedbound status and ongoing acute illness. --Pain-patient with no reported chronic pain syndromes, today nods no weakly to pain, no apparent distress. Will continue to evaluate. * Palliative care will continue to follow during hospital course as condition evolves, to assist patient/decision-maker with understanding of medical conditions, weighing benefits/burdens of treatment options, for clarification of goals of treatment. Additionally will assist with any symptoms of palliative concern Time Spent Total Floor Time (mins): 45 (Chart review, PE, family meeting, discussion with ID,critical care, discussion with nursing) Attestation To help prompt me to consider important information that might be impacting today's encounter and assessment, information from prior notes written by myself or my colleagues may have been "brought forward" into today's note. My signature on this note, however, is an attestation that I personally performed the exam, history, and/or decision-making noted today, and, unless otherwise indicated, the interactions with patient, family, and staff as well as the review of records all occurred today. I also attest that the listed assessment and stated plan reflect my best clinical judgment today based on the combination of historical information, prior notes, and today's exam/ interactions. When time spent is documented, it refers only to time spent today by the signer, or if indicated, combined time spent today by collaborating physician/nurse practitioner. Ann Torres February 22, 2018 11:18
--- NOTE | 2018-02-22 14:42 | HHI.CCPN ---
Subjective Remarks/Hospital Course This is a 77-year-old female that presented to [facility] on 01/27/2018 with complaints of dyspnea. The patient medical history significant for myasthenia gravis since the and was cared for by her electronic video games servicer in [facility] prior to relocating recently to [place]. Her medical history is significant for chronic steroid therapy with prednisone and then subsequently placed on IVIG infusions every 3 weeks secondary to nonresponsiveness of steroid therapy. On 01 27 the patient was admitted to [facility] and treated for sepsis with broad- spectrum antibiotics, which have now been completed. Blood cultures have revealed Streptococcus viridans. The patient continued care at [place] seeing a telemetry neurologist and hematology oncology was consulted, Dr. Zacarias. It was recommended that the patient receive Rituxan and be evaluated formally by a neurologist. Patient was transferred to [facility]. The patient has a history of A. fib RVR, and home medications include metoprolol, digoxin, and Cardizem. These medications were stopped in the last 24 hours secondary to the patient experiencing dysphagia. Patient subsequently went into A. fib RVR early this a.m., heart rate 150's and transferred to ICU. Stat ABG was obtained. critical care medicine was consulted. SUBJ 02/14: Currently patient is quite tachypneic breathing about 40/min, even on BiPAP. Prior to BiPAP patient's NIF-16 and forced vital was 600 ml. Patient clearly failing BiPAP and this is most likely secondary to myasthenia gravis exacerbation. I proceeded to endotracheally intubate the patient placed on mechanical ventilation. Discussed with Dr. Olivarez area both of us agree on starting plasma exchange. Will discuss with hematology Dr. Zacarias 02/15: No events over the night. Due to progressive respiratory distress she was intubated yesterday. T-max of 98.7. I/O 1770/650. She remains on esmolol drip, still in A. fib/flutter on the monitor with heart rate better controlled. She sedated with propofol. 02/16: Patient did well over the night. Patient continues to require esmolol heart rate control, currently at 200, and propofol for sedation. 02/17: Yesterday evening, patient's left foot became more cyanotic. Dr. Conteh from vascular surgery was consulted, patient underwent CTA and IR to patient for left leg angio but no clot was seen. Patient had improved pulse post procedure. This a.m. patient has dopplerable pulse. No other overnight events. T-max of 98.2. Urine output decreased. 02/18: No events over the night. Left foot remains cyanotic with dopplerable pulse. Platelets remain low. Afebrile, with a T-max of 98.1. Documented urine output over the last 24 hours 250 cc. Of esmolol drip, receiving IV hydration. She remains sedated and intubated. 02/19: Patient remains intubated and sedated. Afebrile, with a T-max of 98. Improved urine output. A. fib on telemetry. No family present at bedside. 02/20: No events over the night. Patient remains intubated and sedated, though more awake, attempting to open eyes to voice stimuli. T-max of 98.7 and urine output of 800 cc over the last 24 hours. She remains on 0.3 FiO2. No family present at bedside. 02/21: Patient remains intubated and sedated. T-max of 98.9. Attempts to open her eyes but does not follow commands. On propofol at 30. Had a HIDA scan yesterday which was negative. Morning chest x-ray reviewed, still with bibasilar infiltrates, no significant change. 02/22: No acute changes overnight. Plasmapheresis planned for today. Objective Vital Signs Date Time Temp Pulse Resp B/P (MAP) Pulse Ox O2 Delivery O2 Flow Rate FiO2 02/22/18 12:00 50 02/22/18 11:50 98 02/22/18 06:00 90 02/22/18 05:00 22 99/61 (74) 02/22/18 04:00 97.0 Intake and Output 02/22/18 02/22/18 02/22/18 07:59 15:59 23:59 Intake Total 400 ml Output Total 350 ml Balance 50 ml Result Diagram: 02/22/18 0345 02/22/18 0345 Imaging Last 24 hours Impressions Chest X-Ray 02/21/18 0600 Signed Impressions: Service Date/Time: Wednesday, February 21, 2018 01:40 - CONCLUSION: 1. Stable appearance of the chest with bibasilar airspace disease and associated effusions, right worse than left. Possible right perihilar infiltrate, unchanged. 2. Stable position of life support tubes. Martin Padilla MD Last Impressions Chest X-Ray 02/19/18 0600 Signed Impressions: Service Date/Time: Monday, February 19, 2018 03:41 - CONCLUSION: Persistent bilateral lower lung opacities and pleural effusions. Wilbur Lowry MD Abdomen X-Ray 02/19/18 0000 Signed Impressions: Service Date/Time: Monday, February 19, 2018 16:26 - CONCLUSION: 1. No acute abnormalities. 2. Minimal bibasilar densities. Jose Ames MD Upper Extremity Ultrasound 02/18/18 0000 Signed Impressions: Service Date/Time: Sunday, February 18, 2018 14:21 - CONCLUSION: Normal examination. Perry Green MD Chest CT 02/17/18 1551 Signed Impressions: Service Date/Time: January 16:18 - CONCLUSION: Bilateral lower lobe consolidations right greater left. Small bilateral pleural effusions. No visible pneumothorax. ET tube is in good position.. Perry Green MD Gall Bladder Ultrasound 02/17/18 0000 Signed Impressions: Service Date/Time: January 13:09 - CONCLUSION: 1. Gallbladder wall thickening and pericholecystic fluid suggesting possible acute cholecystitis. Clinical correlation is recommended. A hepatobiliary scan may be helpful to confirm cystic duct obstruction if clinically indicated. 2. Echogenic focus within the gallbladder suggestive of non-shadowing calculus or small polyp. 3. Mild hepatomegaly. 4. Minimal perinephric fluid on the right. Hira Arora MD Lower Extremity Angiography 02/16/18 0000 Signed Impressions: Service Date/Time: Friday, February 16, 2018 21:33 - CONCLUSION: 1. Very sluggish outflow. Findings could be due to poor cardiac output. Emboli to the small, intrinsic vessels of the foot could have a similar appearance. 2. Otherwise, inflow and outflow are widely patent with three-vessel runoff. Martin Padilla MD Arterial Ultrasound 02/16/18 0000 Signed Impressions: Service Date/Time: Friday, February 16, 2018 16:30 - CONCLUSION: 1. Inflow appeared to be adequate bilaterally despite scattered atherosclerotic calcification. 2. Three-vessel runoff on the right. 3. On the left, the dorsalis pedis artery appears to be quite diminutive with limited flow. Anterior tibial and peroneal are patent, however. Martin Padilla MD Aorta w/Runoff CTA 02/16/18 0000 Signed Impressions: Service Date/Time: Friday, February 16, 2018 19:36 - CONCLUSION: 1. Inflow appears to be patent down to the above-knee popliteal bilaterally. 2. On the right, the entire popliteal is patent with the dominant runoff via the posterior tibial. 3. On the left, minimal contrast below the knee joint on both the initial and delayed images. This may represent a combination of poor cardiac output and nonocclusive thrombus in the popliteal region. Again, please the dominant runoff is via the posterior tibial. 4. Bibasilar areas of consolidation/atelectasis with small associated effusions. Cannot exclude a developing infiltrate, especially on the right. 5. Abnormal appearance of the gallbladder with either marked gallbladder wall thickening or pericholecystic fluid. The fluid appears to track down the right paracolic gutter in the pelvis. Gallbladder ultrasound could be performed for further characterization. 6. Diverticular disease of the sigmoid without diverticulitis. Martin Padilla MD Lower Extremity Ultrasound 02/13/18 0000 Signed Impressions: Service Date/Time: Tuesday, February 13, 2018 16:19 - CONCLUSION: No DVT or superficial venous thrombosis is identified within either lower extremity. John Laureano MD Objective Remarks General - elderly lady, intubated, sedated, critically ill ill-appearing HEENT - pupils equal, reactive, sclera anicteric, neck supple, no JVD, + ETT, + NGT, right IJ HD catheter -site is clean CV - irregularly irregular S1, S2, no murmurs appreciated, heart rate in the 90' s Chest - still with scattered coarse breath sounds bilateral bases, no wheezes Abdomen - soft, non-tender, not distended, BS present Skin - unchanged, multiple ecchymotic bruises bilateral arms and skin tears covered with dressing, bruises present over the abdomen Extremities - both feet are warm to touch, cyanosis over the left foot is significantly improved, 1+ edema, dopplerable pulse on the left and palpable on the right Neuro - intubated, sedated, opens eyes to voice stimuli, grimaces to pain A/P Problem List: (1) Pneumonia ICD Code: J18.9 - Pneumonia, unspecified organism Status: Acute (2) COPD (chronic obstructive pulmonary disease) ICD Code: J44.9 - Chronic obstructive pulmonary disease, unspecified Status: Chronic (3) Myasthenia gravis ICD Code: G70.00 - Myasthenia gravis without (acute) exacerbation Status: Chronic (4) Current chronic use of systemic steroids ICD Code: Z79.52 - medical terminologist (current) use of systemic steroids (5) Anemia ICD Code: D64.9 - Anemia, unspecified Assessment and Plan 1. Myasthenia gravis, with acute exacerbation, completed 1 cycle of plasmapheresis 2. Acute respiratory failure secondary to above, on minimal O2 requirements, tolerated CPAP for 2 hours yesterday 3. Vascular occlusive disease with cyanosis of left foot -significantly improved 4. Acute encephalopathy 5. A. fib with RVR, remains in A. fib but rate better controlled -she remains off Esmolol drip 6. Possible pneumonia -completed treatment at the outside hospital. Now patient growing Aspergillus in the sputum 7. History of CHF 8. Hypernatremia -resolved 9. Acute anemia, received 1 unit PRBC transfusion, now improved, count stable 10. Thrombocytopenia -platelet count remains low, received platelet transfusion on Wednesday, HIT negative 11. Elevated liver enzymes and possible acute cholecystitis -AST and ALT continue to improve, HIDA scan negative 1. Continue CPAP trials as tolerated 2. Vent bundle and bronchodilators. Hold home medication Singulair and Spiriva 3. Continue voriconazole due to immunosuppression. Appreciate ID assistance. Continue to monitor liver enzymes 4. Additional antifungal workup is pending. No role for bronchoscopy at this time due to severe thrombocytopenia and microorganism being isolated in 2 different sputum cultures 5. Continue methylprednisolone 125 mg 4 times daily per neurology. She received IVIG therapy for the last 3 weeks at [facility]. 6. Continue digoxin and Cardizem will try to taper off beta-elana as tolerated in the setting of myasthenia crisis 7. On aztreonam and Vanco. Levofloxacin was stopped 8. Platelet transfusion per hematology. Restarted on Lovenox 9. Continue Trickle feeds @ 10cc/hr , we will not advance secondary to increased gastric residuals 10. GI prophylaxis with PPI 11. Plasmapheresis per neuro and hematology Level 3 follow-up No family present at bedside. Discussed with palliative care steam box operator Ms. Ann Torres Physician Nemo Bell MD February 22, 2018 14:42
[2018-02-22] MEDS: SENNOSIDES 8.6 MG TAB PO PRN (17:23)
[2018-02-22] MEDS: METOPROLOL TARTRATE 5 MG/5 ML VIAL IV PUSH PRN (18:18)
[2018-02-22 19:53] LABS: ASPERGILLUS FLAVUS AB NEGATIVE (NEGATIVE); ASPERGILLUS FUMIGATUS AB NEGATIVE (NEGATIVE); ASPERGILLUS NIGER AB NEGATIVE (NEGATIVE)
[2018-02-22] MEDS: MONTELUKAST SODIUM 10 MG TAB PO SCH (20:18)
[2018-02-22 23:52] LABS: MITOCHONDRIAL ABS LESS THAN 20.0 U (<=20.0)
[2018-02-23] VITALS (15 sets, daily range): BP systolic 116–134; BP diastolic 60–75; PULSE 83–100; RESP 25–28; TEMP 97.8–99.3; O2SAT 97–100
[2018-02-23] MEDS: AZTREONAM INJ 2,000 MG in SODIUM CHLORIDE 0.9% INJ 100 ML IV SCH (03:22)
[2018-02-23] MEDS: PANTOPRAZOLE SODIUM 40 MG VIAL IV PUSH SCH (03:22)
[2018-02-23] MEDS: PROPOFOL 1000 MG/100 ML INJ 100 ML IV PRN ×2 (04:25→09:22)
[2018-02-23] MEDS: RESP: ALBUTEROL 2.5 MG/IPRATROPIUM 0.5 MG NEB (PRN) NEB (04:35)
[2018-02-23] MEDS: methylPREDNISolone SOD SUCC 125 MG/2 ML VIAL IV PUSH SCH (05:55)
[2018-02-23] MEDS: SODIUM CHLOR 0.9% IV SCH (05:55)
[2018-02-23] MEDS: DILTIAZEM HCL 60 MG TAB PO SCH (05:55)
[2018-02-23] MEDS: VORICONAZOLE IV SCH (05:55)
[2018-02-23] MEDS ORDERED: LACTATED RINGER'S 1000 ML INJ 1,000 ML IV SCH ×2 (07:00→12:00)
--- NOTE | 2018-02-23 07:14 | HHI.CCPN ---
Subjective Remarks/Hospital Course This is a 77-year-old female that presented to [facility] on 01/27/2018 with complaints of dyspnea. The patient medical history significant for myasthenia gravis since the and was cared for by her regulator assembler in [facility] prior to relocating recently to [place]. Her medical history is significant for chronic steroid therapy with prednisone and then subsequently placed on IVIG infusions every 3 weeks secondary to nonresponsiveness of steroid therapy. On 01 27 the patient was admitted to [facility] and treated for sepsis with broad- spectrum antibiotics, which have now been completed. Blood cultures have revealed Streptococcus viridans. The patient continued care at [place] seeing a telemetry neurologist and hematology oncology was consulted, Dr. Zacarias. It was recommended that the patient receive Rituxan and be evaluated formally by a neurologist. Patient was transferred to [facility]. The patient has a history of A. fib RVR, and home medications include metoprolol, digoxin, and Cardizem. These medications were stopped in the last 24 hours secondary to the patient experiencing dysphagia. Patient subsequently went into A. fib RVR early this a.m., heart rate 150's and transferred to ICU. Stat ABG was obtained. critical care medicine was consulted. SUBJ 02/14: Currently patient is quite tachypneic breathing about 40/min, even on BiPAP. Prior to BiPAP patient's NIF-16 and forced vital was 600 ml. Patient clearly failing BiPAP and this is most likely secondary to myasthenia gravis exacerbation. I proceeded to endotracheally intubate the patient placed on mechanical ventilation. Discussed with Dr. Olivarez area both of us agree on starting plasma exchange. Will discuss with hematology Dr. Zacarias 02/15: No events over the night. Due to progressive respiratory distress she was intubated yesterday. T-max of 98.7. I/O 1770/650. She remains on esmolol drip, still in A. fib/flutter on the monitor with heart rate better controlled. She sedated with propofol. 02/16: Patient did well over the night. Patient continues to require esmolol heart rate control, currently at 200, and propofol for sedation. 02/17: Yesterday evening, patient's left foot became more cyanotic. Dr. Conteh from vascular surgery was consulted, patient underwent CTA and IR to patient for left leg angio but no clot was seen. Patient had improved pulse post procedure. This a.m. patient has dopplerable pulse. No other overnight events. T-max of 98.2. Urine output decreased. 02/18: No events over the night. Left foot remains cyanotic with dopplerable pulse. Platelets remain low. Afebrile, with a T-max of 98.1. Documented urine output over the last 24 hours 250 cc. Of esmolol drip, receiving IV hydration. She remains sedated and intubated. 02/19: Patient remains intubated and sedated. Afebrile, with a T-max of 98. Improved urine output. A. fib on telemetry. No family present at bedside. 02/20: No events over the night. Patient remains intubated and sedated, though more awake, attempting to open eyes to voice stimuli. T-max of 98.7 and urine output of 800 cc over the last 24 hours. She remains on 0.3 FiO2. No family present at bedside. 02/21: Patient remains intubated and sedated. T-max of 98.9. Attempts to open her eyes but does not follow commands. On propofol at 30. Had a HIDA scan yesterday which was negative. Morning chest x-ray reviewed, still with bibasilar infiltrates, no significant change. 02/22: No acute changes overnight. Plasmapheresis planned for today. 02/23: Afebrile. No acute changes. Gentle hydration initiated patient and continues on free water flushes. Patient with pleural effusions chest x-ray pending this a.m. we will closely monitor. Current FiO2 is 50%. Objective Vital Signs Date Time Temp Pulse Resp B/P (MAP) Pulse Ox O2 Delivery O2 Flow Rate FiO2 02/23/18 06:00 83 02/23/18 04:30 28 130/75 (93) 100 02/23/18 04:21 50 02/23/18 04:00 97.8 Intake and Output 02/23/18 02/23/18 02/24/18 08:00 16:00 00:00 Intake Total 680 ml Output Total 350 ml Balance 330 ml Result Diagram: 02/22/18 0345 02/22/18 0345 Imaging Last 24 hours Impressions Chest X-Ray 02/21/18 0600 Signed Impressions: Service Date/Time: Wednesday, February 21, 2018 01:40 - CONCLUSION: 1. Stable appearance of the chest with bibasilar airspace disease and associated effusions, right worse than left. Possible right perihilar infiltrate, unchanged. 2. Stable position of life support tubes. Martin Padilla MD Last Impressions Chest X-Ray 02/19/18 0600 Signed Impressions: Service Date/Time: Monday, February 19, 2018 03:41 - CONCLUSION: Persistent bilateral lower lung opacities and pleural effusions. Wilbur Lowry MD Abdomen X-Ray 02/19/18 0000 Signed Impressions: Service Date/Time: Monday, February 19, 2018 16:26 - CONCLUSION: 1. No acute abnormalities. 2. Minimal bibasilar densities. Jose Ames MD Upper Extremity Ultrasound 02/18/18 0000 Signed Impressions: Service Date/Time: Sunday, February 18, 2018 14:21 - CONCLUSION: Normal examination. Perry Green MD Chest CT 02/17/18 1551 Signed Impressions: Service Date/Time: January 16:18 - CONCLUSION: Bilateral lower lobe consolidations right greater left. Small bilateral pleural effusions. No visible pneumothorax. ET tube is in good position.. Perry Green MD Gall Bladder Ultrasound 02/17/18 0000 Signed Impressions: Service Date/Time: January 13:09 - CONCLUSION: 1. Gallbladder wall thickening and pericholecystic fluid suggesting possible acute cholecystitis. Clinical correlation is recommended. A hepatobiliary scan may be helpful to confirm cystic duct obstruction if clinically indicated. 2. Echogenic focus within the gallbladder suggestive of non-shadowing calculus or small polyp. 3. Mild hepatomegaly. 4. Minimal perinephric fluid on the right. Hira Arora MD Lower Extremity Angiography 02/16/18 0000 Signed Impressions: Service Date/Time: Friday, February 16, 2018 21:33 - CONCLUSION: 1. Very sluggish outflow. Findings could be due to poor cardiac output. Emboli to the small, intrinsic vessels of the foot could have a similar appearance. 2. Otherwise, inflow and outflow are widely patent with three-vessel runoff. Martin Padilla MD Arterial Ultrasound 02/16/18 0000 Signed Impressions: Service Date/Time: Friday, February 16, 2018 16:30 - CONCLUSION: 1. Inflow appeared to be adequate bilaterally despite scattered atherosclerotic calcification. 2. Three-vessel runoff on the right. 3. On the left, the dorsalis pedis artery appears to be quite diminutive with limited flow. Anterior tibial and peroneal are patent, however. Martin Padilla MD Aorta w/Runoff CTA 02/16/18 0000 Signed Impressions: Service Date/Time: Friday, February 16, 2018 19:36 - CONCLUSION: 1. Inflow appears to be patent down to the above-knee popliteal bilaterally. 2. On the right, the entire popliteal is patent with the dominant runoff via the posterior tibial. 3. On the left, minimal contrast below the knee joint on both the initial and delayed images. This may represent a combination of poor cardiac output and nonocclusive thrombus in the popliteal region. Again, please the dominant runoff is via the posterior tibial. 4. Bibasilar areas of consolidation/atelectasis with small associated effusions. Cannot exclude a developing infiltrate, especially on the right. 5. Abnormal appearance of the gallbladder with either marked gallbladder wall thickening or pericholecystic fluid. The fluid appears to track down the right paracolic gutter in the pelvis. Gallbladder ultrasound could be performed for further characterization. 6. Diverticular disease of the sigmoid without diverticulitis. Martin Padilla MD Lower Extremity Ultrasound 02/13/18 0000 Signed Impressions: Service Date/Time: Tuesday, February 13, 2018 16:19 - CONCLUSION: No DVT or superficial venous thrombosis is identified within either lower extremity. John Laureano MD Objective Remarks General - elderly lady, intubated, sedated, critically ill ill-appearing HEENT - pupils equal, reactive, sclera anicteric, neck supple, no JVD, + ETT, + NGT, right IJ HD catheter -site is clean CV - irregularly irregular S1, S2, no murmurs appreciated, heart rate in the 90' s Chest - still with scattered coarse breath sounds bilateral bases, no wheezes Abdomen - soft, non-tender, not distended, BS present Skin - unchanged, multiple ecchymotic bruises bilateral arms and skin tears covered with dressing, bruises present over the abdomen Extremities - both feet are warm to touch, cyanosis over the left foot is significantly improved, 2+ peripheral edema, dopplerable pulse on the left and palpable on the right Neuro - intubated, sedated, opens eyes to voice stimuli, grimaces to pain A/P Problem List: (1) Pneumonia ICD Code: J18.9 - Pneumonia, unspecified organism Status: Acute (2) COPD (chronic obstructive pulmonary disease) ICD Code: J44.9 - Chronic obstructive pulmonary disease, unspecified Status: Chronic (3) Myasthenia gravis ICD Code: G70.00 - Myasthenia gravis without (acute) exacerbation Status: Chronic (4) Current chronic use of systemic steroids ICD Code: Z79.52 - termination clerk (current) use of systemic steroids (5) Anemia ICD Code: D64.9 - Anemia, unspecified Assessment and Plan ASSESSMENT 1. Myasthenia gravis, with acute exacerbation, completed 1 cycle of plasmapheresis 2. Acute respiratory failure secondary to above, on minimal O2 requirements, tolerated CPAP for 2 hours yesterday 3. Vascular occlusive disease with cyanosis of left foot -significantly improved 4. Acute encephalopathy 5. A. fib with RVR, remains in A. fib but rate better controlled -she remains off Esmolol drip 6. Possible pneumonia -completed treatment at the outside hospital. Now patient growing Aspergillus in the sputum 7. History of CHF 8. Hypernatremia -resolved 9. Acute anemia, received 1 unit PRBC transfusion, now improved, count stable 10. Thrombocytopenia -platelet count remains low, received platelet transfusion on Wednesday, HIT negative 11. Elevated liver enzymes and possible acute cholecystitis -AST and ALT continue to improve, HIDA scan negative PLAN 1. Continue CPAP trials as tolerated 2. Vent bundle and bronchodilators. Hold home medication Singulair and Spiriva 3. Continue voriconazole due to immunosuppression. ID following . Continue to monitor liver enzymes 4. Additional antifungal workup is pending. Urine culture Clemencia. no role for bronchoscopy at this time due to severe thrombocytopenia and microorganism being isolated in 2 different sputum cultures 5. Continue methylprednisolone 125 mg 4 times daily per neurology. She received IVIG therapy for the last 3 weeks at [facility]. 6. Continue digoxin and Cardizem will try to taper off beta-elana as tolerated in the setting of myasthenia crisis 7. On aztreonam and Vanco. Levofloxacin was stopped 8. Platelet transfusion per hematology. Restarted on Lovenox 9. Continue Trickle feeds @ 10cc/hr , we will not advance secondary to increased gastric residuals. 02/22 Continue free water flushes 100 cc every 8 hour 10. GI prophylaxis with PPI 11. Plasmapheresis per neuro and hematology- initiated gentle hydration with LR at 42 cc/hour Level 3 follow-up No family present at bedside. Discussed with CLOTH PACKER at bedside Physician Nemo Bell MD February 23, 2018 07:14
[2018-02-23] MEDS ORDERED: FREE WATER G-TUBE SCH (08:00)
[2018-02-23] MEDS: INSULIN ASPART SUPPLEMENTAL SCALE SQ SCH (08:00)
[2018-02-23] MEDS: RESP: BUDESONIDE 0.5 MG/2 ML NEB NEB SCH (08:09)
--- NOTE | 2018-02-23 08:51 | RADRPT ---
EXAM DATE/TIME: 02/23/2018 08:27 [place] COMPARISON: CHEST SINGLE AP, February 20, 2018, 16:07. CT THORAX W/O CONTRAST, February 17, 2018, 16:18. CHEST SINGLE AP, February 21, 2018, 1:40. INDICATIONS : Shortness of breath. MEDICAL HISTORY : Congestive heart failure. Osteoporosis. Chronic obstructive pulmonary disease. A-Fib. Asthma. SURGICAL HISTORY : Hysterectomy ENCOUNTER: Subsequent ACUITY: 1 week PAIN SCORE: Non-responsive. LOCATION: Bilateral chest FINDINGS: Portable AP view of the chest demonstrates a stable mildly enlarged cardiac silhouette. ETT, nasogast conrado tube, left upper extremity PICC, and right IJ line remain present. There are small bibasilar pleu ral-parenchymal opacities. Right lower lung zone airspace consolidation remains with likely right low er lobe volume loss/partial collapse. No pneumothorax is visualized. Bones demonstrate no acute findi ng. There has been prior vertebroplasty at 3 adjacent levels in the upper thoracic spine. CONCLUSION: 1. Stable small bilateral pleural effusions with associated compressive atelectasis and/or consolidat ion in the lung bases. 2. Partial collapse/volume loss in the right lower lobe, increased from the prior examination. Since the patient is intubated, mucous plug is a top consideration. John Laureano MD on February 23, 2018 at 8:47 Board Certified Radiologist. This report was verified electronically.
[2018-02-23] MEDS: CHLORHEXIDINE 0.12% (ORAL KIT) 15 ML CUP MT SCH (08:57)
[2018-02-23] MEDS: TIOTROPIUM BROMIDE 18 MCG INH INH SCH (09:00)
[2018-02-23] MEDS: DIGOXIN 0.5 MG/2 ML VIAL IV PUSH SCH (09:02)
[2018-02-23] MEDS ORDERED: ALBUMIN 5% IV SCH (10:00)
[2018-02-23 10:07] LABS: AUTOMATED NEUTROPHIL # 3.4 TH/MM3 (1.8-7.7); BASOPHIL % 0.2 % (0.0-2.0); HEMATOCRIT 25.5 % (35.0-46.0); HEMOGLOBIN 9.7 GM/DL (11.6-15.3); LYMPHOCYTE # 0.2 TH/MM3 (1.0-4.8); MEAN CELL VOLUME 80.4 FL (80.0-100.0); MEAN CORPUSCULAR HEMOGLOBIN 30.4 PG (27.0-34.0); MEAN PLATELET VOLUME 9.9 FL (7.0-11.0); MONO % 0.4 % (0.0-8.0); NEUT % 93.4 % (16.0-70.0); RED BLOOD COUNT 3.17 MIL/MM3 (4.00-5.30); RED CELL DISTRIBUTION WIDTH 26.6 % (11.6-17.2); WHITE BLOOD COUNT 3.7 TH/MM3 (4.0-11.0)
[2018-02-23 10:18] LABS: MEAN CORPUSCULAR HGB CONC 37.9 % (32.0-36.0)
[2018-02-23 10:20] LABS: PLATELET COUNT 17 TH/MM3 (150-450)
[2018-02-23 10:59] LABS: BICARBONATE 13.4 MEQ/L (21.0-32.0); CALCIUM 6.7 MG/DL (8.5-10.1); CREATININE 0.79 MG/DL (0.50-1.00)
[2018-02-23] MEDS ORDERED: CALCIUM GLUCONATE INJ 4 GM in SODIUM CHLOR 0.9% 250 ML INJ 200 ML IV SCH (11:00)
[2018-02-23] MEDS ORDERED: ANTICOAGULANT CITRATE DEXTROSE SOLN-A 1L OTHER SCH (11:30)
[2018-02-23] MEDS ORDERED: LACTATED RINGER'S 1000 ML INJ 1,000 ML IV STA (11:37)
--- NOTE | 2018-02-23 11:42 | HHI.HCPN ---
Reason for visit a. To assist with evaluation and management of symptoms including: Dyspnea, weakness b. To assist medical decision maker(s) with: better understanding of current medical conditions; weighing benefits/burdens of medical treatment options; making medical treatment decisions. Subjective/Interval History Pt seen today to follow up on dyspnea, goals w family. No acute events overnight. Unable to complete plasma exchange yesterday per nursing report patient blood too viscus. Hematology continues to follow may attempt again today. Tolerated CPAP for a short time yesterday. Platelets 17, no obvious signs of bleeding. Hemoglobin 9.7/hematocrit 25.5. WBC 3.7. Chemistry still pending. Nursing reports some hypotension, 90/55 at time of my exam. CXR stable/bilateral pleural effusions, decreased volume RLL consideration for poss mucous plug as pt on ventilator. Pt examined in room no visitors present. On vent, sedation diprivan @ 20mcgs/kg/ min. Nonresponsive to my exam. +tachypneic on mech vent, accessory muscle use. Decreased air movement to lungs. Extensive bruising all over body, + some dark vesicles weeping/draining from extremities. Hypotensive, sbp 70-80-90, HR down to 50s intermittently. Discussed with nursing, critical care , d/w hematology VERONA Moody, may attempt plasma exchange later today if pt hemodynamically able to tolerate. Call to dtr Lizz-- updated on condition, diagnostics. Review condition guarded, pt may clinically deteriorate/have cardiac instability based on current assessments. Pt to remain alt code, intubation only. She will be in in a few hrs , nursing to notify her if pt with significant changes before then. She wishes to continue to try to treat myasthenia, infection with available treatments. . Advance Directives Living Will: Copy in medical record Health Care Surrogate: Copy in medical record Durable Power of Head Cleaning Porter: Copy in medical record Objective Vital Signs Date Time Temp Pulse Resp B/P (MAP) Pulse Ox O2 Delivery O2 Flow Rate FiO2 02/23/18 08:05 97 50 02/23/18 06:00 83 02/23/18 04:30 99 28 130/75 (93) 100 02/23/18 04:21 98 50 02/23/18 04:00 89 02/23/18 04:00 97.8 89 25 125/66 (85) 98 02/23/18 04:00 50 02/23/18 03:30 100 25 121/62 (81) 97 02/23/18 03:00 95 25 125/70 (88) 98 18 02:30 88 26 124/60 (81) 98 18 02:00 97 27 125/64 (84) 97 02/23/18 02:00 97 02/23/18 01:35 98 50 02/23/18 01:30 89 25 116/65 (82) 98 02/23/18 01:00 97 25 127/60 (82) 98 02/23/18 00:30 100 28 134/67 (89) 97 02/23/18 00:00 99.3 100 28 124/67 (86) 97 02/23/18 00:00 50 02/23/18 00:00 100 02/22/18 23:30 106 27 125/64 (84) 97 02/22/18 23:00 94 25 119/59 (79) 98 02/22/18 22:30 94 25 110/62 (78) 98 02/22/18 22:06 97 50 02/22/18 22:00 99 25 114/62 (79) 98 02/22/18 22:00 99 02/22/18 21:30 95 27 129/66 (87) 98 02/22/18 21:00 100 29 123/68 (86) 97 02/22/18 20:30 99 26 123/59 (80) 99 02/22/18 20:00 50 02/22/18 20:00 97.0 101 22 133/74 (93) 91 02/22/18 20:00 101 02/22/18 19:30 115 27 126/60 (82) 95 02/22/18 19:12 92 50 02/22/18 19:00 102 26 114/63 (80) 95 02/22/18 18:00 116 02/22/18 16:16 98 50 02/22/18 16:00 97.7 109 25 111/55 (73) 97 02/22/18 16:00 109 02/22/18 16:00 50 02/22/18 14:00 109 02/22/18 12:00 50 02/22/18 12:00 100 02/22/18 12:00 98.8 100 26 105/54 (71) 99 02/22/18 11:50 98 50 Intake & Output 02/23/18 02/23/18 07:00 19:00 Intake Total 1130 ml Output Total 350 ml Balance 780 ml IV Total 690 ml Tube Feeding 90 ml Other 350 ml Output Urine Total 350 ml # Bowel Movements 0 Physical Exam CONSTITUTIONAL/GENERAL: This is an adequately nourished patient, in no apparent distress, ill-appearing on mechanical vent. TUBES/LINES/DRAINS: Right IJ vascular access catheter, left upper arm PICC, Maria catheter, ET tube, OG tube SKIN: No jaundice, rashes, or lesions. Multiple areas of ecchymosis to chest, bilateral arms, bilateral legs. Ecchymosis to abdomen, right groin. Some of these areas very dark purple. Skin edematous many areas of weeping. Right arm covered with gauze wrap dressing reported to be weeping, some areas of skin tears. Skin warm and dry. CARDIOVASCULAR: Irregular rate and rhythm. No murmur. Atrial fibrillation visible on bedside monitor rate 60s. No JVD. Peripheral pulses faint/thready. Unable to palpate pedal pulses RESPIRATORY/CHEST: Symmetric, labored respirations, tachypneic via mech vent. scattered rhonchi, diminished air movement to bases. B GASTROINTESTINAL: Abdomen soft, round, nondistended. No palpable masses. Bowel sounds hypoactive.OG tube w TF infusing. GENITOURINARY: Without palpable bladder distension. Maria catheter in place scant dark yellow urine. MUSCULOSKELETAL: Extremities without clubbing, cyanosis. + gen edema to 4 extremities. NEUROLOGICAL: Lightly sedated on mechanical vent propofol 20 mics. no eye opening to exam/stimuli. Does not move extremities to stimuli. PSYCHIATRIC: No obvious anxiety/depression limited assessment 2/2 to clinical condition . Diagnostic Tests Laboratory Laboratory Tests Test 02/20/18 15:13 02/20/18 15:55 02/21/18 04:00 02/21/18 08:35 Platelet Count 63 TH/MM3 (150-450) 39 TH/MM3 (150-450) D-Dimer Quantitative (PE/DVT) 0.94 MG/L FEU (0.00-0.50) White Blood Count 4.4 TH/MM3 (4.0-11.0) Red Blood Count 3.71 MIL/MM3 (4.00-5.30) Hemoglobin 9.3 GM/DL (11.6-15.3) Hematocrit 28.1 % (35.0-46.0) Mean Corpuscular Volume 75.6 FL (80.0-100.0) Mean Corpuscular Hemoglobin 25.0 PG (27.0-34.0) Mean Corpuscular Hemoglobin Concent 33.1 % (32.0-36.0) Red Cell Distribution Width 26.2 % (11.6-17.2) Mean Platelet Volume 8.6 FL (7.0-11.0) Neutrophils (%) (Auto) 95.2 % (16.0-70.0) Lymphocytes (%) (Auto) 2.8 % (9.0-44.0) Monocytes (%) (Auto) 1.8 % (0.0-8.0) Eosinophils (%) (Auto) 0.1 % (0.0-4.0) Basophils (%) (Auto) 0.1 % (0.0-2.0) Neutrophils # (Auto) 4.2 TH/MM3 (1.8-7.7) Lymphocytes # (Auto) 0.1 TH/MM3 (1.0-4.8) Monocytes # (Auto) 0.1 TH/MM3 (0-0.9) Eosinophils # (Auto) 0.0 TH/MM3 (0-0.4) Basophils # (Auto) 0.0 TH/MM3 (0-0.2) CBC Comment AUTO DIFF Differential Comment AUTO DIFF CONFIRMED Blood Urea Nitrogen 29 MG/DL (7-18) Creatinine 0.42 MG/DL (0.50-1.00) Random Glucose 200 MG/DL (74-106) Total Protein 4.2 GM/DL (6.4-8.2) Albumin 1.9 GM/DL (3.4-5.0) Calcium Level 7.5 MG/DL (8.5-10.1) Phosphorus Level 2.3 MG/DL (2.5-4.9) Magnesium Level 2.5 MG/DL (1.5-2.5) Alkaline Phosphatase 151 U/L (45-117) Aspartate Amino Transf (AST/SGOT) 54 U/L (15-37) Alanine Aminotransferase (ALT/SGPT) 170 U/L (10-53) Total Bilirubin 0.8 MG/DL (0.2-1.0) Sodium Level 145 MEQ/L (136-145) Potassium Level 4.0 MEQ/L (3.5-5.1) Chloride Level 116 MEQ/L (98-107) Carbon Dioxide Level 18.1 MEQ/L (21.0-32.0) Anion Gap 11 MEQ/L (5-15) Estimat Glomerular Filtration Rate 146 ML/MIN (>89) Prothrombin Time 12.6 SEC (9.8-11.6) Prothromb Time International Ratio 1.2 RATIO Activated Partial Thromboplast Time 27.2 SEC (24.3-30.1) Fibrinogen 309 mg/dL (227-377) Test 02/22/18 03:45 02/23/18 08:30 White Blood Count 4.2 TH/MM3 (4.0-11.0) 3.7 TH/MM3 (4.0-11.0) Red Blood Count 3.26 MIL/MM3 (4.00-5.30) 3.17 MIL/MM3 (4.00-5.30) Hemoglobin 8.5 GM/DL (11.6-15.3) 9.7 GM/DL (11.6-15.3) Hematocrit 25.3 % (35.0-46.0) 25.5 % (35.0-46.0) Mean Corpuscular Volume 77.4 FL (80.0-100.0) 80.4 FL (80.0-100.0) Mean Corpuscular Hemoglobin 26.1 PG (27.0-34.0) 30.4 PG (27.0-34.0) Mean Corpuscular Hemoglobin Concent 33.7 % (32.0-36.0) 37.9 % (32.0-36.0) Red Cell Distribution Width 26.4 % (11.6-17.2) 26.6 % (11.6-17.2) Platelet Count 21 TH/MM3 (150-450) 17 TH/MM3 (150-450) Mean Platelet Volume 9.8 FL (7.0-11.0) 9.9 FL (7.0-11.0) Neutrophils (%) (Auto) 95.6 % (16.0-70.0) 93.4 % (16.0-70.0) Lymphocytes (%) (Auto) 3.0 % (9.0-44.0) 5.0 % (9.0-44.0) Monocytes (%) (Auto) 1.0 % (0.0-8.0) 0.4 % (0.0-8.0) Eosinophils (%) (Auto) 0.2 % (0.0-4.0) 1.0 % (0.0-4.0) Basophils (%) (Auto) 0.2 % (0.0-2.0) 0.2 % (0.0-2.0) Neutrophils # (Auto) 4.0 TH/MM3 (1.8-7.7) 3.4 TH/MM3 (1.8-7.7) Lymphocytes # (Auto) 0.1 TH/MM3 (1.0-4.8) 0.2 TH/MM3 (1.0-4.8) Monocytes # (Auto) 0.0 TH/MM3 (0-0.9) 0.0 TH/MM3 (0-0.9) Eosinophils # (Auto) 0.0 TH/MM3 (0-0.4) 0.0 TH/MM3 (0-0.4) Basophils # (Auto) 0.0 TH/MM3 (0-0.2) 0.0 TH/MM3 (0-0.2) CBC Comment AUTO DIFF AUTO DIFF Differential Total Cells Counted 100 Neutrophils % (Manual) 61 % (16-70) Band Neutrophils % 34 % (0-6) Lymphocytes % 3 % (9-44) Monocytes % 2 % (0-8) Neutrophils # (Manual) 4.0 TH/MM3 (1.8-7.7) Nucleated Red Blood Cells 6 /100 WBC (0-0) Differential Comment FINAL DIFF MANUAL Platelet Estimate LOW (NORMAL) Platelet Morphology Comment NORMAL (NORMAL) Ovalocytes 1+ (NORMAL) Keratocytes OCC (NORMAL) Blood Urea Nitrogen 37 MG/DL (7-18) Creatinine 0.57 MG/DL (0.50-1.00) Random Glucose 235 MG/DL (74-106) Total Protein 3.5 GM/DL (6.4-8.2) Albumin 1.8 GM/DL (3.4-5.0) Calcium Level 6.9 MG/DL (8.5-10.1) Phosphorus Level 3.0 MG/DL (2.5-4.9) Magnesium Level 2.6 MG/DL (1.5-2.5) Alkaline Phosphatase 127 U/L (45-117) Aspartate Amino Transf (AST/SGOT) 55 U/L (15-37) Alanine Aminotransferase (ALT/SGPT) 94 U/L (10-53) Total Bilirubin 0.9 MG/DL (0.2-1.0) Sodium Level 146 MEQ/L (136-145) Potassium Level 4.5 MEQ/L (3.5-5.1) Chloride Level 118 MEQ/L (98-107) Carbon Dioxide Level 17.5 MEQ/L (21.0-32.0) Anion Gap 11 MEQ/L (5-15) Estimat Glomerular Filtration Rate 102 ML/MIN (>89) Protein Corrected Calcium 9.0 MG/DL (8.5-10.1) Result Diagram: 02/23/18 0830 02/22/18 0345 Imaging Last Impressions Chest X-Ray 02/23/18 0000 Signed Impressions: Service Date/Time: Friday, February 23, 2018 08:27 - CONCLUSION: 1. Stable small bilateral pleural effusions with associated compressive atelectasis and/or consolidation in the lung bases. 2. Partial collapse/volume loss in the right lower lobe, increased from the prior examination. Since the patient is intubated, mucous plug is a top consideration. John Laureano MD Hepatobiliary Scan Nuclear Medicine 02/20/18 0000 Signed Impressions: Service Date/Time: Tuesday, February 20, 2018 11:41 - CONCLUSION: No sign of obstruction. John Castro MD Abdomen X-Ray 02/19/18 0000 Signed Impressions: Service Date/Time: Monday, February 19, 2018 16:26 - CONCLUSION: 1. No acute abnormalities. 2. Minimal bibasilar densities. Jose Ames MD Upper Extremity Ultrasound 02/18/18 0000 Signed Impressions: Service Date/Time: Sunday, February 18, 2018 14:21 - CONCLUSION: Normal examination. Perry Green MD Chest CT 02/17/18 2151 Signed Impressions: Service Date/Time: January 16:18 - CONCLUSION: Bilateral lower lobe consolidations right greater left. Small bilateral pleural effusions. No visible pneumothorax. ET tube is in good position.. Perry Green MD Gall Bladder Ultrasound 02/17/18 Signed Impressions: Service Date/Time: January 13:09 - CONCLUSION: 1. Gallbladder wall thickening and pericholecystic fluid suggesting possible acute cholecystitis. Clinical correlation is recommended. A hepatobiliary scan may be helpful to confirm cystic duct obstruction if clinically indicated. 2. Echogenic focus within the gallbladder suggestive of non-shadowing calculus or small polyp. 3. Mild hepatomegaly. 4. Minimal perinephric fluid on the right. Hira Arora MD Lower Extremity Angiography 02/16/18 Signed Impressions: Service Date/Time: Friday, February 16, 2018 21:33 - CONCLUSION: 1. Very sluggish outflow. Findings could be due to poor cardiac output. Emboli to the small, intrinsic vessels of the foot could have a similar appearance. 2. Otherwise, inflow and outflow are widely patent with three-vessel runoff. Martin Padilla MD Arterial Ultrasound 02/16/18 Signed Impressions: Service Date/Time: Friday, February 16, 2018 16:30 - CONCLUSION: 1. Inflow appeared to be adequate bilaterally despite scattered atherosclerotic calcification. 2. Three-vessel runoff on the right. 3. On the left, the dorsalis pedis artery appears to be quite diminutive with limited flow. Anterior tibial and peroneal are patent, however. Martin Padilla MD Aorta w/Runoff CTA 02/16/18 Signed Impressions: Service Date/Time: Friday, February 16, 2018 19:36 - CONCLUSION: 1. Inflow appears to be patent down to the above-knee popliteal bilaterally. 2. On the right, the entire popliteal is patent with the dominant runoff via the posterior tibial. 3. On the left, minimal contrast below the knee joint on both the initial and delayed images. This may represent a combination of poor cardiac output and nonocclusive thrombus in the popliteal region. Again, please the dominant runoff is via the posterior tibial. 4. Bibasilar areas of consolidation/atelectasis with small associated effusions. Cannot exclude a developing infiltrate, especially on the right. 5. Abnormal appearance of the gallbladder with either marked gallbladder wall thickening or pericholecystic fluid. The fluid appears to track down the right paracolic gutter in the pelvis. Gallbladder ultrasound could be performed for further characterization. 6. Diverticular disease of the sigmoid without diverticulitis. Martin Padilla MD Lower Extremity Ultrasound 02/13/18 0000 Signed Impressions: Service Date/Time: Tuesday, February 13, 2018 16:19 - CONCLUSION: No DVT or superficial venous thrombosis is identified within either lower extremity. John Laureano MD Procedures 02/14 intubated . 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 Moved to this area with her from [place] last month to be nearer to her daughter. Lived in [place] the past 20-25 years. has dementia and is in [facility]. This is patient's second . She has 1 daughter Lizz, from previous marriage. 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 Spiritual: Alevism though does not actively participate, daughter does not feel she would want terminal worker visits. Legal:Patient currently unable to participate due to clinical condition. Not clear that she will regain ability to clearly communicate and participate in decision-making. Daughter Lizz indicates she does have a living well, advanced directives and paperwork designating a medical proxy or D PONita. Daughter tells me that her Jordi is designated as primary with Lizz as a secondary if the unable. I have requested copies of these documents she will bring with her tomorrow morning. Patient reported to have early dementia, required to assist with ADLs and self-care tasks, reported to have poor short-term memory may not be able to make informed medical decisions. Ethical issues impacting care: No ethical issues identified . Important Contacts dtr Lizz Powell [phone] / [phone] spouse Jordi Onore- lives at [facility], does not have private phone #, [phone] [address] [place] . Prognosis This patient was recently treated at another facility for pneumonia, and required transfer here for further treatment of her underlying myasthenia gravis. She has remained in ICU on mechanical vent. She now has Aspergillus in her sputum, and remains on mechanical vent. Prognosis for long-term survival and recovery back to prior status is poor given multiple comorbidities and prolonged hospitalization. Code Status: Full Code Plan * Legal decision maker: Patient currently unable to participate due to clinical condition. Not clear that she will regain ability to clearly communicate and participate in decision-making. Daughter Lizz indicates she does have a living well, advanced directives and paperwork designating a medical proxy or D POA. Daughter tells me that her Jordi is designated as primary with Lizz as a secondary if the unable. I have requested copies of these documents she will bring with her tomorrow morning. Patient reported to have early dementia, required to assist with ADLs and self-care tasks, reported to have poor short-term memory may not be able to make informed medical decisions. 02/22/18: Patient Jordi presents with very mild forgetfulness, fair/reasonable general recall of patient conditions and prognosis. indicates due to requiring care and living in an [facility] himself he is not always readily available agrees to shared decision making with daughter Lizz when he is available, but that Lizz remains in close communication with him and he is fine with her serving as primary contact and decision-maker, as she does include him. * Goals: They would like to readdress REINTUBATION status should the patient be able to medically extubate in the coming days. In regards to ongoing treatment goals, they are hopeful that if the myasthenia gravis can be successfully treated then her other conditions may improve some as well. They would like to continue with all available interventions short of cardiac resuscitation in the hopes that the patient will show some improvement in the coming days. They are open to ongoing conversations as condition evolves. They do indicate that the patient has expressed she would not want prolonged artificial measures if she would not have a chance of meaningful recovery. * CODE STATUS: alt code, INTUBATION ONLY * SYMPTOMS: --Dyspnea-intubated on 02/14.+ Aspergillus pneumonia, + weakness secondary to myasthenia gravis. CXR stable without significant improvement. Tolerating short CPAP trials 2 hours. Possible may require tracheostomy for long-term ventilation if goals aggressive. Also possible may be able to medically extubate if continues to tolerate CPAP however would remain high risk for aspiration and reintubation. --Weakness-history of myasthenia gravis. Has been on steroids long-term. Recently transferred to [facility] to receive additional treatment. Has been ordered for plasmapheresis however due to ongoing thrombocytopenia has not been able to complete treatments, had attempted plasmapheresis 02/21, unable to complete due to blood viscosity, planned for repeat attempt today. Weakness expected to be compounded by prolonged bedbound status and ongoing acute illness. --Pain-patient with no reported chronic pain syndromes. tachypneic today. potential sources of pain include bedbound status, invasive lines/procedures. Critical care to add fentanyl gtt. Will continue to evaluate. * Palliative care will continue to follow during hospital course as condition evolves, to assist patient/decision-maker with understanding of medical conditions, weighing benefits/burdens of treatment options, for clarification of goals of treatment. Additionally will assist with any symptoms of palliative concern Time Spent Total Floor Time (mins): 35 (chart review, PE, d/w nursing, d/w critical care, d/w hematology, d/w family ) Attestation To help prompt me to consider important information that might be impacting today's encounter and assessment, information from prior notes written by myself or my colleagues may have been "brought forward" into today's note. My signature on this note, however, is an attestation that I personally performed the exam, history, and/or decision-making noted today, and, unless otherwise indicated, the interactions with patient, family, and staff as well as the review of records all occurred today. I also attest that the listed assessment and stated plan reflect my best clinical judgment today based on the combination of historical information, prior notes, and today's exam/ interactions. When time spent is documented, it refers only to time spent today by the signer, or if indicated, combined time spent today by collaborating physician/nurse practitioner. Ann Torres February 23, 2018 11:42
[2018-02-23 11:43] LABS: BANDS 24 % (0-6); CALCIUM-PROTEIN CORRECTED 8.8 MG/DL (8.5-10.1); CORRECTED NUCLEATED RBC 16 /100 WBC (0-0); LYMPHOCYTES 4 % (9-44); MYELOCYTES 1 % (0-0); NEUTROPHIL # MANUAL DIFF 3.6 TH/MM3 (1.8-7.7); NUCLEATED RED BLOOD CELL 16 (0-0); POLYS (SEG NEUTROPHILS) 71 % (16-70); TOTAL PROTEIN 3.4 GM/DL (6.4-8.2)
[2018-02-23 11:45] LABS: TOXIC GRANULATION 1+ (NORMAL); TOXIC VACUOLATION PRESENT (NONE SEEN)
[2018-02-23] MEDS ORDERED: PHARMACY ORDERED LAB ONE (11:45)
[2018-02-23] MEDS ORDERED: fentaNYL DRIP 250 ML IV PRN (12:00)
[2018-02-23] MEDS ORDERED: SODIUM CHLOR 0.9% 1000 ML INJ 1,000 ML IV SCH (12:00)
--- NOTE | 2018-02-23 12:12 | HHI.CCPN ---
Subjective Remarks/Hospital Course This is a 77-year-old female that presented to [facility] on 01/27/2018 with complaints of dyspnea. The patient medical history significant for myasthenia gravis since the and was cared for by her global compensation director in [facility] prior to relocating recently to [place]. Her medical history is significant for chronic steroid therapy with prednisone and then subsequently placed on IVIG infusions every 3 weeks secondary to nonresponsiveness of steroid therapy. On 01 27 the patient was admitted to [facility] and treated for sepsis with broad- spectrum antibiotics, which have now been completed. Blood cultures have revealed Streptococcus viridans. The patient continued care at [place] seeing a telemetry neurologist and hematology oncology was consulted, Dr. Zacarias. It was recommended that the patient receive Rituxan and be evaluated formally by a neurologist. Patient was transferred to [facility]. The patient has a history of A. fib RVR, and home medications include metoprolol, digoxin, and Cardizem. These medications were stopped in the last 24 hours secondary to the patient experiencing dysphagia. Patient subsequently went into A. fib RVR early this a.m., heart rate 150's and transferred to ICU. Stat ABG was obtained. critical care medicine was consulted. SUBJ 02/14: Currently patient is quite tachypneic breathing about 40/min, even on BiPAP. Prior to BiPAP patient's NIF-16 and forced vital was 600 ml. Patient clearly failing BiPAP and this is most likely secondary to myasthenia gravis exacerbation. I proceeded to endotracheally intubate the patient placed on mechanical ventilation. Discussed with Dr. Olivarez area both of us agree on starting plasma exchange. Will discuss with hematology Dr. Zacarias 02/15: No events over the night. Due to progressive respiratory distress she was intubated yesterday. T-max of 98.7. I/O 1770/650. She remains on esmolol drip, still in A. fib/flutter on the monitor with heart rate better controlled. She sedated with propofol. 02/16: Patient did well over the night. Patient continues to require esmolol heart rate control, currently at 200, and propofol for sedation. 02/17: Yesterday evening, patient's left foot became more cyanotic. Dr. Conteh from vascular surgery was consulted, patient underwent CTA and IR to patient for left leg angio but no clot was seen. Patient had improved pulse post procedure. This a.m. patient has dopplerable pulse. No other overnight events. T-max of 98.2. Urine output decreased. 02/18: No events over the night. Left foot remains cyanotic with dopplerable pulse. Platelets remain low. Afebrile, with a T-max of 98.1. Documented urine output over the last 24 hours 250 cc. Of esmolol drip, receiving IV hydration. She remains sedated and intubated. 02/19: Patient remains intubated and sedated. Afebrile, with a T-max of 98. Improved urine output. A. fib on telemetry. No family present at bedside. 02/20: No events over the night. Patient remains intubated and sedated, though more awake, attempting to open eyes to voice stimuli. T-max of 98.7 and urine output of 800 cc over the last 24 hours. She remains on 0.3 FiO2. No family present at bedside. 02/21: Patient remains intubated and sedated. T-max of 98.9. Attempts to open her eyes but does not follow commands. On propofol at 30. Had a HIDA scan yesterday which was negative. Morning chest x-ray reviewed, still with bibasilar infiltrates, no significant change. 02/22: No acute changes overnight. Plasmapheresis planned for today. 02/23: Afebrile. No acute changes. Gentle hydration initiated patient and continues on free water flushes. Patient with pleural effusions chest x-ray pending this a.m. we will closely monitor. Current FiO2 is 50%. Addendum- patient's heart rate noted acutely to be in the 30's- 40's, mid day Previously 80-90's last 24-48 hours. Stat 12-lead EKG obtained revealing bifasicular block right bundle branch block with a left anterior fascicular block. Cardizem , metoprolol and digoxin placed on hold. Digoxin level pending. Patient to receive Atropine, and Glucagon. 1223 Notified by RN patient's rhythm asystole. Patient pronounced 1227. Objective Vital Signs Date Time Temp Pulse Resp B/P (MAP) Pulse Ox O2 Delivery O2 Flow Rate FiO2 5/2/18 08:05 97 50 02/23/18 06:00 83 02/23/18 04:30 28 130/75 (93) 02/23/18 04:00 97.8 Intake and Output 02/23/18 02/23/18 02/24/18 08:00 16:00 00:00 Intake Total 680 ml Output Total 350 ml Balance 330 ml Result Diagram: 02/23/18 0830 02/23/18 0830 Imaging Last 24 hours Impressions Chest X-Ray 02/21/18 06 Signed Impressions: Service Date/Time: Wednesday, February 21, 2018 01:40 - CONCLUSION: 1. Stable appearance of the chest with bibasilar airspace disease and associated effusions, right worse than left. Possible right perihilar infiltrate, unchanged. 2. Stable position of life support tubes. Martin Padilla MD Last Impressions Chest X-Ray 02/19/18 0600 Signed Impressions: Service Date/Time: Monday, February 19, 2018 03:41 - CONCLUSION: Persistent bilateral lower lung opacities and pleural effusions. Wilbur Lowry MD Abdomen X-Ray 02/19/18 0000 Signed Impressions: Service Date/Time: Monday, February 19, 2018 16:26 - CONCLUSION: 1. No acute abnormalities. 2. Minimal bibasilar densities. Jose Ames MD Upper Extremity Ultrasound 02/18/18 0000 Signed Impressions: Service Date/Time: Sunday, February 18, 2018 14:21 - CONCLUSION: Normal examination. Perry Green MD Chest CT 02/17/18 1551 Signed Impressions: Service Date/Time: January 16:18 - CONCLUSION: Bilateral lower lobe consolidations right greater left. Small bilateral pleural effusions. No visible pneumothorax. ET tube is in good position.. Perry Green MD Gall Bladder Ultrasound 02/17/18 0000 Signed Impressions: Service Date/Time: January 13:09 - CONCLUSION: 1. Gallbladder wall thickening and pericholecystic fluid suggesting possible acute cholecystitis. Clinical correlation is recommended. A hepatobiliary scan may be helpful to confirm cystic duct obstruction if clinically indicated. 2. Echogenic focus within the gallbladder suggestive of non-shadowing calculus or small polyp. 3. Mild hepatomegaly. 4. Minimal perinephric fluid on the right. Hira Arora MD Lower Extremity Angiography 02/16/18 Signed Impressions: Service Date/Time: Friday, February 16, 2018 21:33 - CONCLUSION: 1. Very sluggish outflow. Findings could be due to poor cardiac output. Emboli to the small, intrinsic vessels of the foot could have a similar appearance. 2. Otherwise, inflow and outflow are widely patent with three-vessel runoff. Martin Padilla MD Arterial Ultrasound 02/16/18 Signed Impressions: Service Date/Time: Friday, February 16, 2018 16:30 - CONCLUSION: 1. Inflow appeared to be adequate bilaterally despite scattered atherosclerotic calcification. 2. Three-vessel runoff on the right. 3. On the left, the dorsalis pedis artery appears to be quite diminutive with limited flow. Anterior tibial and peroneal are patent, however. Martin Padilla MD Aorta w/Runoff CTA 02/16/18 Signed Impressions: Service Date/Time: Friday, February 16, 2018 19:36 - CONCLUSION: 1. Inflow appears to be patent down to the above-knee popliteal bilaterally. 2. On the right, the entire popliteal is patent with the dominant runoff via the posterior tibial. 3. On the left, minimal contrast below the knee joint on both the initial and delayed images. This may represent a combination of poor cardiac output and nonocclusive thrombus in the popliteal region. Again, please the dominant runoff is via the posterior tibial. 4. Bibasilar areas of consolidation/atelectasis with small associated effusions. Cannot exclude a developing infiltrate, especially on the right. 5. Abnormal appearance of the gallbladder with either marked gallbladder wall thickening or pericholecystic fluid. The fluid appears to track down the right paracolic gutter in the pelvis. Gallbladder ultrasound could be performed for further characterization. 6. Diverticular disease of the sigmoid without diverticulitis. Martin Padilla MD Lower Extremity Ultrasound 02/13/18 0000 Signed Impressions: Service Date/Time: Tuesday, February 13, 2018 16:19 - CONCLUSION: No DVT or superficial venous thrombosis is identified within either lower extremity. John Laureano MD Objective Remarks General - elderly lady, intubated, sedated, critically ill ill-appearing HEENT - pupils equal, reactive, sclera anicteric, neck supple, no JVD, + ETT, + NGT, right IJ HD catheter -site is clean CV - irregularly irregular S1, S2, no murmurs appreciated, heart rate in the 90' s Chest - still with scattered coarse breath sounds bilateral bases, no wheezes Abdomen - soft, non-tender, not distended, BS present Skin - unchanged, multiple ecchymotic bruises bilateral arms and skin tears covered with dressing, bruises present over the abdomen Extremities - both feet are warm to touch, cyanosis over the left foot is significantly improved, 2+ peripheral edema, dopplerable pulse on the left and palpable on the right Neuro - intubated, sedated, opens eyes to voice stimuli, grimaces to pain A/P Problem List: (1) Pneumonia ICD Code: J18.9 - Pneumonia, unspecified organism Status: Acute (2) COPD (chronic obstructive pulmonary disease) ICD Code: J44.9 - Chronic obstructive pulmonary disease, unspecified Status: Chronic (3) Myasthenia gravis ICD Code: G70.00 - Myasthenia gravis without (acute) exacerbation Status: Chronic (4) Current chronic use of systemic steroids ICD Code: Z79.52 - superintendent terminal (current) use of systemic steroids (5) Anemia ICD Code: D64.9 - Anemia, unspecified Assessment and Plan ASSESSMENT 1. Myasthenia gravis, with acute exacerbation, completed 1 cycle of plasmapheresis 2. Acute respiratory failure secondary to above, on minimal O2 requirements, tolerated CPAP for 2 hours yesterday 3. Vascular occlusive disease with cyanosis of left foot -significantly improved 4. Acute encephalopathy 5. A. fib with RVR resolved 6. Possible pneumonia -completed treatment at the outside hospital. Now patient growing Aspergillus in the sputum 7. History of CHF 8. Hypernatremia -resolved 9. Acute anemia, received 1 unit PRBC transfusion, now improved, count stable 10. Thrombocytopenia -platelet count remains low, received platelet transfusion on Wednesday, HIT negative 11. Elevated liver enzymes and possible acute cholecystitis -AST and ALT continue to improve, HIDA scan negative 12. A. fib with slow ventricular response PLAN 1. Continue CPAP trials as tolerated 2. Vent bundle and bronchodilators. Hold home medication Singulair and Spiriva 3. Continue voriconazole due to immunosuppression. ID following . Continue to monitor liver enzymes 4. Additional antifungal workup is pending. Urine culture Clemencia. no role for bronchoscopy at this time due to severe thrombocytopenia and microorganism being isolated in 2 different sputum cultures 5. Continue methylprednisolone 125 mg 4 times daily per neurology. She received IVIG therapy for the last 3 weeks at [facility]. 6. Continue digoxin and Cardizem will try to taper off beta-elana as tolerated in the setting of myasthenia crisis 7. On aztreonam and Vanco. Levofloxacin was stopped 8. Platelet transfusion per hematology. Restarted on Lovenox 9. Continue Trickle feeds @ 10cc/hr , we will not advance secondary to increased gastric residuals. 02/22 Continue free water flushes 100 cc every 8 hour 10. GI prophylaxis with PPI 11. Plasmapheresis per neuro and hematology-change IV fluid to normal saline at 100 cc an hour, bolus 250 cc IV fluid 12. MAP remains greater than 65, heart rate 30's- 60's. Stat 12-lead shows left anterior fascicular block in conjunction with a right bundle branch block. Hold metoprolol, Cardizem and digoxin. Obtain digoxin level Level 3 follow-up. Discussed with him on Ms. Olivia Jean, palliative care MsJesus Torres, ASSOCIATE PROFESSOR OF VIOLIN at bedside ([place]). Patient prognosis is very guarded at this time. No family present at bedside. Discussed with ASSOCIATE PROFESSOR OF VIOLIN at bedside. Patient intubation only alternate CODE STATUS (Intubation only) per patient noted to this afternoon to have A. fib with slow ventricular response. Telephone patient's daughter Ms. Powell and provided medical status update, all questions answered. Physician Nemo Bell MD February 23, 2018 12:12
[2018-02-23 12:14] LABS: INTERNATIONAL NORMALIZED RATIO 1.7 RATIO; PROTHROMBIN TIME - PATIENT 17.3 SEC (9.8-11.6)
[2018-02-23] MEDS ORDERED: ATROPINE SULFATE 1 MG/10 ML SYRINGE IV PUSH ONE (12:15)
[2018-02-23] MEDS ORDERED: GLUCAGON 1 MG/ML VIAL IV PUSH ONE (12:30)
--- NOTE | 2018-02-23 12:30 | PD.ONC.PN ---
Subjective Subjective Remarks Afebrile Pt remains intubated, sedated Per PROGRAMMABLE LOGIC CONTROLLER ASSEMBLER she has become somewhat more bradycardic and hypotensive this am; no bleeding Palliative care ACTIVITIES THERAPIST at bedside and is speaking with pt's daughter on the phone Pt's daughter is hoping to try at least one more pheresis treatment to see if this makes a difference Objective Data Date Time Temp Pulse Resp B/P (MAP) Pulse Ox O2 Delivery O2 Flow Rate FiO2 02/23/18 12:09 100 50 02/23/18 08:05 97 50 02/23/18 06:00 83 02/23/18 04:30 99 28 130/75 (93) 100 02/23/18 04:21 98 50 02/23/18 04:00 89 02/23/18 04:00 97.8 89 25 125/66 (85) 98 02/23/18 04:00 50 02/23/18 03:30 100 25 121/62 (81) 97 02/23/18 03:00 95 25 125/70 (88) 98 02/23/18 02:30 88 26 124/60 (81) 98 02/23/18 02:00 97 27 125/64 (84) 97 02/23/18 02:00 97 02/23/18 01:35 98 50 02/23/18 01:30 89 25 116/65 (82) 98 02/23/18 01:00 97 25 127/60 (82) 98 02/23/18 00:30 100 28 134/67 (89) 97 02/23/18 00:00 99.3 100 28 124/67 (86) 97 02/23/18 00:00 50 02/23/18 00:00 100 02/22/18 23:30 106 27 125/64 (84) 97 02/22/18 23:00 94 25 119/59 (79) 98 02/22/18 22:30 94 25 110/62 (78) 98 02/22/18 22:06 97 50 02/22/18 22:00 99 25 114/62 (79) 98 02/22/18 22:00 99 02/22/18 21:30 95 27 129/66 (87) 98 02/22/18 21:00 100 29 123/68 (86) 97 02/22/18 20:30 99 26 123/59 (80) 99 02/22/18 20:00 50 02/22/18 20:00 97.0 101 22 133/74 (93) 91 02/22/18 20:00 101 02/22/18 19:30 115 27 126/60 (82) 95 02/22/18 19:12 92 50 02/22/18 19:00 102 26 114/63 (80) 95 02/22/18 18:00 116 02/22/18 16:16 98 50 02/22/18 16:00 97.7 109 25 111/55 (73) 97 02/22/18 16:00 109 02/22/18 16:00 50 02/22/18 14:00 109 02/23/18 02/23/18 02/23/18 07:00 15:00 23:00 Intake Total 780 ml Output Total 350 ml Balance 430 ml Result Diagram: 02/23/18 0830 02/23/18 0830 Laboratory Results Laboratory Tests Test 02/23/18 08:20 02/23/18 08:30 02/23/18 11:33 White Blood Count 3.7 TH/MM3 Red Blood Count 3.17 MIL/MM3 Hemoglobin 9.7 GM/DL Hematocrit 25.5 % Mean Corpuscular Volume 80.4 FL Mean Corpuscular Hemoglobin 30.4 PG Mean Corpuscular Hemoglobin Concent 37.9 % Red Cell Distribution Width 26.6 % Platelet Count 17 TH/MM3 Mean Platelet Volume 9.9 FL Neutrophils (%) (Auto) 93.4 % Lymphocytes (%) (Auto) 5.0 % Monocytes (%) (Auto) 0.4 % Eosinophils (%) (Auto) 1.0 % Basophils (%) (Auto) 0.2 % Neutrophils # (Auto) 3.4 TH/MM3 Lymphocytes # (Auto) 0.2 TH/MM3 Monocytes # (Auto) 0.0 TH/MM3 Eosinophils # (Auto) 0.0 TH/MM3 Basophils # (Auto) 0.0 TH/MM3 CBC Comment AUTO DIFF Differential Total Cells Counted 100 Neutrophils % (Manual) 71 % Band Neutrophils % 24 % Lymphocytes % 4 % Neutrophils # (Manual) 3.6 TH/MM3 Myelocytes 1 % Nucleated Red Blood Cells 16 /100 WBC Differential Comment FINAL DIFF MANUAL Toxic Granulation 1+ Toxic Vacuolation PRESENT Platelet Estimate RARE Platelet Morphology Comment NORMAL Blood Urea Nitrogen 46 MG/DL Creatinine 0.79 MG/DL Random Glucose 221 MG/DL Total Protein 3.4 GM/DL Calcium Level 6.7 MG/DL Sodium Level 136 MEQ/L Potassium Level 5.4 MEQ/L Chloride Level 108 MEQ/L Carbon Dioxide Level 13.4 MEQ/L Anion Gap 15 MEQ/L Estimat Glomerular Filtration Rate 70 ML/MIN Protein Corrected Calcium 8.8 MG/DL Imaging Studies Last 24 hours Impressions Chest X-Ray 02/23/18 0000 Signed Impressions: Service Date/Time: Friday, February 23, 2018 08:27 - CONCLUSION: 1. Stable small bilateral pleural effusions with associated compressive atelectasis and/or consolidation in the lung bases. 2. Partial collapse/volume loss in the right lower lobe, increased from the prior examination. Since the patient is intubated, mucous plug is a top consideration. John Laureano MD Administered Medications Medications (Trade) Dose Ordered Sig/Melissa Route PRN Reason Start Time Stop Time Status Last Admin Dose Admin Acetaminophen (Tylenol) 650 mg Q4H PRN PO TEMP > 100.4 02/12/18 22:30 02/15/18 13:07 Sennosides (Senokot) 17.2 mg Q12H PRN PO Moderate constipation 02/12/18 22:30 02/22/18 17:23 Bisacodyl (Dulcolax Supp) 10 mg DAILY PRN RECTAL SEVERE CONSITIPATION 02/12/18 22:30 02/16/18 05:15 Lactulose (Lactulose Liq) 30 ml DAILY PRN PO SEVERE CONSITIPATION 02/12/18 22:30 02/18/18 15:19 Heparin Sodium (Porcine) (Heparin Central Flush) 200 units DAILY IV FLUSH 02/13/18 09:00 02/16/18 07:57 Heparin Sodium (Porcine) (Heparin Central Flush) 200 units UNSCH PRN IV FLUSH SEE PROTOCOL TABLE 02/13/18 01:00 02/22/18 08:24 Budesonide (Pulmicort Respule Neb) 0.5 mg Q12HR NEB NEB 02/13/18 08:00 02/23/18 08:09 Montelukast Sodium (Singulair) 10 mg HS PO 02/13/18 21:00 02/22/18 20:18 Tiotropium [place] (Spiriva Inh) 18 mcg DAILY INH 02/13/18 09:00 02/14/18 09:54 Metoprolol Tartrate (Lopressor Inj) 5 mg Q5M PRN IV PUSH sustained HR > 110 02/13/18 02:15 02/22/18 18:18 Diltiazem HCl (Cardizem) 120 mg Q6HR PO 02/13/18 06:00 Future Hold 02/23/18 05:55 Pantoprazole Sodium (Protonix Inj) 40 mg Q24H IV PUSH 02/13/18 03:00 02/23/18 03:22 Methylprednisolone Sodium Succinate (SoluMEDROL INJ) 125 mg Q6HR IV PUSH 02/13/18 09:45 02/23/18 05:55 Albuterol/ Ipratropium (Duoneb Neb) 1 ampule Q2HR NEB PRN NEB WHEEZING 02/13/18 13:15 02/23/18 04:35 Insulin Aspart (NovoLOG SUPPLEMENTAL SCALE) 1 ACHS SLIDING SCALE SQ 02/13/18 17:00 02/23/18 08:00 Hydralazine HCl (Apresoline Inj) 20 mg Q4H PRN IV PUSH SBP>160, DBP>90 02/14/18 00:00 02/18/18 10:41 Labetalol HCl (Trandate Inj) 10 mg Q4H PRN IV PUSH SBP>160, DBP>90 02/14/18 00:00 02/16/18 02:52 Chlorhexidine Gluconate (Peridex 0.12% Liq) 15 ml BID@08,20 MT 02/14/18 20:00 02/23/18 08:57 Sodium Chloride (NS Flush) 5 ml UNSCH PRN IV FLUSH SEE PROTOCOL TABLE 02/14/18 13:00 02/22/18 08:24 Heparin Sodium (Porcine) (Heparin Inj) 1,000 units UNSCH PRN IV FLUSH FLUSH AFTER USING IV ACCESS 02/14/18 21:00 02/23/18 20:59 02/21/18 15:08 Diphenhydramine HCl (Benadryl) 25 mg Q4H PRN PO SEE LABEL COMMENTS 02/15/18 07:30 02/15/18 13:07 Voriconazole 300 mg/Sodium Chloride 250 ml @ 125 mls/hr Q12H IV 02/19/18 18:00 02/23/18 05:55 Enoxaparin Sodium (Lovenox Inj) 40 mg Q24H SQ 02/18/18 17:00 Future Hold 02/18/18 17:35 Potassium Phosphate 30 mmol/ Sodium Chloride 260 ml @ 42 mls/hr UNSCH PRN IV SEE LABEL COMMENTS 02/19/18 08:00 02/19/18 08:33 Metoprolol Tartrate (Lopressor) 50 mg BID PO 02/19/18 21:00 Future Hold 02/22/18 20:18 Bisacodyl (Dulcolax Supp) 10 mg DAILY RECTAL 02/20/18 09:00 02/21/18 08:21 Digoxin (Lanoxin Inj) 0.25 mg DAILY IV PUSH 02/20/18 09:00 Future Hold 02/23/18 09:02 Aztreonam 2000 mg/ Sodium Chloride 100 ml @ 200 mls/hr Q12H IV 02/22/18 16:00 02/23/18 03:22 Water (Free Water) 100 ml Q8HR G-TUBE 02/23/18 08:00 02/23/18 08:00 Objective Remarks GENERAL: Acutely ill appearing elderly female resting in bed sedated and intubated. SKIN: Warm and dry. HEAD: Normocephalic. EYES: No injection or drainage. NECK: Supple, trachea midline. No JVD or lymphadenopathy. CARDIOVASCULAR: Afib. Occasional pauses noted on CM. RESPIRATORY: Mechanically ventilated. Tachypneic GASTROINTESTINAL: Abdomen soft, non-tender, nondistended. EXTREMITIES: Left lower extremity mildly discolored. Warmer than last seen NEUROLOGICAL: Sedated Assessment/Plan Problem List: (1) Myasthenia gravis ICD Codes: G70.00 - Myasthenia gravis without (acute) exacerbation Status: Chronic Plan: --consuled by neurology to initiate apheresis with albumin every other day 5 days. Hx/Workup: Patient has a history of myasthenia gravis dating back to the . She has been on various lines of treatment including Mestinon, corticosteroids and Imuran. For the past several years she has been on IVIG infusions every 3 weeks under the care of a neurologist in [place] prior to relocating to the [facility]. She received IVIG infusions for 5 days in a row last week at [facility] and this did not improve her symptoms. The patient was being seen by a tele neurologist who recommended Rituxan infusion. She has been transferred to [facility] for continued care and management. Assessment 77-year-old female with respiratory failure, long-term use of steroids for management of myasthenia gravis. She was transferred to this facility due to worsening difficulty breathing, cough and worsening cytopenias. The hematology service was initially asked to see her to help coordinate plasma exchange treatments for a presumed myasthenia gravis exacerbation. The extent of her myasthenia gravis exacerbation is not clear however will we do know that she has a likely fungal pneumonia which is the likely cause of her respiratory failure. As a consequence of her fungal sepsis she has severe thrombocytopenia. Likely secondary to a peripheral consumptive coagulopathy. Plan 1. The patient was discussed with the PROGRAMMABLE LOGIC CONTROLLER ASSEMBLER, Dr. Funk the senior auditor, the palliative care ACTIVITIES THERAPIST as well as dialysis-the patient appears to be taking a turn for the worse. We will make every attempt to try and give her plasma exchange today as this is her daughter's wish. She remains intubation only in terms of her CODE STATUS. She has been mildly hypotensive this morning and is also having pauses on the CM with frequent bradycardia. A 250 mL normal saline bolus has been ordered by the senior auditor. I will increase the IV fluids to 84 mL's per hour only until the plasma exchange can take place today. Once the plasma exchange is through we will decrease the fluids back down to the previous rate of 42 mL's per hour. 2. It is noted that her platelet count is 17,000 today. This is due to DIC from infection. She is not having any bleeding and therefore we will hold off on transfusing platelets at this time. The plasma exchange should not affect platelet count. Overall the patient's prognosis is quite poor. We will make every attempt to try and coordinate the plasma exchange today, however depending on the patient' s hemodynamic status this may not be feasible. Will continue to follow. Olivia Moody February 23, 2018 12:30
--- NOTE | 2018-02-23 12:46 | HHI.DS ---
Summary Note Admission Date Feb 12, 2018 at 21:45 Admitting Diagnosis Myasthenia Gravis . Diagnosis at Time of : (1) Myasthenia gravis ICD Code: G70.00 - Myasthenia gravis without (acute) exacerbation Brief History Mrs. Vasquez is a 77 y/o female with a history of myasthenia gravis, congestive heart failure, atrial fibrillation, paroxysmal SVT, asthma, GERD, osteoporosis with compression fractures T5 through T8, and recent strep viridans bacteremia who presented to [facility] from [facility] where she has been hospitalized since 01/27/2018 for pneumonia. Oncologist Dr. Zacarias saw the patient at [facility] and recommended treatment with Rituxan. She was unable to get this treatment at that facility and was therefore transferred here under the care of the hospitalist team. The patient is seen in her hospital room. She denies any recent fever or chills. She reports progressively worsening symptoms of myasthenia gravis. Her conversation has to be cut short because she become short of breath with any extensive conversation. Oxygen saturation is 100 % on 3 liters NC. CBC/BMP: 02/23/18 0830 02/23/18 0830 Significant Findings Laboratory Tests Test 02/20/18 15:13 02/20/18 15:55 02/21/18 04:00 02/21/18 08:35 Platelet Count 63 TH/MM3 (150-450) 39 TH/MM3 (150-450) D-Dimer Quantitative (PE/DVT) 0.94 MG/L FEU (0.00-0.50) Red Blood Count 3.71 MIL/MM3 (4.00-5.30) Hemoglobin 9.3 GM/DL (11.6-15.3) Hematocrit 28.1 % (35.0-46.0) Mean Corpuscular Volume 75.6 FL (80.0-100.0) Mean Corpuscular Hemoglobin 25.0 PG (27.0-34.0) Red Cell Distribution Width 26.2 % (11.6-17.2) Neutrophils (%) (Auto) 95.2 % (16.0-70.0) Lymphocytes (%) (Auto) 2.8 % (9.0-44.0) Lymphocytes # (Auto) 0.1 TH/MM3 (1.0-4.8) Blood Urea Nitrogen 29 MG/DL (7-18) Creatinine 0.42 MG/DL (0.50-1.00) Random Glucose 200 MG/DL (74-106) Total Protein 4.2 GM/DL (6.4-8.2) Albumin 1.9 GM/DL (3.4-5.0) Calcium Level 7.5 MG/DL (8.5-10.1) Phosphorus Level 2.3 MG/DL (2.5-4.9) Alkaline Phosphatase 151 U/L (45-117) Aspartate Amino Transf (AST/SGOT) 54 U/L (15-37) Alanine Aminotransferase (ALT/SGPT) 170 U/L (10-53) Chloride Level 116 MEQ/L (98-107) Carbon Dioxide Level 18.1 MEQ/L (21.0-32.0) Prothrombin Time 12.6 SEC (9.8-11.6) Test 02/22/18 03:45 02/23/18 08:20 02/23/18 08:30 02/23/18 11:33 Red Blood Count 3.26 MIL/MM3 (4.00-5.30) 3.17 MIL/MM3 (4.00-5.30) Hemoglobin 8.5 GM/DL (11.6-15.3) 9.7 GM/DL (11.6-15.3) Hematocrit 25.3 % (35.0-46.0) 25.5 % (35.0-46.0) Mean Corpuscular Volume 77.4 FL (80.0-100.0) Mean Corpuscular Hemoglobin 26.1 PG (27.0-34.0) Red Cell Distribution Width 26.4 % (11.6-17.2) 26.6 % (11.6-17.2) Platelet Count 21 TH/MM3 (150-450) 17 TH/MM3 (150-450) Neutrophils (%) (Auto) 95.6 % (16.0-70.0) 93.4 % (16.0-70.0) Lymphocytes (%) (Auto) 3.0 % (9.0-44.0) 5.0 % (9.0-44.0) Lymphocytes # (Auto) 0.1 TH/MM3 (1.0-4.8) 0.2 TH/MM3 (1.0-4.8) Band Neutrophils % 34 % (0-6) 24 % (0-6) Lymphocytes % 3 % (9-44) 4 % (9-44) Nucleated Red Blood Cells 6 /100 WBC (0-0) 16 /100 WBC (0-0) Platelet Estimate LOW (NORMAL) RARE (NORMAL) Ovalocytes 1+ (NORMAL) Keratocytes OCC (NORMAL) Blood Urea Nitrogen 37 MG/DL (7-18) 46 MG/DL (7-18) Random Glucose 235 MG/DL (74-106) 221 MG/DL (74-106) Total Protein 3.5 GM/DL (6.4-8.2) 3.4 GM/DL (6.4-8.2) Albumin 1.8 GM/DL (3.4-5.0) Calcium Level 6.9 MG/DL (8.5-10.1) 6.7 MG/DL (8.5-10.1) Magnesium Level 2.6 MG/DL (1.5-2.5) Alkaline Phosphatase 127 U/L (45-117) Aspartate Amino Transf (AST/SGOT) 55 U/L (15-37) Alanine Aminotransferase (ALT/SGPT) 94 U/L (10-53) Sodium Level 146 MEQ/L (136-145) Chloride Level 118 MEQ/L (98-107) 108 MEQ/L (98-107) Carbon Dioxide Level 17.5 MEQ/L (21.0-32.0) 13.4 MEQ/L (21.0-32.0) Prothrombin Time 17.3 SEC (9.8-11.6) Activated Partial Thromboplast Time 50.0 SEC (24.3-30.1) Fibrinogen 173 mg/dL (227-377) White Blood Count 3.7 TH/MM3 (4.0-11.0) Mean Corpuscular Hemoglobin Concent 37.9 % (32.0-36.0) Neutrophils % (Manual) 71 % (16-70) Myelocytes 1 % (0-0) Toxic Granulation 1+ (NORMAL) Toxic Vacuolation PRESENT (NONE SEEN) Potassium Level 5.4 MEQ/L (3.5-5.1) Estimat Glomerular Filtration Rate 70 ML/MIN (>89) Imaging Last 24 hours Impressions Chest X-Ray 02/21/18 0600 Signed Impressions: Service Date/Time: Wednesday, February 21, 2018 01:40 - CONCLUSION: 1. Stable appearance of the chest with bibasilar airspace disease and associated effusions, right worse than left. Possible right perihilar infiltrate, unchanged. 2. Stable position of life support tubes. Martin Padilla MD Last Impressions Chest X-Ray 02/19/18 0600 Signed Impressions: Service Date/Time: Monday, February 19, 2018 03:41 - CONCLUSION: Persistent bilateral lower lung opacities and pleural effusions. Wilbur Lowry MD Abdomen X-Ray 02/19/18 0000 Signed Impressions: Service Date/Time: Monday, February 19, 2018 16:26 - CONCLUSION: 1. No acute abnormalities. 2. Minimal bibasilar densities. Jose Ames MD Upper Extremity Ultrasound 02/18/18 0000 Signed Impressions: Service Date/Time: Sunday, February 18, 2018 14:21 - CONCLUSION: Normal examination. Perry Green MD Chest CT 02/17/18 1551 Signed Impressions: Service Date/Time: January 16:18 - CONCLUSION: Bilateral lower lobe consolidations right greater left. Small bilateral pleural effusions. No visible pneumothorax. ET tube is in good position.. Perry Green MD Gall Bladder Ultrasound 02/17/18 0000 Signed Impressions: Service Date/Time: January 13:09 - CONCLUSION: 1. Gallbladder wall thickening and pericholecystic fluid suggesting possible acute cholecystitis. Clinical correlation is recommended. A hepatobiliary scan may be helpful to confirm cystic duct obstruction if clinically indicated. 2. Echogenic focus within the gallbladder suggestive of non-shadowing calculus or small polyp. 3. Mild hepatomegaly. 4. Minimal perinephric fluid on the right. Hira Arora MD Lower Extremity Angiography 02/16/18 0000 Signed Impressions: Service Date/Time: Friday, February 16, 2018 21:33 - CONCLUSION: 1. Very sluggish outflow. Findings could be due to poor cardiac output. Emboli to the small, intrinsic vessels of the foot could have a similar appearance. 2. Otherwise, inflow and outflow are widely patent with three-vessel runoff. Martin Padilla MD Arterial Ultrasound 02/16/18 0000 Signed Impressions: Service Date/Time: Friday, February 16, 2018 16:30 - CONCLUSION: 1. Inflow appeared to be adequate bilaterally despite scattered atherosclerotic calcification. 2. Three-vessel runoff on the right. 3. On the left, the dorsalis pedis artery appears to be quite diminutive with limited flow. Anterior tibial and peroneal are patent, however. Martin Padilla MD Aorta w/Runoff CTA 02/16/18 0000 Signed Impressions: Service Date/Time: Friday, February 16, 2018 19:36 - CONCLUSION: 1. Inflow appears to be patent down to the above-knee popliteal bilaterally. 2. On the right, the entire popliteal is patent with the dominant runoff via the posterior tibial. 3. On the left, minimal contrast below the knee joint on both the initial and delayed images. This may represent a combination of poor cardiac output and nonocclusive thrombus in the popliteal region. Again, please the dominant runoff is via the posterior tibial. 4. Bibasilar areas of consolidation/atelectasis with small associated effusions. Cannot exclude a developing infiltrate, especially on the right. 5. Abnormal appearance of the gallbladder with either marked gallbladder wall thickening or pericholecystic fluid. The fluid appears to track down the right paracolic gutter in the pelvis. Gallbladder ultrasound could be performed for further characterization. 6. Diverticular disease of the sigmoid without diverticulitis. Martin Padilla MD Lower Extremity Ultrasound 02/13/18 0000 Signed Impressions: Service Date/Time: Tuesday, February 13, 2018 16:19 - CONCLUSION: No DVT or superficial venous thrombosis is identified within either lower extremity. John Laureano MD Hospital Course This is a 77-year-old female that presented to [facility] on 01/27/2018 with complaints of dyspnea. The patient medical history significant for myasthenia gravis since the and was cared for by her vp of technology in [facility] prior to relocating recently to [place]. Her medical history is significant for chronic steroid therapy with prednisone and then subsequently placed on IVIG infusions every 3 weeks secondary to nonresponsiveness of steroid therapy. On 01 27 the patient was admitted to [facility] and treated for sepsis with broad- spectrum antibiotics, which have now been completed. Blood cultures have revealed Streptococcus viridans. The patient continued care at [place] seeing a telemetry neurologist and hematology oncology was consulted, Dr. Zacarias. It was recommended that the patient receive Rituxan and be evaluated formally by a neurologist. Patient was transferred to [facility]. The patient has a history of A. fib RVR, and home medications include metoprolol, digoxin, and Cardizem. These medications were stopped in the last 24 hours secondary to the patient experiencing dysphagia. Patient subsequently went into A. fib RVR early this a.m., heart rate 150's and transferred to ICU. Stat ABG was obtained. critical care medicine was consulted. SUBJ 02/14: Currently patient is quite tachypneic breathing about 40/min, even on BiPAP. Prior to BiPAP patient's NIF-16 and forced vital was 600 ml. Patient clearly failing BiPAP and this is most likely secondary to myasthenia gravis exacerbation. I proceeded to endotracheally intubate the patient placed on mechanical ventilation. Discussed with Dr. Olivarez area both of us agree on starting plasma exchange. Will discuss with hematology Dr. Zacarias 02/15: No events over the night. Due to progressive respiratory distress she was intubated yesterday. T-max of 98.7. I/O 1770/650. She remains on esmolol drip, still in A. fib/flutter on the monitor with heart rate better controlled. She sedated with propofol. 02/16: Patient did well over the night. Patient continues to require esmolol heart rate control, currently at 200, and propofol for sedation. 02/17: Yesterday evening, patient's left foot became more cyanotic. Dr. Conteh from vascular surgery was consulted, patient underwent CTA and IR to patient for left leg angio but no clot was seen. Patient had improved pulse post procedure. This a.m. patient has dopplerable pulse. No other overnight events. T-max of 98.2. Urine output decreased. 02/18: No events over the night. Left foot remains cyanotic with dopplerable pulse. Platelets remain low. Afebrile, with a T-max of 98.1. Documented urine output over the last 24 hours 250 cc. Of esmolol drip, receiving IV hydration. She remains sedated and intubated. 02/19: Patient remains intubated and sedated. Afebrile, with a T-max of 98. Improved urine output. A. fib on telemetry. No family present at bedside. 02/20: No events over the night. Patient remains intubated and sedated, though more awake, attempting to open eyes to voice stimuli. T-max of 98.7 and urine output of 800 cc over the last 24 hours. She remains on 0.3 FiO2. No family present at bedside. 02/21: Patient remains intubated and sedated. T-max of 98.9. Attempts to open her eyes but does not follow commands. On propofol at 30. Had a HIDA scan yesterday which was negative. Morning chest x-ray reviewed, still with bibasilar infiltrates, no significant change. 02/22: No acute changes overnight. Plasmapheresis planned for today. 02/23: Afebrile. No acute changes. Gentle hydration initiated patient and continues on free water flushes. Patient with pleural effusions chest x-ray pending this a.m. we will closely monitor. Current FiO2 is 50%. Addendum- patient's heart rate noted acutely to be in the 30's- 40's, mid day Previously 80-90's last 24-48 hours. Stat 12-lead EKG obtained revealing bifasicular block right bundle branch block with a left anterior fascicular block. Cardizem , metoprolol and digoxin placed on hold. Digoxin level pending. Patient to receive Atropine, and Glucagon. 1223 Notified by RN patient's rhythm asystole. Patient pronounced [id number]. Nemo Funk MD February 23, 2018 12:46
--- NOTE | 2018-02-24 14:03 | EKG ---
Date Performed: 02/23/2018 Time Performed: 11:36:34 PTAGE: 77 years EKG: --- Warning: Data quality may affect interpretation --- Atrial fibrillation with slow ventr icular response. Left axis deviation RBBB with left anterior fascicular block Possible anterior infar ct - age undetermined Low QRS voltages in precordial leads Abnormal ECG NO PREVIOUS TRACING DOCTOR: Amie Murray Interpretating Date/Time 02/24/2018 13:59:00
== END 2018-02-23 12:27 | disposition expired | DRG 56 ==
LOC: HCIN 21:45 → HIMW 02-13 10:35
PROVIDERS: ADMIT Internal Medicine; ATTEND Internal Medicine
PROC: 5A09357 Assistance with Respiratory Ventilation, Less than 24 Consecutive Hours, Continuous Positive Airway Pressure (ICD-10-PCS; 2018-02-13)
PROC: 5A1955Z Respiratory Ventilation, Greater than 96 Consecutive Hours (ICD-10-PCS; principal; 2018-02-14)
PROC: 0BH17EZ Insertion of Endotracheal Airway into Trachea, Via Natural or Artificial Opening (ICD-10-PCS; 2018-02-14)
PROC: 02HV33Z Insertion of Infusion Device into Superior Vena Cava, Percutaneous Approach (ICD-10-PCS; 2018-02-14)
PROC: 6A551Z3 Pheresis of Plasma, Multiple (ICD-10-PCS; 2018-02-14)
DX: G70.01 Myasthenia gravis with (acute) exacerbation (principal); J16.8 Pneumonia due to other specified infectious organisms; R65.20 Severe sepsis without septic shock; J96.01 Acute respiratory failure with hypoxia; D65 Disseminated intravascular coagulation [defibrination syndrome]; A41.9 Sepsis, unspecified organism; G93.40 Encephalopathy, unspecified; B44.1 Other pulmonary aspergillosis; J44.0 Chronic obstructive pulmonary disease with (acute) lower respiratory infection; K81.0 Acute cholecystitis; I48.92 Unspecified atrial flutter; I45.2 Bifascicular block; E87.0 Hyperosmolality and hypernatremia; I50.9 Heart failure, unspecified; I48.91 Unspecified atrial fibrillation; D63.8 Anemia in other chronic diseases classified elsewhere; R13.10 Dysphagia, unspecified; K21.9 Gastro-esophageal reflux disease without esophagitis; M81.0 Age-related osteoporosis without current pathological fracture; R00.0 Tachycardia, unspecified; D50.9 Iron deficiency anemia, unspecified; M19.90 Unspecified osteoarthritis, unspecified site; R41.82 Altered mental status, unspecified; I46.9 Cardiac arrest, cause unspecified; Z87.891 Personal history of nicotine dependence; Z87.01 Personal history of pneumonia (recurrent); Z79.52 Long term (current) use of systemic steroids
CPT/HCPCS: 31500; 36430; 36514; 36556; 36600; 71045; 71250; 74018; 75635; 75710; 76705; 76937; 78227; 80048; 80053; 80074; 80162; 80202; 81001; 82103; 82105; 82390; 82570; 82607; 82728; 82746; 82805; 82948; 83010; 83520; 83540; 83550; 83615; 83735; 83880; 84100; 84132; 84155; 84300; 85007; 85025; 85027; 85049; 85379; 85384; 85610; 85730; 86022; 86038; 86140; 86255; 86606; 86738; 86850; 86900; 86901; 86920; 86965; 87040; 87070; 87086; 87103; 87205; 87449; 87641; 87804; 93005; 93306; 93922; 93925; 93970; 93971; 94002; 94003; 94150; 94640; 94664; A9537; C1760; C1769; C1887; C1894; C9113; G0269; J0360; J0610; J0690; J1160; J1642; J1644; J1650; J1652; J1815; J1940; J2250; J2805; J2920; J2930; J2997; J3010; J3370; J3465; J7030; J7050; J7120; J7626; P9016; P9035; P9045; Q9967